=== PATIENT | male | born 1965 | race Caucasian/White ===

== ENCOUNTER 2019-07-16 23:16 | Emergency (ER) | payer MEDICARE, OTHER, SELFPAY ==
[2019-07-16 23:20] VITALS: BP 157/96; PULSE 84; RESP 18; TEMP 36.1; O2SAT 95; BMI 42.7
[2019-07-17 00:27] VITALS: BP 149/86; PULSE 71; RESP 18; O2SAT 92
--- NOTE | 2019-07-17 00:51 | ED_ITS ---
HPI - General Adult General: Chief complaint: General Medical Stated complaint: Passing blood Time Seen by Provider: 07/16/19 23:44 History of Present Illness: HPI narrative: Patient is a 54-year-old male comes in in the ED with constipation and stool. He said he noticed this yesterday and he has to strain a lot to have a bowel movement. He does have a history of hemorrhoids. He describes the blood in stool red colored and on toilet paper when he wipes. Patient states that he eats a lot of cheese. Patient denies any fever, chills, nausea, vomiting, chest pain, shortness of breath, dysuria, hematuria, upper respiratory symptoms, numbness or weakness to extremities. Patient states he has 2 hernias in his abdomen that he has seen a doctor about it and they will not do surgery until he loses some weight. He states those hernias have not caused him any issues or problems. Review of Systems General: Reports: 10 or more systems reviewed and unremarkable except in HPI and below PFSH ED PFSH: Statuses (acute, chronic, etc) shown below reflect problem list status as previously entered and may not be historically accurate Social History Smoking and tobacco status: current every day smoker Physical Exam Const: COMMON NORMALS: oriented x3 HENMT: COMMON NORMALS: normocephalic HEAD & SCALP: normocephalic MOUTH: oral and palatal mucosa normal THROAT: posterior oropharynx normal and uvula midline Neck/C-Spine: COMMON NORMALS: supple GENERAL: Yes normal visual inspection Resp: COMMON NORMALS: normal respiratory effort, no retractions, no use of accessory muscles and clear to auscultation bilaterally AUSCULTATION: clear to auscultation bilaterally Cardio: COMMON NORMALS: regular rate, regular rhythm, S1 normal heart sound, S2 normal heart sound, no gallops, no clicks, no murmurs and peripheral pulses 2+ throughout RATE: regular rate RHYTHM: regular rhythm HEART SOUNDS: S1 normal and S2 normal PERIPHERAL PULSES: pulses 2+ throughout GI: COMMON NORMALS: normal to inspection, nondistended, normoactive bowel sounds, soft to palpation, non-tender and no masses INSPECTION: Yes central obesity PALPATION: Yes soft OTHER: Patient has 2 hernias on his abdomen. One is on the right side the abdomen and the other one right lower abdomen. not painful upon palpation and reducible. : COMMON NORMALS: Yes no CVA tenderness BLADDER/KIDNEY EXAM: Yes no CVA tenderness Back/Pelvis: COMMON NORMALS: no CVA tenderness Extremity: COMMON NORMALS: normal to inspection Neuro: COMMON NORMALS: oriented x3 and moves all extremities Skin: COMMON NORMALS: no rashes or lesions noted GENERAL SKIN EXAM: no rashes or lesions noted Course Vital Signs: Vital signs: Vital Signs Temperature 97.9 F 07/17/19 04:22 Pulse Rate 74 07/17/19 04:22 Respiratory Rate 18 07/17/19 04:22 Blood Pressure 144/99 07/17/19 04:22 Pulse Oximetry 92 07/17/19 04:22 MDM - General Adult Lab Data: Attestation: I reviewed the patient's lab results. Labs: Lab Results 07/17/19 07/17/19 07/17/19 Range/Units 01:01 01:01 01:50 WBC 14.9 H (4.0-10.0) 10^3/ uL RBC 5.36 H (4.1-5.3) 10^6/u L Hgb 14.9 (11.7-16.6) g/dL Hct 45.5 (42.0-52.0) % MCV 84.9 (80-94) fL MCH 27.8 L (28.0-34.0) pg MCHC 32.7 (30.0-36.0) g/dL RDW 11.8 L (12.1-15.1) % Plt Count 204 (130-400) 10^3/c mm MPV 10.8 H (7.4-10.4) fL Neut % (Auto) 73.9 % Lymph % (Auto) 19.0 % [place] % (Auto) 6.2 % Eos % (Auto) 0.2 % Baso % (Auto) 0.3 % Neut # (Auto) 11.1 H (1.8-7.7) 10^3/u L Lymph # (Auto) 2.8 (0.8-4.8) 10^3/u L [place] # (Auto) 0.9 (0.2-0.9) 10^3/u L Eos # (Auto) 0.0 (0.0-0.8) 10^3/u L Baso # (Auto) 0.0 (0.0-0.1) 10^3/u L Nucleated RBC % (a uto) 0 % Nucleated RBCs # 0.0 /100WBC Sodium 135 L (136-145) mmol/L Potassium 4.1 (3.5-5.1) mmol/L Chloride 100 (98-107) mmol/L Carbon Dioxide 22 (22-29) mmol/L Anion Gap 17.1 (5-19) BUN 17 (6-20) mg/dL Creatinine 1.0 (0.7-1.2) mg/dL GFR Calculation 77.3 L (90-130) mL/min Glucose 181 H (74-109) mg/dL Calcium 9.8 (8.6-10.0) mg/Dl Total Bilirubin 0.6 (0.15-1.2) mg/dL AST 12 (0-40) U/L ALT 19 (0-41) U/L Alkaline Phosphata se 85 (40-130) IU/L Total Protein 6.7 (6.6-8.7) g/dL Albumin 4.3 (3.5-5.2) g/dL Globulin 2.4 (1.3-4.6) g/dL Stool Occult Blood Positive H (Negative) Discharge Plan Discharge Patient Disposition: Home, Self-Care Clinical Impression: Constipation in male Condition: Stable Prescriptions: No Action albuterol sulfate 2.5 mg /3 mL (0.083 %) solution for nebulization RF: 0 amlodipine 10 mg tablet RF: 0 atorvastatin 40 mg tablet RF: 0 bupropion HCl 150 mg tablet extended release 24 hr PO RF: 0 gabapentin 600 mg tablet RF: 0 glipizide 10 mg tablet RF: 0 hydrocodone-acetaminophen 10-325 mg tablet RF: 0 hydroxyzine HCl 50 mg tablet RF: 0 irbesartan 150 mg tablet RF: 0 Januvia 100 mg tablet RF: 0 lidocaine 5 % adhesive patch,medicated RF: 0 Lumigan 0.01 % drops RF: 0 metoprolol succinate 25 mg tablet extended release 24 hr PO RF: 0 metoprolol succinate 50 mg tablet extended release 24 hr PO RF: 0 montelukast 10 mg tablet RF: 0 trazodone 50 mg tablet RF: 0 tamsulosin 0.4 mg capsule PO RF: 0 triamterene-hydrochlorothiazid 37.5-25 mg tablet RF: 0 Ventolin HFA 90 mcg/actuation HFA aerosol inhaler INHALATION RF: 0 Discharge Orders: Discharge Order (Routine); Ordered 07/17/19 Ordered By: Ivan Patino Referrals: Jose Montero APN [Primary Care Provider] - Discharge Diet: Regular Discharge Activity: Resume usual activity Activity Restrictions/Additional Instructions: Follow-up with primary care doctor in 5-7 days for reevaluation. Purchase [id number] MiraLAX and take daily to help normalize stools. I'm going to send you home with some magnesium citrate To help with bowel movements. Try to eat a healthy diet of fresh fruits and vegetables along with other high-fiber foods. Cutdown on your cheese intake. Drink plenty of fluids. Discharge Date/Time: 07/17/19 04:24 Coding Level of Care Code ED Air Defense Control Officer for Kalpesh Aldana
[2019-07-17 01:09] LABS: Basophils % 0.3 %; Eosinophils % 0.2 %; Hematocrit 45.5 % (42.0-52.0); Hemoglobin 14.9 g/dL (11.7-16.6); Lymphocytes # 2.8 10^3/uL (0.8-4.8); Mean Corpuscular HGB Conc 32.7 g/dL (30.0-36.0); Mean Corpuscular Hemoglobin 27.8 pg (28.0-34.0); Mean Corpuscular Volume 84.9 fL (80-94); Mean Platelet Volume 10.8 fL (7.4-10.4); Monocytes # 0.9 10^3/uL (0.2-0.9); Monocytes % 6.2 %; Neutrophils # 11.1 10^3/uL (1.8-7.7); Neutrophils % 73.9 %; Nucleated Red Blood Cells % 0 %; Platelet Count 204 10^3/cmm (130-400); Red Blood Count 5.36 10^6/uL (4.1-5.3); Red Cell Distribution Width 11.8 % (12.1-15.1); White Blood Count 14.9 10^3/uL (4.0-10.0)
[2019-07-17 01:35] LABS: Alanine Aminotransferase 19 U/L (0-41); Albumin Level 4.3 g/dL (3.5-5.2); Alkaline Phosphatase 85 IU/L (40-130); Anion Gap 17.1 (5-19); Aspartate Amino Transferase 12 U/L (0-40); Blood Urea Nitrogen 17 mg/dL (6-20); Calcium 9.8 mg/Dl (8.6-10.0); Carbon Dioxide 22 mmol/L (22-29); Chloride 100 mmol/L (98-107); Globulin 2.4 g/dL (1.3-4.6); Glomerular Filtration Rate 77.3 mL/min (90-130); Glucose 181 mg/dL (74-109); Potassium 4.1 mmol/L (3.5-5.1); Sodium 135 mmol/L (136-145); Total Bilirubin 0.6 mg/dL (0.15-1.2); Total Protein 6.7 g/dL (6.6-8.7)
--- NOTE | 2019-07-17 01:57 | PC.NURSE ---
Stool sample collected, julissa red blood. PA shown.
--- NOTE | 2019-07-17 02:44 | XR_ITS ---
WS: [id number] ABDOMEN KUB CLINICAL INFORMATION: Constipation and abdominal pain COMPARISON: None. FINDINGS: Lower thoracic spinal stimulator. Exam limited due to body habitus. Bowel gas pattern appears unremar kable. Pelvic phleboliths. Degenerative arthritis lumbar spine. Moderate degenerative arthritis both hips. XR/XR KUB portable [id number] Impression: Unremarkable bowel gas pattern
[2019-07-17 03:39] LABS: Occult Blood Stool Positive (Negative)
[2019-07-17] MEDS: magnesium citrate Btl 296 mL 150 ML PO (04:21)
[2019-07-17 04:22] VITALS: BP 144/99; PULSE 74; RESP 18; TEMP 36.6; O2SAT 92
== END 2019-07-17 04:24 | disposition home or self-care (01) ==
PROVIDERS: Emergency Provider Physician Assistant; Family Provider Nurse Practitioner Family; PCP Nurse Practitioner Family
DX: K59.00 Constipation, unspecified (principal); Z79.84 Long term (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 of oral hypoglycemic drugs; F17.210 Nicotine dependence, cigarettes, uncomplicated
CPT/HCPCS: 74018; 80053; 82270; 85025; 99281

== ENCOUNTER 2019-07-23 13:36 | Emergency (ER) | payer MEDICARE, OTHER, SELFPAY ==
[2019-07-23 13:39] VITALS: BP 121/84; PULSE 63; RESP 18; TEMP 36.8; O2SAT 94; BMI 42.7
--- NOTE | 2019-07-23 13:52 | PC.NURSE ---
To treatment room 15
--- NOTE | 2019-07-23 13:56 | ED_ITS ---
Entered by Arelis Sweeney, acting as scribe for HPI - Abdominal Pain General: Chief Complaint: Abdominal Pain Stated Complaint: no bowel movement Time Seen by Provider: 07/23/19 13:51 Source: patient and family Mode of arrival: ambulatory Limitations: no limitations History of Present Illness: HPI narrative: 54 yo male presents with constipation. pt states this started about 10 days ago. pt has had abdomen tenderness, cramps. pt states he was seen for the same symptoms and they gave him medications to drink but no relief. pt states he has had a few small hard BM's but it had blood and water with it. pt denies any other symptoms . pt states he takes a large amount of Hydrocodone for his chronic pain and feels that is the cause of constipation. MD elicited complaint: abdominal pain Onset (ago): week(s) (1 week ago) Pain Consistency: constant Severity: moderate Quality: sharp Exacerbating factors: bowel movement Relieving factors: nothing Associated Symptoms: Reports change in bowel habits, constipation, GI cramping and hematochezia; Denies chills and fever(s) Treatments prior to arrival: other (Amitiza prescription laxative) Review of Systems General: Reports: 10 or more systems reviewed and unremarkable except in HPI and below Const: Denies: fever or chills Eyes: Denies: blurry vision or eye discharge ENMT: Denies: throat pain, nasal congestion or facial/sinus pain Card: Denies: chest pain or shortness of breath on exertion Resp: Denies: shortness of breath, productive cough or non-productive cough GI: Reports: abdominal pain, constipation, cramping, change in bowel habits and blood in stool Musc: Reports: back pain (chronic and unchanged); Denies: neck pain, extremity pain or extremity swelling Skin/Breast: Denies: rash, redness or sores Neuro: Denies: headache, numbness in extremities, weakness in extremities or dizziness Psych: Denies: anxiety or depression Endo: Denies: excessive urination or excessive thirst Esteban/Lymph: Denies: easy bruising, petechiae or enlarged lymph nodes All/Imm: Denies: hives or acute wheezing PFSH ED PFSH: Statuses (acute, chronic, etc) shown below reflect problem list status as previously entered and may not be historically accurate Social History Smoking and tobacco status: current every day smoker Physical Exam Const: COMMON NORMALS: no apparent distress, oriented x3, no limitations, healthy appearing, alert and well nourished GENERAL APPEARANCE: cooperative, comfortable, well kempt and well developed ORIENTATION/CONSCIOUSNESS: Yes awake, Yes oriented to person, Yes oriented to place and Yes oriented to time HENMT: COMMON NORMALS: normocephalic, head/scalp atraumatic, hearing grossly normal bilaterally, external ears normal, external nose normal and moist oral mucous membranes HEAD & SCALP: normocephalic and atraumatic FACE & SINUS: normal facial exam and face symmetric NOSE: external nose normal EXTERNAL EAR: Yes external ears normal and Yes external ear abnormal Eye: COMMON NORMALS: EOMs intact bilaterally and conjunctivae normal GENERAL EYE: normal appearance of both eyes ALIGNMENT: Yes alignment normal EYELID: eyelids normal CONJUNCTIVA: Yes conjunctivae normal SCLERA: sclerae normal Neck/C-Spine: COMMON NORMALS: full ROM and no lymphadenopathy GENERAL: Yes normal visual inspection CERVICAL SPINE: Yes cervical ROM normal Lymph: LYMPHATIC: no lymphadenopathy noted Chest: COMMONS NORMALS: inspection of chest normal CHEST: Yes symmetrical chest wall rise Resp: COMMON NORMALS: normal respiratory effort, no use of accessory muscles and clear to auscultation bilaterally EFFORT & INSPECTION: Yes able to speak in complete sentences, Yes symmetric chest movement and No respiratory distress AUSCULTATION: clear to auscultation bilaterally Cardio: COMMON NORMALS: regular rate and regular rhythm RATE: regular rate RHYTHM: regular rhythm PERIPHERAL PULSES: radial pulses present GI: COMMON NORMALS: normal to inspection, nondistended, normoactive bowel sounds, soft to palpation, non-tender and no hepatosplenomegaly AUSCULTATION: Yes normoactive bowel sounds PALPATION: Yes soft and Yes no hepato splenomegaly RECTAL EXAM: Yes normal sphincter tone, Yes heme negative stool, Yes visual inspection abnormal and No fecal impaction : COMMON NORMALS: Yes no CVA tenderness BLADDER/KIDNEY EXAM: Yes no CVA tenderness Back/Pelvis: COMMON NORMALS: no CVA tenderness THORACIC SPINE/UPPER BACK: No pain with ROM LUMBAR SPINE/LOWER BACK: No pain with ROM Extremity: COMMON NORMALS: normal to inspection, full ROM, normal capillary refill and no pedal edema GENERAL: Yes normal exam except as noted Neuro: BARNEY COMA SCALE: GCS not evaluated COMMON NORMALS: oriented x3, moves all extremities, no focal motor deficits and no sensory deficits noted SENSORIUM/ORIENTATION: Yes alert, Yes oriented to person, Yes oriented to place and Yes oriented to time SPEECH: speech normal GAIT: Yes normal gait Psych: COMMON NORMALS: mental status grossly normal, thought process normal, cooperative, affect normal and speech normal APPEARANCE: Yes grossly normal and Yes well kempt ATTITUDE: Yes calm ACTIVITY/MOTOR BEHAVIOR: Yes appropriate eye contact SPEECH: Yes normal speech THOUGHT PROCESS: normal thought process THOUGHT CONTENT: Yes normal thought content ATTENTION/CONCENTRATION: Yes attention grossly intact MEMORY/COGNITION: Yes memory grossly intact and Yes cognition grossly intact INSIGHT: insight good JUDGEMENT: judgment good Skin: COMMON NORMALS: no rashes or lesions noted, skin turgor normal and no petechiae GENERAL SKIN EXAM: no rashes or lesions noted and turgor normal RASHES: no rashes TRAUMA: no lacerations or abrasions HAIR: normal NAILS: normal Course ED course: Patient has chronic pain and takes 6-8 hydrocodone 10/325 tablets a day. For the last 10 days or so he has been constipated with almost no stool output. He is had severe abdominal cramps. When he is able to have a bowel movement he is having very small amounts of loose stool, sometimes bloody. He has seen his primary care provider who placed him on a prescription laxative, lubiprostone. He denies any fever, no vomiting. On exam, he does not appear to have a surgical abdomen. Chaperoned, rectal exam was performed. There is no evidence of a fecal impaction within reach. I do not feel the patient needs to come into the hospital. Based on his current exam I do not feel he needs further labs or imaging. Patient was given 12 mg of Relistor SubQ. He will be discharged home with instructions for fleets enema and MiraLAX use today. The patient was reexamined and I have informed them of all their test results and diagnoses. I have given the patient instructions regarding their diagnosis and expectations. I have recommended they follow-up with their primary care provider or another physician or specialist of their choice and stressed the importance of this follow-up. I have explained to the patient that emergent conditions may arise and to return to the closest Emergency Department for new, worsening, or any persistent problems. The patient has been instructed to take all medications (if any) as prescribed. The patient verbalizes understanding of the above information as well as discharge instructions and is ready for discharge. . Vital Signs: Vital signs: Vital Signs Temperature 98.2 F 07/23/19 13:39 Pulse Rate 70 07/23/19 14:49 Respiratory Rate 15 07/23/19 14:49 Blood Pressure 121/84 07/23/19 13:39 Pulse Oximetry 97 07/23/19 14:49 MDM - Abdominal Pain Differential Diagnosis: Differential diagnosis abdominal pain: Likely abdominal pain, constipation, diverticulitis and small bowel obstruction Medical Records: Attestation: I reviewed the patient's medical records. Lab Data: Attestation: I reviewed the patient's lab results. Discharge Plan Discharge Patient Disposition: Home, Self-Care Clinical Impression: Constipation in male Condition: Stable Prescriptions: No Action albuterol sulfate 2.5 mg /3 mL (0.083 %) solution for nebulization RF: 0 amlodipine 10 mg tablet RF: 0 atorvastatin 40 mg tablet RF: 0 bupropion HCl 150 mg tablet extended release 24 hr PO RF: 0 gabapentin 600 mg tablet RF: 0 glipizide 10 mg tablet RF: 0 hydrocodone-acetaminophen 10-325 mg tablet RF: 0 hydroxyzine HCl 50 mg tablet RF: 0 irbesartan 150 mg tablet RF: 0 Januvia 100 mg tablet RF: 0 lidocaine 5 % adhesive patch,medicated RF: 0 Lumigan 0.01 % drops RF: 0 metoprolol succinate 25 mg tablet extended release 24 hr PO RF: 0 metoprolol succinate 50 mg tablet extended release 24 hr PO RF: 0 montelukast 10 mg tablet RF: 0 trazodone 50 mg tablet RF: 0 tamsulosin 0.4 mg capsule PO RF: 0 triamterene-hydrochlorothiazid 37.5-25 mg tablet RF: 0 Ventolin HFA 90 mcg/actuation HFA aerosol inhaler INHALATION RF: 0 Referrals: Jose Montero APN [Primary Care Provider] - Discharge Diet: Usual diet Discharge Activity: Resume usual activity Patient Instructions: Constipation - Adult Activity Restrictions/Additional Instructions: Resume your home medications (if any). Follow-up with your primary care provider within the next 3-5 days. Follow-up with specialist if it was recommended. Return to the Emergency Department for worsening conditions or other concerning symptoms. You do not have to complete the entire process listed below. If you have good results after 4 hours you may stop. Purchase a large container of MiraLAX. Purchase 2 fleets enemas. These can be found at your local pharmacy, [employer] or [facility]. Use one fleets enema as directed on the package. Mix a dose of MiraLAX as directed on the package and drink it over 15 minutes. Repeat this every hour for a total of 4 doses. If you have good results after this, you may stop. If not, repeat the process starting with the fleets enema. Drink 4 more doses of the MiraLAX over the next 4 hours. If this does not relieve your symptoms by morning, follow-up with your primary care provider or return to the ER for worsening symptoms. Discharge Date/Time: 07/23/19 14:50 Coding Level of Care Code ED Rail Bender for Chg Fwd Exam Problem Focused The documentation recorded by the Patel villaseñor Bridget Annette, accurately reflects the service I personally performed and the decisions made by me, Umberto Sanchez MD Jul 23, 2019 13:36
[2019-07-23] MEDS: methylnaltrexone 12 /0.6 mL INJ 12 MG SUBCUT (14:14)
[2019-07-23 14:49] VITALS: PULSE 70; RESP 15; O2SAT 97
== END 2019-07-23 14:50 | disposition home or self-care (01) ==
PROVIDERS: Emergency Provider Emergency Medicine; Family Provider Nurse Practitioner Family; PCP Nurse Practitioner Family
DX: K59.00 Constipation, unspecified (principal); Z79.84 Long term (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 of oral hypoglycemic drugs; F17.210 Nicotine dependence, cigarettes, uncomplicated
CPT/HCPCS: 96372; 99281; J2212

== ENCOUNTER 2019-11-21 14:00 | Outpatient (CLI) | payer MEDICARE, OTHER, SELFPAY ==
--- NOTE | 2019-11-21 | XRR_ITS ---
PROCEDURE INFORMATION: Exam: XR Abdomen, 2 Views Exam date and time: 11/21/2019 2:28 PM Age: 54 years old Clinical indication: Constipation; Abdominal pain; Prior surgery; Surgery date: 6+ months; Surgery type: Stimulator; Additional info: Constipation, abdomen pain x 2 months TECHNIQUE: Imaging protocol: XR of the abdomen. Views: 2 Views. COMPARISON: CR XR KUB portable [id number] 07/17/2019 3:01 AM FINDINGS: Tubes, catheters and devices: Thoracic spinal stimulator present. Heart/Mediastinum: The cardiac silhouette is not enlarged. The mediastinal contours are normal. Lungs: No pneumonia or pulmonary edema. Pleural space: No pleural effusion or pneumothorax. Gastrointestinal tract: Gas present in the stomach, small bowel, and colon. However, there appears to be a gas-filled distended loop of small bowel on the left. Intraperitoneal space: No pneumoperitoneum. Bones/joints: Right glenohumeral joint degeneration. Old, healed left clavicular fracture. Old anterior left rib fracture. Multilevel disc degeneration in the lumbar spine. XR/XR acute abdomen series [id number] IMPRESSION: Gas-filled distended loop of small bowel in the left abdomen. Given the history, consider CT ABDOMEN/PELVIS.
== END 2019-11-21 14:01 | disposition home or self-care (01) ==
LOC: RAD 14:06
PROVIDERS: PCP Nurse Practitioner Family; Visit Provider Nurse Practitioner Family
DX: K59.00 Constipation, unspecified (principal); R10.9 Unspecified abdominal pain
CPT/HCPCS: 74022

== ENCOUNTER 2019-12-01 13:07 | Outpatient (CLI) | payer MEDICARE, OTHER, SELFPAY ==
--- NOTE | 2019-12-01 13:24 | CT_ITS ---
WS: [id number] CT ABDOMEN PELVIS TECHNIQUE: Contrast-enhanced CT of the abdomen and pelvis with coronal and sagittal reformatted image s. CLINICAL INFORMATION: ABDOMINAL PAIN, CONSTIPATION, ABNORMAL XRAYS COMPARISON: CT September 13, 2018 DLP: 1183.[address] scans at [facility] use at least one of these dose optimization techniques: automat ed exposure control; mA and/or kV adjustment per patient size (includes targeted exams where dose is matched to clinical indication); or iterative reconstruction. FINDINGS: Diffuse fatty infiltration of the liver. Normal gallbladder. Normal portal vein and splenic vein. Nor mal GE junction. Lung bases are well aerated. Adrenal glands are normal. No hydronephrosis. Normal sp abena and pancreas. No periaortic or pelvic lymphadenopathy. No inguinal lymphadenopathy. A few air-fluid levels in small bowel within the right lower quadrant. Mild swirling along the mesen teric root somewhat prominent and can be seen with internal hernias. Recommend interval follow-up to assess for developing small bowel obstruction or entrapped hernia. Colon is normal in appearance and decompressed. No free fluid in the pelvis. No free air or pneumatosis. Partially visualized spinal stimulator extending off the [id number]. Low-lying cecum cecum in the pelvis. A few prominent bart hepatis lymph nodes likely reactive are unchanged. Stable previously described omental fat herniation posterior lateral abdominal wall is unchanged in appearance. No herniated nick l. Notified Jose Montero APN at 12/01/2019 4:[address]/CT abdomen pelvis w con* [id number] IMPRESSION: 1. Diffuse fatty infiltration of the liver. 2. A few dilated loops of small bowel in the right lower quadrant with air-flu id levels. Associated swirling along the mesenteric root can be seen with inter nal hernias. Recommend short interval follow-up to assess for developing small bowel obstruction or entrapped internal hernia. 3. No pneumatosis or free air. 4. Previously described right posterior lateral omental fat herniation is unch anged. No herniated bowel. 5. Prominent lymph nodes bart hepatis nonspecific but likely reactive and unc hanged. 6. Colon is decompressed. Low-lying cecum in the right lower quadrant.
[2019-12-01] MEDS: iohexol 300 mg/mL 50 mL Btl PO (13:48)
[2019-12-01] MEDS: iohexol 300 mg/mL 100 mL Btl IV (14:58)
== END 2019-12-01 13:08 | disposition home or self-care (01) ==
LOC: RADWPI 13:16
PROVIDERS: PCP Nurse Practitioner Family; Visit Provider Nurse Practitioner Family
DX: R10.9 Unspecified abdominal pain (principal); K59.00 Constipation, unspecified; R93.89 Abnormal findings on diagnostic imaging of other specified body structures; K76.0 Fatty (change of) liver, not elsewhere classified
CPT/HCPCS: 74177; Q9967

== ENCOUNTER 2019-12-20 13:53 | Outpatient (CLI) | payer MEDICARE, OTHER, SELFPAY ==
--- NOTE | 2019-12-20 14:15 | USCV_ITS ---
Deejay Gonzalez Age: 54 Gender: M : 1965 Exam Date: 12/20/2019 14:10 Ordering Phys: Technologist: Kaye Cobb [place] [facility] [place]: TRANSIENT BILATERAL BLINDNESS THAT RESOLVED Risk Factors: Previous Vascular Surgery: Right Brachial BP: / Left Brachial BP: / Right Left Velocity (cm/s) Spectral Plaque Velocity (cm/s) Spectral Plaque Syst/Diast Broadening Syst/Diast Broadening 99.20/ 16.50 Prox CCA 65.50 / 18.70 49.10/ 14.40 Mid CCA 54.60 / 16.10 51.80/ 16.00 Distal CCA 57.70 / 21.70 50.00/ 19.70 Prox ICA 36.40 / 12.30 Hetro 58.30/ 28.50 Mid ICA 48.20 / 21.10 58.30/ 26.90 Distal ICA 44.40 / 22.00 39.80 ECA 76.30 Hetro 1.19 ICA/CCA 0.88 Antegrade Vertebral Antegrade 32.20/ 13.10 cm/s 27.10/ 14.40 cm/s Tri Subclavian Tri 105.1 94.40 0 FINDINGS Minimal plaques of the bifurcations bilaterally Intimal thickening in the common carotid arteries bilaterally Some scattered plaques in the left common carotid artery Antegrade flow in the vertebral arteries bilaterally Mild Doppler flow velocities in the subclavian and external carotid arteries arteries bilaterally CONCLUSIONS Minimal plaques at the bifurcations bilaterally Intimal thickening in the common carotid arteries bilaterally. No significant stenosis, based on the above findings. Dr Vicki Villarreal MD [facility] (Electronically Signed) Final Date: 21 December 2019 08:58 S
== END 2019-12-20 13:54 | disposition home or self-care (01) ==
LOC: US 13:54
PROVIDERS: PCP Nurse Practitioner Family; Visit Provider Internal Medicine Cardiovascular Disease
DX: H53.123 Transient visual loss, bilateral (principal)
CPT/HCPCS: 93880

== ENCOUNTER 2019-12-27 09:25 | Day surgery (SDC) | payer MEDICARE, OTHER, SELFPAY ==
[2019-12-25 13:16] VITALS: BMI 41.5
[2019-12-27 09:47] VITALS: BP 138/82; PULSE 63; RESP 18; TEMP 36.2; O2SAT 94
[2019-12-27] MEDS: sodium chloride 0.9% 1,000 ML 30 ML IV (10:04)
[2019-12-27 10:11] LABS: Glucose Point of Care 199 mg/dL (70-110)
--- NOTE | 2019-12-27 10:12 | ANES.PREANE2 ---
Pre-Anesthetic Assessment Pre-Anesthetic Assessment: Height/Weight: Height 1.85 m Weight 142.882 kg Temp Pulse Resp BP Pulse Ox 97.1 F L 63 18 138/82 94 12/27/19 09:47 12/27/19 09:47 12/27/19 09:47 12/27/19 09:47 12/27/19 09:47 Preop Diagnosis: Screenig Colonsocope Proposed Procedure: Operation Date: 12/27/19 10:50 Proposed Procedures p Colonoscopy(Not Applicable) - Harlan Posadas MD Familial anesthetic complications: 1999 - had to defibrillate Was Beta Gabbi taken within 24 hours: Yes Last intake: Intake Last Liquid Date 12/26/19 Last Liquid Time 21:30 Last Solid Date 12/25/19 Last Solid Time 22:30 Social: Social History: Tobacco and No alcohol Exam: Pre-Anes Outpt Exam: alert, oriented x 3, clear to auscultation bilaterally and regular rate & rhythm Airway: Cervical ROM: WNL MP: 4 Dentition: Full Additional comments: larege tongue and neck Pulmonary: Pulmonary: COPD, SINHA and Sleep apnea (CPAP) CV/HEM: CV/HEM: HTN : : None reported Hepatic: Hepatic: None reported Metabolic: Metabolic: DM, Hyperlipidemia and Morbid obesity Neuropsych: Comments: blurry vision for 45 minutes prompting Anesthetic Plan: ASA status: 3 Anesthesia: MAC Other: Patient willing to try just versed and fentanyl with propofol as necessary. he was awake for his previous colonoscpy 10 years ago Risk of > 500 ml blood loss (7ml/kg in children): No Other Pertinent Information: worked up by cardiology, last saw kaila in november. Negative holter monitor, negative carotids Meds/Allergies Current Medications: Current Medications Generic Name Dose Route Start Last Admin Trade Name Freq PRN Reason Stop Dose Admin Sodium Chloride 1,000 mls @ 30 ml s/hr 12/27/19 09:45 12/27/19 10:04 Sodium Chloride 0.9% IV 12/28/19 09:44 30 mls/hr .Q24H KAREL Administration PFSH Anesthesia PFSH: Medical History Change in bowel habits COPD (chronic obstructive pulmonary disease) Diabetes Hyperlipidemia Obesity ANGIE on CPAP Syncope Tobacco abuse Transient blindness of both eyes Family History Grandmother CAD (coronary artery disease) MATERNAL Mother Diabetes Denies family history of Anesthesia complication Bleeding disorder Social History Smoking and tobacco status: current every day smoker cigarettes Packs smoked per day: 1 Marital status: service: No Current occupational status: disabled Data Anesthesia Other Labs: Laboratory Results - last 48 hr 12/27/19 10:07 POC Glucose 199 Cardiac Studies: No Data to Display
--- NOTE | 2019-12-27 11:10 | W.PM.OPSUD ---
Surgery/Procedure H&P Update DATE OF PROCEDURE: December 27, 2019 DATE H&P PERFORMED: 12/11/19 H&P UPDATE INFORMATION: I have reviewed H&P completed within last 30 days, I have examined patient prior to procedure and No changes to prior documentation PREOP DIAGNOSIS: Screenig Colonsocope PRIMARY INDICATION FOR PROCEDURE: The same PLANNED PROCEDURE: Operation Date: 12/27/19 10:50 Proposed Procedures p Colonoscopy(Not Applicable) - Harlan Posadas MD
[2019-12-27 12:09] VITALS: BP 159/69; PULSE 65; RESP 16; TEMP 37.4; O2SAT 94
[2019-12-27 12:25] VITALS: BP 119/58; PULSE 56; RESP 18; O2SAT 95
== END 2019-12-27 12:41 | disposition home or self-care (01) ==
PROVIDERS: PCP Nurse Practitioner Family; Visit Provider Surgery
PROC: 0DJD8ZZ Inspection of Lower Intestinal Tract, Via Natural or Artificial Opening Endoscopic (ICD-10-PCS; CPT 45378; principal; 2019-12-27 10:45)
DX: Z12.11 Encounter for screening for malignant neoplasm of colon (principal); K62.0 Anal polyp; I10 Essential (primary) hypertension; E11.9 Type 2 diabetes mellitus without complications; E78.5 Hyperlipidemia, unspecified; E66.01 Morbid (severe) obesity due to excess calories; Z68.41 Body mass index [BMI] 40.0-44.9, adult; G47.33 Obstructive sleep apnea (adult) (pediatric); Z82.49 Family history of ischemic heart disease and other diseases of the circulatory system; Z83.3 Family history of diabetes mellitus; F17.210 Nicotine dependence, cigarettes, uncomplicated; J44.9 Chronic obstructive pulmonary disease, unspecified
CPT/HCPCS: 12345; 36416; 45385; 82962; 88304; J2001; J2704; J3010; J7030

== ENCOUNTER 2020-03-22 09:12 | Outpatient (CLI) | payer MEDICARE, OTHER, SELFPAY ==
--- NOTE | 2020-03-22 09:20 | ECG_ITS ---
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 Interpretive Statements NAME OF STUDY: LEXISCAN SESTAMIBI STRESS TEST INDICATION: [Dyspnea, ] Procedure: At the baseline, the blood pressure was 151/97 mmHg,with a heart rate of 70 bpm. The electrocardiogram showed normal sinus rhythm with right bundle branch block. Lexiscan was infused over a period of 20 seconds. A total of 0.4 mg of Lexiscan was infused. Stress phase was continued for a total of 5 minutes. Heart rate at the end of stress phase was 81 bpm. Blood pressure was 190/101 mmHg. The EKG at the peak infusion revealed sinus rhythm with no significant changes. Sestamibi was injected 20 seconds after the Lexiscan infusion. Blood pressure at the end of recovery phase was 164/95 mmHg. Heart rate was 77 bpm Conclusion: 1. Normal EKG response to Lexiscan infusion. 2. No Lexiscan induced chest pain or cardiac arrhythmia. 3. Normal heart rate and blood pressure response. 4. Sestamibi/sestamibi perfusion scan pending; see separate report. Electronically Signed On 03-29-2020 17:14:28 CDT by Fausto Leos M.D. [id number]
--- NOTE | 2020-03-22 09:24 | NMCV_ITS ---
NM oskar perf SPECT r/s* [id number] Deejay Gonzalez Age: 55 Gender: M : 1965 Exam Date: 03/22/2020 10:18 Ordering Phys: Kylah Garcia SPEECH THERAPIST EARLY INTERVENTION- SPEECH THERAPIST EARLY INTERVENTION Technologist: LAVINIA Marinelli Exam Location: [facility] Indications: Syncope STRESS TEST Please see separate stress test report in [facility] for full findings IMAGE PROTOCOL Rest/Stress 1 Lexiscan Day Radiopharmaceutical Dose (mCi) Administration Site Administered by Rest: Tc-99m 10.9 IV LAVINIA Marinelli Sestamibi Stress:Tc-99m 32.9 IV LAVINIA Marinelli Sestamibi Rest: 22-Mar-2020 60 Discovery 630 Stress: 22-Mar-2020 45 Discovery 630 0.4mg Lexiscan. Images obtained in supine and prone position. SPECT RESULTS Technical Quality: Good Raw Data Analysis: Soft tissue attenuation Image Corrections: Patient motion artifact -partial motion correction applied to stress supine images Summed Stress Score: 4 Summed Rest Score: 10 Summed Difference Score: 0 PERFUSION FINDINGS There is a large in size, fixed perfusion defect of the inferior wall. This could represent attenuation artifact as there is improvement on prone imaging. Versus prior infarct. Rest of the myocardium has homogenous tracer uptake without any reversible defect. FUNCTIONAL RESULTS (calculated via Gated SPECT) Stress Image LV EF (%): 59 Stress EDV (mL):128 TID: 0.86 Stress ESV (mL):53 FUNCTIONAL FINDINGS: There is normal left ventricular systolic function. IMPRESSIONS 1. Large in size, fixed perfusion defect in the inferior wall. This could represent attenuation artifact(improvement with prone imaging) versus prior infarct. There is no area of ischemia noted. 2. Normal LV systolic function is noted. Fausto Leos MD (Electronically Signed) Final Date: 24 March 2020 16:06 S
[2020-03-22 09:36] VITALS: BMI 42.0
[2020-03-22] MEDS: regadenoson 0.4 Mg/5 ml Syringe IVP (11:31)
[2020-03-22 11:36] VITALS: BP 164/95; PULSE 78
== END 2020-03-22 09:13 | disposition home or self-care (01) ==
LOC: CDL 09:14
PROVIDERS: PCP Nurse Practitioner Family; Visit Provider Nurse Practitioner Family
DX: R55 Syncope and collapse (principal)
CPT/HCPCS: 78452; 93017; A9500; J2785

== ENCOUNTER → 2020-07-03 14:52 | Outpatient (BNVA) | payer MEDICARE, OTHER, SELFPAY | PROVIDERS: PCP Nurse Practitioner Family; Visit Provider Podiatrist Foot & Ankle Surgery | DX: M79.671 Pain in right foot (principal); M79.672 Pain in left foot | CPT/HCPCS: 73630 ==

== ENCOUNTER → 2020-09-05 14:17 | Outpatient (BNVA) | payer MEDICARE, OTHER, SELFPAY | PROVIDERS: PCP Nurse Practitioner Family; Visit Provider Internal Medicine | DX: R53.83 Other fatigue (principal); R55 Syncope and collapse; R07.9 Chest pain, unspecified; I10 Essential (primary) hypertension; E78.5 Hyperlipidemia, unspecified; E11.9 Type 2 diabetes mellitus without complications | CPT/HCPCS: 84443 ==

== ENCOUNTER 2020-10-02 11:03 | Outpatient (CLI) | payer MEDICARE, OTHER, SELFPAY ==
--- NOTE | 2020-10-02 11:10 | CT_ITS ---
WS: [id number] CT NECK TECHNIQUE: Contrast-enhanced CT of the neck with coronal and sagittal reformatted images. CLINICAL INFORMATION: CHRONIC LARYNGITIS, PAIN IN THROAT COMPARISON: 2008 DLP: 1936.[address] scans at [facility] use at least one of these dose optimization techniques: automat ed exposure control; mA and/or kV adjustment per patient size (includes targeted exams where dose is matched to clinical indication); or iterative reconstruction. FINDINGS: Partially visualized intracranial contents are normal. Paranasal sinuses and mastoid air cells are we ll aerated. Parotid glands are normal. Normal submandibular glands. Some images degraded by dental be am hardening artifact. Tongue base appears normal. Normal parapharyngeal fat. Subglottic airway appea rs patent. Normal visualized thyroid gland. Mild emphysematous changes in the lung apices. No cervical lymphadenopathy. Moderate spondylitic walker ges cervical spine. Bilateral carotid bulb calcification. Numerous and a few prominent mediastinal and peribronchial lymph nodes the largest measuring 15 mm on the right. This may be reactive but nonspecific. This can be further evaluated with chest CT. CT/CT neck w con* [id number] IMPRESSION: 1. Normal salivary glands. 2. No evidence of supraglottic or glottic mass. 3. No cervical lymphadenopathy. 4. Paranasal sinuses and mastoid air cells are well aerated. 5. Moderate spondylitic changes cervical spine. 6. Mild bilateral carotid bulb calcification. 7. Several mediastinal and peribronchial lymph nodes the largest measuring 15 mm on the right. This may be reactive but nonspecific. This can be further eval uated with chest CT.
[2020-10-02] MEDS: iohexol 300 mg/mL 100 mL Btl IV (11:34)
== END 2020-10-02 11:04 | disposition home or self-care (01) ==
LOC: RADWPI 11:08
PROVIDERS: PCP Nurse Practitioner Family; Visit Provider Otolaryngology
DX: J37.0 Chronic laryngitis (principal); R07.0 Pain in throat; I65.23 Occlusion and stenosis of bilateral carotid arteries
CPT/HCPCS: 70491; Q9967

== ENCOUNTER 2020-10-18 14:25 | Inpatient (IN) | payer MEDICARE, OTHER, SELFPAY ==
[2020-10-18] VITALS (54 sets, daily range): BP systolic 105–174; BP diastolic 56–148; PULSE 67–90; RESP 13–25; TEMP 36.6–37; O2SAT 87–98; BMI 43.4
--- NOTE | 2020-10-18 14:57 | XR_ITS ---
WS: [id number] Portable AP upright chest, 10/18/2020 Clinical Data: cp Comparison: Portable chest, 01/17/2019. Findings: No nodules, masses or effusions are seen. The heart is enlarged. The pulmonary vascularity is not increased. No pneumonia or pneumothorax is seen. There is minimal atelectasis over the surface of the left diaphragm. The aortic arch and descending aorta are minimally tortuous. There is a monit or device over the central chest. There are monitor leads on the chest wall. XR/XR chest 1V portable [id number] Impression: Cardiomegaly and atherosclerosis.
--- NOTE | 2020-10-18 14:59 | ECG_ITS ---
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 Measurements Intervals [place] Rate: 76 P: FL: QRS: -39 QRSD: 164 T: 19 QT: 432 QTc: 486 Interpretive Statements ATRIAL FIBRILLATION INDETERMINATE AXIS RIGHT BUNDLE BRANCH BLOCK [120+ ms QRS DURATION, UPRIGHT V1, 40+ ms S IN I/aVL/V4/V5/V6] Compared to ECG 01/17/2019 16:31:19 Indeterminate axis now present Right bundle-branch block now present Sinus bradycardia no longer present T-wave abnormality no longer present Electronically Signed On 10-18-2020 21:00:30 CDT by Vicki Villarreal M.D. [id number]
--- NOTE | 2020-10-18 15:12 | PC.NURSE ---
patient denied any dizziness or chest pain at this time. no acute distress noted.
[2020-10-18 15:19] LABS: Basophils # 0.1 10^3/uL (0.0-0.1); Basophils % 0.5 %; Eosinophils # 0.2 10^3/uL (0.0-0.8); Eosinophils % 1.9 %; Hematocrit 45.4 % (42.0-52.0); Lymphocytes # 2.2 10^3/uL (0.8-4.8); Mean Corpuscular Hemoglobin 28.2 pg (28.0-34.0); Mean Corpuscular Volume 85.3 fL (80-94); Mean Platelet Volume 10.7 fL (7.4-10.4); Monocytes # 0.5 10^3/uL (0.2-0.9); Monocytes % 5.6 %; Neutrophils # 6.26 10^3/uL (1.8-7.7); Neutrophils % 67.6 %; Nucleated Red Blood Cells % 0 %; Platelet Count 187 10^3/cmm (130-400); Red Blood Count 5.32 10^6/uL (4.1-5.3); Red Cell Distribution Width 11.9 % (12.1-15.1); White Blood Count 9.3 10^3/uL (4.0-10.0)
[2020-10-18] MEDS: sodium chloride 0.9% 1,000 ML 999 ML IV (15:24)
--- NOTE | 2020-10-18 15:37 | ED_ITS ---
HPI - Syncope General: Chief Complaint: Syncope Stated Complaint: near syncope, dizzy Time Seen by Provider: 10/18/20 14:50 History of Present Illness: HPI narrative: The patient is a 55-year-old male with past medical history obesity, hypertension, diabetes, COPD comes to the ER complaining of near syncopal events in the past couple days. He says he has had them off and on for a number of days but the past 2 days yesterday he nearly passed out and today again he may very passed out at home. He did not lose consciousness either time but sometimes at home he does feel his heart racing and he put a pulse oximeter on which told him his heart rate was in the 130s. He denies irregular heart rhythms in the past. On arrival he is alert and oriented x4 not feeling lightheaded but he is in A. fib. This is a new diagnosis for him. complaint: almost passed out -: second(s) Prodromal symptoms: lightheaded Context: at rest Injuries sustained associated with event: none Associated symptoms: Reports lightheadedness; Deny abdominal pain or headache(s) Treatments prior to arrival: none Review of Systems General: Reports: 10 or more systems reviewed and unremarkable except in HPI and below Const: Denies: fatigue Eyes: Denies: change in vision, blurry vision or eye redness ENMT: Denies: throat pain, swelling of lips/tongue, ear or mastoid pain or nasal congestion Card: Reports: lightheadedness Resp: Denies: dyspnea, productive cough or non-productive cough GI: Denies: abdominal pain, diarrhea or GI cramping : Denies: flank pain, urinary frequency or urinary urgency Musc: Denies: neck pain, back pain, extremity pain, joint pain, joint redness, limited range of motion or muscle weakness Skin/Breast: Denies: rash, pruritus, erythema, skin pain or skin tenderness Neuro: Denies: headache(s), numbness in extremities, weakness in extremities, sensory changes, difficulty walking, dizziness, confusion or Slurred speech present Psych: Denies: anxiety or depression Endo: Denies: polyuria All/Imm: Denies: urticaria, throat swelling or tongue swelling PFS ED PFSH: Medical History BPH (benign prostatic hyperplasia) Change in bowel habits COPD (chronic obstructive pulmonary disease) Diabetes Hernia Hyperlipidemia Obesity ANGIE on CPAP Syncope Tobacco abuse Transient blindness of both eyes Surgical History History of cataract surgery Family History Grandmother CAD (coronary artery disease) MATERNAL Mother Diabetes Denies family history of Anesthesia complication Bleeding disorder Social History (Updated 10/18/20 @ 19:38 by Sanju Phillips MD) Smoking and tobacco status: current every day smoker cigarettes Packs smoked per day: 1 Alcohol intake: current Alcohol intake frequency: holidays/special occasions only Substance/Drug Use: never Household members: other Details: Girlfriend Marital status: service: No Current occupational status: disabled Physical Exam Const: COMMON NORMALS: no acute distress, average body habitus, patient oriented x3, no limitations, healthy appearing, alert and well nourished GENERAL APPEARANCE: cooperative, comfortable, well kempt and well developed NUTRITIONAL APPEARANCE: obese ORIENTATION/CONSCIOUSNESS: Yes awake, Yes oriented to person, Yes oriented to place and Yes oriented to time HENMT: COMMON NORMALS: normocephalic, external ears normal and Normal external nose present HEAD & SCALP: normal to inspection and normocephalic NOSE: Normal external nose present EXTERNAL EAR: Yes external ears normal MOUTH: Normal oral and palatal mucosa present THROAT: posterior oropharynx normal Eye: COMMON NORMALS: Equal, round and reactive pupils present and EOMs intact bilaterally GENERAL EYE: appearance normal, both eyes and all related structures PUPIL: Yes Equal, round and reactive pupils present Neck/C-Spine: COMMON NORMALS: full ROM, no lymphadenopathy, no meningeal signs and no JVD GENERAL: Yes normal visual inspection Lymph: LYMPHATIC: no lymphadenopathy noted Chest: COMMONS NORMALS: normal inspection of the chest and normal palpation of entire chest wall Resp: COMMON NORMALS: normal respiratory effort, No retractions, No use of accessory muscles, clear to auscultation bilaterally and percussion normal EFFORT & INSPECTION: Yes able to speak in complete sentences AUSCULTATION: clear to auscultation bilaterally PERCUSSION: percussion normal Cardio: COMMON NORMALS: no JVD, regular rate, S1 normal heart sound present, S2 normal heart sound present and Peripheral pulses 2+ throughout RATE: regular rate RHYTHM: abnormal rhythm irregularly irregular HEART SOUNDS: S1 normal heart sound present and S2 normal heart sound present PERIPHERAL PULSES: Peripheral pulses 2+ throughout GI: COMMON NORMALS: Normal to inspection, nondistended, normoactive bowel sounds present, Soft to palpation, non-tender and no masses INSPECTION: Yes normal to inspection PALPATION: Yes Soft to palpation : COMMON NORMALS: Yes no CVA tenderness BLADDER/KIDNEY EXAM: Yes no CVA tenderness Back/Pelvis: COMMON NORMALS: no CVA tenderness, thoracic and lumbar spine normal to inspection, no thoracic nor lumbar tenderness and thoraco-lumbar ROM normal Extremity: COMMON NORMALS: normal to inspection, full ROM, capillary refill normal, no joint enlargement and no pedal edema GENERAL: Yes normal exam except as noted Neuro: COMMON NORMALS: patient oriented x3, CN's II-XII intact bilaterally, moves all extremities, no focal motor deficits, no sensory deficits noted and gait normal SENSORIUM/ORIENTATION: Yes alert, Yes oriented to person, Yes oriented to place and Yes oriented to time MENINGEAL SIGNS: Yes no meningeal signs Psych: COMMON NORMALS: mental status grossly normal, Normal thought process present, cooperative, normal affect and speech normal APPEARANCE: Yes well kempt ATTITUDE: Yes calm SPEECH: Yes normal speech THOUGHT PROCESS: Normal thought process present Skin: COMMON NORMALS: no rashes or lesions noted GENERAL SKIN EXAM: no rashes or lesions noted Course Vital Signs: Vital signs: Vital Signs Temperature 98.2 F 10/19/20 08:00 Pulse Rate 77 10/19/20 08:25 Respiratory Rate 16 10/19/20 08:25 Blood Pressure 128/79 10/19/20 08:00 Pulse Oximetry 93 10/19/20 08:25 MDM - Syncope MDM Narrative: Medical decision making narrative: The patient came in complaining of near syncope. On arrival he has A. fib which is a new diagnosis for him. His initial rate was in the 70s however a couple hours after arrival he began to space out and his rate was 40 bpm and then he had a 10-second long episode of asystole. By the time we got to the room his rate returned to the 70s. Discussed with Dr. Huizar who will see him in the room. Discussed with Dr. Phillips who accepts him to ICU. Lab Data: Labs: Lab Results 10/18/20 10/18/20 10/18/20 Range/Units 15:05 15:05 15:05 WBC 9.3 (4.0-10.0) 10^3/ uL RBC 5.32 H (4.1-5.3) 10^6/u L Hgb 15.0 (11.7-16.6) g/dL Hct 45.4 (42.0-52.0) % MCV 85.3 (80-94) fL MCH 28.2 (28.0-34.0) pg MCHC 33.0 (30.0-36.0) g/dL RDW 11.9 L (12.1-15.1) % Plt Count 187 (130-400) 10^3/c mm MPV 10.7 H (7.4-10.4) fL Neut % (Auto) 67.6 % Lymph % (Auto) 24.0 % [place] % (Auto) 5.6 % Eos % (Auto) 1.9 % Baso % (Auto) 0.5 % Neut # (Auto) 6.26 (1.8-7.7) 10^3/u L Lymph # (Auto) 2.2 (0.8-4.8) 10^3/u L [place] # (Auto) 0.5 (0.2-0.9) 10^3/u L Eos # (Auto) 0.2 (0.0-0.8) 10^3/u L Baso # (Auto) 0.1 (0.0-0.1) 10^3/u L Nucleated RBC % (a uto) 0 % Nucleated RBCs # 0.0 /100WBC D-Dimer 0.41 (0-0.59) ug/mIFE U Sodium 135 L (136-145) mmol/L Potassium 4.0 (3.5-5.1) mmol/L Chloride 99 (98-107) mmol/L Carbon Dioxide 22 (22-29) mmol/L Anion Gap 18.0 (5-19) BUN 19 (6-20) mg/dL Creatinine 0.9 (0.7-1.2) mg/dL GFR Calculation 87.0 L (90-130) mL/min Glucose 221 H (65-115) mg/dL Calculated Osmolal ity 289 (285-295) mOsm/k g Lactate (0.5-2.2) mmol/L Calcium 8.6 (8.5-10.5) mg/dL Total Bilirubin 0.4 (0.15-1.2) mg/dL AST 18 (0-40) U/L ALT 26 (0-41) U/L Alkaline Phosphata se 88 (40-130) IU/L Troponin T Baselin e (0-15) ng/L NT-Pro-B Natriuret Pep 89 (0-125) pg/mL Total Protein 6.8 (6.6-8.7) g/dL Albumin 4.2 (3.5-5.2) g/dL Globulin 2.6 (1.3-4.6) g/dL TSH 0.74 (0.27-4.20) uIU/ mL Urine Color (Yellow) Urine Appearance (CLEAR) Urine pH (5-7) Ur Specific Gravit y (1.005-1.030) Urine Protein (Negative) Urine Glucose (UA) (Normal) Urine Ketones (Negative) Urine Blood (Negative) Urine Nitrate (Negative) Urine Bilirubin (Negative) Urine Urobilinogen (Negative) mg/dL Ur Leukocyte Nori ase (Negative) 10/18/20 10/18/20 10/18/20 Range/Units 15:05 15:05 15:51 WBC (4.0-10.0) 10^3/ uL RBC (4.1-5.3) 10^6/u L Hgb (11.7-16.6) g/dL Hct (42.0-52.0) % MCV (80-94) fL MCH (28.0-34.0) pg MCHC (30.0-36.0) g/dL RDW (12.1-15.1) % Plt Count (130-400) 10^3/c mm MPV (7.4-10.4) fL Neut % (Auto) % Lymph % (Auto) % [place] % (Auto) % Eos % (Auto) % Baso % (Auto) % Neut # (Auto) (1.8-7.7) 10^3/u L Lymph # (Auto) (0.8-4.8) 10^3/u L [place] # (Auto) (0.2-0.9) 10^3/u L Eos # (Auto) (0.0-0.8) 10^3/u L Baso # (Auto) (0.0-0.1) 10^3/u L Nucleated RBC % (a uto) % Nucleated RBCs # /100WBC D-Dimer (0-0.59) ug/mIFE U Sodium (136-145) mmol/L Potassium (3.5-5.1) mmol/L Chloride (98-107) mmol/L Carbon Dioxide (22-29) mmol/L Anion Gap (5-19) BUN (6-20) mg/dL Creatinine (0.7-1.2) mg/dL GFR Calculation (90-130) mL/min Glucose (65-115) mg/dL Calculated Osmolal ity (285-295) mOsm/k g Lactate 2.2 (0.5-2.2) mmol/L Calcium (8.5-10.5) mg/dL Total Bilirubin (0.15-1.2) mg/dL AST (0-40) U/L ALT (0-41) U/L Alkaline Phosphata se (40-130) IU/L Troponin T Baselin e 12 (0-15) ng/L NT-Pro-B Natriuret Pep (0-125) pg/mL Total Protein (6.6-8.7) g/dL Albumin (3.5-5.2) g/dL Globulin (1.3-4.6) g/dL TSH (0.27-4.20) uIU/ mL Urine Color Yellow (Yellow) Urine Appearance Clear (CLEAR) Urine pH 5 (5-7) Ur Specific Gravit y 1.015 (1.005-1.030) Urine Protein Neg (Negative) Urine Glucose (UA) Norm (Normal) Urine Ketones Negative (Negative) Urine Blood Neg (Negative) Urine Nitrate Negative (Negative) Urine Bilirubin Neg (Negative) Urine Urobilinogen Norm (Negative) mg/dL Ur Leukocyte Nori ase Negative (Negative) Discharge Plan Discharge Patient Disposition: Admitted As Inpatient Admit Provider: Sanju Phillips Clinical Impression: Near syncope, Sinus pause Atrial fibrillation Qualifiers: Atrial fibrillation type: unspecified Qualified Code(s): I48.91 - Unspecified atrial fibrillation Condition: Stable Coding Level of Care Code 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
[2020-10-18 15:49] LABS: D Dimer 0.41 ug/mIFEU (0-0.59)
[2020-10-18 15:54] LABS: Lactate (Lactic Acid level) 2.2 mmol/L (0.5-2.2)
[2020-10-18 15:56] LABS: Troponin(5th) Baseline 12 ng/L (0-15)
[2020-10-18 16:03] LABS: Add Urine Microscopic? NO; Charge for UA Resulting for Rev
[2020-10-18 16:06] LABS: Alanine Aminotransferase 26 U/L (0-41); Albumin Level 4.2 g/dL (3.5-5.2); Alkaline Phosphatase 88 IU/L (40-130); Aspartate Amino Transferase 18 U/L (0-40); Blood Urea Nitrogen 19 mg/dL (6-20); Calcium 8.6 mg/dL (8.5-10.5); Carbon Dioxide 22 mmol/L (22-29); Chloride 99 mmol/L (98-107); Globulin 2.6 g/dL (1.3-4.6); Glucose 221 mg/dL (65-115); NT Pro B Type Natriuretic Pept 89 pg/mL (0-125); Osmolality Calculated 289 mOsm/kg (285-295); Sodium 135 mmol/L (136-145); Thyroid Stimulating Hormone 0.74 uIU/mL (0.27-4.20); Total Bilirubin 0.4 mg/dL (0.15-1.2); Total Protein 6.8 g/dL (6.6-8.7)
[2020-10-18 16:06] LABS: Bilirubin Urine Neg (Negative); Blood Urine Neg (Negative); Glucose Urine UA Norm (Normal); Ketones Urine Negative (Negative); Leukocyte Esterase Urine Negative (Negative); Nitrate Urine Negative (Negative); Protein Urine Neg (Negative); Specific Gravity, Urine 1.015 (1.005-1.030); Urine Appearance Clear (CLEAR); Urine Color Yellow (Yellow); Urobilinogen Urine Norm (Negative); pH Urine 5 (5-7)
--- NOTE | 2020-10-18 16:57 | P.CONIM_ITS ---
Providers/Reason For Consult Consulting Physican/Specialty*: Dr Huizar, Cardiology Reason for Consult*: Bradycardia, Pause Attending Physician: Sanju Phillips Primary Care Provider: Kylah Garcia APN History of Present Illness History of Present Illness Deejay Gonzalez is a 55 year old male with PMH of HTN, h/o TIA, HLD,DM, ANGIE on CPAP. He has h/o recurrent presyncopal episodes last year. Recently for elevated blood pressure, metoprolol was increased to 100 mg BID and HCTZ was added to his regimen. Yesterday, he had 2 presyncopal episodes and this morning 2 other episodes. No falls and mild chest with episode. No fever, chills, edema, orthopnea or PND. No recent URI/UTI like symptoms. Pauses as long as 4 sec were noted with junctional escape in 30's that lasts for few seconds and then goes back to atrial fibrillation with controlled ventricular response. Review of Systems General: Reports: 10 or more systems reviewed and unremarkable except in HPI and below Const: Denies: fatigue Eyes: Denies: change in vision, blurry vision or eye redness ENMT: Denies: throat pain or swelling of lips/tongue Card: Reports: lightheadedness Resp: Denies: dyspnea, productive cough or non-productive cough GI: Reports: constipation; Denies: abdominal pain, diarrhea or GI cramping : Denies: flank pain, urinary frequency or urinary urgency Musc: Denies: neck pain, back pain, extremity pain, joint pain, joint redness or muscle weakness Skin/Breast: Denies: rash, pruritus, erythema, skin pain or skin tenderness Neuro: Denies: headache(s), numbness in extremities, weakness in extremities, difficulty walking, dizziness, confusion or Slurred speech present Psych: Denies: anxiety or depression Endo: Denies: polyuria All/Imm: Denies: urticaria, throat swelling or tongue swelling Meds/Allergies Home Medications and Allergies Home Medications Medication Instructions Recorded Confirmed Last Taken Type albuterol sulfate 90 mcg/actuation 2 inh INHALATION Q4H PRN gm 11/20/19 10/18/20 12/27/19 08:00 History aerosol inhaler amlodipine 10 mg tablet 10 mg PO DAILY@1000 tab 11/20/19 10/18/20 10/18/20 History atorvastatin 40 mg tablet 40 mg PO DAILY@1000 tab 11/20/19 10/18/20 10/18/20 History hydrocodone 10 mg-acetaminophen 1 tab PO Q6H PRN tab 11/20/19 10/18/20 10/18/20 History 325 mg tablet montelukast 10 mg tablet 10 mg PO DAILY@1000 tab 11/20/19 10/18/20 10/18/20 History sitagliptin 100 mg tablet 100 mg PO DAILY@1000 tab 11/20/19 10/18/20 10/18/20 History tamsulosin 0.4 mg capsule 0.4 mg PO BID@1000,2200 cap 11/20/19 10/18/20 10/18/20 History trazodone 50 mg tablet 50 - 100 mg PO BEDTIME@2200 tab 11/20/19 10/18/20 10/17/20 History bupropion HCl 150 mg 24 hr tablet, 150 mg PO DAILY@1000 tab 11/21/19 10/18/20 10/18/20 History extended release 150 MG diclofenac sodium 75 mg 75 mg PO BID@1000,2200 PRN 11/21/19 10/18/20 10/18/20 History tablet,delayed release gabapentin 600 mg tablet 900 mg PO BID@1000,2200 tab 11/21/19 10/18/20 10/18/20 History glipizide 10 mg tablet 10 mg PO BID@1000,2200 tab 11/21/19 10/18/20 10/18/20 History hydroxyzine HCl 50 mg tablet 100 mg PO BEDTIME@2200 tab 11/21/19 10/18/20 10/17/20 History Diabetic Boots with Molded Inserts #1 ea 07/03/20 10/18/20 Unknown Rx with Articulating AFO metoprolol succinate 50 mg 100 mg PO BID@1000,2200 tab 10/10/20 10/18/20 10/18/20 History tablet,extended release 24 hr bupropion HCl 300 mg PO DAILY@1000 10/18/20 10/18/20 Unknown History fluticasone propionate 2 spray INTRANASAL DAILY@1000 10/18/20 10/18/20 10/18/20 History hydrochlorothiazide 25 mg PO DAILY@1000 10/18/20 10/18/20 10/18/20 History irbesartan 300 mg PO DAILY@1000 10/18/20 10/18/20 10/18/20 History linaclotide [Linzess] 72 mcg PO DAILY@1000 10/18/20 10/18/20 Unknown History liraglutide [Victoza 2-Andrew] See Rx Instructions .ROUTE .COMPLEX 10/18/20 10/18/20 10/18/20 History 0.6 MG omeprazole 20 mg PO BID@1000,2200 10/18/20 10/18/20 10/18/20 History Allergies Allergy/AdvReac Type Severity Reaction Status Date / Time Penicillins Allergy Mild ALGY-Rash Verified 10/02/20 14:11 Sulfa (Sulfonamide Allergy ALGY-Rash Verified 10/02/20 14:11 Antibiotics) PFSH Acute PFSH: Medical History BPH (benign prostatic hyperplasia) Change in bowel habits COPD (chronic obstructive pulmonary disease) Diabetes Hernia Hyperlipidemia Obesity ANGIE on CPAP Syncope Tobacco abuse Transient blindness of both eyes Surgical History History of cataract surgery Family History Grandmother CAD (coronary artery disease) MATERNAL Mother Diabetes Denies family history of Anesthesia complication Bleeding disorder Social History Smoking and tobacco status: current every day smoker cigarettes Packs smoked per day: 1 Marital status: service: No Current occupational status: disabled Vitals/I&O/Wt Last Vital Signs Temp 98.2 F 10/18/20 14:49 Pulse 78 10/18/20 15:14 Resp 18 10/18/20 15:14 BP 105/75 10/18/20 15:14 Pulse Ox 96 10/18/20 15:14 Weight last 48 hrs Weight 320 lb Physical Exam Narrative: EXAM NARRATIVE: GENERAL: obese man in no acute distress HEENT: Pupils equal round reactive to light. No pallor or icterus. NECK: Short neck, No JVD. No carotid bruit. CARDIOVASCULAR SYSTEM: S1-S2 irregular. No S3 or S4 present. No murmur rubs or gallops. RESPIRATORY SYSTEM: Chest clear to auscultation. No wheezes rhonchi or rubs heard. ABDOMEN: Soft, nontender and nondistended. Normal bowel sounds present. EXTREMITIES: No cyanosis or clubbing. No edema. No signs of chronic venous insufficiency. CLOTH HANDLER: Patient is alert oriented ?3. No focal neurological deficits. SKIN: Normal turgor and temperature. No breakdown, rash or nail changes noted. PSYCH: Normal insight and judgment. Data Imaging^: Other Imaging: I personally reviewed and interpreted this imaging study as follows: My impression: Lexiscan MPI (03/2020) PERFUSION FINDINGS There is a large in size, fixed perfusion defect of the inferior wall. This could represent attenuation artifact as there is improvement on prone imaging. Versus prior infarct. Rest of the myocardium has homogenous tracer uptake without any reversible defect. FUNCTIONAL RESULTS (calculated via Gated SPECT) Stress Image LV EF (%): 59 Stress EDV (mL):128 TID: 0.86 Stress ESV (mL):53 FUNCTIONAL FINDINGS: There is normal left ventricular systolic function. IMPRESSIONS 1. Large in size, fixed perfusion defect in the inferior wall. This could represent attenuation artifact(improvement with prone imaging) versus prior infarct. There is no area of ischemia noted. 2. Normal LV systolic function is noted. A&P Assessment and plan (1) Near syncope: Dose on metoprolol was recently increased to 100 mg BID. -In setting of recurrent pauses, recommend admit to ICU. -Pacer PADs and atropine on standby. As the pauses have been transient and he goes back to A. fib with HR in 60-70's -He has junctional escape in mid 30's. May start dopamine gtt if he has persistent pauses. -No AV yolande blockers -Continue to closely monitor on telemetry. -f/u on troponin. No ischemia on stress test in 03/2020. Status: Acute (2) Atrial fibrillation: [id number]/9 , 1 for HTN, 1 for DM -rate controlled. -Plan for echo. -start on lovenox. Status: Acute Qualifiers: Atrial fibrillation type: unspecified Qualified Code(s): I48.91 - Unspecified atrial fibrillation (3) Hyperlipidemia: Status: Acute Qualifiers: Hyperlipidemia type: unspecified Qualified Code(s): E78.5 - Hyperlipidemia, unspecified (4) ANGIE on CPAP: Status: Acute Additional A&P Information COPD Morbid obesity GERD DM-2 Thank you for allowing me to participate in patient's care. Please feel free to call with questions or concerns. Consult Attestations Time Spent in Patient Care: Greater than 35 minutes (>than 50% of time spent in counselling and/or direct pt care on unit) . Coding Level of Care Code Acute Air Export Coordinator for [facility] Diagnoses Near syncope R55 Atrial fibrillation I48.91 Atrial fibrillation type: unspecified Hyperlipidemia E78.5 Hyperlipidemia type: unspecified ANGIE on CPAP G47.33; Z99.89
--- NOTE | 2020-10-18 16:59 | ECG_ITS ---
[facility] Test Date: 2020-10-18 Pat Name: Deejay Gonzalez Department: Room: ICU03 Gender: Male Pediatric Physician: : [id number] Requested By: Mekhi Figueroa Order Number: [id number] Jordon MD: Vicki Villarreal M.D. Measurements Intervals [place] Rate: 84 P: 42 SC: 192 QRS: -18 QRSD: 161 T: 17 QT: 431 QTc: 512 Interpretive Statements SINUS RHYTHM INDETERMINATE AXIS RIGHT BUNDLE BRANCH BLOCK [120+ ms QRS DURATION, UPRIGHT V1, 40+ ms S IN I/aVL/V4/V5/V6] Compared to ECG 10/18/2020 15:28:12 Atrial fibrillation no longer present Electronically Signed On 10-18-2020 21:10:17 CDT by Vicki Villarreal M.D. [id number]
--- NOTE | 2020-10-18 17:09 | PC.NURSE ---
Dr. Huizar here to see patient
[2020-10-18] MEDS: enoxaparin 100 mg/mL Syringe SUBCUT (17:14)
[2020-10-18] MEDS: enoxaparin 40 mg/0.4 mL Syringe SUBCUT (17:14)
[2020-10-18 17:45] LABS: Glucose Point of Care 212 mg/dL (70-110)
[2020-10-18] MEDS: DOPamine drip 400 MG/250 ML PREMIX 27.2 MG IV (17:50)
[2020-10-18] MEDS: atropine 0.1 mg/mL Syr 10 mL 1 MG IVP (18:02)
--- NOTE | 2020-10-18 18:30 | PC.NURSE ---
from er with dr bear here orders on er monitor heart rate 36 c/o of dizzy atropine given at this time and repeated after approx 5 min with return of heart rate up to 80
[2020-10-18 19:34] LABS: Troponin 5 2HR 10.95 ng/L (0-15); Troponin 5 2HR Delta -1.05 ABS# (0-10)
--- NOTE | 2020-10-18 19:34 | PM.HP ---
Providers/Chief Complaint Admitting Physician: Sanju Phillips Primary Care Provider: Kylah Garcia APN Chief Complaint: passed out 10/17. dizziness, high heart rate & bp History of Present Illness Pleasant 55-year-old gentleman came in due to presyncopal episodes at home. In ER noted to be in A. fib with slow ventricular response initially, with monitoring noted to have several episodes of bradycardia into the 30s. Also noted multi second symptomatic asystole. He has been taking his medications which include metoprolol succinate 100 mg twice daily. He is also on amlodipine. Bupropion. He denies any chest pain. He does say he had had some rare episodes of lightheadedness over several years in the past. He denies any other new recent events. No signs or symptoms of recent infection. Right as he was being transported to ICU, again noted with pause on the monitor, and subsequently heart rates in the 30s. Feeling lightheaded at the time. Given a dose of 1 mg atropine, with improvement into the 40s, but staying there, still with some lightheadedness, dose of atropine 1 mg repeated, subsequently heart rates rising into 80s-90s, still with rare intermittent pauses due to which in discussion with cardiology is initiated on dopamine drip. In case he is unable to guide his own care, states his daughters would be surrogate decision makers, his oldest daughter being Divya Reese. Review of Systems Const: Denies: fever(s), chills, body aches or malaise Eyes: Denies: change in vision or eye redness ENMT: Denies: throat pain, oral sores or ear or mastoid pain Card: Reports: pre-syncope; Denies: chest pain, edema or dyspnea on exertion Resp: Denies: dyspnea, productive cough, change in phlegm color or hemoptysis GI: Denies: abdominal pain, nausea, vomiting, diarrhea, constipation, hematochezia or melena : Denies: flank pain, difficulty urinating, urinary frequency or hematuria Musc: Denies: back pain, joint swelling or joint redness Skin/Breast: Denies: rash, sores or new lesions Neuro: Denies: headache(s), numbness in extremities, weakness in extremities, dizziness, confusion or seizure-like activity Endo: Denies: polyuria or polydipsia Esteban/Lymph: Denies: easy bleeding or purpura All/Imm: Denies: urticaria, throat swelling or tongue swelling Medications/Allergies Home Medications Medication Instructions Recorded Confirmed Last Taken Type albuterol sulfate 90 mcg/actuation 2 inh INHALATION Q4H PRN gm 11/20/19 10/18/20 12/27/19 08:00 History aerosol inhaler amlodipine 10 mg tablet 10 mg PO DAILY@1000 tab 11/20/19 10/18/20 10/18/20 History atorvastatin 40 mg tablet 40 mg PO DAILY@1000 tab 11/20/19 10/18/20 10/18/20 History hydrocodone 10 mg-acetaminophen 1 tab PO Q6H PRN tab 11/20/19 10/18/20 10/18/20 History 325 mg tablet montelukast 10 mg tablet 10 mg PO DAILY@1000 tab 11/20/19 10/18/20 10/18/20 History sitagliptin 100 mg tablet 100 mg PO DAILY@1000 tab 11/20/19 10/18/20 10/18/20 History tamsulosin 0.4 mg capsule 0.4 mg PO BID@1000,2200 cap 11/20/19 10/18/20 10/18/20 History trazodone 50 mg tablet 50 - 100 mg PO BEDTIME@2200 tab 11/20/19 10/18/20 10/17/20 History bupropion HCl 150 mg 24 hr tablet, 150 mg PO DAILY@1000 tab 11/21/19 10/18/20 10/18/20 History extended release 150 MG diclofenac sodium 75 mg 75 mg PO BID@1000,2200 PRN 11/21/19 10/18/20 10/18/20 History tablet,delayed release gabapentin 600 mg tablet 900 mg PO BID@1000,2200 tab 11/21/19 10/18/20 10/18/20 History glipizide 10 mg tablet 10 mg PO BID@1000,2200 tab 11/21/19 10/18/20 10/18/20 History hydroxyzine HCl 50 mg tablet 100 mg PO BEDTIME@2200 tab 11/21/19 10/18/20 10/17/20 History Diabetic Boots with Molded Inserts #1 ea 07/03/20 10/18/20 Unknown Rx with Articulating AFO metoprolol succinate 50 mg 100 mg PO BID@1000,2200 tab 10/10/20 10/18/20 10/18/20 History tablet,extended release 24 hr bupropion HCl 300 mg PO DAILY@1000 10/18/20 10/18/20 Unknown History fluticasone propionate 2 spray INTRANASAL DAILY@1000 10/18/20 10/18/20 10/18/20 History hydrochlorothiazide 25 mg PO DAILY@1000 10/18/20 10/18/20 10/18/20 History irbesartan 300 mg PO DAILY@1000 10/18/20 10/18/20 10/18/20 History linaclotide [Linzess] 72 mcg PO DAILY@1000 10/18/20 10/18/20 Unknown History liraglutide [Victoza 2-Andrew] See Rx Instructions .ROUTE .COMPLEX 10/18/20 10/18/20 10/18/20 History 0.6 MG omeprazole 20 mg PO BID@1000,2200 10/18/20 10/18/20 10/18/20 History Allergies Allergy/AdvReac Type Severity Reaction Status Date / Time Penicillins Allergy Mild ALGY-Rash Verified 10/02/20 14:11 Sulfa (Sulfonamide Allergy ALGY-Rash Verified 10/02/20 14:11 Antibiotics) PFSH Acute PFSH: Medical History BPH (benign prostatic hyperplasia) Change in bowel habits COPD (chronic obstructive pulmonary disease) Diabetes Hernia Hyperlipidemia Obesity ANGIE on CPAP Syncope Tobacco abuse Transient blindness of both eyes Surgical History History of cataract surgery Family History Grandmother CAD (coronary artery disease) MATERNAL Mother Diabetes Denies family history of Anesthesia complication Bleeding disorder Social History (Updated 10/18/20 @ 19:38 by Sanju Phillips MD) Smoking and tobacco status: current every day smoker cigarettes Packs smoked per day: 1 Alcohol intake: current Alcohol intake frequency: holidays/special occasions only Substance/Drug Use: never Household members: other Details: Girlfriend Marital status: service: No Current occupational status: disabled Vitals/I&O/Wt Last Vital Signs Temp 98.2 F 10/18/20 14:49 Pulse 77 10/18/20 18:45 Resp 18 10/18/20 18:45 BP 165/92 10/18/20 18:45 Pulse Ox 89 L 10/18/20 18:45 10/18/20 10/18/20 10/18/20 06:59 14:59 22:59 Intake Total 1000 / 1000 Balance 1000 / 1000 Weight last 48 hrs Weight 145.15 kg Physical Exam Const: COMMON NORMALS: no acute distress, patient oriented x3 and alert GENERAL APPEARANCE: cooperative NUTRITIONAL APPEARANCE: obese ORIENTATION/CONSCIOUSNESS: Yes awake OTHER: Episodes of lightheadedness with pauses and bradycardia as described above. HENMT: COMMON NORMALS: oropharynx normal Neck/C-Spine: COMMON NORMALS: no JVD Resp: COMMON NORMALS: normal respiratory effort and clear to auscultation bilaterally AUSCULTATION: clear to auscultation bilaterally Cardio: COMMON NORMALS: no JVD, regular rhythm, S1 normal heart sound present, S2 normal heart sound present and No murmurs present (Cardio) RHYTHM: regular rhythm HEART SOUNDS: S1 normal heart sound present and S2 normal heart sound present GI: COMMON NORMALS: Normal to inspection, nondistended, normoactive bowel sounds present, Soft to palpation and non-tender PALPATION: Yes Soft to palpation Extremity: COMMON NORMALS: no joint enlargement and no pedal edema OTHER: Old fracture of right ankle with chronic deformity Neuro: COMMON NORMALS: patient oriented x3 and moves all extremities Skin: COMMON NORMALS: no rashes or lesions noted GENERAL SKIN EXAM: no rashes or lesions noted Data : 10/18/20 15:05 10/18/20 15:05 A&P Assessment and plan (1) Near syncope: Multiple episodes of near syncope, associated with pauses, bradycardia junctional escape rhythm in the 30s. Received 2 mg of atropine. Heart rate improved to 80s-90s, however, with still intermittent pauses due to which she is started on dobutamine drip. Bedrest. Monitor on telemetry. Pacer pads in place. Discontinue metoprolol, amlodipine, hold bupropion. Complete troponin EKG series. TTE TSH is normal. Check mag. For now n.p.o. Status: Acute (2) Atrial fibrillation: A. fib with slow ventricular response. Pauses and bradycardia suspected secondary to AV yolande blockers. Continue to monitor for possible sick sinus syndrome. Started on anticoagulation. Monitor blood counts. Status: Acute Qualifiers: Atrial fibrillation type: unspecified Qualified Code(s): I48.91 - Unspecified atrial fibrillation Additional A&P Information Smoking addiction: Encourage cessation HTN HLD DM2 BPH GERD ANGIE: On CPAP COPD Attestations Medical Necessity Statement*: Admission of over two midnights is Needed for assessment management of recurrent presyncopal episodes, pauses, symptomatic bradycardia. Coding Level of Care Code Acute Equine Manager for [facility] Fwd Diagnoses Near syncope R55 Atrial fibrillation I48.91 Atrial fibrillation type: unspecified
[2020-10-18 20:40] LABS: Glucose Point of Care 167 mg/dL (70-110)
[2020-10-18] MEDS: HYDROcodone-acetaminophen 10-325 mg Tablet 1 TAB PO (20:59)
--- NOTE | 2020-10-18 20:59 | ECG_ITS ---
[facility] Test Date: 2020-10-19 Pat Name: Deejay Gonzalez Department: Room: ICU03 Gender: Male Bread Room Hand: : 1965 Requested By: Mekhi Figueroa Order Number: [id number] Jordon MD: Laura Huizar M.D. Measurements Intervals [place] Rate: 76 P: 45 MD: 192 QRS: -52 QRSD: 175 T: 36 QT: 450 QTc: 509 Interpretive Statements SINUS RHYTHM WITH MARKED SINUS ARRHYTHMIA INDETERMINATE AXIS RIGHT BUNDLE BRANCH BLOCK [120+ ms QRS DURATION, UPRIGHT V1, 40+ ms S IN I/aVL/V4/V5/V6] LEFT ANTERIOR FASCICULAR BLOCK [QRS AXIS <= -45, QR IN I, RS IN II] POSSIBLE SEPTAL MYOCARDIAL INFARCTION [30 ms Q WAVE IN V1/V2], PROBABLY OLD Compared to ECG 10/18/2020 17:57:26 Left anterior fascicular block now present Myocardial infarct finding now present Electronically Signed On 10-20-2020 10:53:54 CDT by Laura Huizar M.D. [id number]
[2020-10-18] MEDS: gabapentin 300 mg Capsule 900 MG PO (21:00)
[2020-10-18 22:50] LABS: Magnesium 1.8 mg/dL (1.7-2.3)
[2020-10-18 23:05] LABS: Troponin 5 6HR 10.57 ng/L (0-15)
[2020-10-18 23:09] LABS: Troponin 5 6HR Delta -1.43 ng/L (0-12)
[2020-10-19] VITALS (101 sets, daily range): BP systolic 100–163; BP diastolic 69–122; PULSE 61–89; RESP 6–23; TEMP 36.6–36.8; O2SAT 86–100
[2020-10-19] MEDS: HYDROcodone-acetaminophen 10-325 mg Tablet 1 TAB PO ×4 (03:55→21:51)
[2020-10-19] MEDS: enoxaparin 100 mg/mL Syringe SUBCUT ×2 (04:21→16:46)
[2020-10-19] MEDS: enoxaparin 40 mg/0.4 mL Syringe SUBCUT ×2 (04:21→16:46)
[2020-10-19 06:04] LABS: Basophils # 0.1 10^3/uL (0.0-0.1); Basophils % 0.6 %; Eosinophils # 0.2 10^3/uL (0.0-0.8); Eosinophils % 2.4 %; Hematocrit 42.9 % (42.0-52.0); Hemoglobin 13.9 g/dL (11.7-16.6); Lymphocytes # 2.7 10^3/uL (0.8-4.8); Lymphocytes % 31.4 %; Mean Corpuscular HGB Conc 32.4 g/dL (30.0-36.0); Mean Corpuscular Volume 86.3 fL (80-94); Mean Platelet Volume 10.8 fL (7.4-10.4); Monocytes # 0.6 10^3/uL (0.2-0.9); Monocytes % 6.8 %; Neutrophils # 4.96 10^3/uL (1.8-7.7); Neutrophils % 58.2 %; Nucleated Red Blood Cells % 0 %; Platelet Count 165 10^3/cmm (130-400); Red Blood Count 4.97 10^6/uL (4.1-5.3); Red Cell Distribution Width 12.1 % (12.1-15.1); White Blood Count 8.5 10^3/uL (4.0-10.0)
[2020-10-19 06:31] LABS: Anion Gap 13.4 (5-19); Blood Urea Nitrogen 16 mg/dL (6-20); Calcium 8.5 mg/dL (8.5-10.5); Carbon Dioxide 25 mmol/L (22-29); Chloride 103 mmol/L (98-107); Glomerular Filtration Rate 116.2 mL/min (90-130); Glucose 198 mg/dL (65-115); Osmolality Calculated 293 mOsm/kg (285-295); Potassium 3.4 mmol/L (3.5-5.1); Sodium 138 mmol/L (136-145)
[2020-10-19 07:50] LABS: Glucose Point of Care 204 mg/dL (70-110)
[2020-10-19] MEDS: pantoprazole DR 40 mg Tablet PO (09:56)
[2020-10-19] MEDS: fluticasone nasal spray 16gm Btl 2 SPRAY INTRANASAL (09:56)
[2020-10-19] MEDS: montelukast sodium 10 mg Tablet PO (09:56)
[2020-10-19] MEDS: atorvastatin 40 mg Tablet PO (09:56)
[2020-10-19] MEDS: gabapentin 300 mg Capsule 900 MG PO ×2 (09:59→21:51)
--- NOTE | 2020-10-19 10:32 | P.PN_ITS ---
Subjective Subjective: Interval history: Overall he is feeling better. Still having some minimal episodes of brief occasional lightheadedness, but definitely not anything as bad as yesterday. Denies chest pain or pressure. No trouble breathing. Hips are getting sore from staying in bed. Vitals/I&O/Wt Last Vital Signs Temp 98.2 F 10/19/20 08:00 Pulse 77 10/19/20 08:25 Resp 16 10/19/20 08:25 BP 128/79 10/19/20 08:00 Pulse Ox 93 10/19/20 08:25 10/18/20 10/19/20 10/19/20 22:59 06:59 14:59 Intake Total 1060 / 1060 100 / 1160 Output Total 200 / 200 175 / 375 Balance 860 / 860 -75 / 785 Weight last 48 hrs Weight 146.964 kg Weight 145.15 kg Physical Exam Const: COMMON NORMALS: no acute distress, patient oriented x3 and alert GENERAL APPEARANCE: cooperative NUTRITIONAL APPEARANCE: obese ORIENTATION/CONSCIOUSNESS: Yes awake HENMT: COMMON NORMALS: oropharynx normal Neck/C-Spine: COMMON NORMALS: no JVD Resp: COMMON NORMALS: normal respiratory effort and clear to auscultation bilaterally AUSCULTATION: clear to auscultation bilaterally Cardio: COMMON NORMALS: no JVD, regular rhythm, S1 normal heart sound present, S2 normal heart sound present and No murmurs present (Cardio) RHYTHM: regular rhythm HEART SOUNDS: S1 normal heart sound present and S2 normal heart sound present GI: COMMON NORMALS: Normal to inspection, nondistended, normoactive bowel sounds present, Soft to palpation and non-tender PALPATION: Yes Soft to palpation Extremity: COMMON NORMALS: no joint enlargement and no pedal edema OTHER: Old fracture of right ankle with chronic deformity Neuro: COMMON NORMALS: patient oriented x3 and moves all extremities SENSORIUM/ORIENTATION: Yes alert Skin: COMMON NORMALS: no rashes or lesions noted GENERAL SKIN EXAM: no rashes or lesions noted Data : 10/19/20 05:13 10/19/20 05:13 A&P Assessment and plan (1) Near syncope: Near syncope episodes resolved, still intermittent brief episodes of lightheadedness. He cannot really identify a trigger. These do not any longer appear to be corresponding to pauses/bradycardia episodes. For now difficult to explain. Blood pressure appears stable. He is not hypoglycemic. For now alexis tor, possibly related to some of the worst episodes that he was having yesterday, taking some time to recover. Overnight early this morning at bradycardia down to 45, but otherwise no significant pauses or bradycardia. Heart rates in the 60s-70s. We are turning off dopamine for now. Monitor. Replace potassium for hypokalemia. Magnesium 1.8. Will give 1 g. Appreciate additional recommendations from cardiology. Bedrest for now with weaning dopamine. Monitor on telemetry. Pacer pads in darshan ce. Discontinue metoprolol, amlodipine, hold bupropion. Complete troponin EKG series. TTE ordered TSH is normal. Status: Acute (2) Atrial fibrillation: A. fib with slow ventricular response. Pauses and bradycardia suspected secondary to AV yolande blockers. Continue to monitor for possible sick sinus syndrome. Discussed with him reduction of risk of CVA with anticoagulation. Risks of bleeding. He is agreeable to continue. Status: Acute Qualifiers: Atrial fibrillation type: unspecified Qualified Code(s): I48.91 - Unspecified atrial fibrillation Additional A&P Information Smoking addiction: Encourage cessation HTN HLD DM2 BPH GERD ANGIE: On CPAP COPD Attestations Medical Necessity Statement*: Continue admission for assessment management of near syncope episodes, pauses and bradycardia, weaning off dopamine, additional cardiac assessment including of new atrial fibrillation. Coding Level of Care Code Acute Volunteer Patient Representative for [facility] Diagnoses Near syncope R55 Atrial fibrillation I48.91 Atrial fibrillation type: unspecified
[2020-10-19] MEDS: potassium chloride ER 20 mEq Tablet PO (11:35)
[2020-10-19] MEDS: nicotine 14 mg Patch 1 PATCH TRANSDERMA (11:35)
--- NOTE | 2020-10-19 11:42 | PC.CHAP ---
Pastoral Care Encounter/Spiritual Assessment Type of Contact [] Declined corn husker machine operator visit [] Patient/Family/Request visit [] Outpatient visit [] Follow-up visit [] Physician referral [] Code/Alert [] Routine visit [] Staff referral [] Actively dying [] Patient sleeping [] Family support [] [] Out of room [] Palliative care [] [] Receiving care in room [] Pre-surgical visit [] Trauma [] Long length of stay [x] ICU visit [] Other: Relational/Emotional Strength [x] Patient feels connected with others/family/visitors/staff [] Distress [] Loneliness/isolation [] Abandonment Spirituality of Patient [x] Person of Jillian [x] Attends Hinduism of their Jillian [x] Believes in Prayer [] Reads Bible or Congregational materials [] There are Spiritual issues to be addressed [facility] Representative Interventions [x] Prayer [x] Active listening [x] Non-anxious presence [x] Spiritual/emotional support [] Crisis/trauma care [] Spiritual counseling [] Bereavement support [] Provided bereavement packet [] Provided Bible/devotional materials [] Provided toy/stuffed animal, coloring book to patient or family member [] Provided Communion [] Anointing/[place] [] Salvation [x] Completed spiritual assessment [] Other: Impact on Illness or Injury [] Angry [] Fearful [] Anxious [] Often cries [] Exhaustion [] Unable to work [] Unable to attend anglican [] Unable to walk/stand [] Unable to read [] Unable to drive [] Unable to eat/drink [] Unable to sleep [] Unable to be with family [] Patient intubated [] Other: Summary Pt has good support. Some family members work as staff. Daughter is currently a pt. in Women's unit since he had a granddaughter born yesterday. Pt is a person of jillian and attends a local anglican center. Requested prayer. Time spent with patient 10m
[2020-10-19 11:51] LABS: Glucose Point of Care 228 mg/dL (70-110)
--- NOTE | 2020-10-19 11:56 | PC.NURSE ---
had episode of c/o near syncopy heart rate was rate of 74 , bp was 128/89 and stated short of breath o2 sat was 92 % .was diaphoretic at the time Dr ashby here aware
--- NOTE | 2020-10-19 14:04 | P.PN_ITS ---
Subjective Subjective: Interval history: He feels better. Had one episode of dizziness without any events on telemetry earlier today. -He was on dopamine drip overnight did not have any pauses overnight. -Since stopping dopamine drip this morning patient has had no pauses and HR remained 70s to 80s -Patient converted back to sinus rhythm. Medications: Reviewed: Yes Medication Review Details: Current Medications Acetaminophen (Acetaminophen 325 Mg Tablet) 650 mg PO Q6H PRN PRN Reason: Mild/Mod Pain Or Temp >/= 101 Hydrocodone Bitart/Acetaminophen (Hydrocodone-Acetaminophen 10-325 Mg Tablet) 1 tab PO Q6H PRN PRN Reason: pain Last Admin: 10/19/20 09:59 Dose: 1 tab Documented by: Albuterol Sulfate (Albuterol 8 Gm Mdi) 2 puff INHALATION Q4H PRN PRN Reason: shortness of breath or wheezing Atorvastatin Calcium (Atorvastatin 40 Mg Tablet) 40 mg PO DAILY@1000 [facility] Last Admin: 10/19/20 09:56 Dose: 40 mg Documented by: Dextrose (Dextrose 50% Syringe 50 Ml) 25 ml IVP ONCE PRN; Protocol PRN Reason: hypoglycemia protocol Dextrose (Dextrose 50% Syringe 50 Ml) 50 ml IVP PRN PRN; Protocol PRN Reason: hypoglycemia protocol Enoxaparin Sodium (Enoxaparin 40 Mg/0.4 Ml Syringe) 40 mg SUBCUT Q12H [facility] Last Admin: 10/19/20 04:21 Dose: 40 mg Documented by: Enoxaparin Sodium (Enoxaparin 100 Mg/Ml Syringe) 100 mg SUBCUT Q12H [facility] Last Admin: 10/19/20 04:21 Dose: 100 mg Documented by: Fluticasone Propionate (Fluticasone Nasal [place] 16gm Btl) 2 spray INTRANASAL DAILY@1000 [facility] Last Admin: 10/19/20 09:56 Dose: 2 spray Documented by: Gabapentin (Gabapentin 300 Mg Capsule) 900 mg PO BID@1000,2200 [facility] Last Admin: 10/19/20 09:59 Dose: 900 mg Documented by: Glucagon (Glucagon 1 Mg/Ml Inj 1 Ml) 1 mg IM ONCE PRN; Protocol PRN Reason: Adult Acute Hypoglycemia Prot. Dopamine HCl/Dextrose (Intropin Drip) 400 mg in 250 mls @ 27.216 mls/hr IV CONT KAREL; Protocol Last Infusion: 10/19/20 12:32 Dose: Infused Documented by: Dextrose (D5w) 500 mls @ 100 mls/hr IV ONCE PRN; Protocol PRN Reason: Adult Acute Hypoglycemia Prot Insulin Aspart (Insulin Aspart 100 Unit/1 Ml) 0 unit SUBCUT TIDWM [facility]; Protocol Last Admin: 10/19/20 11:37 Dose: 8 unit Documented by: Montelukast Sodium (Montelukast Sodium 10 Mg Tablet) 10 mg PO DAILY@1000 [facility] Last Admin: 10/19/20 09:56 Dose: 10 mg Documented by: Nicotine (Nicotine 14 Mg Patch) 1 patch TRANSDERMA DAILY [facility] Last Admin: 10/19/20 11:35 Dose: 1 patch Documented by: Pantoprazole Sodium (Pantoprazole Dr 40 Mg Tablet) 40 mg PO DAILY [facility] Last Admin: 10/19/20 09:56 Dose: 40 mg Documented by: Vitals/I&O/Wt Last Vital Signs Temp 98.2 F 10/19/20 08:00 Pulse 71 10/19/20 13:15 Resp 15 10/19/20 13:15 BP 146/86 10/19/20 13:15 Pulse Ox 96 10/19/20 13:00 10/18/20 10/19/20 10/19/20 22:59 06:59 14:59 Intake Total 1060 / 1060 100 / 1160 652 / 652 Output Total 200 / 200 175 / 375 200 / 200 Balance 860 / 860 -75 / 785 452 / 452 Weight last 48 hrs Weight 324 lb Weight 320 lb Physical Exam Narrative: EXAM NARRATIVE: GENERAL: obese man in no acute distress HEENT: Pupils equal round reactive to light. No pallor or icterus. NECK: Short neck, No JVD. No carotid bruit. CARDIOVASCULAR SYSTEM: S1-S2 regular. No S3 or S4 present. No murmur rubs or gallops. RESPIRATORY SYSTEM: Chest clear to auscultation. No wheezes rhonchi or rubs heard. ABDOMEN: Soft, nontender and nondistended. Normal bowel sounds present. EXTREMITIES: No cyanosis or clubbing. No edema. No signs of chronic venous insufficiency. TERADATA ARCHITECT: Patient is alert oriented ?3. No focal neurological deficits. SKIN: Normal turgor and temperature. No breakdown, rash or nail changes noted. PSYCH: Normal insight and judgment. Data : 10/19/20 05:13 04/17/21 05:13 A&P Assessment and plan (1) Near syncope: Dose on metoprolol was recently increased to 100 mg BID. -In setting of recurrent pauses, recommend admit to ICU. -Pacer PADs and atropine on standby. As the pauses have been transient and he goes back to A. fib with HR in 60-70's -He has junctional escape in mid 30's. May start dopamine gtt if he has persistent pauses. -No AV yolande blockers -Continue to closely monitor on telemetry. -f/u on troponin. No ischemia on stress test in 03/2020. Status: Acute (2) Atrial fibrillation: [id number]=8/9 , 1 for HTN, 1 for DM -rate controlled. -Plan for echo. -start on lovenox. Status: Acute Qualifiers: Atrial fibrillation type: unspecified Qualified Code(s): I48.91 - Unspecified atrial fibrillation (3) Hyperlipidemia: Status: Acute Qualifiers: Hyperlipidemia type: unspecified Qualified Code(s): E78.5 - Hyperlipidemia, unspecified (4) ANGIE on CPAP: Status: Acute Additional A&P Information Hypertension Bifascicular block COPD Morbid obesity GERD DM-2 Hypokalemia: replaced Thank you for allowing me to participate in patient's care. Please feel free to call with questions or concerns. Attestations 2 Medical Necessity Statement*: Continue admission for assessment management of near syncope episodes, pauses and bradycardia. Time Spent in Patient Care: 16 - 35 minutes (>than 50% of time spent in counselling and/or direct pt care on unit) . Coding Level of Care Code Acute Home Specialist for [facility] Katya Diagnoses Near syncope R55 Atrial fibrillation I48.91 Atrial fibrillation type: unspecified Hyperlipidemia E78.5 Hyperlipidemia type: unspecified ANGIE on CPAP G47.33; Z99.89
[2020-10-19] MEDS: perflutren protein-a microsphr 0.22 mg/mL SDV 3 mL IV (16:28)
[2020-10-19 16:41] LABS: Glucose Point of Care 259 mg/dL (70-110)
--- NOTE | 2020-10-19 19:50 | USCV_ITS ---
Carlos Deejay Age: 55 Gender: M : 1965 Exam Date: 10/19/2020 10:23 Ordering Phys: Sanju Phillips MD Technologist: Luisa Aguiar Exam Location: [facility] – [place] Indication: Pauses, bradycardia, new afib BP: 128 / 79 HR: 62 Rhythm: Sinus Technical Quality: Very technically difficult study MEASUREMENTS (Male / Female) Normal Values 2D ECHO LV Diastolic Diameter PLAX 4.8 cm 4.2 - 5.9 / 3.9 - 5.3 cm LV Systolic Diameter PLAX 3.1 cm LV Chamber Size 5.0 cm IVS Diastolic Thickness 1.3 cm 0.6 - 1.0 / 0.6 - 0.9 cm IVS Systolic Thickness 1.4 cm LVPW Diastolic Thickness 1.3 cm 0.6 - 1.0 / 0.6 - 0.9 cm LVPW Systolic Thickness 1.8 cm RV Chamber Size 3.4 cm LVOT Diameter 2.3 cm LV Ejection Fraction 2D Teich 63.3 % LA Diameter 3.6 cm LA Width 4.0 cm LA Height 5.3 cm RA Width 3.5 cm RA Height 5.5 cm Aorta at Sinotubular Diameter 3.3 cm M-MODE LV Diastolic Diameter MM 5.0 cm 4.2 - 5.9 / 3.9 - 5.3 cm LV Systolic Diameter MM 3.1 cm LV Ejection Fraction MM Teich 67.7 % IVS Diastolic Thickness MM 1.6 cm 0.6 - 1.0 / 0.6 - 0.9 cm IVS Systolic Thickness MM 2.0 cm LVPW Diastolic Thickness MM 1.5 cm 0.6 - 1.0 / 0.6 - 0.9 cm LVPW Systolic Thickness MM 1.8 cm RV Diastolic Diameter MM 2.2 cm Aortic Annulus Diameter 3.5 cm LA Ao Ratio MM 1.1 MV E Point Septal Separation 0.8 cm DOPPLER AV Peak Velocity 112.0 cm/s LVOT Peak Velocity 84.0 cm/s AV Area Cont Eq vti 3.4 cm squared AV Area Cont Eq pk 3.2 cm squared MV Area PHT 3.1 cm squared Mitral E to A Ratio 0.9 MV E' Velocity 30.5 cm/s Mitral E to MV E' Ratio 11.5 Mitral E to LV E' Lateral Ratio 11.1 Mitral E to LV E' Septal Ratio 12.0 TV Peak E Velocity 56.0 cm/s FINDINGS Left Ventricle Normal left ventricular cavity size. Increased left ventricular wall thickness. Normal left ventricular systolic function. Left ventricular ejection fraction is estimated at 65 %. No diagnostic regional wall motion abnormality. Abnormal septal motion consistent with conduction abnormality. Grade II diastolic dysfunction, moderately elevated filling pressures. Right Ventricle Normal right ventricular size and systolic function. Right Atrium Right atrium not well visualized. Left Atrium Left atrium not well visualized. Mitral Valve Structurally normal mitral valve. Aortic Valve Aortic valve not well visualized. No aortic valve stenosis. Tricuspid Valve Tricuspid valve not well visualized. Trace tricuspid valve regurgitation. Pulmonic Valve Pulmonic valve not well visualized. Pericardium No pericardial effusion. Aorta Aorta not well visualized. CONCLUSIONS 1. This is a technically very difficult study. Ultrasound enhancing agent Optison was used. 2. Normal left ventricular cavity size and systolic function. Left ventricular ejection fraction is estimated at 65 %. No diagnostic regional wall motion abnormality. Abnormal septal motion consistent with conduction abnormality. Grade II diastolic dysfunction, moderately elevated filling pressures. 3. When compared to previous echocardiogram dated 04/07/2018, there may not have been any significant change. Laura Huizar MD (Electronically Signed) Final Date: 19 October 2020 18:23 S
[2020-10-19 22:08] LABS: Glucose Point of Care 208 mg/dL (70-110)
[2020-10-19] MEDS: zolpidem 5 mg Tablet PO (22:29)
[2020-10-20] VITALS (40 sets, daily range): BP systolic 127–182; BP diastolic 77–120; PULSE 59–78; RESP 10–19; TEMP 36.4–37.2; O2SAT 90–98
[2020-10-20 04:12] LABS: Basophils % 0.5 %; Eosinophils # 0.2 10^3/uL (0.0-0.8); Eosinophils % 2.6 %; Hematocrit 41.3 % (42.0-52.0); Hemoglobin 13.2 g/dL (11.7-16.6); Lymphocytes # 3.1 10^3/uL (0.8-4.8); Lymphocytes % 40.3 %; Mean Corpuscular Hemoglobin 27.9 pg (28.0-34.0); Mean Corpuscular Volume 87.3 fL (80-94); Monocytes # 0.5 10^3/uL (0.2-0.9); Monocytes % 6.5 %; Neutrophils # 3.85 10^3/uL (1.8-7.7); Neutrophils % 49.7 %; Nucleated Red Blood Cells % 0 %; Platelet Count 119 10^3/cmm (130-400); Red Blood Count 4.73 10^6/uL (4.1-5.3); White Blood Count 7.7 10^3/uL (4.0-10.0)
[2020-10-20 04:40] LABS: Blood Urea Nitrogen 18 mg/dL (6-20); Calcium 8.4 mg/dL (8.5-10.5); Carbon Dioxide 24 mmol/L (22-29); Chloride 105 mmol/L (98-107); Glomerular Filtration Rate 116.2 mL/min (90-130); Glucose 136 mg/dL (65-115); Magnesium 1.9 mg/dL (1.7-2.3); Osmolality Calculated 292 mOsm/kg (285-295); Sodium 139 mmol/L (136-145)
[2020-10-20 04:50] LABS: Anion Gap 13.4 (5-19); Potassium 3.4 mmol/L (3.5-5.1)
[2020-10-20 04:57] LABS: Slide Review Slide Review Perform
[2020-10-20] MEDS: enoxaparin 100 mg/mL Syringe SUBCUT (05:30)
[2020-10-20] MEDS: enoxaparin 40 mg/0.4 mL Syringe SUBCUT (05:31)
[2020-10-20 07:59] LABS: Glucose Point of Care 151 mg/dL (70-110)
[2020-10-20] MEDS: potassium chloride ER 20 mEq Tablet 40 MEQ PO (08:00)
[2020-10-20] MEDS: nicotine 14 mg Patch 1 PATCH TRANSDERMA (08:57)
[2020-10-20] MEDS: magnesium oxide 400 mg tablet PO (08:57)
[2020-10-20] MEDS: hydroCHLOROthiazide 25 mg Tablet PO (08:57)
[2020-10-20] MEDS: pantoprazole DR 40 mg Tablet PO (08:57)
[2020-10-20] MEDS: montelukast sodium 10 mg Tablet PO (08:59)
[2020-10-20] MEDS: atorvastatin 40 mg Tablet PO (08:59)
[2020-10-20] MEDS: gabapentin 300 mg Capsule 900 MG PO (08:59)
[2020-10-20] MEDS: fluticasone nasal spray 16gm Btl 2 SPRAY INTRANASAL (08:59)
[2020-10-20] MEDS: HYDROcodone-acetaminophen 10-325 mg Tablet 1 TAB PO (09:08)
[2020-10-20 11:08] LABS: Glucose Point of Care 260 mg/dL (70-110)
--- NOTE | 2020-10-20 13:37 | PC.NUTR ---
NUTRITION WEIGHT ASSESSMENT: Ht. 72 inches. Wt. 314 pounds. BMI of 42.6 kg/m2 indicates Morbid Obesity.
--- NOTE | 2020-10-20 15:08 | PM.PN ---
Subjective Subjective: Interval history: NO pauses noted on telem,etry Medications: Reviewed: Yes Vitals/I&O/Wt Last Vital Signs Temp 97.6 F 10/20/20 12:00 Pulse 64 10/20/20 14:00 Resp 15 10/20/20 12:00 BP 143/97 10/20/20 12:00 Pulse Ox 93 10/20/20 12:00 10/20/20 10/20/20 10/20/20 06:59 14:59 22:59 Intake Total 300 / 1302 600 / 600 Output Total 150 / 850 250 / 250 Balance 150 / 452 350 / 350 Weight last 48 hrs Weight 314 lb Weight 324 lb Physical Exam Narrative: EXAM NARRATIVE: GENERAL: obese man in no acute distress HEENT: Pupils equal round reactive to light. No pallor or icterus. NECK: Short neck, No JVD. No carotid bruit. CARDIOVASCULAR SYSTEM: S1-S2 regular. No S3 or S4 present. No murmur rubs or gallops. RESPIRATORY SYSTEM: Chest clear to auscultation. No wheezes rhonchi or rubs heard. ABDOMEN: Soft, nontender and nondistended. Normal bowel sounds present. EXTREMITIES: No cyanosis or clubbing. No edema. No signs of chronic venous insufficiency. PROFESSIONAL SERVICES MANAGER: Patient is alert oriented ?3. No focal neurological deficits. SKIN: Normal turgor and temperature. No breakdown, rash or nail changes noted. PSYCH: Normal insight and judgment. Data : 10/20/20 03:52 10/20/20 03:52 A&P Assessment and plan (1) Near syncope: Dose on metoprolol was recently increased to 100 mg BID. -In setting of recurrent pauses, recommend admit to ICU. -Pacer PADs and atropine on standby. As the pauses have been transient and he goes back to A. fib with HR in 60-70's -He has junctional escape in mid 30's. May start dopamine gtt if he has persistent pauses. -No AV yolande blockers -Continue to closely monitor on telemetry. -f/u on troponin. No ischemia on stress test in 03/2020. 10/20/20 No pauses since yesterday morning and has been off dopamine gtt. May be discharged home from cardiac standpoint. -Plan for event monitor for 2 weeks early next week -f/u with me in 3 weeks in office (per patient request). Status: Acute (2) Atrial fibrillation: [id number]=5/9 , 1 for HTN, 1 for DM -rate controlled. -No LV function on echo. -continue ac on discharge. Status: Acute Qualifiers: Atrial fibrillation type: unspecified Qualified Code(s): I48.91 - Unspecified atrial fibrillation (3) Hyperlipidemia: Status: Acute Qualifiers: Hyperlipidemia type: unspecified Qualified Code(s): E78.5 - Hyperlipidemia, unspecified (4) ANGIE on CPAP: May need sleep titration study. Status: Acute Additional A&P Information Hypertension: stop metoprolol, resume irbesartan, amlodipine and HCTZ on discharge Bifascicular block COPD Morbid obesity GERD DM-2 Hypokalemia: replaced Thank you for allowing me to participate in patient's care. Please feel free to call with questions or concerns. Attestations Medical Necessity Statement*: stable to be discharge. Time Spent in Patient Care: 16 - 35 minutes (>than 50% of time spent in counselling and/or direct pt care on unit). Coding Level of Care Code Acute Egg Separator for [facility]wd Diagnoses Near syncope R55 Atrial fibrillation I48.91 Atrial fibrillation type: unspecified Hyperlipidemia E78.5 Hyperlipidemia type: unspecified ANGIE on CPAP G47.33; Z99.89
[2020-10-20 16:50] LABS: Glucose Point of Care 224 mg/dL (70-110)
--- NOTE | 2020-10-20 17:20 | PM.DCS ---
Discharge Providers Date of Admission: 10/18/20 16:26 Date of Discharge: October 20, 2020 Attending Provider at Admission: Sanju Phillips Attending Provider at Discharge: Sanju Phillips Primary Care Provider: Kylah Garcia APN Diagnoses at Discharge Discharge Diagnosis (1) Near syncope: Status: Acute Permanent problem details: AV block, 2nd degree, 2:1 conduction, resolved w discontinuation of metoprolol underlying bifascicular block (2) Atrial fibrillation: Status: Acute Qualifiers: Atrial fibrillation type: unspecified Qualified Code(s): I48.91 - Unspecified atrial fibrillation (3) Hyperlipidemia: Status: Acute Qualifiers: Hyperlipidemia type: unspecified Qualified Code(s): E78.5 - Hyperlipidemia, unspecified (4) ANGIE on CPAP: Status: Acute Reason for Visit Reason for Visit: passed out 10/17. dizziness, high heart rate & bp Hospital Course Hospital Course Pleasant 55-year-old gentleman with hypertension, diabetes, HLD, obesity, ANGIE on CPAP, current smoker, other chronic medical conditions, was admitted for assessment management after sustaining multiple presyncopal episodes at home, on presentation in ER found to have episodes of bradycardia, up to 4-second pause, subsequently again with recurrence, requiring adenosine and initiation of dopamine drip. At home he takes metoprolol, and his dose had been recently increased to help manage hypertension. He is also noted to have bifascicular block. This medication is discontinued. And with withholding, he weaned off successfully with from dopamine drip. No further pauses noted. Heart rates remaining in the 70s. It appears a few additional lightheadedness episodes were observed without any pauses or bradycardia noted on telemetry. These did not appear to be related to orthostasis or exertion. He was not hypoglycemic, however, it does appear that glucose has been closer to normal values than it is at home, making him feel as if he was hypoglycemic with glucose running 130s-200s, at home usually running 300s-400s (at times possibly higher). He is encouraged to continue trying to tighten glucose control closer to goal, although slowly. He does state that he does not maintain diabetic diet very well at home. Encouraged him to adhere. He is feeling well today. He ambulated. He is reassessed by cardiology and okay to discharge with follow-up in office. We are resuming his antihypertensives apart from metoprolol. Due to noted atrial fibrillation he is started on anticoagulation for stroke risk reduction. Physical Exam Const: COMMON NORMALS: no acute distress, patient oriented x3 and alert GENERAL APPEARANCE: cooperative NUTRITIONAL APPEARANCE: obese ORIENTATION/CONSCIOUSNESS: Yes awake OTHER: Today he is feeling well. Denies any complaints. No pain or discomfort. Happy to return home. HENMT: COMMON NORMALS: oropharynx normal Neck/C-Spine: COMMON NORMALS: no JVD Resp: COMMON NORMALS: normal respiratory effort and clear to auscultation bilaterally AUSCULTATION: clear to auscultation bilaterally Cardio: COMMON NORMALS: no JVD, regular rhythm, S1 normal heart sound present, S2 normal heart sound present and No murmurs present (Cardio) RHYTHM: regular rhythm HEART SOUNDS: S1 normal heart sound present and S2 normal heart sound present GI: COMMON NORMALS: Normal to inspection, nondistended, normoactive bowel sounds present, Soft to palpation and non-tender PALPATION: Yes Soft to palpation Extremity: COMMON NORMALS: no joint enlargement and no pedal edema OTHER: Old fracture of right ankle with chronic deformity Neuro: COMMON NORMALS: patient oriented x3 and moves all extremities SENSORIUM/ORIENTATION: Yes alert Skin: COMMON NORMALS: no rashes or lesions noted GENERAL SKIN EXAM: no rashes or lesions noted Discharge Data Data Completed and Pending: Completed Studies During Hospitalization Category Date Time Status XR chest 1V bart ble [id number] Urgent Exams 10/18/20 14:57 Completed CV echo wo/w cont rast [id number] Routine Ultrasound 10/19/20 19:50 Completed Pending at discharge Category Date Time Status Basic Metabolic P jareth AM LABS Lab 10/21/20 04:00 Ordered Complete Blood Co unt w/Auto AM LABS Lab 10/21/20 04:00 Ordered US/CV paperwork R outine Ultrasound 10/19/20 Taken Labs from last 24 hours 10/20/20 10/20/20 10/20/20 16:46 11:05 07:06 WBC RBC Hgb Hct MCV MCH MCHC RDW Plt Count MPV Neut % (Auto) Lymph % (Auto) [place] % (Auto) Eos % (Auto) Baso % (Auto) Neut # (Auto) Lymph # (Auto) [place] # (Auto) Eos # (Auto) Baso # (Auto) Nucleated RBC % (a uto) Nucleated RBCs # Sodium Potassium Chloride Carbon Dioxide Anion Gap BUN Creatinine GFR Calculation Glucose POC Glucose 224 H 260 H 151 H Calculated Osmolal ity Calcium Magnesium 10/20/20 10/20/20 10/19/20 03:52 03:52 21:40 WBC 7.7 RBC 4.73 Hgb 13.2 Hct 41.3 L MCV 87.3 MCH 27.9 L MCHC 32.0 RDW 12.0 L Plt Count 119 L MPV 11.0 H Neut % (Auto) 49.7 Lymph % (Auto) 40.3 [place] % (Auto) 6.5 Eos % (Auto) 2.6 Baso % (Auto) 0.5 Neut # (Auto) 3.85 Lymph # (Auto) 3.1 [place] # (Auto) 0.5 Eos # (Auto) 0.2 Baso # (Auto) 0.0 Nucleated RBC % (a uto) 0 Nucleated RBCs # 0.0 Sodium 139 Potassium 3.4 L Chloride 105 Carbon Dioxide 24 Anion Gap 13.4 BUN 18 Creatinine 0.7 GFR Calculation 116.2 Glucose 136 H POC Glucose 208 H Calculated Osmolal ity 292 Calcium 8.4 L Magnesium 1.9 Vitals: Last Vital Signs Temp 98.2 F 10/20/20 15:30 Pulse 65 10/20/20 16:00 Resp 14 10/20/20 16:00 BP 152/104 10/20/20 16:00 Pulse Ox 93 10/20/20 16:00 Discharge Plan Discharge Patient Disposition: Home Condition: Stable Prescriptions: New nicotine 21 mg/24 hr patch 24 hour 1 patch transdermal DAILY Qty: 28 RF: 0 nicotine (polacrilex) 2 mg lozenge 4 mg buccal Q1H PRN (Reason: nicotine cravings) Qty: 81 RF: 0 Eliquis 5 mg tablet 5 mg PO BID Qty: 60 RF: 0 Continued (DME) Diabetic Boots with Molded Inserts with Articulating AFO See Rx Instructions .Route .MEDSUPPLY Qty: 1 RF: 0 amlodipine 10 mg tablet 10 mg PO DAILY@1000 RF: 0 tamsulosin 0.4 mg capsule 0.4 mg PO BID@1000,2200 RF: 0 trazodone 50 mg tablet 50 - 100 mg PO BEDTIME@2200 RF: 0 atorvastatin 40 mg tablet 40 mg PO DAILY@1000 RF: 0 Ventolin HFA 90 mcg/actuation HFA aerosol inhaler 2 inh INHALATION Q4H PRN (Reason: shortness of breath or wheezing) RF: 0 hydrocodone-acetaminophen 10-325 mg tablet 1 tab PO Q6H PRN (Reason: pain) RF: 0 montelukast 10 mg tablet 10 mg PO DAILY@1000 RF: 0 Januvia 100 mg tablet 100 mg PO DAILY@1000 RF: 0 bupropion HCl 150 mg tablet extended release 24 hr 150 mg PO DAILY@1000 RF: 0 gabapentin 600 mg tablet 900 mg PO BID@1000,2200 RF: 0 glipizide 10 mg tablet 10 mg PO BID@1000,2200 RF: 0 hydroxyzine HCl 50 mg tablet 100 mg PO BEDTIME@2200 RF: 0 fluticasone propionate 50 mcg/actuation spray,suspension 2 spray INTRANASAL DAILY@1000 RF: 0 irbesartan 300 mg tablet 300 mg PO DAILY@1000 RF: 0 bupropion HCl 300 mg tablet extended release 24 hr 300 mg PO DAILY@1000 RF: 0 hydrochlorothiazide 25 mg tablet 25 mg PO DAILY@1000 RF: 0 omeprazole 20 mg capsule,delayed release(DR/EC) 20 mg PO BID@1000,2200 RF: 0 Victoza 2-Andrew 0.6 mg/0.1 mL (18 mg/3 mL) pen injector See Rx Instructions .ROUTE .COMPLEX RF: 0 Linzess 72 mcg capsule 72 mcg PO DAILY@1000 RF: 0 Discontinued diclofenac sodium 75 mg tablet,delayed release (DR/EC) 75 mg PO BID@1000,2200 PRN (Reason: pain) RF: 0 Hold Instructions: Resume on 12/30/19. metoprolol succinate 50 mg tablet extended release 24 hr 100 mg PO BID@1000,2200 RF: 0 Discharge Orders: Discharge Order (Routine); Ordered 10/20/20 Ordered By: Sanju Phillips Other Ambulatory Orders: [place] cardiac event monitor (Routine) Timeframe: 1 Day Facility: [facility] - Location: Cardiac Diagnostic Laboratory Ordered By: Sanju Phillips Referrals: Aaliyah Noel FNP [Nurse Practitioner] - 1 week Laura Huizar MD [Physician] - (3 weeks) Kylah Garcia APN [Primary Care Provider] - 4-7 days Discharge Diet: Cardiac and Diabetic Discharge Activity: Increase activity as tolerated Patient Instructions: Anticoagulation Therapy, Diabetes and Diet, Apixaban (By mouth), How to Stop Smoking (GEN), Diabetic Hypoglycemia (GEN), Bradycardia (GEN), Opioid Safety Activity Restrictions/Additional Instructions: Please discontinue metoprolol as it is causing your heart rate to go to slow with pauses. You are also noted to have bifascicular block (heart conduction abnormality). Please follow-up on this with your primary doctor and with cardiology office. Please follow-up on being set up with a heart monitor tomorrow. Please monitor your heart rates, blood pressures and blood glucose 3 times a day, write down values to bring to your appointment. If you experience very slow heart rates, 30s-40s per minute, please call 911. Continue to work with your primary care doctor to optimize hypertension and diabetes control. Slowly bring down glucose closer to the target value of 150, this may prevent feeling of low blood glucose. Avoid staying in the high blood glucose ranges. Please be diligent about maintaining diabetic diet. Discharge Attestations Time Spent in Discharge Care*: greater than 30 min Quality Metrics Clinical Quality Measures During this hospital stay, did patient experience: None Coding Level of Care Code Acute g FW DC note Diagnoses Near syncope R55 Atrial fibrillation I48.91 Atrial fibrillation type: unspecified Hyperlipidemia E78.5 Hyperlipidemia type: unspecified ANGIE on CPAP G47.33; Z99.89
--- NOTE | 2020-10-23 17:13 | PC.RESP ---
Smoking Cessation and Pulmonary Rehab information sent to patient.
== END 2020-10-20 17:39 | disposition home or self-care (01) | DRG 309 ==
LOC: ER 16:33 → ICU 16:47
PROVIDERS: Admitting Provider Internal Medicine; Emergency Provider Family Medicine; PCP Nurse Practitioner Family; Visit Provider Internal Medicine
DX: I44.1 Atrioventricular block, second degree (principal); Z68.41 Body mass index [BMI] 40.0-44.9, adult; I45.2 Bifascicular block; I10 Essential (primary) hypertension; Z86.73 Personal history of transient ischemic attack (TIA), and cerebral infarction without residual deficits; E78.5 Hyperlipidemia, unspecified; E11.9 Type 2 diabetes mellitus without complications; G47.33 Obstructive sleep apnea (adult) (pediatric); N40.0 Benign prostatic hyperplasia without lower urinary tract symptoms; J44.9 Chronic obstructive pulmonary disease, unspecified; E66.01 Morbid (severe) obesity due to excess calories; F17.210 Nicotine dependence, cigarettes, uncomplicated; I48.91 Unspecified atrial fibrillation; K21.9 Gastro-esophageal reflux disease without esophagitis; Z79.891 Long term (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 of opiate analgesic; Z79.4 Long term (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 of insulin
CPT/HCPCS: 36415; 36416; 71045; 80048; 80053; 81003; 82962; 83605; 83735; 83880; 84443; 84484; 85025; 85378; 93005; 93306; 94660; 96360; 96372; 99285; C8929; J0461; J1265; J1650; J1815; J3475; J7030; Q9956

== ENCOUNTER 2020-11-24 20:50 | Emergency (ER) | payer MEDICARE, OTHER, SELFPAY ==
[2020-11-24 20:55] VITALS: BP 149/87; PULSE 95; RESP 17; TEMP 36.4; O2SAT 97; BMI 40.4
--- NOTE | 2020-11-24 21:18 | ED_ITS ---
HPI - Neck Pain/Injury General: Chief Complaint: Neck Pain/Injury Stated Complaint: NECK PAIN Time Seen by Provider: 11/24/20 21:05 History of Present Illness: HPI Narrative: Patient is a 55-year-old male who comes to the ED with neck pain. Patient denies any acute injury or trauma to cause pain. He says he woke up yesterday morning at 9:00 am with neck pain. He has a prescription of hydrocodone that he took today and it helped with some of his pain but it is coming back. He rates his pain currently a 6 out of 10. He says it hurts his neck whenever he turns his head. Denies any other symptoms. Associated symptoms: Denies headache(s) or nausea Review of Systems Const: Denies: fever(s), chills or fatigue Eyes: Denies: change in vision or eye discomfort ENMT: Denies: throat pain, odynophagia, nasal discharge or nasal congestion Card: Denies: chest pain, palpitations, edema, swelling of feet/ankles, dyspnea on exertion or orthopnea Resp: Denies: dyspnea, productive cough or non-productive cough GI: Denies: abdominal pain, nausea, vomiting, diarrhea, constipation or hematochezia : Denies: flank pain, difficulty urinating, dysuria or hematuria Musc: Reports: neck pain; Denies: back pain or extremity swelling Skin/Breast: Denies: rash or new lesions Neuro: Denies: headache(s), numbness in extremities or weakness in extremities PFSH ED PFSH: Medical History BPH (benign prostatic hyperplasia) Change in bowel habits COPD (chronic obstructive pulmonary disease) Diabetes Hernia Hyperlipidemia Near syncope AV block, 2nd degree, 2:1 conduction, resolved w discontinuation of metoprolol underlying bifascicular block Obesity ANGIE on CPAP Sinus pause Syncope Tobacco abuse Transient blindness of both eyes Surgical History History of cataract surgery Family History Grandmother CAD (coronary artery disease) MATERNAL Mother Diabetes Denies family history of Anesthesia complication Bleeding disorder Social History Smoking and tobacco status: current every day smoker cigarettes Packs smoked per day: 1 Alcohol intake: current Alcohol intake frequency: holidays/special occasions only Household members: other Details: Girlfriend Marital status: service: No Current occupational status: disabled Physical Exam Const: COMMON NORMALS: no acute distress, patient oriented x3 and alert GENERAL APPEARANCE: cooperative and comfortable HENMT: COMMON NORMALS: normocephalic HEAD & SCALP: normocephalic MOUTH: Normal oral and palatal mucosa present THROAT: posterior oropharynx normal and uvula midline Neck/C-Spine: COMMON NORMALS: supple GENERAL: Yes normal visual inspection CERVICAL SPINE: Yes pain with cervical ROM with rotation to the right, No Cervical spine tenderness, Yes Paracervical muscle tenderness right and Yes Trapezius muscle tenderness right Resp: COMMON NORMALS: normal respiratory effort, No retractions, No use of accessory muscles and clear to auscultation bilaterally AUSCULTATION: clear to auscultation bilaterally Cardio: COMMON NORMALS: regular rate, regular rhythm, S1 normal heart sound present, S2 normal heart sound present, No gallops present (Cardio), No clicks present (Cardio), No murmurs present (Cardio) and Peripheral pulses 2+ throughout RATE: regular rate RHYTHM: regular rhythm HEART SOUNDS: S1 normal heart sound present and S2 normal heart sound present PERIPHERAL PULSES: Peripheral pulses 2+ throughout GI: COMMON NORMALS: Normal to inspection, nondistended, normoactive bowel sounds present, Soft to palpation, non-tender and no masses PALPATION: Yes Soft to palpation : COMMON NORMALS: Yes no CVA tenderness BLADDER/KIDNEY EXAM: Yes no CVA tenderness Back/Pelvis: COMMON NORMALS: no CVA tenderness Extremity: COMMON NORMALS: normal to inspection Neuro: COMMON NORMALS: patient oriented x3 and moves all extremities SENSORIUM/ORIENTATION: Yes alert Skin: GENERAL SKIN EXAM: dry skin Course Vital Signs: Vital signs: Vital Signs Temperature 97.6 F 11/24/20 20:55 Pulse Rate 95 11/24/20 20:55 Respiratory Rate 18 11/24/20 21:59 Blood Pressure 149/87 11/24/20 20:55 Pulse Oximetry 98 11/24/20 21:59 MDM - Neck Pain/Injury MDM Narrative: Medical decision making narrative: Patient is a 55-year-old comes to the ED with neck pain. Patient woke up with neck pain yesterday and denies any trauma or injury to cause pain. He has some right paracervical spinal muscle tenderness and right trapezius tenderness. No cervical spine tenderness. Due to patient's history and clinical exam no imaging was necessary. Patient was given a dose of morphine, Zofran and Norflex while here in the ED. He was discharged home with a prescription for Flexeril. Patient currently has hydrocodone pain prescription and I told to continue taking that as needed for pain. Follow-up with PCP in 7 to 10 days reevaluation. Return to ED precautions given. Patient understood agree with plan. Discharge Plan Discharge Patient Disposition: Home Clinical Impression: Cervical muscle pain Condition: Stable Prescriptions: New cyclobenzaprine 10 mg tablet 10 mg PO BID PRN (Reason: muscle spasm) Qty: 12 RF: 0 No Action (DME) Diabetic Boots with Molded Inserts with Articulating AFO See Rx Instructions .Route .MEDSUPPLY Qty: 1 RF: 0 amlodipine 10 mg tablet 10 mg PO DAILY@1000 RF: 0 tamsulosin 0.4 mg capsule 0.4 mg PO BID@999,2199 RF: 0 trazodone 50 mg tablet 50 - 100 mg PO BEDTIME@2199 RF: 0 atorvastatin 40 mg tablet 40 mg PO DAILY@999 RF: 0 Ventolin HFA 90 mcg/actuation HFA aerosol inhaler 2 inh INHALATION Q4H PRN (Reason: shortness of breath or wheezing) RF: 0 hydrocodone-acetaminophen 10-325 mg tablet 1 tab PO Q6H PRN (Reason: pain) RF: 0 montelukast 10 mg tablet 10 mg PO DAILY@1000 RF: 0 Januvia 100 mg tablet 100 mg PO DAILY@999 RF: 0 bupropion HCl 150 mg tablet extended release 24 hr 150 mg PO DAILY@1000 RF: 0 gabapentin 600 mg tablet 900 mg PO BID@999,2199 RF: 0 glipizide 10 mg tablet 10 mg PO BID@999,2199 RF: 0 hydroxyzine HCl 50 mg tablet 100 mg PO BEDTIME@2199 RF: 0 fluticasone propionate 50 mcg/actuation spray,suspension 2 spray INTRANASAL DAILY@999 RF: 0 irbesartan 300 mg tablet 300 mg PO DAILY@1000 RF: 0 bupropion HCl 300 mg tablet extended release 24 hr 300 mg PO DAILY@999 RF: 0 omeprazole 20 mg capsule,delayed release(DR/EC) 20 mg PO BID@1000,2200 RF: 0 Victoza 2-Andrew 0.6 mg/0.1 mL (18 mg/3 mL) pen injector See Rx Instructions .ROUTE .COMPLEX RF: 0 Linzess 72 mcg capsule 72 mcg PO DAILY@1000 RF: 0 nicotine 21 mg/24 hr patch 24 hour 1 patch transdermal DAILY Qty: 28 RF: 0 nicotine (polacrilex) 2 mg lozenge 4 mg buccal Q1H PRN (Reason: nicotine cravings) Qty: 81 RF: 0 Eliquis 5 mg tablet 5 mg PO BID Qty: 60 RF: 0 Discharge Orders: Discharge ED (Routine); Ordered 11/24/20 Ordered By: Ivan Patino Referrals: Kylah Garcia APN [Primary Care Provider] - Discharge Diet: Regular Discharge Activity: Increase activity as tolerated Patient Instructions: Cervical Strain Activity Restrictions/Additional Instructions: Follow-up with medical provider as directed in 7 days for reevaluation. Rest and apply cold pack on neck to help with symptoms. Stretch neck muscles daily. Take medications as prescribed. Cyclobenzaprine is a muscle relaxer and can cause some drowsiness so take at night before bed. Return to the ER or your medical provider if condition worsens. Please read and understand discharge instructions. Thank you for choosing [facility] for your healthcare needs today. Please realize this is an emergency room and that we are providing you with a medical screening exam and this may not be complete and all inclusive of all the testing and or work up that you may need to determine your ailment or severity of your illness. It is very important that you follow up as instructed or that you return to the Emergency Department should you have concerns or if your condition changes or worsens in any way. Coding Level of Care Code ED Transcribing Operators Supervisor for Kalpesh Fwike 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
[2020-11-24] MEDS: ondansetron 4 MG Tablet PO (21:58)
[2020-11-24 21:59] VITALS: RESP 18; O2SAT 98
[2020-11-24] MEDS: morphine 4 mg/mL SDV 1 mL IM (21:59)
[2020-11-24] MEDS: orphenadrine 30 mg/mL Inj 2 mL 60 MG IM (21:59)
== END 2020-11-24 22:28 | disposition home or self-care (01) ==
PROVIDERS: Emergency Provider Physician Assistant; PCP Nurse Practitioner Family
DX: M79.18 Myalgia, other site (principal); Z79.01 Long term (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 of anticoagulants; Z79.84 Long term (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 of oral hypoglycemic drugs; J44.9 Chronic obstructive pulmonary disease, unspecified; E11.9 Type 2 diabetes mellitus without complications; E78.5 Hyperlipidemia, unspecified; F17.210 Nicotine dependence, cigarettes, uncomplicated
CPT/HCPCS: 96372; 99283; J2270; J2360; Q0162

== ENCOUNTER 2021-01-24 13:03 | Outpatient (CLI) | payer MEDICARE, OTHER, SELFPAY ==
--- NOTE | 2021-01-24 13:43 | CT_ITS ---
WS: [id number] CT scan of the chest with IV contrast, additional two-dimensional coronal and sagittal reconstruction was performed. 01/24/2021 Clinical Data: MEDIASTINAL LYMPH NODES, COUGH Comparison: CT neck, 10/02/2020. DLP: 1132.[address] scans at [facility] use at least one of these dose optimization techniques: automat ed exposure control; mA and/or kV adjustment per patient size (includes targeted exams where dose is matched to clinical indication); or iterative reconstruction. Findings: No nodules, masses or effusions are seen. No pneumonia or pneumothorax is seen. The heart size is nor mal with no pericardial effusion. The pulmonary arterial system and thoracic aorta demonstrate no abn ormalities or dilatations. There is no axillary or significant mediastinal adenopathy. The upper abdomen demonstrates no intra-abdominal abnormalities. There is a 5 cm lipoma in the yarn texture machine operator ior lateral back at the level of the midportion of the right lobe of the liver. There is moderate ost eoarthritis of the thoracic vertebral bodies. CT/CT chest w con* [id number] Impression: Negative CT scan of the chest with IV contrast.
[2021-01-24] MEDS: iohexol 300 mg/mL 100 mL Btl IV (14:09)
== END 2021-01-24 13:04 | disposition home or self-care (01) ==
LOC: RADWPI 13:25
PROVIDERS: PCP Nurse Practitioner Family; Visit Provider Nurse Practitioner Family
DX: R05 Cough (principal); R59.1 Generalized enlarged lymph nodes
CPT/HCPCS: 71260; Q9967

== ENCOUNTER 2021-02-26 13:57 | Outpatient (CLI) | payer MEDICARE, OTHER, SELFPAY ==
--- NOTE | 2021-02-26 14:09 | MM_ITS ---
WS: [id number] DIAGNOSTIC BILATERAL DIGITAL MAMMOGRAM WITH CAD LEFT breast ultrasound, limited HISTORY: LT AXILLARY MASS, male. COMPARISON: None available. TECHNIQUE: Bilateral craniocaudad, mediolateral oblique, and mediolateral views are submitted. Spot c ompression LEFT MLO at the axilla. Computer aided detection utilized. Breast composition: The breasts are almost entirely fatty. No suspicious findings within the breast p arenchyma. The palpable abnormality is towards the LEFT axilla. This is a difficult area to obtain co mpression views. No definite abnormality is identified on the compression view. Ultrasound to follow. LEFT breast ultrasound, limited. Ultrasound is directed to the palpable areas within the LEFT axilla. There are no suspicious lymph no rahul identified. There are a few lymph nodes within the axilla with the largest measuring 3.6 cm in le ngth. Very dense fatty claudia are present. The cortex is very thin and smooth. There are no enlarged ly mph nodes or abnormal lymph node. Similar lymph nodes are noted within the RIGHT axilla. MM/[place] [id number] IMPRESSION: BI-RADS: 2-Benign FOLLOW UP: See Report Palpable area in the LEFT axilla corresponds with normal-appearing fatty lymph nodes. There are no abnormal lymph nodes identified. LACK OF RADIOGRAPHIC EVIDENCE OF MALIGNANCY SHOULD NOT DELAY BIOPSY IF A CLINIC ALLY SUSPICIOUS MASS IS PRESENT.
== END 2021-02-26 13:58 | disposition home or self-care (01) ==
LOC: RADSHAW 14:06
PROVIDERS: PCP Nurse Practitioner Family; Visit Provider Nurse Practitioner Family
DX: N63.32 Unspecified lump in axillary tail of the left breast (principal)
CPT/HCPCS: 76642; 77065

== ENCOUNTER 2021-05-06 13:06 | Outpatient (CLI) | payer MEDICARE, OTHER, SELFPAY ==
--- NOTE | 2021-05-06 13:30 | CT_ITS ---
WS: [id number] CT ABDOMEN AND PELVIS WITH CONTRAST HISTORY: Midabdominal back pain for 2 years. TECHNIQUE: Imaging performed of the abdomen and pelvis with IV contrast. Single phase imaging of the abdomen. Coronal and sagittal reformats are submitted. All CT scans at [facility] use at [address] one of these dose optimization techniques: automated exposure control; mA and/or kV adjustment per patient size (includes targeted exams where dose is matched to clinical indication); or iterative re construction. IV CONTRAST: Omnipaque 350; 95 mL IV. Oral contrast: Yes. DLP: 1413.81 mGycm COMPARISON: 12/01/2019 Lower thorax: Lung bases are clear. Heart is normal size. Small hiatal hernia. Liver/biliary system: Mild hepatomegaly and diffuse hepatic steatosis. No bile duct dilatation or mas s identified. Gallbladder: Normal. No gallstones or wall thickening. No pericholecystic fluid. Pancreas: Normal size pancreas and pancreatic duct. No adjacent inflammation. Spleen: Normal size spleen. No mass or infarct. Adrenal glands: Normal. Right kidney: Normal. Left kidney: Normal. Aorta: Mild atherosclerosis with no aneurysm. Lymphadenopathy: None. Mesenteric lymph nodes around the celiac axis are stable. No enlargement. Free fluid: None. GI tract: Normal appendix. No GI tract obstruction. No significant diverticular disease. Abdominal wall: Unremarkable abdominal wall. Defect in the RIGHT lateral and posterior abdominal wall contains herniated omental fat and stable. Pelvis: No free fluid or adenopathy within the pelvis. Bones: Advanced degenerative changes of the lumbar spine. Vacuum disc phenomenon with osteophytes and disc space narrowing. CT/CT abdomen pelvis w con* [id number] IMPRESSION: 1. No acute abdominal or pelvic abnormalities are identified. 2. Defect in the RIGHT posterior lateral abdominal wall contains omentum and s table. 3. Hepatic steatosis and mild hepatomegaly.
[2021-05-06] MEDS: iohexol 350 mg/mL 100 mL Btl IV (13:45)
[2021-05-06] MEDS: iohexol 300 mg/mL 50 mL Btl PO (13:45)
== END 2021-05-06 13:07 | disposition home or self-care (01) ==
PROVIDERS: PCP Nurse Practitioner Family; Visit Provider Surgery
DX: K45.8 Other specified abdominal hernia without obstruction or gangrene (principal); K43.9 Ventral hernia without obstruction or gangrene; K76.0 Fatty (change of) liver, not elsewhere classified; R16.0 Hepatomegaly, not elsewhere classified
CPT/HCPCS: 74177; Q9967

== ENCOUNTER → 2021-05-23 11:12 | Outpatient (BNVA) | payer MEDICARE, OTHER, SELFPAY | PROVIDERS: PCP Nurse Practitioner Family; Visit Provider Surgery | DX: Z20.822 Contact with and (suspected) exposure to COVID-19 (principal); R19.4 Change in bowel habit | CPT/HCPCS: 87635 ==

== ENCOUNTER 2021-05-28 07:11 | Day surgery (SDC) | payer MEDICARE, OTHER, SELFPAY ==
[2021-05-26 12:00] VITALS: BMI 38.5
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
--- NOTE | 2021-05-28 07:45 | W.PM.OPSUD ---
Surgery/Procedure H&P Update DATE OF PROCEDURE: May 28, 2021 DATE H&P PERFORMED: 05/12/21 H&P UPDATE INFORMATION: I have reviewed H&P completed within last 30 days, I have examined patient prior to procedure and No changes to prior documentation PREOP DIAGNOSIS: Bloating and diarrhea PRIMARY INDICATION FOR PROCEDURE: Bloating and diarrhea PLANNED PROCEDURE: Operation Date: 05/28/21 08:00 Proposed Procedures p EGD 77790 R19.4(Not Applicable) - Harlan Posadas MD
[2021-05-28] MEDS: sodium chloride 0.9% 1,000 ML 30 ML IV (07:55)
[2021-05-28 07:56] VITALS: BP 152/81; PULSE 72; RESP 18; TEMP 36.3; O2SAT 95
[2021-05-28 09:10] VITALS: BP 129/105; PULSE 74; RESP 16; TEMP 36.6; O2SAT 97
--- NOTE | 2021-05-28 09:16 | ANE.PACU2 ---
Inpatient post-anesthesia follow up: Airway intact: Yes Vital signs: Temperature 97.4 F Pulse Rate 72 Respiratory Rate 18 Blood Pressure 152/81 Pulse Oximetry 95 Oxygen Delivery Me thod Room Air Oxygen Flow Rate Fraction of Inspir ed Oxygen Hydration adequate: Yes Mental status: Baseline
[2021-05-28 09:32] VITALS: BP 118/61; PULSE 67; RESP 18; O2SAT 98
[2021-05-30 10:45] LABS: H. Pylori / CLO Test Negative
[2021-06-03 09:42] LABS: Glucose Point of Care 223 mg/dL (70-110)
== END 2021-05-28 09:56 | disposition home or self-care (01) ==
PROVIDERS: PCP Nurse Practitioner Family; Visit Provider Surgery
PROC: 0DJ08ZZ Inspection of Upper Intestinal Tract, Via Natural or Artificial Opening Endoscopic (ICD-10-PCS; CPT 43235; principal; 2021-05-28 08:00)
DX: R14.0 Abdominal distension (gaseous) (principal); R19.7 Diarrhea, unspecified; K29.70 Gastritis, unspecified, without bleeding; J44.9 Chronic obstructive pulmonary disease, unspecified; I10 Essential (primary) hypertension; N40.0 Benign prostatic hyperplasia without lower urinary tract symptoms; E78.5 Hyperlipidemia, unspecified; E66.9 Obesity, unspecified; Z68.38 Body mass index [BMI] 38.0-38.9, adult; G47.33 Obstructive sleep apnea (adult) (pediatric); Z82.49 Family history of ischemic heart disease and other diseases of the circulatory system; Z83.3 Family history of diabetes mellitus
CPT/HCPCS: 36416; 43239; 82962; 87077; 88305; 96360; 96361; J2704; J7030

== ENCOUNTER 2021-06-17 09:39 | Outpatient (CLI) | payer MEDICARE, OTHER, SELFPAY ==
--- NOTE | 2021-06-17 10:00 | FL_ITS ---
WS: [id number] SMALL BOWEL EXAMINATION CLINICAL INFORMATION: R19.4 - Change in bowel habit COMPARISON: CT May 06, 2021 FINDINGS: Initial abdomen radiograph: Normal bowel gas pattern. No abnormal calcification. Moderate to advanced spondylitic changes lumbar spine. Dorsal spinal stimulator projected over the mid to lower thoracic spine. Contrast material: Gastrografin with additional barium for improved assessment Transit time: 40 Minutes (normal = 30 - 240 minutes) Rapid small bowel transit time. Normal double contrast stomach and proximal duodenum. Normal duodenal C-loop. Normal mucosal pattern in the jejunum. No evidence of high-grade stricture or obstructing ma ss. No small bowel tethering. Normal terminal ileum and ileocecal valve. Contrast extends into the co vanda. FLUOROSCOPY TIME: 0.9 minutes FL/[place] gastro [id number] IMPRESSION: 1. Rapid small bowel transit time at 40 minutes. 2. Otherwise unremarkable small bowel study without evidence of obstruction o r adhesion. 3. Normal visualized mucosal pattern in the jejunum and ileum
[2021-06-17] MEDS: diatrizoate meglumine 120 mL Sol PO ×2 (10:47→10:49)
== END 2021-06-17 09:40 | disposition home or self-care (01) ==
LOC: RAD 09:45
PROVIDERS: PCP Nurse Practitioner Family; Visit Provider Surgery
DX: R19.4 Change in bowel habit (principal)
CPT/HCPCS: 74250

== ENCOUNTER → 2021-10-14 13:55 | Outpatient (BNVA) | payer MEDICARE, OTHER, SELFPAY | PROVIDERS: PCP Nurse Practitioner Family; Visit Provider Internal Medicine Cardiovascular Disease | DX: I48.91 Unspecified atrial fibrillation (principal); E78.5 Hyperlipidemia, unspecified; E11.9 Type 2 diabetes mellitus without complications; Z79.4 Long term (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 of insulin; J44.9 Chronic obstructive pulmonary disease, unspecified; Z72.0 Tobacco use; E66.9 Obesity, unspecified; Z68.38 Body mass index [BMI] 38.0-38.9, adult; I10 Essential (primary) hypertension; Z79.01 Long term (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 of anticoagulants | CPT/HCPCS: 99214 ==

== ENCOUNTER → 2021-12-31 11:42 | Outpatient (BNVA) | payer MEDICARE, OTHER, SELFPAY | PROVIDERS: PCP Nurse Practitioner Family; Visit Provider Podiatrist Foot & Ankle Surgery | DX: M79.672 Pain in left foot (principal); M79.671 Pain in right foot; M92.511 Juvenile osteochondrosis of proximal tibia, right leg; E11.42 Type 2 diabetes mellitus with diabetic polyneuropathy; M19.179 Post-traumatic osteoarthritis, unspecified ankle and foot; M72.2 Plantar fascial fibromatosis | CPT/HCPCS: 99213 ==

== ENCOUNTER 2021-12-31 15:16 | Outpatient (CLI) | payer MEDICARE, OTHER, SELFPAY | END 2021-12-31 15:17 | disposition home or self-care (01) | LOC: SPT 15:28 | PROVIDERS: PCP Nurse Practitioner Family; Visit Provider Podiatrist Foot & Ankle Surgery | DX: Z46.89 Encounter for fitting and adjustment of other specified devices (principal); M72.2 Plantar fascial fibromatosis | CPT/HCPCS: L4397 ==

== ENCOUNTER → 2022-03-03 13:02 | Outpatient (BNVA) | payer MEDICARE, OTHER, SELFPAY | PROVIDERS: PCP Nurse Practitioner Family; Visit Provider Podiatrist Foot & Ankle Surgery | DX: M92.511 Juvenile osteochondrosis of proximal tibia, right leg (principal); M19.171 Post-traumatic osteoarthritis, right ankle and foot; E11.42 Type 2 diabetes mellitus with diabetic polyneuropathy; M72.2 Plantar fascial fibromatosis | CPT/HCPCS: 99213; 99214 ==

== ENCOUNTER 2022-07-03 13:25 | Emergency (ER) | payer MEDICARE, OTHER, SELFPAY ==
--- NOTE | 2022-07-03 14:11 | XR_ITS ---
WS: [id number] Chest 2 views, 07/03/2022 Clinical Data: Lightheadedness Comparison: Portable chest, 10/18/2020 Findings: No nodules, masses or effusions are seen. The heart is normal. The pulmonary vascularity is not increased. No pneumonia or pneumothorax is seen. There is minimal atelectasis over the lateral s urface of the left diaphragm unchanged. The aortic arch and descending thoracic aorta show mild tortu osity. There are epidural stimulator leads over the midthoracic spine. XR/XR chest 2V* [id number] Impression: Atherosclerosis.
--- NOTE | 2022-07-03 14:11 | CT_ITS ---
WS: [id number] CT HEAD TECHNIQUE: Noncontrast CT of the head obtained from the skullbase to the vertex. CLINICAL INFORMATION: Lightheadedness COMPARISON: None. DLP: 1116.[address] scans at [facility] use at least one of these dose optimization techniques: automated e xposure control; mA and/or kV adjustment per patient size (includes targeted exams where dose is matc hed to clinical indication); or iterative reconstruction. FINDINGS: No evidence of intracranial hemorrhage or mass effect. Ventricular system and basal cisterns are abreu nt. Mild small vessel changes with moderate parenchymal volume loss. No extra-axial fluid collections . No evidence of mass or mass effect. Minimal incidental low-lying cerebellar tonsils. Paranasal sinuses and mastoid air cells are well aerated. .Normal visualized soft tissues. CT/CT head wo con* [id number] IMPRESSION: 1. No evidence of intracranial hemorrhage or mass effect. 2. Mild small vessel changes. Moderate parenchymal volume loss. Volume loss wo rse in the frontal lobes. 3. No acute intracranial findings.
[2022-07-03 14:45] VITALS: BP 145/84; PULSE 79; RESP 18; TEMP 36.8; O2SAT 96; BMI 38.5
--- NOTE | 2022-07-03 14:50 | ECG_ITS ---
[facility] Test Date: 2022-07-03 Pat Name: Deejay Gonzalez Department: Room: Gender: Male Sheet Catcher: : [id number] Requested By: Jin Padgett Order Number: [id number] Jordon MD: Laura Huizar M.D. Measurements Intervals [place] Rate: 81 P: 40 MO: 179 QRS: -26 QRSD: 170 T: 39 QT: 430 QTc: 499 Interpretive Statements SINUS RHYTHM INDETERMINATE AXIS RIGHT BUNDLE BRANCH BLOCK [120+ ms QRS DURATION, UPRIGHT V1, 40+ ms S IN I/aVL/V4/V5/V6] Compared to ECG 10/19/2020 00:11:44 Sinus arrhythmia no longer present Left anterior fascicular block no longer present Myocardial infarct finding no longer present Electronically Signed On 07-03-2022 19:03:09 SOLUTIONS ANALYST by Laura Huizar M.D. [email or web address]
[2022-07-03 15:37] LABS: Basophils % 0.4 %; Eosinophils # 0.1 10^3/uL (0.0-0.8); Eosinophils % 0.9 %; Hematocrit 41.4 % (42.0-52.0); Hemoglobin 13.6 g/dL (11.7-16.6); Lymphocytes # 1.9 10^3/uL (0.8-4.8); Lymphocytes % 19.5 %; Mean Corpuscular HGB Conc 32.9 g/dL (30.0-36.0); Mean Corpuscular Hemoglobin 27.6 pg (28.0-34.0); Mean Corpuscular Volume 84.1 fl (80-94); Mean Platelet Volume 10.9 fL (7.4-10.4); Monocytes # 0.5 10^3/uL (0.2-0.9); Monocytes % 5.1 %; Neutrophils # 7.24 10^3/uL (1.8-7.7); Neutrophils % 73.7 %; Nucleated Red Blood Cells % 0 %; Platelet Count 178 10^3/cmm (130-400); Red Blood Count 4.92 10^6/uL (4.1-5.3); White Blood Count 9.8 10^3/uL (4.0-10.0)
[2022-07-03 15:57] LABS: Troponin T (5th) Once 10 ng/L (0-15)
[2022-07-03 16:05] LABS: Alanine Aminotransferase 15 U/L (0-41); Albumin Level 4.1 g/dL (3.5-5.2); Alkaline Phosphatase 90 U/L (40-130); Anion Gap 11.9 (5-19); Aspartate Amino Transferase 13 U/L (0-40); Blood Urea Nitrogen 18 mg/dL (6-20); Calcium 9.6 mg/dL (8.5-10.5); Carbon Dioxide 26 mmol/L (22-29); Chloride 101 mmol/L (98-107); Globulin 2.8 g/dL (1.3-4.6); Glomerular Filtration Rate 86.4 mL/min (90-130); Glucose 160 mg/dL (65-115); NT Pro B Type Natriuretic Pept 269 pg/mL (0-125); Osmolality Calculated 285 mOsm/kg (285-295); Potassium 3.9 mmol/L (3.5-5.1); Sodium 135 mmol/L (136-145); Total Bilirubin 0.4 mg/dL (0.15-1.2); Total Protein 6.9 g/dL (6.6-8.7)
[2022-07-03 17:59] VITALS: BP 150/94; PULSE 70; RESP 18; TEMP 36.6; O2SAT 94
[2022-07-03 19:51] VITALS: BP 150/92; PULSE 76; RESP 19; O2SAT 95
--- NOTE | 2022-07-03 20:16 | W.ED.SYNCOPE ---
HPI - Syncope General: Chief Complaint: Syncope Stated Complaint: Light Headed Time Seen by Provider: 07/03/22 19:49 Source: patient Mode of arrival: ambulatory Limitations: no limitations History of Present Illness: 57-year-old male states he had gotten up this morning at 3 AM he states it felt very lightheaded states he fell like he had to go to the bathroom he states that he became diaphoretic and states he almost passed out he states he had 2 episodes like that states he fell today he is felt improved he states that some generalized weakness he denies any chest pain denies any shortness of breath denies any vomiting or diarrhea. Associated symptoms: Deny abdominal pain, fever(s), headache(s) or nausea Review of Systems Const: Denies: fever(s), chills, body aches or change in appetite Eyes: Denies: blurry vision or eye discomfort ENMT: Denies: throat pain or dental pain Card: Reports: pre-syncope Resp: Denies: dyspnea GI: Denies: abdominal pain, nausea, vomiting or diarrhea : Denies: dysuria Musc: Denies: neck pain or back pain Skin/Breast: Denies: rash Neuro: Denies: headache(s) Psych: Denies: depression Esteban/Lymph: Denies: easy bruising All/Imm: Denies: urticaria PFSH ED PFSH: Medical History BPH (benign prostatic hyperplasia) Change in bowel habits COPD (chronic obstructive pulmonary disease) Diabetes Hernia HTN (hypertension) Hyperlipidemia Near syncope AV block, 2nd degree, 2:1 conduction, resolved w discontinuation of metoprolol underlying bifascicular block Obesity ANGIE on CPAP Sinus pause Syncope Tobacco abuse Transient blindness of both eyes Surgical History History of cataract surgery Family History Grandmother CAD (coronary artery disease) MATERNAL Mother Diabetes Denies family history of Anesthesia complication Bleeding disorder Social History Smoking and tobacco status: current every day smoker cigarettes Packs smoked per day: 1 Alcohol intake: current Alcohol intake frequency: holidays/special occasions only Household members: other Details: Girlfriend Marital status: service: No Current occupational status: disabled Physical Exam Const: COMMON NORMALS: no acute distress, patient oriented x3 and healthy appearing HENMT: COMMON NORMALS: normocephalic and atraumatic HEAD & SCALP: normocephalic and atraumatic Eye: COMMON NORMALS: Equal, round and reactive pupils present and EOMs intact bilaterally PUPIL: Yes Equal, round and reactive pupils present Neck/C-Spine: COMMON NORMALS: full ROM and supple Chest: COMMONS NORMALS: normal inspection of the chest and normal palpation of entire chest wall Resp: COMMON NORMALS: normal respiratory effort, No retractions, No use of accessory muscles and clear to auscultation bilaterally AUSCULTATION: clear to auscultation bilaterally Cardio: COMMON NORMALS: regular rate, regular rhythm and No murmurs present (Cardio) RATE: regular rate RHYTHM: regular rhythm GI: COMMON NORMALS: Normal to inspection, nondistended, normoactive bowel sounds present, Soft to palpation, non-tender and no masses PALPATION: Yes Soft to palpation Extremity: COMMON NORMALS: normal to inspection and full ROM Neuro: COMMON NORMALS: patient oriented x3, moves all extremities and no focal motor deficits Psych: COMMON NORMALS: mental status grossly normal, Normal thought process present and cooperative THOUGHT PROCESS: Normal thought process present Skin: COMMON NORMALS: no rashes or lesions noted and no wounds GENERAL SKIN EXAM: no rashes or lesions noted Course Vital Signs: Vital signs: Vital Signs Temperature 97.9 F 07/03/22 17:59 Pulse Rate 78 07/03/22 20:24 Respiratory Rate 21 H 07/03/22 20:24 Blood Pressure 150/92 07/03/22 20:24 Pulse Oximetry 93 07/03/22 20:24 Oxygen Delivery Me thod 07/03/22 19:51 MDM - Syncope Medical Decision Making Patient presents here with a near syncopal event sounds like a vagal episode this morning. He has been well-appearing here lab works normal heart enzymes are normal he stable for discharge she is to follow-up with PCP and return if worsening he has a cardiac appointment next week he states he is to follow-up within Lab Data 07/03/22 15:21 07/03/22 15:21 Radiology Impressions Chest X-Ray 07/03/22 14:11 Impression: Atherosclerosis. Head CT 07/03/22 14:11 IMPRESSION: 1. No evidence of intracranial hemorrhage or mass effect. 2. Mild small vessel changes. Moderate parenchymal volume loss. Volume loss worse in the frontal lobes. 3. No acute intracranial findings. Laboratory Results WBC 9.8 10^3/uL (4.0-10.0) 07/03/22 15:21 RBC 4.92 10^6/uL (4.1-5.3) 07/03/22 15:21 Hgb 13.6 g/dL (11.7-16.6) 07/03/22 15:21 Hct 41.4 % (42.0-52.0) L 07/03/22 15:21 MCV 84.1 fl (80-94) 07/03/22 15:21 MCH 27.6 pg (28.0-34.0) L 07/03/22 15:21 MCHC 32.9 g/dL (30.0-36.0) 07/03/22 15:21 RDW 13.0 % (12.1-15.1) 07/03/22 15:21 Plt Count 178 10^3/cmm (130-400) 07/03/22 15:21 MPV 10.9 fL (7.4-10.4) H 07/03/22 15:21 Neut % (Auto) 73.7 % 07/03/22 15:21 Lymph % (Auto) 19.5 % 07/03/22 15:21 [facility] % (Auto) 5.1 % 07/03/22 15:21 Eos % (Auto) 0.9 % 07/03/22 15: Baso % (Auto) 0.4 % 07/03/22 15:21 Neut # (Auto) 7.24 10^3/uL (1.8-7.7) 07/03/22 15:21 Lymph # (Auto) 1.9 10^3/uL (0.8-4.8) 07/03/22 15:21 [facility] # (Auto) 0.5 10^3/uL (0.2-0.9) 07/03/22 15:21 Eos # (Auto) 0.1 10^3/uL (0.0-0.8) 07/03/22 15:21 Baso # (Auto) 0.0 10^3/uL (0.0-0.1) 07/03/22 15:21 Nucleated RBC % (auto) 0 % 07/03/22 15:21 Nucleated RBCs # 0.0 /100WBC 07/03/22 15:21 Sodium 135 mmol/L (136-145) L 07/03/22 15:21 Potassium 3.9 mmol/L (3.5-5.1) 07/03/22 15:21 Chloride 101 mmol/L (98-107) 07/03/22 15:21 Carbon Dioxide 26 mmol/L (22-29) 07/03/22 15:21 Anion Gap 11.9 (5-19) 07/03/22 15:21 BUN 18 mg/dL (6-20) 07/03/22 15:21 Creatinine 0.9 mg/dL (0.7-1.2) 07/03/22 15:21 GFR Calculation 86.4 mL/min (90-130) L 07/03/22 15:21 Glucose 160 mg/dL (65-115) H 07/03/22 15:21 Calculated Osmolality 285 mOsm/kg (285-295) 07/03/22 15:21 Calcium 9.6 mg/dL (8.5-10.5) 07/03/22 15:21 Total Bilirubin 0.4 mg/dL (0.15-1.2) 07/03/22 15:21 AST 13 U/L (0-40) 07/03/22 15:21 ALT 15 U/L (0-41) 07/03/22 15:21 Alkaline Phosphatase 90 U/L (40-130) 07/03/22 15:21 Troponin T Gen 5 ng/L 10 ng/L (0-15) 07/03/22 15:21 NT-Pro-B Natriuret Pep 269 pg/mL (0-125) H 07/03/22 15:21 Total Protein 6.9 g/dL (6.6-8.7) 07/03/22 15:21 Albumin 4.1 g/dL (3.5-5.2) 07/03/22 15:21 Globulin 2.8 g/dL (1.3-4.6) 07/03/22 15:21 EKG Data EKG 1: I personally reviewed and interpreted this EKG as follows: EKG interpretation date: 07/03/22 EKG interpretation time: 14:57 Interpretation: nsr hr [address] or t wave abnormalities qrs 170 qtc 467 Discharge Plan Discharge Patient Disposition: Home Clinical Impression: Near syncope Condition: Stable Prescriptions: No Action (DME) Bilateral Mamie Articulating AFO's See Rx Instructions .Route .MEDSUPPLY Qty: 1 0RF Rx Instructions: As directed lubiprostone [Amitiza] 8 mcg capsule 24 mcg PO BID docusate sodium [Dulcolax Stool Softener (dss)] 100 mg capsule 100 mg PO BID PRN polyethylene glycol 3350 [Miralax] 17 gram/dose powder 17 g PO DAILY PRN (DME) Night Splint to the Left Foot See Rx Instructions .Route .MEDSUPPLY Qty: 1 0RF Rx Instructions: As directed atorvastatin 40 mg tablet 40 mg PO DAILY@1000 Qty: 90 3RF irbesartan 300 mg tablet 300 mg PO DAILY Qty: 90 3RF triamterene-hydrochlorothiazid 37.5-25 mg tablet 2 tab PO DAILY Qty: 180 2RF amlodipine 10 mg tablet 10 mg PO DAILY@1000 tamsulosin 0.4 mg capsule 0.4 mg PO BID@1000,2200 trazodone 50 mg tablet 50 - 100 mg PO BEDTIME@2200 Ventolin HFA 90 mcg/actuation HFA aerosol inhaler 2 inh INHALATION Q4H PRN (Reason: shortness of breath or wheezing) hydrocodone-acetaminophen 10-325 mg tablet 1 tab PO Q6H PRN (Reason: pain) montelukast 10 mg tablet 10 mg PO DAILY@1000 Januvia 100 mg tablet 100 mg PO DAILY@1000 glipizide 10 mg tablet 10 mg PO BID@1000,2200 gabapentin 600 mg tablet 900 mg PO BID hydroxyzine HCl 50 mg tablet 100 mg PO BEDTIME@2200 PRN fluticasone propionate 50 mcg/actuation spray,suspension 2 spray INTRANASAL DAILY@1000 omeprazole 20 mg capsule,delayed release(DR/EC) 20 mg PO BID@1000,2200 Victoza 2-Andrew 0.6 mg/0.1 mL (18 mg/3 mL) pen injector See Rx Instructions .ROUTE .COMPLEX Rx Instructions: 0.6 mg subcutaneously DAILY FOR 7 DAYS. THEN TAKE 1.2 MG DAILY. Eliquis 5 mg tablet 5 mg PO BID Qty: 60 0RF Hold Instructions: Resume on 05/31/21. Discharge Orders: Discharge ED (Routine); Ordered 07/03/22 Ordered By: Laina Hernandez Referrals: Kylah Garcia APN [Primary Care Provider] - 1-3 days Discharge Diet: Advance as tolerated Discharge Activity: Resume usual activity Coding Level of Care Code ED Supervisor Sample for Chg Fwd 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
[2022-07-03] MEDS: sodium chloride 0.9% 1,000 ML 999 ML IV (20:21)
[2022-07-03 20:24] VITALS: BP 150/92; PULSE 78; RESP 21; O2SAT 93
[2022-07-03 20:53] LABS: Add Urine Microscopic? NO; Charge for UA Resulting for Rev
[2022-07-03 20:55] LABS: Bilirubin Urine Neg (Negative); Blood Urine Neg (Negative); Glucose Urine UA Norm (Normal); Ketones Urine Negative (Negative); Leukocyte Esterase Urine Negative (Negative); Nitrate Urine Negative (Negative); Protein Urine Neg (Negative); Urine Appearance Clear (CLEAR); Urine Color Yellow (Yellow); Urobilinogen Urine Norm (Negative); pH Urine 6.5 (5-7)
[2022-07-03 21:54] VITALS: BP 157/87; PULSE 78; RESP 21; O2SAT 95
== END 2022-07-03 21:56 | disposition home or self-care (01) ==
PROVIDERS: Nurse Practitioner; Emergency Provider Emergency Medicine; PCP Nurse Practitioner Family
DX: R55 Syncope and collapse (principal); Z79.01 Long term (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 of anticoagulants; Z79.84 Long term (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 of oral hypoglycemic drugs; J44.9 Chronic obstructive pulmonary disease, unspecified; E11.9 Type 2 diabetes mellitus without complications; I10 Essential (primary) hypertension; E78.5 Hyperlipidemia, unspecified; F17.210 Nicotine dependence, cigarettes, uncomplicated
CPT/HCPCS: 36415; 70450; 71046; 80053; 81003; 83880; 84484; 85025; 93005; 96360; 96361; 99285; J7030

== ENCOUNTER → 2022-07-21 13:44 | Outpatient (BNVA) | payer MEDICARE, OTHER, SELFPAY | PROVIDERS: PCP Nurse Practitioner Family; Visit Provider Internal Medicine Cardiovascular Disease | DX: R42 Dizziness and giddiness (principal); I48.91 Unspecified atrial fibrillation; Z79.01 Long term (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 of anticoagulants; I10 Essential (primary) hypertension; F17.210 Nicotine dependence, cigarettes, uncomplicated; E11.42 Type 2 diabetes mellitus with diabetic polyneuropathy; E11.8 Type 2 diabetes mellitus with unspecified complications; L60.3 Nail dystrophy; M92.511 Juvenile osteochondrosis of proximal tibia, right leg | CPT/HCPCS: 11721; 99214; Q3014 ==

== ENCOUNTER → 2022-10-01 13:51 | Outpatient (BNVA) | payer MEDICARE, OTHER, SELFPAY | PROVIDERS: PCP Nurse Practitioner Family; Visit Provider Podiatrist Foot & Ankle Surgery | DX: E11.42 Type 2 diabetes mellitus with diabetic polyneuropathy (principal); E11.8 Type 2 diabetes mellitus with unspecified complications; M92.511 Juvenile osteochondrosis of proximal tibia, right leg; L60.3 Nail dystrophy; M19.171 Post-traumatic osteoarthritis, right ankle and foot; M89.8X1 Other specified disorders of bone, shoulder | CPT/HCPCS: 11721 ==

== ENCOUNTER 2022-11-21 13:17 | Emergency (ER) | payer MEDICARE, OTHER, SELFPAY ==
[2022-11-21 13:24] VITALS: BP 132/83; PULSE 75; RESP 17; TEMP 36.6; O2SAT 96; BMI 40.6
--- NOTE | 2022-11-21 13:27 | W.ED.GENADLT ---
HPI - General Adult General: Stated complaint: needs rabies vaccine Time Seen by Provider: 11/21/22 13:22 Source: patient Mode of arrival: ambulatory Limitations: no limitations History of Present Illness: 57-year-old male states he was exposed to a skunk last Wednesday states he had killed the skunk took it to the vet this coming did test positive for rabies health apartment sent him here for rabies vaccine. He denies being scratched or bit. He did have a close exposure. He has no other complaints at this time Associated symptoms: Deny chest pain, headache(s) or rash Review of Systems ENMT: Denies: throat pain Card: Denies: chest pain GI: Denies: abdominal pain Musc: Denies: neck pain or back pain Skin/Breast: Denies: rash Neuro: Denies: headache(s) PFSH ED PFSH: Medical History BPH (benign prostatic hyperplasia) Change in bowel habits COPD (chronic obstructive pulmonary disease) Diabetes Hernia HTN (hypertension) Hyperlipidemia Near syncope AV block, 2nd degree, 2:1 conduction, resolved w discontinuation of metoprolol underlying bifascicular block Obesity ANGIE on CPAP Sinus pause Syncope Tobacco abuse Transient blindness of both eyes Surgical History History of cataract surgery Family History Grandmother CAD (coronary artery disease) MATERNAL Mother Diabetes Denies family history of Anesthesia complication Bleeding disorder Social History Smoking and tobacco status: current every day smoker cigarettes Packs smoked per day: 1 Alcohol intake: current Alcohol intake frequency: holidays/special occasions only Substance/Drug Use: never Household members: other Details: Girlfriend Marital status: service: No Current occupational status: disabled Physical Exam Const: COMMON NORMALS: patient oriented x3 HENMT: COMMON NORMALS: atraumatic HEAD & SCALP: atraumatic Chest: COMMONS NORMALS: normal inspection of the chest Resp: COMMON NORMALS: normal respiratory effort Extremity: COMMON NORMALS: normal to inspection Neuro: COMMON NORMALS: patient oriented x3 Psych: COMMON NORMALS: mental status grossly normal Skin: COMMON NORMALS: no rashes or lesions noted GENERAL SKIN EXAM: no rashes or lesions noted MDM - General Adult Medical Decision Making Patient presents here after rabies exposure we will give him immunoglobulin along with vaccine given the vaccine protocol he is return in 3 days for repeat vaccine. Discharge Plan Discharge Patient Disposition: Home Clinical Impression: Contact with or exposure to rabies Condition: Stable Prescriptions: No Action (DME) Bilateral Mamie Articulating AFO's See Rx Instructions .Route .MEDSUPPLY Qty: 1 0RF Rx Instructions: As directed lubiprostone [Amitiza] 8 mcg capsule 24 mcg PO BID docusate sodium [Dulcolax Stool Softener (dss)] 100 mg capsule 100 mg PO BID PRN polyethylene glycol 3350 [Miralax] 17 gram/dose powder 17 g PO DAILY PRN (DME) Night Splint to the Left Foot See Rx Instructions .Route .MEDSUPPLY Qty: 1 0RF Rx Instructions: As directed magnesium oxide 500 mg capsule 500 mg PO BID Acidophilus Capsule 20,000 mmu cells PO DAILY ICaps AREDS [id number],[id number] [id number] capsule 1 cap PO BID atorvastatin 40 mg tablet 40 mg PO DAILY@1000 Qty: 90 3RF irbesartan 300 mg tablet 300 mg PO DAILY Qty: 90 3RF triamterene-hydrochlorothiazid 37.5-25 mg tablet 2 tab PO DAILY Qty: 180 2RF (DME) Above Ankle Diabetic Boots with 3 inserts See Rx Instructions .Route .MEDSUPPLY Qty: 1 0RF Rx Instructions: As directed HOME enoxaparin 150 mg/mL syringe 150 mg SUBCUT DAILY Qty: 8 0RF Rx Instructions: 1mL injection twice daily x2 days prior to each surgery amlodipine 10 mg tablet 10 mg PO DAILY@1000 tamsulosin 0.4 mg capsule 0.4 mg PO BID@1000,2200 trazodone 50 mg tablet 50 - 100 mg PO BEDTIME@2200 Ventolin HFA 90 mcg/actuation HFA aerosol inhaler 2 inh INHALATION Q4H PRN (Reason: shortness of breath or wheezing) hydrocodone-acetaminophen 10-325 mg tablet 1 tab PO Q6H PRN (Reason: pain) montelukast 10 mg tablet 10 mg PO DAILY@1000 Januvia 100 mg tablet 100 mg PO DAILY@1000 glipizide 10 mg tablet 10 mg PO BID@1000,2200 hydroxyzine HCl 50 mg tablet 100 mg PO BEDTIME@2200 PRN gabapentin 600 mg tablet 600 mg PO BID omeprazole 20 mg capsule,delayed release(DR/EC) 20 mg PO BID@1000,2200 Victoza 2-Andrew 0.6 mg/0.1 mL (18 mg/3 mL) pen injector See Rx Instructions .ROUTE .COMPLEX Rx Instructions: 0.6 mg subcutaneously DAILY FOR 7 DAYS. THEN TAKE 1.2 MG DAILY. Eliquis 5 mg tablet 5 mg PO BID Qty: 60 0RF Hold Instructions: Resume on 05/31/21. fluticasone propionate 50 mcg/actuation spray,suspension 2 spray INTRANASAL DAILY@1000 PRN Discharge Orders: Discharge ED (Routine); Ordered 11/21/22 Ordered By: Laina Hernandez Referrals: Kylah Garcia APN [Primary Care Provider] - Discharge Diet: Advance as tolerated Discharge Activity: Resume usual activity Patient Instructions: Rabies Vaccine (By injection), Rabies (ED) Activity Restrictions/Additional Instructions: return in 3 days for rabies vaccine Coding Level of Care Code ED Automotive Service Advisor for Kalpesh Aldana
[2022-11-21] MEDS: rabies vaccine 2.5 unit SDV IM (13:35)
[2022-11-21 15:17] VITALS: RESP 17; O2SAT 95
== END 2022-11-21 13:55 | disposition home or self-care (01) ==
PROVIDERS: Emergency Provider Emergency Medicine; PCP Nurse Practitioner Family
DX: Z20.3 Contact with and (suspected) exposure to rabies (principal); Z29.14 Encounter for prophylactic rabies immune globulin; Z23 Encounter for immunization
CPT/HCPCS: 90375; 90471; 90675; 99284

== ENCOUNTER → 2022-12-21 12:00 | Outpatient (BNVA) | payer MEDICARE, OTHER, SELFPAY | PROVIDERS: PCP Nurse Practitioner Family; Visit Provider Internal Medicine Cardiovascular Disease | DX: I10 Essential (primary) hypertension (principal); E78.5 Hyperlipidemia, unspecified; J44.9 Chronic obstructive pulmonary disease, unspecified; E11.69 Type 2 diabetes mellitus with other specified complication; Z79.4 Long term (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 of insulin; H53.123 Transient visual loss, bilateral; E66.9 Obesity, unspecified; Z79.01 Long term (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 of anticoagulants; F17.210 Nicotine dependence, cigarettes, uncomplicated; Z68.41 Body mass index [BMI] 40.0-44.9, adult | CPT/HCPCS: 99214 ==

== ENCOUNTER 2022-12-30 15:28 | Emergency (ER) | payer MEDICARE, OTHER, SELFPAY ==
[2022-12-30 15:37] VITALS: BP 154/95; PULSE 83; RESP 16; TEMP 36.7; O2SAT 97
--- NOTE | 2022-12-30 15:54 | ECG_ITS ---
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 Measurements Intervals [place] Rate: 71 P: 29 VA: 194 QRS: -20 QRSD: 109 T: 62 QT: 390 QTc: 426 Interpretive Statements SINUS RHYTHM Compared to ECG 07/03/2022 14:57:44 Indeterminate axis no longer present Right bundle-branch block no longer present Electronically Signed On 12-31-2022 10:09:48 CDT by Vicki Villarreal M.D. [id number]
--- NOTE | 2022-12-30 16:34 | W.ED.GENADLT ---
HPI - General Adult General: Chief complaint: General Medical Stated complaint: States AFIB Time Seen by Provider: 12/30/22 15:40 History of Present Illness: Patient presents to the ER with complaints that his pulse rate was always up to 130. But now his heart rate is fine at 87. Patient denies chest pain shortness of breath. Patient does have A-fib and is wearing a heart monitor currently. Nothing was noted to bring us on or stop this. That has happened before. Patient is on Eliquis for his A-fib and/or possibly Lovenox. Review of Systems General: Reports: 10 or more systems reviewed and unremarkable except in HPI and below PFSH ED PFSH: Medical History BPH (benign prostatic hyperplasia) Change in bowel habits COPD (chronic obstructive pulmonary disease) Diabetes Hernia HTN (hypertension) Hyperlipidemia Near syncope AV block, 2nd degree, 2:1 conduction, resolved w discontinuation of metoprolol underlying bifascicular block Obesity ANGIE on CPAP Sinus pause Syncope Tobacco abuse Transient blindness of both eyes Warfarin anticoagulation Surgical History History of cataract surgery Family History Grandmother CAD (coronary artery disease) MATERNAL Mother Diabetes Denies family history of Anesthesia complication Bleeding disorder Social History Smoking and tobacco status: current every day smoker cigarettes Packs smoked per day: 1 Alcohol intake: current Alcohol intake frequency: holidays/special occasions only Substance/Drug Use: never Household members: other Details: Girlfriend Marital status: service: No Current occupational status: disabled Physical Exam Const: COMMON NORMALS: no acute distress, average body habitus, patient oriented x3, no limitations, healthy appearing, alert and well nourished HENMT: COMMON NORMALS: normocephalic, atraumatic, hearing grossly normal bilaterally, Normal external nose present and moist oral mucous membranes HEAD & SCALP: normocephalic and atraumatic NOSE: Normal external nose present Eye: COMMON NORMALS: Equal, round and reactive pupils present, EOMs intact bilaterally, conjunctivae normal and no scleral icterus CONJUNCTIVA: Yes conjunctivae normal PUPIL: Yes Equal, round and reactive pupils present Neck/C-Spine: COMMON NORMALS: no JVD Lymph: LYMPHATIC: no lymphadenopathy noted Chest: COMMONS NORMALS: normal inspection of the chest and normal palpation of entire chest wall Resp: COMMON NORMALS: normal respiratory effort, No retractions, No use of accessory muscles and clear to auscultation bilaterally AUSCULTATION: clear to auscultation bilaterally Cardio: COMMON NORMALS: no JVD, regular rate, regular rhythm, S1 normal heart sound present, S2 normal heart sound present, No gallops present (Cardio), No clicks present (Cardio), No murmurs present (Cardio) and No rub (Cardio) RATE: regular rate RHYTHM: regular rhythm HEART SOUNDS: S1 normal heart sound present and S2 normal heart sound present GI: COMMON NORMALS: Normal to inspection, nondistended, normoactive bowel sounds present, Soft to palpation, non-tender, No hepatosplenomegaly present and no masses PALPATION: Yes Soft to palpation and Yes No hepatosplenomegaly present : COMMON NORMALS: Yes no CVA tenderness BLADDER/KIDNEY EXAM: Yes no CVA tenderness Back/Pelvis: COMMON NORMALS: no CVA tenderness Neuro: COMMON NORMALS: patient oriented x3 SENSORIUM/ORIENTATION: Yes alert Course Vital Signs: Vital signs: Vital Signs Temperature 98.0 F 12/30/22 15:37 Pulse Rate 83 12/30/22 15:37 Respiratory Rate 16 12/30/22 15:37 Blood Pressure 154/95 12/30/22 15:37 Pulse Oximetry 97 12/30/22 15:37 Oxygen Delivery Me thod Room Air 12/30/22 15:37 [facility] - General Adult Medical Decision Making Patient presents to the ER with a complaint of his heart rate up to 130 beats a minute. However patient felt fine with no complaints since then his weight back down to 87 and a sinus rhythm at this time. Patient is wearing a heart rate monitor for his A-fib. Patient had an EKG which showed sinus rhythm at 71 bpm, patient be discharged home to follow-up with his PCP and/or his clinical nurse occupational medicine as needed. Differential Diagnosis A-fib, A-fib with RVR, sinus tachycardia Medical Records I reviewed the patient's medical records. Lab Data I reviewed the patient's lab results. EKG Data EKG 1: I personally reviewed and interpreted this EKG as follows: EKG interpretation date: 12/30/22 EKG interpretation time: 15:54 Prior EKG tracings: not available for review Interpretation: EKG shows ventricular rate 71 bpm, HI interval 194, QRS duration 109, QTc of 413, normal sinus rhythm, no ST-T wave changes. Discharge Plan Discharge Patient Disposition: Home Clinical Impression: Atrial fibrillation Qualifiers: Atrial fibrillation type: paroxysmal Qualified Code(s): I48.0 - Paroxysmal atrial fibrillation Condition: Stable Prescriptions: No Action (DME) [facility] Articulating AFO's See Rx Instructions .Route .MEDSUPPLY Qty: 1 0RF Rx Instructions: As directed lubiprostone [Amitiza] 8 mcg capsule 24 mcg PO BID docusate sodium [Dulcolax Stool Softener (dss)] 100 mg capsule 100 mg PO BID PRN polyethylene glycol 3350 [Miralax] 17 gram/dose powder 17 g PO DAILY PRN (DME) Night Splint to the Left Foot See Rx Instructions .Route .MEDSUPPLY Qty: 1 0RF Rx Instructions: As directed magnesium oxide 500 mg capsule 500 mg PO BID Acidophilus Capsule 20,000 mmu cells PO DAILY ICaps AREDS [id number] capsule 1 cap PO BID Mounjaro 7.5 mg/0.5 mL pen injector 7.5 mg SUBCUT .Weekly atorvastatin 40 mg tablet 40 mg PO DAILY@1000 Qty: 90 3RF irbesartan 300 mg tablet 300 mg PO DAILY Qty: 90 3RF triamterene-hydrochlorothiazid 37.5-25 mg tablet 2 tab PO DAILY Qty: 180 2RF (DME) Above Ankle Diabetic Boots with 3 inserts See Rx Instructions .Route .MEDSUPPLY Qty: 1 0RF Rx Instructions: As directed HOME enoxaparin 150 mg/mL syringe 150 mg SUBCUT DAILY Qty: 8 0RF Rx Instructions: 1mL injection twice daily x2 days prior to each surgery amlodipine 10 mg tablet 10 mg PO DAILY@1000 tamsulosin 0.4 mg capsule 0.4 mg PO BID@1000,2200 trazodone 50 mg tablet 50 - 100 mg PO BEDTIME@2200 Ventolin HFA 90 mcg/actuation HFA aerosol inhaler 2 inh INHALATION Q4H PRN (Reason: shortness of breath or wheezing) hydrocodone-acetaminophen 10-325 mg tablet 1 tab PO Q6H PRN (Reason: pain) montelukast 10 mg tablet 10 mg PO DAILY@1000 Januvia 100 mg tablet 100 mg PO DAILY@1000 glipizide 10 mg tablet 10 mg PO BID@1000,2200 hydroxyzine HCl 50 mg tablet 100 mg PO BEDTIME@2200 PRN gabapentin 600 mg tablet 600 mg PO BID omeprazole 20 mg capsule,delayed release(DR/EC) 20 mg PO BID@1000,2200 Eliquis 5 mg tablet 5 mg PO BID Qty: 60 0RF Hold Instructions: Resume on 05/31/21. fluticasone propionate 50 mcg/actuation spray,suspension 2 spray INTRANASAL DAILY@1000 PRN Discharge Orders: Discharge ED (Routine); Ordered 12/30/22 Ordered By: Wilmer Wellington Referrals: Kylah Garcia APN [Primary Care Provider] - Patient Instructions: Atrial Fibrillation Activity Restrictions/Additional Instructions: Please continue to wear your Holter monitor as directed. Please follow-up with your family practice doctor within the next 1 week or sooner as needed. If your heart rate races and you cannot keep get it down please feel free to come back to the ER for further evaluation and treatment. 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
[2022-12-30 17:15] VITALS: BP 142/93; PULSE 73
== END 2022-12-30 17:22 | disposition home or self-care (01) ==
PROVIDERS: Emergency Provider Emergency Medicine; PCP Nurse Practitioner Family
DX: I48.0 Paroxysmal atrial fibrillation (principal); Z79.84 Long term (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 of oral hypoglycemic drugs; Z79.01 Long term (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 of anticoagulants; F17.210 Nicotine dependence, cigarettes, uncomplicated; J44.9 Chronic obstructive pulmonary disease, unspecified; E11.9 Type 2 diabetes mellitus without complications; I10 Essential (primary) hypertension; E78.5 Hyperlipidemia, unspecified
CPT/HCPCS: 93005; 99283

== ENCOUNTER 2023-01-04 22:48 | Emergency (ER) | payer MEDICARE, OTHER, SELFPAY ==
[2023-01-04 22:54] VITALS: BP 145/94; PULSE 77; TEMP 36.3; O2SAT 94
[2023-01-04 23:02] VITALS: BP 128/73; PULSE 68; RESP 11; O2SAT 94
--- NOTE | 2023-01-04 23:02 | ECG_ITS ---
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 Measurements Intervals [place] Rate: 77 P: 34 VT: 144 QRS: -8 QRSD: 112 T: 12 QT: 391 QTc: 444 Interpretive Statements SINUS RHYTHM INDETERMINATE AXIS LOW QRS VOLTAGE IN PRECORDIAL LEADS [QRS DEFLECTION < 1.0 mV IN CHEST LEADS] MODERATE INTRAVENTRICULAR CONDUCTION DELAY [110+ ms QRS DURATION] Compared to ECG 12/30/2022 15:54:06 Indeterminate axis now present Low QRS voltage now present Intraventricular conduction delay now present Electronically Signed On 01-05-2023 8:29:50 CDT by Fausto Leos M.D. [id number]
--- NOTE | 2023-01-04 23:30 | W.ED.DIZZY ---
HPI - Dizziness General: Chief Complaint: Dizziness Stated Complaint: dizzy Time Seen by Provider: 01/04/23 23:30 History of Present Illness: HPI Narrative: 57-year-old gentleman with complex recent history including AR and atrial fibrillation presenting with intermittent dizziness and lightheadedness. He feels generally unwell. Onset 3 to 4 days ago initially intermittent but now constant. Notes shortness of breath. Generalized malaise. No other specific changes in health, exacerbating, or alleviating factors identified. Onset (ago): day(s) Severity: moderate Exacerbating factors: exertion Associated symptoms: Reports malaise and other Review of Systems General: Reports: 10 or more systems reviewed and unremarkable except in HPI and below Const: Reports: malaise PFSH ED PFSH: Medical History BPH (benign prostatic hyperplasia) Change in bowel habits COPD (chronic obstructive pulmonary disease) Diabetes Hernia HTN (hypertension) Hyperlipidemia Near syncope AV block, 2nd degree, 2:1 conduction, resolved w discontinuation of metoprolol underlying bifascicular block Obesity ANGIE on CPAP Sinus pause Syncope Tobacco abuse Transient blindness of both eyes Warfarin anticoagulation Surgical History History of cataract surgery Family History Grandmother CAD (coronary artery disease) MATERNAL Mother Diabetes Denies family history of Anesthesia complication Bleeding disorder Social History Smoking and tobacco status: current every day smoker cigarettes Packs smoked per day: 1 Alcohol intake: current Alcohol intake frequency: holidays/special occasions only Substance/Drug Use: never Household members: other Details: Girlfriend Marital status: service: No Current occupational status: disabled Physical Exam Const: COMMON NORMALS: patient oriented x3 and alert GENERAL APPEARANCE: cooperative and well developed HENMT: COMMON NORMALS: normocephalic and atraumatic HEAD & SCALP: normocephalic and atraumatic Eye: COMMON NORMALS: conjunctivae normal CONJUNCTIVA: Yes conjunctivae normal SCLERA: sclerae normal Neck/C-Spine: COMMON NORMALS: supple GENERAL: Yes trachea midline Resp: COMMON NORMALS: normal respiratory effort EFFORT & INSPECTION: Yes able to speak in complete sentences Cardio: COMMON NORMALS: regular rate and regular rhythm RATE: regular rate RHYTHM: regular rhythm GI: COMMON NORMALS: Soft to palpation PALPATION: Yes Soft to palpation and No Tenderness to palpation present (GI) Extremity: GENERAL: Yes normal exam except as noted and Yes edema Neuro: COMMON NORMALS: patient oriented x3, CN's II-XII intact bilaterally, moves all extremities, no focal motor deficits and no sensory deficits noted SENSORIUM/ORIENTATION: Yes alert and No Orientation impaired Psych: COMMON NORMALS: mental status grossly normal and Normal thought process present THOUGHT PROCESS: Normal thought process present Course Vital Signs: Vital signs: Vital Signs Temperature 97.4 F L 01/04/23 22:54 Pulse Rate 76 01/05/23 02:16 Respiratory Rate 18 01/05/23 02:16 Blood Pressure 126/64 01/05/23 02:16 Pulse Oximetry 95 01/05/23 02:16 Oxygen Delivery Me thod Room Air 01/05/23 02:16 MDM - Dizziness Medical Decision Making 57-year-old gentleman presenting with generalized illness with recent complex history. Exam as above. Nontoxic. Nonfocal neuro exam. EKG demonstrates sinus rhythm with borderline axis, nonspecific ST segment abnormalities, no STEMI. Labs with mild leukocytosis and hemoconcentration compared to prior. Metabolic panel with minimal hyponatremia. Negative range 2-hour delta troponin. Pro-Clemente negative. Tick panel sent. Chest x-ray with no lobar consolidation or pneumothorax. CT head negative for acute pathology. Patient treated with fluids and meclizine and somewhat improved. He does report numerous recent tick bites. May be related to tick borne illness and will be treated. The results of ED evaluation were discussed with the patient including prescriptions and/or symptomatic cares (if applicable) including appropriate and responsible use, followup plan, and return precautions. The patient verbalized understanding and felt safe for discharge. Medical Records I reviewed the patient's medical records. Lab Data I reviewed the patient's lab results. 01/04/23 23:25 01/04/23 23:25 Radiology Impressions Chest X-Ray 01/04/23 23:42 IMPRESSION: No acute findings. Head CT 01/04/23 23:42 IMPRESSION: 1. No acute intracranial abnormality. 2. Mild age-related changes. Laboratory Results WBC 12.0 10^3/uL (4.0-10.0) H 01/04/23 23:25 RBC 5.72 10^6/uL (4.1-5.3) H 01/04/23 23: Hgb 15.2 g/dL (11.7-16.6) 01/04/23 23: Hct 47.0 % (42.0-52.0) 01/04/23 23: MCV 82.2 fl (80-94) 01/04/23 23: MCH 26.6 pg (28.0-34.0) L 01/04/23 23: MCHC 32.3 g/dL (30.0-36.0) 01/04/23: RDW 13.4 % (12.1-15.1) 01/04/23: Plt Count 219 10^3/cmm (130-400) 01/04/23 23: MPV 10.4 fL (7.4-10.4) 01/04/23 23: Neut % (Auto) 71.2 % 01/04/23 23: Lymph % (Auto) 21.1 % 01/04/23 23:25 Mcminn % (Auto) 6.2 % 01/04/23 23: Eos % (Auto) 0.6 % 01/04/23 23: Baso % (Auto) 0.5 % 01/04/23 23: Neut # (Auto) 8.57 10^3/uL (1.8-7.7) H 01/04/23 23: Lymph # (Auto) 2.5 10^3/uL (0.8-4.8) 01/04/23 23: Mcminn # (Auto) 0.8 10^3/uL (0.2-0.9) 01/04/23 23: Eos # (Auto) 0.1 10^3/uL (0.0-0.8) 01/04/23 23: Baso # (Auto) 0.1 10^3/uL (0.0-0.1) 01/04/23 23:25 Nucleated RBC % (auto) 0 % 01/04/23 23: Nucleated RBCs # 0.0 /100WBC 01/04/23 23: Sodium 133 mmol/L (136-145) L 01/04/23 23:25 Potassium 3.6 mmol/L (3.5-5.1) 01/04/23 23:25 Chloride 98 mmol/L (98-107) 01/04/23 23:25 Carbon Dioxide 25 mmol/L (22-29) 01/04/23 23:25 Anion Gap 13.6 (5-19) 01/04/23 23:25 BUN 10 mg/dL (6-20) 01/04/23 23:25 Creatinine 0.8 mg/dL (0.7-1.2) 01/04/23 23:25 GFR Calculation 98.9 mL/min (90-130) 01/04/23 23:25 Glucose 93 mg/dL (65-115) 01/04/23 23:25 Calculated Osmolality 275 mOsm/kg (285-295) L 01/04/23 23:25 Calcium 9.2 mg/dL (8.5-10.5) 01/04/23 23:25 Magnesium 2.2 mg/dL (1.7-2.3) 01/04/23 23:25 Total Bilirubin 0.5 mg/dL (0.15-1.2) 01/04/23 23:25 AST 16 U/L (0-40) 01/04/23 23:25 ALT 20 U/L (0-41) 01/04/23 23:25 Alkaline Phosphatase 87 U/L (40-130) 01/04/23 23:25 Troponin T Baseline 8 ng/L (0-15) 01/04/23 23:25 Troponin T 120 Minute 8.45 ng/L (0-15) 01/05/23 01:26 Delta Troponin T 0.45 ABS# (0-10) 01/05/23 01:26 C-Reactive Protein 3.0 mg/L (0.0-4.9) 01/04/23 23:25 NT-Pro-B Natriuret Pep 36 pg/mL (0-125) 01/04/23 23:25 Total Protein 7.2 g/dL (6.6-8.7) 01/04/23 23:25 Albumin 4.6 g/dL (3.5-5.2) 01/04/23 23:25 Globulin 2.6 g/dL (1.3-4.6) 01/04/23 23:25 Procalcitonin 0.03 ng/mL (0-0.5) 01/04/23 23:25 TSH 1.57 uIU/mL (0.27-4.20) 01/04/23 23:25 Urine Color Yellow (Yellow) 01/04/23 23:46 Urine Appearance Clear (CLEAR) 01/04/23 23:46 Urine pH 7 (5-7) 01/04/23 23:[address] 1.015 (1.005-1.030) 01/04/23 23:46 Urine Protein Neg (Negative) 01/04/23 23:46 Urine Glucose (UA) Norm (Normal) 01/04/23 23:46 Urine Ketones Negative (Negative) 01/04/23 23:46 Urine Blood Neg (Negative) 01/04/23 23:46 Urine Nitrate Negative (Negative) 01/04/23 23:46 Urine Bilirubin Neg (Negative) 01/04/23 23:46 Urine Urobilinogen Norm mg/dL (Negative) 01/04/23 23:46 Ur Leukocyte Esterase Negative (Negative) 01/04/23 23:46 Lyme Ab (Western Blot) <0.90 index 01/04/23 23:25 E. chaffeensis IgG Ab <1:64 01/04/23 23:25 E. chaffeensis IgM Ab <1:20 01/04/23 23:25 E. chaffeensis Interp See note 01/04/23 23:25 E. chaffeensis Comment Not Reportable 01/04/23 23:25 Rickettsia IgG Titer 1:64 titer H 01/04/23 23:25 Rickettsia IgG Ab Detected A 01/04/23 23:25 Rickettsia IgM Ab Not detected 01/04/23 23:25 Discharge Plan Discharge Patient Disposition: Home Clinical Impression: Dizziness, Malaise and fatigue, Tick bite Condition: Stable Prescriptions: New doxycycline hyclate 100 mg capsule 100 mg PO BID 10 Days Qty: 20 0RF meclizine 25 mg tablet 25 mg PO TID PRN (Reason: dizziness) Qty: 20 0RF No Action (DME) Bilateral Mamie Articulating AFO's See Rx Instructions .Route .MEDSUPPLY Qty: 1 0RF Rx Instructions: As directed lubiprostone [Amitiza] 8 mcg capsule 24 mcg PO BID docusate sodium [Dulcolax Stool Softener (dss)] 100 mg capsule 100 mg PO BID PRN polyethylene glycol 3350 [Miralax] 17 gram/dose powder 17 g PO DAILY PRN (DME) Night Splint to the Left Foot See Rx Instructions .Route .MEDSUPPLY Qty: 1 0RF Rx Instructions: As directed magnesium oxide 500 mg capsule 500 mg PO BID Acidophilus Capsule 20,000 mmu cells PO DAILY ICaps AREDS 14,320-226-200 lafa-mt-hnwy capsule 1 cap PO BID Mounjaro 7.5 mg/0.5 mL pen injector 7.5 mg SUBCUT .Weekly atorvastatin 40 mg tablet 40 mg PO DAILY@1000 Qty: 90 3RF irbesartan 300 mg tablet 300 mg PO DAILY Qty: 90 3RF triamterene-hydrochlorothiazid 37.5-25 mg tablet 2 tab PO DAILY Qty: 180 2RF (DME) Above Ankle Diabetic Boots with 3 inserts See Rx Instructions .Route .MEDSUPPLY Qty: 1 0RF Rx Instructions: As directed HOME enoxaparin 150 mg/mL syringe 150 mg SUBCUT DAILY Qty: 8 0RF Rx Instructions: 1mL injection twice daily x2 days prior to each surgery amlodipine 10 mg tablet 10 mg PO DAILY@1000 tamsulosin 0.4 mg capsule 0.4 mg PO BID@1000,2200 trazodone 50 mg tablet 50 - 100 mg PO BEDTIME@2200 Ventolin HFA 90 mcg/actuation HFA aerosol inhaler 2 inh INHALATION Q4H PRN (Reason: shortness of breath or wheezing) hydrocodone-acetaminophen 10-325 mg tablet 1 tab PO Q6H PRN (Reason: pain) montelukast 10 mg tablet 10 mg PO DAILY@1000 Januvia 100 mg tablet 100 mg PO DAILY@1000 glipizide 10 mg tablet 10 mg PO BID@1000,2200 hydroxyzine HCl 50 mg tablet 100 mg PO BEDTIME@2200 PRN gabapentin 600 mg tablet 600 mg PO BID omeprazole 20 mg capsule,delayed release(DR/EC) 20 mg PO BID@1000,2200 Eliquis 5 mg tablet 5 mg PO BID Qty: 60 0RF Hold Instructions: Resume on 05/31/21. fluticasone propionate 50 mcg/actuation spray,suspension 2 spray INTRANASAL DAILY@1000 PRN Discharge Orders: Discharge ED (Routine); Ordered 01/05/23 Ordered By: Stanislaw Loving Referrals: Kylah Garcia APN [Primary Care Provider] - Discharge Diet: Usual diet Discharge Activity: Resume usual activity Patient Instructions: Tick Bite (ED), Dizziness (ED), Fatigue (ED) Activity Restrictions/Additional Instructions: Thank you for visiting the emergency department. You were seen evaluate for generalized illness. The exact cause of symptoms is unclear. Given history of tick bites I will treat with antibiotics. Please continue your previously prescribed medications and follow-up with your primary care provider. Return for uncontrolled symptoms, any new neurologic symptoms, inability to tolerate medications, or anything else that you are concerned about and feel needs emergency department evaluation. 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
--- NOTE | 2023-01-04 23:42 | XRR_ITS ---
PROCEDURE INFORMATION: Exam: XR Chest Exam date and time: 01/05/2023 12:15 AM Age: 57 years old Clinical indication: Shortness of breath; Additional info: SOB TECHNIQUE: Imaging protocol: Radiologic exam of the chest. Views: 1 view. COMPARISON: CR XR chest 2V* [id number] 07/03/2022 2:19 PM FINDINGS: Tubes, catheters and devices: Left upper lateral chest pacing device, advise correlation. Lungs: Mild COPD. Lung base atelectasis or scarring. No consolidation. Pleural spaces: Unremarkable. No pleural effusion. No pneumothorax. Heart/Mediastinum: Unremarkable. No cardiomegaly. Bones/joints: Old left clavicle deformity. Midthoracic leads. XR/XR chest 1V portable [id number] IMPRESSION: No acute findings.
--- NOTE | 2023-01-04 23:42 | CTR_ITS ---
PROCEDURE INFORMATION: Exam: CT Head Without Contrast Exam date and time: 01/05/2023 12:08 AM Age: 57 years old Clinical indication: Dizziness; Additional info: Dizzy TECHNIQUE: Imaging protocol: Computed tomography of the head without contrast. Radiation optimization: All CT scans at this facility use at least one of these dose optimization techniques: automated exposure control; mA and/or kV adjustment per patient size (includes targeted exams where dose is matched to clinical indication); or iterative reconstruction. REPORTING DATA: Count of CT and Cardiac NM exams in prior 12 months: This patient has received [address] and 0 known cardiac nuclear medicine studies in the 12 months prior to the current study. COMPARISON: CT head wo con* [id number] 07/03/2022 2:36 PM RADIATION DOSE METRICS: Total DLP (mGy-cm): 1210.09 FINDINGS: Brain: No focal hemorrhage or midline shift is identified. The ventricles and parenchyma show mild atrophy and chronic bicerebral white matter ischemic change. Cerebral ventricles: No ventriculomegaly or evidence of hydrocephalus. Paranasal sinuses: No evidence of acute sinusitis. Mastoid air cells: Visualized mastoid air cells are well aerated. Bones/joints: No displaced skull fracture is noted. Soft tissues: Unremarkable. Vasculature: Diffuse vascular calcifications are present. CT/CT head wo con* [id number] IMPRESSION: 1. No acute intracranial abnormality. 2. Mild age-related changes.
[2023-01-04 23:52] VITALS: BP 128/73; PULSE 67; O2SAT 96
[2023-01-04 23:52] LABS: Basophils # 0.1 10^3/uL (0.0-0.1); Basophils % 0.5 %; Eosinophils # 0.1 10^3/uL (0.0-0.8); Eosinophils % 0.6 %; Hemoglobin 15.2 g/dL (11.7-16.6); Lymphocytes # 2.5 10^3/uL (0.8-4.8); Lymphocytes % 21.1 %; Mean Corpuscular HGB Conc 32.3 g/dL (30.0-36.0); Mean Corpuscular Hemoglobin 26.6 pg (28.0-34.0); Mean Corpuscular Volume 82.2 fl (80-94); Mean Platelet Volume 10.4 fL (7.4-10.4); Monocytes # 0.8 10^3/uL (0.2-0.9); Monocytes % 6.2 %; Neutrophils # 8.57 10^3/uL (1.8-7.7); Neutrophils % 71.2 %; Nucleated Red Blood Cells % 0 %; Platelet Count 219 10^3/cmm (130-400); Red Blood Count 5.72 10^6/uL (4.1-5.3); Red Cell Distribution Width 13.4 % (12.1-15.1)
--- NOTE | 2023-01-04 23:54 | ECG_ITS ---
[facility] Test Date: 2023-01-04 Pat Name: Deejay Gonzalez Department: Room: Gender: Male Slp: : 1965 Requested By: Stanislaw Loving Order Number: [id number] Jordon MD: Fausto Leos M.D. Measurements Intervals [place] Rate: 65 P: 30 KS: 176 QRS: -42 QRSD: 122 T: 13 QT: 413 QTc: 432 Interpretive Statements SINUS RHYTHM INDETERMINATE AXIS MODERATE INTRAVENTRICULAR CONDUCTION DELAY [110+ ms QRS DURATION] Compared to ECG 01/04/2023 23:04:55 No significant changes Electronically Signed On 01-05-2023 8:29:14 CDT by Fausto Leos M.D. [id number]
[2023-01-04 23:55] LABS: Add Urine Microscopic? NO
[2023-01-04 23:59] LABS: Bilirubin Urine Neg (Negative); Blood Urine Neg (Negative); Glucose Urine UA Norm (Normal); Ketones Urine Negative (Negative); Leukocyte Esterase Urine Negative (Negative); Nitrate Urine Negative (Negative); Protein Urine Neg (Negative); Specific Gravity, Urine 1.015 (1.005-1.030); Urine Appearance Clear (CLEAR); Urine Color Yellow (Yellow); Urobilinogen Urine Norm (Negative); pH Urine 7 (5-7)
[2023-01-05] LABS: Charge for UA Resulting for Rev
[2023-01-05 00:06] LABS: Troponin(5th) Baseline 8 ng/L (0-15)
[2023-01-05 00:14] LABS: NT Pro B Type Natriuretic Pept 36 pg/mL (0-125); Procalcitonin 0.03 ng/mL (0-0.5); Thyroid Stimulating Hormone 1.57 uIU/mL (0.27-4.20)
[2023-01-05 00:25] LABS: Alanine Aminotransferase 20 U/L (0-41); Albumin Level 4.6 g/dL (3.5-5.2); Alkaline Phosphatase 87 U/L (40-130); Anion Gap 13.6 (5-19); Aspartate Amino Transferase 16 U/L (0-40); Blood Urea Nitrogen 10 mg/dL (6-20); Calcium 9.2 mg/dL (8.5-10.5); Carbon Dioxide 25 mmol/L (22-29); Chloride 98 mmol/L (98-107); Globulin 2.6 g/dL (1.3-4.6); Glomerular Filtration Rate 98.9 mL/min (90-130); Glucose 93 mg/dL (65-115); Magnesium 2.2 mg/dL (1.7-2.3); Osmolality Calculated 275 mOsm/kg (285-295); Potassium 3.6 mmol/L (3.5-5.1); Sodium 133 mmol/L (136-145); Total Bilirubin 0.5 mg/dL (0.15-1.2); Total Protein 7.2 g/dL (6.6-8.7)
[2023-01-05 00:38] VITALS: BP 103/74; BP 118/76; BP 128/77; PULSE 59; PULSE 71; PULSE 73
[2023-01-05] MEDS: sodium chloride 0.9% 1,000 ML 999 ML IV (00:52)
[2023-01-05 01:26] VITALS: BP 118/76; PULSE 63; RESP 16; O2SAT 94
--- NOTE | 2023-01-05 01:39 | ECG_ITS ---
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 Measurements Intervals [place] Rate: 58 P: 17 [place]: 184 QRS: 66 QRSD: 125 T: 48 QT: 438 QTc: 433 Interpretive Statements SINUS BRADYCARDIA INDETERMINATE AXIS MODERATE INTRAVENTRICULAR CONDUCTION DELAY [110+ ms QRS DURATION] Compared to ECG 01/04/2023 23:54:36 Sinus rhythm no longer present Electronically Signed On 01-05-2023 8:30:43 CDT by Fausto Leos M.D. [id number]
[2023-01-05 02:03] LABS: Troponin 5 2HR 8.45 ng/L (0-15)
[2023-01-05] MEDS: meclizine 25 mg tablet PO (02:13)
[2023-01-05] MEDS: doxycycline 100 mg Tablet PO (02:13)
[2023-01-05 02:16] VITALS: BP 126/64; PULSE 76; RESP 18; O2SAT 95
[2023-01-05 02:17] LABS: Troponin 5 2HR Delta 0.45 ABS# (0-10)
[2023-01-07 15:09] LABS: Lyme AB Screen <0.90 index
[2023-01-10 16:14] LABS: E. Chaffeensis AB IGG <1:64; E. Chaffeensis AB IGM <1:20
[2023-01-13 16:18] LABS: RMSF IGG DETECTED; RMSF IGM NOT DETECTED
== END 2023-01-05 02:21 | disposition home or self-care (01) ==
PROVIDERS: Emergency Provider Emergency Medicine; PCP Nurse Practitioner Family
DX: R42 Dizziness and giddiness (principal); R53.81 Other malaise; R53.83 Other fatigue; R00.1 Bradycardia, unspecified; D72.829 Elevated white blood cell count, unspecified; E87.1 Hypo-osmolality and hyponatremia; Z20.89 Contact with and (suspected) exposure to other communicable diseases
CPT/HCPCS: 36415; 70450; 71045; 80053; 81003; 83735; 83880; 84145; 84443; 84484; 85025; 86140; 86618; 86666; 86757; 93005; 96360; 96361; 99285; J7030; J8597

== ENCOUNTER → 2023-01-11 15:01 | Outpatient (BNVA) | payer MEDICARE, OTHER, SELFPAY | PROVIDERS: PCP Nurse Practitioner Family; Visit Provider Podiatrist Foot & Ankle Surgery | DX: E11.42 Type 2 diabetes mellitus with diabetic polyneuropathy (principal); L60.3 Nail dystrophy; M92.511 Juvenile osteochondrosis of proximal tibia, right leg; M19.171 Post-traumatic osteoarthritis, right ankle and foot; M89.8X1 Other specified disorders of bone, shoulder | CPT/HCPCS: 11721 ==

== ENCOUNTER → 2023-02-03 14:20 | Outpatient (BNVA) | payer MEDICARE, OTHER, SELFPAY | PROVIDERS: PCP Nurse Practitioner Family; Visit Provider Nurse Practitioner Family | DX: R42 Dizziness and giddiness (principal); I10 Essential (primary) hypertension; I48.91 Unspecified atrial fibrillation; R55 Syncope and collapse; F17.210 Nicotine dependence, cigarettes, uncomplicated; Z79.01 Long term (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 of anticoagulants; E11.9 Type 2 diabetes mellitus without complications; Z79.84 Long term (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 of oral hypoglycemic drugs | CPT/HCPCS: 36415; 80048; 83036; 83880; 84443; 85025; 99214 ==

== ENCOUNTER 2023-03-18 16:50 | Inpatient (IN) | payer MEDICARE, OTHER, SELFPAY ==
[2023-03-18] VITALS (18 sets, daily range): BP systolic 113–149; BP diastolic 62–99; PULSE 38–63; RESP 9–19; TEMP 36.3–36.4; O2SAT 88–98; BMI 39.3
--- NOTE | 2023-03-18 16:51 | XRR_ITS ---
PROCEDURE INFORMATION: Exam: XR Chest Exam date and time: 03/18/2023 5:14 PM Age: 58 years old Clinical indication: Pain; Chest pressure; Patient HX: Prev stimulator; Additional info: Cp TECHNIQUE: Imaging protocol: Radiologic exam of the chest. Views: 1 view. COMPARISON: CR (CHEST, ) 01/05/2023 12:15 AM FINDINGS: Lungs: Unremarkable. No consolidation. Pleural spaces: Unremarkable. No pleural effusion. No pneumothorax. Heart/Mediastinum: Unremarkable. No cardiomegaly. Bones/joints: Unremarkable. XR/XR chest 1V portable [id number] IMPRESSION: No acute findings.
--- NOTE | 2023-03-18 17:00 | ECG_ITS ---
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 Measurements Intervals [place] Rate: 60 P: 0 [place]: 0 QRS: 4 QRSD: 102 T: 86 QT: 418 QTc: 420 Interpretive Statements SUPRAVENTRICULAR RHYTHM ABNORMAL RHYTHM ECG Compared to ECG 01/05/2023 01:39:00 Supraventricular rhythm now present Sinus bradycardia no longer present Indeterminate axis no longer present Intraventricular conduction delay no longer present Electronically Signed On 03-18-2023 19:27:57 CDT by Daniel Rodriguez M.D. [id number]
[2023-03-18 17:35] LABS: Basophils % 0.3 %; Eosinophils # 0.1 10^3/uL (0.0-0.8); Eosinophils % 0.5 %; Hematocrit 42.9 % (37-53); Lymphocytes # 1.9 10^3/uL (0.8-4.8); Lymphocytes % 16.5 %; Mean Corpuscular HGB Conc 32.4 g/dL (30-55); Mean Corpuscular Hemoglobin 27.1 pg (27-33); Mean Corpuscular Volume 83.8 fl (82-101); Mean Platelet Volume 10.8 fL (7.4-10.4); Monocytes # 0.6 10^3/uL (0.2-0.9); Monocytes % 5.2 %; Neutrophils # 8.97 10^3/uL (1.8-7.7); Nucleated Red Blood Cells % 0 %; Platelet Count 212 10^3/cmm (157-399); Red Blood Count 5.12 10^6/uL (3.85-5.65); Red Cell Distribution Width 12.8 % (12.1-15.1); White Blood Count 11.67 10^3/uL (3.29-11.43)
[2023-03-18 17:57] LABS: Troponin(5th) Baseline 10 ng/L (0-15)
[2023-03-18 17:59] LABS: Alanine Aminotransferase 11 U/L (0-41); Alkaline Phosphatase 99 U/L (40-130); Anion Gap 15.1 (5-19); Aspartate Amino Transferase 11 U/L (0-40); Blood Urea Nitrogen 14 mg/dL (8-23); Calcium 8.8 mg/dL (8.5-10.5); Carbon Dioxide 24 mmol/L (22-29); Chloride 100 mmol/L (98-107); Globulin 2.7 g/dL (1.3-4.6); Glomerular Filtration Rate 76.2 mL/min (90-130); Glucose 296 mg/dL (65-115); Osmolality Calculated 291 mOsm/kg (285-295); Potassium 4.1 mmol/L (3.5-5.1); Sodium 135 mmol/L (136-145); Total Bilirubin 0.4 mg/dL (0.15-1.2); Total Protein 6.7 g/dL (6.6-8.7)
--- NOTE | 2023-03-18 18:41 | ECG_ITS ---
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 Measurements Intervals [place] Rate: 41 P: 23 [place]: 143 QRS: -9 QRSD: 104 T: 65 QT: 353 QTc: 295 Interpretive Statements SINUS BRADYCARDIA NONSPECIFIC T-WAVE ABNORMALITY Compared to ECG 03/18/2023 17:00:41 T-wave abnormality now present Supraventricular rhythm no longer present Electronically Signed On 03-18-2023 19:31:23 CDT by Daniel Rodriguez M.D. [id number]
[2023-03-18] MEDS: sodium chloride 0.9% 1,000 ML 999 ML IV (18:45)
--- NOTE | 2023-03-18 19:38 | W.ED.ARRPALP ---
HPI - Arrhythmia/Palpitations General: Chief Complaint: Arrhythmia/Palpitations Stated Complaint: possible afib Time Seen by Provider: 03/18/23 17:08 History of Present Illness: 58-year-old male with extensive medical history including atrial fibrillation, atrial fibrillation COPD, diabetes, GERD, hypertension, obesity and sleep apnea presented emergency room today with vague complaint of dizziness and palpitation within the past 24 to 48 hours. Patient further reveals that he notices his heart rate is between low 40s and high 120s. Patient reveals feeling dizzy and presyncope episode prior to come to the emergency room. Upon present emergency room patient is awake alert x4 denies any chest pain, headache, blurry vision, numbness or tingling at this time. No abdominal pain no nausea no vomiting. Patient was found to be bradycardic denies any chest pain or shortness of breath at this time. Leg swelling or calf tenderness. Associated symptoms: Deny pre-syncope or syncope Review of Systems General: Reports: 10 or more systems reviewed and unremarkable except in HPI and below Const: Denies: fever(s), chills or body aches Card: Reports: palpitations; Denies: edema, swelling of feet/ankles, lightheadedness, syncope, pre-syncope, dyspnea on exertion or orthopnea : Denies: flank pain, difficulty urinating or dysuria Neuro: Denies: headache(s), numbness in extremities, weakness in extremities, sensory changes, lack of coordination or difficulty walking [facility] ED PFSH: Medical History BPH (benign prostatic hyperplasia) Change in bowel habits COPD (chronic obstructive pulmonary disease) Diabetes Hernia HTN (hypertension) Hyperlipidemia Near syncope AV block, 2nd degree, 2:1 conduction, resolved w discontinuation of metoprolol underlying bifascicular block Obesity ANGIE on CPAP Sinus pause Syncope Tobacco abuse Transient blindness of both eyes Warfarin anticoagulation Surgical History History of cataract surgery Family History Grandmother CAD (coronary artery disease) MATERNAL Mother Diabetes Denies family history of Anesthesia complication Bleeding disorder Social History Smoking and tobacco status: current every day smoker cigarettes Packs smoked per day: 1 Alcohol intake: current Alcohol intake frequency: holidays/special occasions only Substance/Drug Use: never Household members: other Details: Girlfriend Marital status: service: No Current occupational status: disabled Physical Exam Const: COMMON NORMALS: no acute distress, average body habitus, patient oriented x3, no limitations, healthy appearing, alert and well nourished Cardio: JUGULAR VENOUS DISTENTION: no JVD PALPATION: normal PMI RATE: bradycardic BRUITS: no abdominal aortic bruits, no carotid bruits, no femoral bruits and no renal bruits GI: COMMON NORMALS: Normal to inspection, nondistended, normoactive bowel sounds present, Soft to palpation, non-tender, No hepatosplenomegaly present, no masses and no bruits PALPATION: Yes Soft to palpation and Yes No hepatosplenomegaly present : COMMON NORMALS: Yes no CVA tenderness BLADDER/KIDNEY EXAM: Yes no CVA tenderness Back/Pelvis: COMMON NORMALS: no CVA tenderness, thoracic and lumbar spine normal to inspection, no thoracic nor lumbar tenderness, thoraco-lumbar ROM normal and straight leg raise negative bilaterally Extremity: NARRATIVE EXTREMITY EXAM: Patient with braces to both legs due to history of multiple neck surgery after fracturing. Neuro: COMMON NORMALS: patient oriented x3 SENSORIUM/ORIENTATION: Yes alert Psych: COMMON NORMALS: mental status grossly normal, Normal thought process present, cooperative, normal affect, speech normal, activity/motor behavior normal, denies hallucinations, denies homicidal ideation and denies suicidal ideation SPEECH: Yes normal speech THOUGHT PROCESS: Normal thought process present Course Reevaluation(s): Reevaluation #1: Patient was given atropine and heart rate improved slightly. Discussed patient with the hospitalist Consultations: Consultation #1: Discussed patient with the hospitalist. Will admit for further evaluation and treatment. Unable to discuss patient with edi programmer due the fact that he is currently in [employer]. Vital Signs: Vital signs: Vital Signs Temperature 97.4 F L 03/18/23 16:59 Pulse Rate 38 L 03/18/23 18:15 Blood Pressure 136/78 03/18/23 18:15 Pulse Oximetry 93 03/18/23 18:00 Oxygen Delivery Me thod Room Air 03/18/23 18:00 MDM - Arrhythmia/Palpitations Medical Decision Making Patient made comfortable emergency room. Patient extensive work-up including CBC, CMP, troponin, EKG. I was able to reviewed past medical history. This patient with the hospitalist. I discussed the lab findings and the need for admission with the patient. Differential Diagnosis Likely palpitations, anxiety, sinus tachycardia, artial fibrillation, artial flutter, ventricular premature beats, supraventricular tachycardia, ventricular tachycardia and WPW Lab Data 03/18/23 17:17 03/18/23 17:17 Radiology Impressions Chest X-Ray 03/18/23 16:51 IMPRESSION: No acute findings. Laboratory Results WBC 11.67 10^3/uL (3.29-11.43) H 03/18/23 17:17 RBC 5.12 10^6/uL (3.85-5.65) 03/18/23 17:17 Hgb 13.90 g/dL (11.27-16.99) 03/18/23 17:17 Hct 42.9 % (37-53) 03/18/23 17:17 MCV 83.8 fl (82-101) 03/18/23 17:17 MCH 27.1 pg (27-33) 03/18/23 17:17 MCHC 32.4 g/dL (30-55) 03/18/23 17:17 RDW 12.8 % (12.1-15.1) 03/18/23 17:17 Plt Count 212 10^3/cmm (157-399) 03/18/23 17:17 MPV 10.8 fL (7.4-10.4) H 03/18/23 17:17 Neut % (Auto) 77.0 % 03/18/23 17:17 Lymph % (Auto) 16.5 % 03/18/23 17:17 Tillman % (Auto) 5.2 % 03/18/23 17:17 Eos % (Auto) 0.5 % 03/18/23 17:17 Baso % (Auto) 0.3 % 03/18/23 17:17 Neut # (Auto) 8.97 10^3/uL (1.8-7.7) H 03/18/23 17:17 Lymph # (Auto) 1.9 10^3/uL (0.8-4.8) 03/18/23 17:17 Tillman # (Auto) 0.6 10^3/uL (0.2-0.9) 03/18/23 17:17 Eos # (Auto) 0.1 10^3/uL (0.0-0.8) 03/18/23 17:17 Baso # (Auto) 0.0 10^3/uL (0.0-0.1) 03/18/23 17:17 Nucleated RBC % (auto) 0 % 03/18/23 17:17 Nucleated RBCs # 0.0 /100WBC 03/18/23 17:17 Sodium 135 mmol/L (136-145) L 03/18/23 17:17 Potassium 4.1 mmol/L (3.5-5.1) 03/18/23 17:17 Chloride 100 mmol/L (98-107) 03/18/23 17:17 Carbon Dioxide 24 mmol/L (22-29) 03/18/23 17:17 Anion Gap 15.1 (5-19) 03/18/23 17:17 BUN 14 mg/dL (8-23) 03/18/23 17:17 Creatinine 1.0 mg/dL (0.7-1.2) 03/18/23 17:17 GFR Calculation 76.2 mL/min (90-130) L 03/18/23 17:17 Glucose 296 mg/dL (65-115) H 03/18/23 17:17 Calculated Osmolality 291 mOsm/kg (285-295) 03/18/23 17:17 Calcium 8.8 mg/dL (8.5-10.5) 03/18/23 17:17 Magnesium 2.0 mg/dL (1.7-2.3) 03/18/23 17:17 Total Bilirubin 0.4 mg/dL (0.15-1.2) 03/18/23 17:17 AST 11 U/L (0-40) 03/18/23 17:17 ALT 11 U/L (0-41) 03/18/23 17:17 Alkaline Phosphatase 99 U/L (40-130) 03/18/23 17:17 Troponin T Baseline 10 ng/L (0-15) 03/18/23 17:17 Total Protein 6.7 g/dL (6.6-8.7) 03/18/23 17:17 Albumin 4.0 g/dL (3.5-5.2) 03/18/23 17:17 Globulin 2.7 g/dL (1.3-4.6) 03/18/23 17:17 XR interpretation done by ED provider, pending radiology final review EKG Data EKG 1: Interpretation: Sinus bradycardia rate of 41. No ST elevation ST changes. MA interval 143 QRS duration 104 QTc interval 353 Other EKG comments: Chest X-Ray 03/18/23 16:51 IMPRESSION: No acute findings. Critical Care Time Critical Care Time: Critical Care Time: Yes Total Critical Care Time: 40 Attestation: Patient made comfortable emergency room. Patient extensive work-up done including labs Labs reviewed. I discussed patient with the hospitalist. I reviewed past medical history including EKGs. I reviewed patient' medicine list. Discharge Plan Discharge Patient Disposition: Admitted As Inpatient Admit Provider: Mary Moreno Clinical Impression: Bradycardia, Dizziness Condition: Stable Coding Level of Care Code ED Pump Installation And Servicer for Loreg Katya
[2023-03-18] MEDS: atropine 0.1 mg/mL Syr 10 mL 0.5 MG IVP (20:08)
[2023-03-18 20:47] LABS: Troponin 5 2HR 10.45 ng/L (0-15); Troponin 5 2HR Delta 0.45 ABS# (0-10)
--- NOTE | 2023-03-18 21:12 | P.HP_ITS ---
Providers/Chief Complaint Admitting Physician: Mary Moreno MD Primary Care Provider: Kylah Garcia APN Chief Complaint: possible afib History of Present Illness Deejay Gonzalez is a 58 year old male morbidly obese, COPD, obstructive sleep apnea on CPAP at night active smoker 5 to 6 cigarettes/day for 30 years, hypertension chronic low back pain GERD diabetes BPH presented with complaint of chest pain and dizziness since 2 days. He reports checking heart rate at home which was variable from 40-1 40. He has history of similar complaints 3 months ago but no intervention. Chest pain is midsternal 5-6/10, sudden aggravated by movement and resolved spontaneously. Chest pain is associated with dizziness and nausea. He reports chest pain got better when he came to ER and received IV morphine for pain. Last sestamibi examination was in 2019 which showed a fixed defect in the inferior wall with no ischemia. Also he had a 14-day ZIO monitor showing occasional SVT with ventricular trigeminy in February 2023. He has been having similar complaints of dizziness and presyncope since July 2022, had multiple visits to tourist information officer in ER for similar reasons. He also has history of atrial fibrillation which resolved. Review of Systems Narrative: As per HPI Medications/Allergies Home Medications Medication Instructions Recorded Confirmed Last Taken Type albuterol sulfate 90 mcg/actuation 2 inh inhalation Q4H PRN shortness 11/20/19 02/03/23 05/27/21 History aerosol inhaler (Ventolin HFA) of breath or wheezing amlodipine 10 mg tablet 10 mg PO BEDTIME 11/20/19 03/18/23 05/28/21 07:00 Histo ry hydrocodone 10 mg-acetaminophen 1 tab PO Q6H PRN pain 11/20/19 03/18/23 05/28/21 07:00 History 325 mg tablet montelukast 10 mg tablet 10 mg PO DAILY@1000 11/20/19 03/18/23 05/27/21 History sitagliptin phosphate 100 mg 100 mg PO DAILY@1000 11/20/19 02/03/23 05/27/21 History tablet (Januvia) tamsulosin 0.4 mg capsule 0.4 mg PO BID@1000,0 11/20/19 03/18/23 05/27/21 History trazodone 50 mg tablet 50 - 100 mg PO BEDTIME@2200 11/20/19 03/18/23 05/27/21 History omeprazole 20 mg capsule,delayed 20 mg PO DAILY 10/18/20 03/18/23 05/27/21 History release apixaban 5 mg tablet (Eliquis) 5 mg PO BID #60 tabs 10/20/20 03/18/23 05/24/21 Rx atorvastatin 40 mg tablet 40 mg PO DAILY@1000 #90 tabs 01/31/21 03/18/23 05/27/21 Rx irbesartan 300 mg tablet 300 mg PO DAILY #90 tabs 01/31/21 03/18/23 05/27/21 Rx lubiprostone 8 mcg capsule 24 mcg PO BID 04/17/21 03/18/23 05/27/21 History (Amitiza) Bilateral Mamie Articulating #1 ea 09/11/21 01/11/23 Unknown Rx AFO's docusate sodium 100 mg capsule 200 mg PO BID PRN Constipation 10/14/21 03/18/23 Unknown History (Dulcolax Stool Softener (docusate)) hydroxyzine HCl 50 mg tablet 50 mg PO BID PRN Anxiety 10/14/21 03/18/23 Unknown History polyethylene glycol 3350 17 17 g PO DAILY PRN Constipation 10/14/21 03/18/23 Unknown History gram/dose oral powder (Miralax) Night Splint to the Left Foot #1 ea 12/31/21 01/11/23 Unknown Rx Lactobacillus acidophilus 20,000 mmu cells PO DAILY 07/21/22 02/03/23 Unknown History (Acidophilus capsule) fluticasone propionate 50 2 spray intranasal DAILY@1000 PRN 07/21/22 03/18/23 Unknown History mcg/actuation nasal Congestion spray,suspension gabapentin 600 mg tablet 600 mg PO TID 07/21/22 03/18/23 Unknown History magnesium oxide 500 mg capsule 500 mg PO BID 07/21/22 02/03/23 Unknown History vitamins A,C,R-ckjc-fuurft 4,296 1 cap PO BID 07/21/22 02/03/23 Unknown History mcg-226 mg-90 mg capsule (ICaps AREDS) Above Ankle Diabetic Boots with 3 #1 ea 08/20/22 01/11/23 Unknown Rx inserts meclizine 25 mg tablet 25 mg PO TID PRN dizziness #20 tabs 01/05/23 02/03/23 Unknown Rx escitalopram oxalate 20 mg tablet 20 mg PO DAILY 02/03/23 03/18/23 Unknown History tizanidine 4 mg tablet 4 mg PO TID PRN Muscle Spasm 02/03/23 03/18/23 Unknown History cetirizine 10 mg tablet 10 mg PO BEDTIME 03/18/23 03/18/23 Unknown History glipizide 10 mg tablet 10 mg PO BID 03/18/23 03/18/23 Unknown History sitagliptin phosphate 100 mg 100 mg PO DAILY 03/18/23 03/18/23 Unknown History tablet (Januvia) tirzepatide 5 mg/0.5 mL 5 mg SUBCUT DIRECTED 03/18/23 03/18/23 Unknown History subcutaneous pen injector (Mounjaro) tirzepatide 7.5 mg/0.5 mL 7.5 mg SUBCUT 03/18/23 Unknown History subcutaneous pen injector (Mounjaro) triamterene 37.5 2 tab PO DAILY 03/18/23 03/18/23 Unknown History mg-hydrochlorothiazide 25 mg tablet Allergies Allergy/AdvReac Type Severity Reaction Status Date / Time Penicillins Allergy Mild ALGY-Rash Verified 03/18/23 17:04 Sulfa (Sulfonamide Allergy ALGY-Rash Verified 03/18/23 17:04 Antibiotics) PFSH Acute PFSH: Medical History (Updated 03/18/23 @ 21:23 by Mary Moreno MD) BPH (benign prostatic hyperplasia) Change in bowel habits COPD (chronic obstructive pulmonary disease) Diabetes Dizziness Hernia HTN (hypertension) Hyperlipidemia Near syncope AV block, 2nd degree, 2:1 conduction, resolved w discontinuation of metoprolol underlying bifascicular block Obesity ANGIE on CPAP Sinus pause Syncope Tobacco abuse Transient blindness of both eyes Warfarin anticoagulation Surgical History History of cataract surgery Family History Grandmother CAD (coronary artery disease) MATERNAL Mother Diabetes Denies family history of Anesthesia complication Bleeding disorder Social History Smoking and tobacco status: current every day smoker cigarettes Packs smoked per day: 1 Alcohol intake: current Alcohol intake frequency: holidays/special occasions only Substance/Drug Use: never Household members: other Details: Girlfriend Marital status: service: No Current occupational status: disabled Vitals/I&O/Wt Last Vital Signs Temp 97.4 F L 03/18/23 16:59 Pulse 44 L 03/18/23 20:39 Resp 15 03/18/23 20:39 BP 116/67 03/18/23 20:39 Pulse Ox 93 03/18/23 20:39 O2 Del Method Room Air 03/18/23 20:39 Weight last 48 hrs Weight 131.542 kg Physical Exam Narrative: He is alert awake oriented x3, in moderate distress due to dizziness, morbidly obese Chest decreased bilateral air entry diffusely Cardiovascular normal heart sounds irregular rhythm Abdomen soft nontender nondistended normal bowel sounds Extremities bilateral 1+ pitting lower extremity edema, bilateral lower leg braces present. Data 03/18/23 17:17 03/18/23 17:17 CXR: Radiologist's impression: No acute findings EKG 1: My Interpretation: Sinus bradycardia at 41 bpm A&P Assessment and plan (1) Bradycardia: (2) Chest pain: (3) Dizziness: Plan 58-year-old male with multiple medical problems presented with dizziness chest pain and found to have a heart rate of 42 to 140 bpm at home secondary to likely sick sinus syndrome and symptomatic bradycardia. but given history of atrial fibrillation bradycardia supraventricular tachycardia prior with ventricular trigeminy, needs to have further work-up and intervention by cardiology. Dr. Rodriguez cardiology aware of the patient Will monitor for now, first set of troponins negative and EKG has no acute ST-T changes , received IV atropine 0.5 mg x 1 in the ER. Resume atorvastatin 40 mg daily, amlodipine 10 mg daily irbesartan 300 milligrams daily triamterene/ hydrochlorothiazide 37.5/25 mg daily IV Pepcid 20 mg every 12 hours for stress ulcer prophylaxis He is already on Eliquis for atrial fibrillation no further need for DVT prophylaxis. He is full code for now Uncontrolled diabetes will resume Januvia 100 mg daily High-dose correction scale insulin AC meals and bedtime. Resume home medications. Attestations Medical Necessity Statement*: He needs continued hospitalization for more than 2 midnights for symptomatic bradycardia and questionable sick sinus syndrome with further work-up and intervention Time Spent in Patient Care: 40 minutes Coding Level of Care Code Critical Care >/= 30 minutes Diagnoses Bradycardia R00.1 Chest pain R07.9 Dizziness R42 Time Spent (min) 40
[2023-03-18] MEDS: acetaminophen 325 mg Tablet 650 MG PO (22:13)
[2023-03-18] MEDS: tizanidine 4 mg Tablet PO (22:13)
[2023-03-18] MEDS: famotidine 20 mg/2 mL INJ IVP (22:39)
[2023-03-18] MEDS: ketorolac 30 mg/mL INJ IVP (22:39)
--- NOTE | 2023-03-18 23:07 | ECG_ITS ---
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 Measurements Intervals Coleman Rate: 59 P: 52 NJ: 194 QRS: -69 QRSD: 162 T: 35 QT: 477 QTc: 473 Interpretive Statements SINUS BRADYCARDIA RIGHT BUNDLE BRANCH BLOCK [120+ ms QRS DURATION, UPRIGHT V1, 40+ ms S IN I/aVL/V4/V5/V6] LEFT ANTERIOR FASCICULAR BLOCK [QRS AXIS <= -45, QR IN I, RS IN II] Compared to ECG 03/18/2023 18:41:53 Right bundle-branch block now present Left anterior fascicular block now present T-wave abnormality no longer present Electronically Signed On 03-19-2023 13:54:38 CDT by Laura Huizar M.D. [id number]
[2023-03-19] VITALS (65 sets, daily range): BP systolic 102–180; BP diastolic 54–112; PULSE 46–74; RESP 10–25; TEMP 36.6–36.7; O2SAT 90–99
[2023-03-19 00:02] LABS: Troponin 5 6HR 11.13 ng/L (0-15); Troponin 5 6HR Delta 1.13 ng/L (0-12)
[2023-03-19 04:22] LABS: Basophils % 0.5 %; Eosinophils # 0.1 10^3/uL (0.0-0.8); Eosinophils % 1.4 %; Hematocrit 38.4 % (37-53); Lymphocytes # 2.7 10^3/uL (0.8-4.8); Lymphocytes % 32.3 %; Mean Corpuscular Hemoglobin 26.7 pg (27-33); Mean Corpuscular Volume 86.3 fl (82-101); Mean Platelet Volume 10.6 fL (7.4-10.4); Monocytes # 0.6 10^3/uL (0.2-0.9); Monocytes % 7.1 %; Neutrophils # 4.87 10^3/uL (1.8-7.7); Neutrophils % 58.3 %; Nucleated Red Blood Cells % 0 %; Platelet Count 172 10^3/cmm (157-399); Red Blood Count 4.45 10^6/uL (3.85-5.65); Red Cell Distribution Width 12.9 % (12.1-15.1); White Blood Count 8.34 10^3/uL (3.29-11.43)
[2023-03-19 04:38] LABS: Alanine Aminotransferase 10 U/L (0-41); Albumin Level 3.9 g/dL (3.5-5.2); Alkaline Phosphatase 92 U/L (40-130); Anion Gap 11.9 (5-19); Aspartate Amino Transferase 8 U/L (0-40); Blood Urea Nitrogen 20 mg/dL (8-23); Calcium 8.9 mg/dL (8.5-10.5); Carbon Dioxide 28 mmol/L (22-29); Chloride 101 mmol/L (98-107); Globulin 1.7 g/dL (1.3-4.6); Glomerular Filtration Rate 86.1 mL/min (90-130); Glucose 207 mg/dL (65-115); Magnesium 2.1 mg/dL (1.7-2.3); Osmolality Calculated 293 mOsm/kg (285-295); Potassium 3.9 mmol/L (3.5-5.1); Sodium 137 mmol/L (136-145); Total Bilirubin 0.3 mg/dL (0.15-1.2); Total Protein 5.6 g/dL (6.6-8.7)
[2023-03-19 04:48] LABS: NT Pro B Type Natriuretic Pept 318 pg/mL (0-125)
[2023-03-19] MEDS: escitalopram 10 mg Tablet 20 MG PO (08:22)
[2023-03-19] MEDS: montelukast sodium 10 mg Tablet PO (08:22)
[2023-03-19] MEDS: gabapentin 300 mg Capsule 600 MG PO ×3 (08:23→20:52)
[2023-03-19] MEDS: apixaban 5 mg Tablet PO (08:23)
[2023-03-19] MEDS: tamsulosin 0.4 mg Capsule PO ×2 (08:23→21:24)
[2023-03-19] MEDS: losartan 50 mg Tablet PO (08:24)
[2023-03-19] MEDS: famotidine 20 mg/2 mL INJ IVP (08:30)
[2023-03-19] MEDS: atorvastatin 40 mg Tablet PO (08:30)
--- NOTE | 2023-03-19 11:12 | PM.PN ---
Subjective Subjective: Patient's heart rate this morning is 55 hemodynamically stable Sinus rhythm Patient is still complaining of mild dizziness GCS 15 We will status post with Dr. Bhupendra Rodriguez is not on-call for general cardiology today, I did call Michael, he was not aware of the consult Vitals/I&O/Wt Last Vital Signs Temp 98.1 F 03/19/23 04:00 Pulse 61 03/19/23 08:30 Resp 14 03/19/23 08:30 BP 146/89 03/19/23 08:30 Pulse Ox 94 03/19/23 08:30 O2 Del Method Room Air 03/19/23 05:21 FiO2 21 03/19/23 05:21 03/18/23 03/19/23 03/19/23 22:59 06:59 14:59 Intake Total 250 / 250 100 / 350 360 / 360 Output Total 150 / 150 200 / 350 Balance 100 / 100 -100 / 0 360 / 360 Weight last 48 hrs Weight 131.542 kg Physical Exam Narrative: Patient is awake and alert No lower extremity edema Currently on room air Hemodynamically stable Blood pressure is stable as well Pleasant and cooperative Complaining of dizziness Nonfocal neuro exam S1, S2 sinus rhythm Data 03/19/23 03:50 03/19/23 03:50 A&P Assessment and plan (1) Dizziness: (2) Bradycardia: (3) Gastritis: (4) Atrial fibrillation: Qualifiers: Atrial fibrillation type: unspecified Qualified Code(s): I48.91 - Unspecified atrial fibrillation (5) Syncope: (6) Diabetes: Qualifiers: Diabetes mellitus type: type 2 Diabetes mellitus coppersmith helper insulin use: with coppersmith helper use Diabetes mellitus complication status: with other specified complication Qualified Code(s): E11.69 - Type 2 diabetes mellitus with other specified complication; 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 (7) Symptomatic bradycardia: Plan Symptomatic bradycardia Patient is stating that he was at [place] for further work-up he was put on a Holter monitor, there was no plan for pacemaker evaluation He is not on any AV yolande blocking agent Still complaining of dizziness Heart rate fluctuating between 55-60 Blood pressure stable He is type II diabetic I will start him on consistent carb diet with insulin, discontinue oral antihyperglycemic agents In case he will require a pacemaker I would hold off on Eliquis for now and start Lovenox Patient is stating that he was in A-fib for short period of time in the past as well We will switch Eliquis to therapeutic Lovenox Consistent carb diet We will touch base with cardiology Attestations Medical Necessity Statement*: Continue ICU management Diagnoses Dizziness R42 Bradycardia R00.1 Gastritis K29.70 Atrial fibrillation I48.91 Atrial fibrillation type: unspecified Syncope R55 Diabetes E11.69; Z79.4 Diabetes mellitus type: type 2 Diabetes mellitus coppersmith helper insulin use: with coppersmith helper use Diabetes mellitus complication status: with other specified complication Symptomatic bradycardia R00.1
--- NOTE | 2023-03-19 14:19 | P.CONIM_ITS ---
Providers/Reason For Consult Consulting Physician/Specialty*: Dr. Huizar, cardiology Reason for Consult*: Dizziness, concern for symptomatic bradycardia Attending Physician: Les Landis MD Primary Care Provider: Kylah Garcia APN History of Present Illness History of Present Illness Deejay Gonzalez is a 58 year old male with PMHx of hypertension, dyslipidemia, paroxysmal atrial fibrillation on anticoagulation, COPD, diabetes, obesity, sleep apnea and tobacco abuse. He has h/o recurrent presyncopal episodes few years back. Pauses as long as 4 sec were noted with junctional escape in 30's that lasts for few seconds and then goes back to atrial fibrillation with controlled ventricular response while on high dose metoprolol.? Heart rates re maining in the 70s after metoprolol stopped.? A few additional lightheadedness episodes were observed while in hospital without any pauses or bradycardia noted on telemetry.? Event monitor post discharge did not show any pauses. ?He was at [facility] 12/26/22 for concern of CA. Records from [facility] showed a stress test which was negative for ischemia, with fixed inferior non transmural defect. Echocardiogram showed normal LVEF, no significant valvular abnormalities.? 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 He wore 14 day Zio monitor ordered by Dr Jesús Laura that showed SR with first degree AV block. IVCD/ BBB+. HR 42-113, avg 70 bpm. 3 runs of PAT longest 17 beats. 7 diary events one with PVC and another with PAC. He was outside yesterday when he developed dizziness and checked his HR and noticed it was high in 120's and then it kept fluctuating. He tells me when he has such spells blowing cold air in his face. He decided to drive to [place] and had to stop intermittently. When he parked, he felt dizzy and had to hold on to truck to prevent falling. EKG on arrival shows possibly junctional rhythm at 60 with PAC's and PVC's. Subsequent EKG's shows low atrial rhythm with HR in 40's. He also has RBBB and LAFB. Review of Systems Const: Denies: fever(s) or chills Eyes: Denies: change in vision ENMT: Denies: bleeding gums Card: Reports: chest pain, palpitations, irregular heart rhythm, edema, swelling of feet/ankles, lightheadedness, pre-syncope and dyspnea on exertion; Denies: syncope or orthopnea Resp: Reports: productive cough; Denies: non-productive cough or hemoptysis GI: Denies: hematochezia : Denies: hematuria Musc: Reports: back pain; Denies: neck pain Skin/Breast: Reports: dry skin Neuro: Reports: headache(s) and dizziness Psych: Reports: anxiety and depression Endo: Reports: tired all the time Esteban/Lymph: Reports: easy bruising and easy bleeding All/Imm: Reports: seasonal rhinorrhea Medications/Allergies Home Medications Medication Instructions Recorded Confirmed Last Taken Type albuterol sulfate 90 mcg/actuation 2 inh inhalation Q4H PRN shortness 11/20/19 03/19/23 05/27/21 History aerosol inhaler (Ventolin HFA) of breath or wheezing amlodipine 10 mg tablet 10 mg PO BEDTIME 11/20/19 03/18/23 05/28/21 07:00 History hydrocodone 10 mg-acetaminophen 1 tab PO Q6H PRN pain 11/20/19 03/18/23 05/28/21 07:00 History 325 mg tablet montelukast 10 mg tablet 10 mg PO DAILY@1000 11/20/19 03/18/23 05/27/21 History sitagliptin phosphate 100 mg 100 mg PO DAILY@1000 11/20/19 03/19/23 05/27/21 History tablet (Januvia) tamsulosin 0.4 mg capsule 0.4 mg PO BID@1000,2200 11/20/19 03/18/23 05/27/21 History trazodone 50 mg tablet 50 - 100 mg PO BEDTIME@2200 11/20/19 03/18/23 05/27/21 History omeprazole 20 mg capsule,delayed 20 mg PO DAILY 10/18/20 03/18/23 05/27/21 History release apixaban 5 mg tablet (Eliquis) 5 mg PO BID #60 tabs 10/20/20 03/18/23 05/24/21 Rx atorvastatin 40 mg tablet 40 mg PO DAILY@1000 #90 tabs 01/31/21 03/18/23 05/27/21 Rx irbesartan 300 mg tablet 300 mg PO DAILY #90 tabs 01/31/21 03/18/23 05/27/21 Rx lubiprostone 8 mcg capsule 24 mcg PO BID 04/17/21 03/18/23 05/27/21 History (Amitiza) Bilateral Mamie Articulating #1 ea 09/11/21 03/19/23 Unknown Rx AFO's docusate sodium 100 mg capsule 200 mg PO BID PRN Constipation 10/14/21 03/18/23 Unknown History (Dulcolax Stool Softener (docusate)) hydroxyzine HCl 50 mg tablet 50 mg PO BID PRN Anxiety 10/14/21 03/18/23 Unknown History polyethylene glycol 3350 17 17 g PO DAILY PRN Constipation 10/14/21 03/18/23 Unknown History gram/dose oral powder (Miralax) Night Splint to the Left Foot #1 ea 12/31/21 03/19/23 Unknown Rx Lactobacillus acidophilus 20,000 mmu cells PO DAILY 07/21/22 03/19/23 Unknown History (Acidophilus capsule) fluticasone propionate 50 2 spray intranasal DAILY@1000 PRN 07/21/22 03/18/23 Unknown History mcg/actuation nasal Congestion spray,suspension gabapentin 600 mg tablet 600 mg PO TID 07/21/22 03/18/23 Unknown History magnesium oxide 500 mg capsule 500 mg PO BID 07/21/22 03/19/23 Unknown History vitamins A,C,W-nohw-capltj 4,296 1 cap PO BID 07/21/22 03/19/23 Unknown History mcg-226 mg-90 mg capsule (ICaps AREDS) Above Ankle Diabetic Boots with 3 #1 ea 08/20/22 03/19/23 Unknown Rx inserts meclizine 25 mg tablet 25 mg PO TID PRN dizziness #20 tabs 01/05/23 03/19/23 Unknown Rx escitalopram oxalate 20 mg tablet 20 mg PO DAILY 02/03/23 03/18/23 Unknown History tizanidine 4 mg tablet 4 mg PO TID PRN Muscle Spasm 02/03/23 03/18/23 Unknown History cetirizine 10 mg tablet 10 mg PO BEDTIME 03/18/23 03/18/23 Unknown History glipizide 10 mg tablet 10 mg PO BID 03/18/23 03/18/23 Unknown History triamterene 37.5 2 tab PO DAILY 03/18/23 03/18/23 Unknown History mg-hydrochlorothiazide 25 mg tablet alprazolam 0.25 mg tablet 0.25 mg PO BID PRN Anxiety 03/19/23 03/19/23 Unknown History furosemide 20 mg tablet 20 mg PO DAILY 03/19/23 03/19/23 Unknown History Allergies Allergy/AdvReac Type Severity Reaction Status Date / Time Penicillins Allergy Mild ALGY-Rash Verified 03/18/23 17:04 Sulfa (Sulfonamide Allergy ALGY-Rash Verified 03/18/23 17:04 Antibiotics) Current Medications Generic Name Dose Route Start Last Admin Trade Name Sunita PRN Reason Stop Dose Admin Apixaban 5 mg 03/19/23 09:00 03/19/23 08:23 Apixaban 5 Mg Tablet PO 5 mg BID KAREL Administration Atorvastatin Calcium 40 mg 03/19/23 10:00 03/19/23 08:30 Atorvastatin 40 Mg Tablet PO 40 mg DAILY@1000 KAREL Administration Escitalopram Oxalate 20 mg 03/19/23 09:00 03/19/23 08:22 Escitalopram 10 Mg Tablet PO 20 mg DAILY KAREL Administration Gabapentin 600 mg 03/19/23 09:00 03/19/23 08:23 Gabapentin 300 Mg Capsule PO 600 mg TID KAREL Administration Losartan Potassium 50 mg 03/19/23 09:00 03/19/23 08:24 Losartan 50 Mg Tablet PO 50 mg DAILY KAREL Administration Montelukast Sodium 10 mg 03/19/23 10:00 03/19/23 08:22 Montelukast Sodium 10 Mg Tablet PO 10 mg DAILY@1000 KAREL Administration Non-Formulary Medication 24 mcg 03/19/23 09:00 03/19/23 08:48 Lubiprostone [Amitiza] PO Not Given BID KAREL Tamsulosin HCl 0.4 mg 03/19/23 10:00 03/19/23 08:23 Tamsulosin 0.4 Mg Capsule PO 0.4 mg BID@1000,2200 KAREL Administration Tizanidine HCl 4 mg 03/18/23 21:18 03/18/23 22:13 Tizanidine 4 Mg Tablet PO 4 mg TID PRN Administration SPASMS PFSH Acute PFSH: Medical History (Updated 03/19/23 @ 21:32 by Laura Huizar MD) BPH (benign prostatic hyperplasia) Change in bowel habits COPD (chronic obstructive pulmonary disease) Diabetes Dizziness Hernia HTN (hypertension) Hyperlipidemia Near syncope AV block, 2nd degree, 2:1 conduction, resolved w discontinuation of metoprolol underlying bifascicular block Obesity ANGIE on CPAP Sinus pause Syncope Tobacco abuse Transient blindness of both eyes Warfarin anticoagulation Surgical History History of cataract surgery Family History Grandmother CAD (coronary artery disease) MATERNAL Mother Diabetes Denies family history of Anesthesia complication Bleeding disorder Social History Smoking and tobacco status: current every day smoker cigarettes Packs smoked per day: 1 Alcohol intake: current Alcohol intake frequency: holidays/special occasions only Substance/Drug Use: never Household members: other Details: Girlfriend Marital status: service: No Current occupational status: disabled Vitals/I&O/Wt Last Vital Signs Temp 98.1 F 03/19/23 04:00 Pulse 56 L 03/19/23 12:30 Resp 20 H 03/19/23 12:30 BP 146/86 03/19/23 12:00 Pulse Ox 95 03/19/23 11:42 O2 Del Method CPAP 03/19/23 11:42 FiO2 21 03/19/23 05:21 03/18/23 03/19/23 03/19/23 22:59 06:59 14:59 Intake Total 250 / 250 100 / 350 720 / 720 Output Total 150 / 150 200 / 350 Balance 100 / 100 -100 / 0 720 / 720 Weight last 48 hrs Weight 290 lb Physical Exam Narrative: GENERAL:obese man sitting in bed, in no acute distress HEENT: Extraocular movement intact. No pallor or icterus. NECK: central trachea, No JVD, No carotid bruit. CARDIOVASCULAR SYSTEM: S1-S2 regular. Bradycardia+ No murmur rubs or gallops. RESPIRATORY SYSTEM: Chest clear to auscultation. No wheezes rhonchi or rubs heard. No use of accessory muscles. ABDOMEN: Soft, nontender and nondistended. Normal bowel sounds present. EXTREMITIES: No cyanosis or edema. No signs of chronic venous insufficiency. ACUTE SPECIALIST: Patient is alert oriented ?3. No focal neurological deficits. SKIN: Normal turgor and temperature. Data 03/20/23 02:54 03/20/23 02:54 Other data: 11/01/20 EVENT MONITOR Conclusion: 1. Baseline rhythm is sinus rhythm with first-degree AV block with interventricular conduction delay. No episodes of atrial fibrillation. 2. Heart rate ranged from 52 to 128 bpm. Average heart rate of 78 bpm. 3. Unspecified patient symptoms and patient symptoms of tiredness did not correlate with any arrhythmias. 10/19/20 ECHO CONCLUSIONS ?1.? This is a technically very difficult study.? Ultrasound enhancing agent Optison was used. ?2.? Normal left ventricular cavity size and systolic function. ?Left ventricular ejection fraction is estimated at 65 %.? No diagnostic re gional wall motion abnormality.? Abnormal septal ?motion consistent with conduction abnormality. Grade II diastolic dysfunction, moderately elevated filling pressures. ?3. When compared to previous echocardiogram dated 04/07/2018, there may not have been any significant change. 03/22/20 STRESS TEST LEXISCAN Conclusion: 1.? Normal EKG response to Lexiscan infusion. 2.? No Lexiscan induced chest pain or cardiac arrhythmia. 3.? Normal heart rate and blood pressure response. 4.? Sestamibi/sestamibi perfusion scan pending; see separate report. MPRESSIONS ?1.? Large in size, fixed perfusion defect in the inferior wall.? This could ?represent attenuation artifact(improvement with prone imaging) versus prior infarct.? There is no area of ischemia noted. ?2.? Normal LV systolic function is noted. 12/20/19 CAROTID US CONCLUSIONS ?Minimal plaques at the bifurcations bilaterally ?Intimal thickening in the common carotid arteries bilaterally. ?No significant stenosis, based on the above findings. A&P Assessment and plan (1) Dizziness: He does not have any pauses at this time. However, use of metoprolol in past has led him to have pauses causing recurrent syncope. -He has paroxysmal symptomatic atrial fibrillation, PAT and symptomatic PAC's and PVC's. This has gone untreated given inability to use AV yolande blockers. -Given underlying bifascicular block and intermittent junctional rhythm, I think PPM placement will benefit him. -He has some ongoing ear infection but his dizziness has been going on for several months with recent worsening -I will monitor him in ICU and see how he does. -Veronica has been held for tentative PPM placement. -This was discussed with the patient and his daughter Familia and they are agreeable with the plan. (2) Atrial fibrillation: Paroxysmal Qualifiers: Atrial fibrillation type: unspecified Qualified Code(s): I48.91 - Unspecified atrial fibrillation (3) HTN (hypertension): Qualifiers: Hypertension type: essential hypertension Qualified Code(s): I10 - Essential (primary) hypertension (4) Hyperlipidemia: Qualifiers: Hyperlipidemia type: unspecified Qualified Code(s): E78.5 - Hyperlipidemia, unspecified (5) ANGIE on CPAP: (6) Diabetes: Qualifiers: Diabetes mellitus complication status: with other specified complication Diabetes mellitus event promotions coordinator insulin use: with event promotions coordinator use Diabetes mellitus type: type 2 Qualified Code(s): E11.69 - Type 2 diabetes mellitus with other specified complication; Z79.4 - technical illustrations map inker (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 of insulin (7) COPD (chronic obstructive pulmonary disease): (8) Tobacco abuse: has cut back cigs to few/day Plan PAT PAC's/PVC's Bradycardia Bifascicular block HFpEF Obesity Obesity Coding Level of Care Code 46565 Diagnoses Dizziness R42 Atrial fibrillation I48.91 Atrial fibrillation type: unspecified HTN (hypertension) I10 Hypertension type: essential hypertension Hyperlipidemia E78.5 Hyperlipidemia type: unspecified ANGIE on CPAP G47.33; Z99.89 Diabetes E11.69; Z79.4 Diabetes mellitus complication status: with other specified complication Diabetes mellitus event promotions coordinator insulin use: with [facility] use Diabetes mellitus type: type 2 COPD (chronic obstructive pulmonary disease) J44.9 Tobacco abuse Z72.0
[2023-03-19] MEDS: insulin lispro 100 unit/1 mL SUBCUT ×2 (17:31→20:53)
[2023-03-19] MEDS: HYDROcodone-acetaminophen 10-325 mg Tablet 1 TAB PO (17:31)
[2023-03-19 20:25] LABS: Glucose Point of Care 301 mg/dL (70-110)
[2023-03-19] MEDS: ALPRAZolam 0.5 mg Tablet 0.25 MG PO (20:53)
[2023-03-19] MEDS: amlodipine 10 mg Tablet PO (20:53)
[2023-03-19] MEDS: enoxaparin 150 mg/mL Syringe 130 MG SUBCUT (20:53)
[2023-03-19] MEDS: trazodone 50 mg Tablet PO (21:24)
[2023-03-20] VITALS (37 sets, daily range): BP systolic 112–191; BP diastolic 58–102; PULSE 50–71; RESP 14–29; TEMP 36.5–37.2; O2SAT 95–98
[2023-03-20 03:26] LABS: Basophils % 0.5 %; Eosinophils # 0.1 10^3/uL (0.0-0.8); Eosinophils % 1.4 %; Hematocrit 38.2 % (37-53); Lymphocytes % 36.2 %; Mean Corpuscular HGB Conc 31.2 g/dL (30-55); Mean Corpuscular Hemoglobin 26.9 pg (27-33); Mean Corpuscular Volume 86.4 fl (82-101); Mean Platelet Volume 10.7 fL (7.4-10.4); Monocytes # 0.5 10^3/uL (0.2-0.9); Monocytes % 6.2 %; Neutrophils # 4.66 10^3/uL (1.8-7.7); Neutrophils % 55.5 %; Nucleated Red Blood Cells % 0 %; Platelet Count 157 10^3/cmm (157-399); Red Blood Count 4.42 10^6/uL (3.85-5.65); Red Cell Distribution Width 12.7 % (12.1-15.1)
[2023-03-20 03:45] LABS: Anion Gap 9.7 (5-19); Blood Urea Nitrogen 16 mg/dL (8-23); Calcium 8.5 mg/dL (8.5-10.5); Carbon Dioxide 28 mmol/L (22-29); Chloride 107 mmol/L (98-107); Glomerular Filtration Rate 86.1 mL/min (90-130); Glucose 163 mg/dL (65-115); Osmolality Calculated 297 mOsm/kg (285-295); Potassium 3.7 mmol/L (3.5-5.1); Sodium 141 mmol/L (136-145)
[2023-03-20 07:59] LABS: Glucose Point of Care 187 mg/dL (70-110)
[2023-03-20] MEDS: tamsulosin 0.4 mg Capsule PO ×2 (08:07→21:17)
[2023-03-20] MEDS: gabapentin 300 mg Capsule 600 MG PO ×3 (08:08→20:44)
[2023-03-20] MEDS: losartan 50 mg Tablet PO ×2 (08:08→22:10)
[2023-03-20] MEDS: montelukast sodium 10 mg Tablet PO (08:08)
[2023-03-20] MEDS: escitalopram 10 mg Tablet 20 MG PO (08:08)
[2023-03-20] MEDS: insulin lispro 100 unit/1 mL SUBCUT ×4 (08:09→21:10)
[2023-03-20] MEDS: enoxaparin 150 mg/mL Syringe 130 MG SUBCUT (08:09)
[2023-03-20] MEDS: nicotine 14 mg Patch 1 PATCH TRANSDERMA (08:09)
[2023-03-20] MEDS: HYDROcodone-acetaminophen 10-325 mg Tablet 1 TAB PO ×2 (08:09→22:09)
[2023-03-20] MEDS: atorvastatin 40 mg Tablet PO (08:09)
--- NOTE | 2023-03-20 10:37 | PC.SOCIAL ---
Pg 2 IMM Explained to pt Pg 2 IMM. No questions voiced. Provided pt a copy. Initialed, dated, & timed a copy & placed in chart.
[2023-03-20 12:12] LABS: Glucose Point of Care 240 mg/dL (70-110)
--- NOTE | 2023-03-20 12:40 | PM.PN ---
Subjective Subjective: Patient was bradycardic overnight, this morning he is stating that he woke up with a right ear pain however bothering him at this point, no fever or meningitis signs We will touch this with cardiology regarding further plans Patient is hemodynamically stable Vitals/I&O/Wt Last Vital Signs Temp 98.1 F 03/20/23 03:32 Pulse 58 L 03/20/23 10:18 Resp 18 03/20/23 10:18 BP 161/89 03/20/23 09:30 Pulse Ox 97 03/20/23 10:18 O2 Del Method Room Air 03/20/23 10:18 FiO2 21 03/19/23 05:21 03/19/23 03/20/23 03/20/23 22:59 06:59 14:59 Intake Total 440 / 1160 200 / 1360 360 / 360 Balance 440 / 1160 200 / 1360 360 / 360 Weight last 48 hrs Weight 131.542 kg Physical Exam Narrative: Patient was eating breakfast Hemodynamic stable, hypertensive Bradycardia, currently on room air Nonfocal neuro exam GCS 15 Abdomen distended Lower extremity no edema S1, S2 sinus rhythm Data 03/20/23 02:54 03/20/23 02:54 A&P Assessment and plan (1) ANGIE on CPAP: (2) Symptomatic bradycardia: (3) Dizziness: (4) Bradycardia: (5) Atrial fibrillation: Qualifiers: Atrial fibrillation type: unspecified Qualified Code(s): I48.91 - Unspecified atrial fibrillation (6) Diabetes: Qualifiers: Diabetes mellitus type: type 2 Diabetes mellitus ad terminal makeup operator insulin use: with ad terminal makeup operator use Diabetes mellitus complication status: with other specified complication Qualified Code(s): E11.69 - Type 2 diabetes mellitus with other specified complication; Z79.4 - termite technician (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 of insulin Plan Symptomatic bradycardia As per the patient he was also in A-fib at some point Currently in sinus bradycardic range Symptomatic We will touch this with cardiology for further plans I have switched his Eliquis to therapeutic Lovenox No active signs of fever meningitis patient is complaining of right ear pain no active discharge, For type 2 diabetes patient will be on consistent carb diet insulin sliding scale Full code CPAP for sleep apnea Attestations Medical Necessity Statement*: Continue medical management Diagnoses ANGIE on CPAP G47.33; Z99.89 Symptomatic bradycardia R00.1 Dizziness R42 Bradycardia R00.1 Atrial fibrillation I48.91 Atrial fibrillation type: unspecified Diabetes E11.69; Z79.4 Diabetes mellitus type: type 2 Diabetes mellitus group home insulin use: with group home use Diabetes mellitus complication status: with other specified complication
[2023-03-20 16:51] LABS: Glucose Point of Care 188 mg/dL (70-110)
[2023-03-20] MEDS: magnesium oxide 400 mg tablet PO (18:52)
[2023-03-20] MEDS: amlodipine 10 mg Tablet PO (20:45)
[2023-03-20 21:00] LABS: Glucose Point of Care 214 mg/dL (70-110)
[2023-03-20] MEDS: insulin glargine 100 units/1 mL 5 UNIT SUBCUT (21:11)
[2023-03-20] MEDS: trazodone 50 mg Tablet PO (21:15)
--- NOTE | 2023-03-20 21:37 | P.PN_ITS ---
Subjective Medications: Reviewed: Yes Vitals/I&O/Wt Last Vital Signs Temp 99 F 03/20/23 20:00 Pulse 60 03/20/23 20:00 Resp 20 H 03/20/23 20:00 BP 191/102 03/20/23 20:00 Pulse Ox 95 03/20/23 20:00 O2 Del Method Room Air 03/20/23 20:00 FiO2 21 03/20/23 20:00 03/20/23 03/20/23 03/20/23 06:59 14:59 22:59 Intake Total 200 / 1360 720 / 720 Balance 200 / 1360 720 / 720 Physical Exam Narrative: GENERAL:obese man sitting in bed, in no acute distress HEENT: Extraocular movement intact. No pallor or icterus. NECK: central trachea, No JVD, No carotid bruit. CARDIOVASCULAR SYSTEM: S1-S2 regular. Bradycardia+ No murmur rubs or gallops. RESPIRATORY SYSTEM: Chest clear to auscultation. No wheezes rhonchi or rubs heard. No use of accessory muscles. ABDOMEN: Soft, nontender and nondistended. Normal bowel sounds present. EXTREMITIES: No cyanosis or edema. No signs of chronic venous insufficiency. AIR MARSHAL: Patient is alert oriented ?3. No focal neurological deficits. SKIN: Normal turgor and temperature. Data 03/20/23 02:54 03/20/23 02:54 Other data: 11/01/20 EVENT MONITOR Conclusion: 1. Baseline rhythm is sinus rhythm with first-degree AV block with interventricular conduction delay. No episodes of atrial fibrillation. 2. Heart rate ranged from 52 to 128 bpm. Average heart rate of 78 bpm. 3. Unspecified patient symptoms and patient symptoms of tiredness did not correlate with any arrhythmias. 10/19/20 ECHO CONCLUSIONS ?1.? This is a technically very difficult study.? Ultrasound enhancing agent O ptison was used. ?2.? Normal left ventricular cavity size and systolic function. ?Left ventricular ejection fraction is estimated at 65 %.? No diagnostic regional wall motion abnormality.? Abnormal septal ?motion consistent with conduction abnormality. Grade II diastolic dysfunction, moderately elevated filling pressures. ?3. When compared to previous echocardiogram dated 04/07/2018, there may not have been any significant change. 03/22/20 STRESS TEST LEXISCAN Conclusion: 1.? Normal EKG response to Lexiscan infusion. 2.? No Lexiscan induced chest pain or cardiac arrhythmia. 3.? Normal heart rate and blood pressure response. 4.? Sestamibi/sestamibi perfusion scan pending; see separate report. MPRESSIONS ?1.? Large in size, fixed perfusion defect in the inferior wall.? This could ?represent attenuation artifact(improvement with prone imaging) versus prior infarct.? There is no area of ischemia noted. ?2.? Normal LV systolic function is noted. 12/20/19 CAROTID US CONCLUSIONS ?Minimal plaques at the bifurcations bilaterally ?Intimal thickening in the common carotid arteries bilaterally. ?No significant stenosis, based on the above findings. A&P Assessment and plan (1) Dizziness: He does not have any pauses at this time. However, use of metoprolol in past has led him to have pauses causing recurrent syncope. -He has paroxysmal symptomatic atrial fibrillation, PAT and symptomatic PAC's and PVC's. This has gone untreated given inability to use AV yolande blockers. -Given underlying bifascicular block and intermittent junctional rhythm, I think PPM placement will benefit him. -He has some ongoing ear infection but his dizziness has been going on for several months with recent worsening -I will monitor him in ICU and see how he does. -Rosalinda has been held for tentative PPM placement. -This was discussed with the patient and his daughter Familia and they are agreeable with the plan. (2) Atrial fibrillation: Paroxysmal Qualifiers: Atrial fibrillation type: unspecified Qualified Code(s): I48.91 - Unspecified atrial fibrillation (3) HTN (hypertension): BP running high -will monitor and titrate meds as needed Qualifiers: Hypertension type: essential hypertension Qualified Code(s): I10 - Essential (primary) hypertension (4) Hyperlipidemia: Qualifiers: Hyperlipidemia type: unspecified Qualified Code(s): E78.5 - Hyperlipidemia, unspecified (5) ANGIE on CPAP: (6) Diabetes: Qualifiers: Diabetes mellitus type: type 2 Diabetes mellitus [facility] insulin use: with terminal carman use Diabetes mellitus complication status: with other specified complication Qualified Code(s): E11.69 - Type 2 diabetes mellitus with other specified complication; Z79.4 - ocean transportation intermediary (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 of insulin (7) COPD (chronic obstructive pulmonary disease): (8) Tobacco abuse: has cut back cigs to few/day Plan PAT PAC's/PVC's Bradycardia Bifascicular block HFpEF Obesity Attestations Medical Necessity Statement*: needs hospital stay for management of dizziness and symptomatic bradycardia Coding Level of Care Code 41569 Diagnoses Dizziness R42 Atrial fibrillation I48.91 Atrial fibrillation type: unspecified HTN (hypertension) I10 Hypertension type: essential hypertension Hyperlipidemia E78.5 Hyperlipidemia type: unspecified ANGIE on CPAP G47.33; Z99.89 Diabetes E11.69; Z79.4 Diabetes mellitus type: type 2 Diabetes mellitus [facility] insulin use: with [facility] use Diabetes mellitus complication status: with other specified complication COPD (chronic obstructive pulmonary disease) J44.9 Tobacco abuse Z72.0
[2023-03-20] MEDS: ALPRAZolam 0.5 mg Tablet 0.25 MG PO (23:26)
[2023-03-21] VITALS (15 sets, daily range): BP systolic 132–185; BP diastolic 75–113; PULSE 56–76; RESP 14–21; TEMP 36.7–37.2; O2SAT 93–98
[2023-03-21] MEDS: hyDRALAzine 20 mg/mL INJ 1 mL 10 MG IVP ×2 (00:50→06:35)
[2023-03-21] MEDS: HYDROcodone-acetaminophen 10-325 mg Tablet 1 TAB PO ×3 (04:25→17:35)
[2023-03-21 06:35] LABS: Glucose Point of Care 156 mg/dL (70-110)
[2023-03-21] MEDS: insulin lispro 100 unit/1 mL SUBCUT ×4 (08:40→21:25)
[2023-03-21] MEDS: magnesium oxide 400 mg tablet PO ×2 (08:41→17:32)
[2023-03-21] MEDS: escitalopram 10 mg Tablet 20 MG PO (08:41)
[2023-03-21] MEDS: gabapentin 300 mg Capsule 600 MG PO ×3 (08:41→21:22)
[2023-03-21] MEDS: FUROsemide 20 mg Tablet PO (08:41)
[2023-03-21] MEDS: losartan 50 mg Tablet PO ×2 (08:48→21:24)
[2023-03-21] MEDS: tamsulosin 0.4 mg Capsule PO ×2 (10:33→21:23)
[2023-03-21] MEDS: atorvastatin 40 mg Tablet PO (10:34)
[2023-03-21] MEDS: montelukast sodium 10 mg Tablet PO (10:34)
[2023-03-21 11:50] LABS: Glucose Point of Care 165 mg/dL (70-110)
--- NOTE | 2023-03-21 13:48 | P.PN_ITS ---
Subjective Subjective: Feeling well today. Denies any chest pain or shortness of breath at this time. States his heart rate remains slow. Vitals/I&O/Wt Last Vital Signs Temp 98.9 F 03/21/23 04:00 Pulse 76 03/21/23 08:50 Resp 16 03/21/23 08:50 BP 133/76 03/21/23 08:48 Pulse Ox 96 03/21/23 08:50 O2 Del Method Room Air 03/21/23 08:50 FiO2 21 03/20/23 20:00 03/20/23 03/21/23 03/21/23 22:59 06:59 14:59 Intake Total 200 / 920 240 / 1160 120 / 120 Output Total 800 / 800 Balance 200 / 920 240 / 1160 -680 / -680 Physical Exam Narrative: General: Cooperative patient in no apparent distress. Well developed. HEENT: Normocephalic, Atraumatic. External ears normal. Nasal passages patent without drainage. MMM. Heart: Bradycardia, regular rhythym. Resp: LCTA. No respiratory distress, no use of accessory muscles. Abd: Soft, non-tender. Non-distended. Extremities: No edema. Skin: No rash or lesions on exposed areas. Data 03/20/23 02:54 03/20/23 02:54 A&P Assessment and plan (1) ANGIE on CPAP: (2) Symptomatic bradycardia: (3) Dizziness: (4) Bradycardia: (5) Atrial fibrillation: Qualifiers: Atrial fibrillation type: unspecified Qualified Code(s): I48.91 - Unspecified atrial fibrillation (6) Diabetes: Qualifiers: Diabetes mellitus type: type 2 Diabetes mellitus snf insulin use: with laborer chicken farm use Diabetes mellitus complication status: with other specified complication Qualified Code(s): E11.69 - Type 2 diabetes mellitus with other specified complication; Z79.4 - district resource officer (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 of insulin Plan 58-year-old male admitted for intermittent atrial fibrillation and symptomatic bradycardia. Continue close inpatient monitoring. Cardiology is consulted. They are planning for possible pacemaker placement this week. Patient is currently not experiencing chest pain or shortness of breath. He does continue to have intermittent symptoms. Continue with Lovenox for VTE PPx. Continue sliding scale insulin for type 2 diabetes. CPAP for ANGIE. Reports that his ear pain has improved some. He is using Debrox drops to help with cerumen impaction. If decision is made for pacemaker placement, he will need to be n.p.o. after midnight and his Lovenox held. We will wait for cardiology to confirm procedure. Code Status: Full IVF: None DVT PPx: Lovenox GI PPx: None ABx: None Diet: Cardiac, carb consistent Discharge plan: Home when appropriate. Attestations Medical Necessity Statement*: Continue inpatient care for symptomatic bradycardia with possible pacemaker placement later this week. Coding Level of Care Code Acute Code for Chg Fwd Straight Forward/Low MDM includes number and complexity of problems actively addressed during encounter, amount and/or complexity of data reviewed/ordered and described risk of complication, morbidity or mortality of management as documented Diagnoses ANGIE on CPAP G47.33; Z99.89 Symptomatic bradycardia R00.1 Dizziness R42 Bradycardia R00.1 Atrial fibrillation I48.91 Atrial fibrillation type: unspecified Diabetes E11.69; Z79.4 Diabetes mellitus type: type 2 Diabetes mellitus laborer chicken farm insulin use: with snf use Diabetes mellitus complication status: with other specified complication
[2023-03-21 17:00] LABS: Glucose Point of Care 175 mg/dL (70-110)
--- NOTE | 2023-03-21 19:27 | P.PN_ITS ---
Subjective Subjective: Feels better today Medications: Reviewed: Yes Vitals/I&O/Wt Last Vital Signs Temp 98.0 F 03/21/23 16:00 Pulse 58 L 03/21/23 16:00 Resp 15 03/21/23 16:00 BP 132/75 03/21/23 16:00 Pulse Ox 95 03/21/23 16:00 O2 Del Method Room Air 03/21/23 16:00 FiO2 21 03/20/23 20:00 03/21/23 03/21/23 03/21/23 06:59 14:59 22:59 Intake Total 240 / 1160 340 / 340 Output Total 800 / 800 300 / 1100 Balance 240 / 1160 -460 / -460 -300 / -760 Physical Exam Narrative: GENERAL:obese man sitting in bed, in no acute distress HEENT: Extraocular movement intact. No pallor or icterus. NECK: central trachea, No JVD, No carotid bruit. CARDIOVASCULAR SYSTEM: S1-S2 regular. No murmur rubs or gallops. RESPIRATORY SYSTEM: Chest clear to auscultation. No wheezes rhonchi or rubs heard. No use of accessory muscles. ABDOMEN: Soft, nontender and nondistended. Normal bowel sounds present. EXTREMITIES: No cyanosis or edema. No signs of chronic venous insufficiency. FORGER HELPER: Patient is alert oriented ?3. No focal neurological deficits. SKIN: Normal turgor and temperature. Data 03/20/23 02:54 03/20/23 02:54 A&P Assessment and plan (1) Dizziness: He does not have any pauses at this time. However, use of metoprolol in past has led him to have pauses causing recurrent syncope. -He has paroxysmal symptomatic atrial fibrillation, PAT and symptomatic PAC's and PVC's. This has gone untreated given inability to use AV yolande blockers. -Given underlying bifascicular block and intermittent junctional rhythm, I think PPM placement will benefit him. -He has some ongoing ear infection but his dizziness has been going on for several months with recent worsening -Eliquis has been held for tentative PPM placement. -This was discussed with the patient and his daughter Familia and they are agreeable with the plan. They have requested for Dr. Wilkinson for PPM placement. 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 Diabetes mellitus complication status: with other specified complication Qualified Code(s): E11.69 - Type 2 diabetes mellitus with other specified complication; Z79.4 - 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 (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 of insulin (7) COPD (chronic obstructive pulmonary disease): (8) Tobacco abuse: has cut back cigs to few/day Plan PAT PAC's/PVC's Bradycardia Bifascicular block HFpEF Obesity Attestations Medical Necessity Statement*: needs hospital stay for dizziness and symptomatic bradycardia Coding Level of Care Code 64514 Diagnoses Dizziness R42 Atrial fibrillation I48.91 Atrial fibrillation type: unspecified HTN (hypertension) I10 Hypertension type: essential hypertension Hyperlipidemia E78.5 Hyperlipidemia type: unspecified ANGIE on CPAP G47.33; Z99.89 Diabetes E11.69; Z79.4 Diabetes mellitus type: type 2 Diabetes mellitus chcf insulin use: with chcf use Diabetes mellitus complication status: with other specified complication COPD (chronic obstructive pulmonary disease) J44.9 Tobacco abuse Z72.0
[2023-03-21 20:26] LABS: Glucose Point of Care 210 mg/dL (70-110)
[2023-03-21] MEDS: amlodipine 10 mg Tablet PO (21:23)
[2023-03-21] MEDS: trazodone 50 mg Tablet PO (21:23)
[2023-03-21] MEDS: insulin glargine 100 units/1 mL 5 UNIT SUBCUT (21:25)
[2023-03-21] MEDS: ALPRAZolam 0.5 mg Tablet 0.25 MG PO (21:28)
[2023-03-22] VITALS (13 sets, daily range): BP systolic 115–140; BP diastolic 60–88; PULSE 56–77; RESP 12–23; TEMP 36.6–37.1; O2SAT 93–96
[2023-03-22 04:26] LABS: Basophils % 0.4 %; Eosinophils # 0.1 10^3/uL (0.0-0.8); Eosinophils % 1.6 %; Hematocrit 37.1 % (37-53); Lymphocytes # 2.6 10^3/uL (0.8-4.8); Lymphocytes % 31.9 %; Mean Corpuscular Hemoglobin 26.7 pg (27-33); Mean Corpuscular Volume 86.1 fl (82-101); Mean Platelet Volume 10.5 fL (7.4-10.4); Monocytes # 0.6 10^3/uL (0.2-0.9); Monocytes % 7.4 %; Neutrophils # 4.76 10^3/uL (1.8-7.7); Neutrophils % 58.1 %; Nucleated Red Blood Cells % 0 %; Platelet Count 174 10^3/cmm (157-399); Red Blood Count 4.31 10^6/uL (3.85-5.65); Red Cell Distribution Width 12.7 % (12.1-15.1); White Blood Count 8.19 10^3/uL (3.29-11.43)
[2023-03-22 04:42] LABS: Anion Gap 11.7 (5-19); Blood Urea Nitrogen 16 mg/dL (8-23); Calcium 8.5 mg/dL (8.5-10.5); Carbon Dioxide 25 mmol/L (22-29); Chloride 107 mmol/L (98-107); Glomerular Filtration Rate 98.6 mL/min (90-130); Glucose 160 mg/dL (65-115); Osmolality Calculated 295 mOsm/kg (285-295); Potassium 3.7 mmol/L (3.5-5.1); Sodium 140 mmol/L (136-145)
[2023-03-22 06:39] LABS: Glucose Point of Care 160 mg/dL (70-110)
[2023-03-22] MEDS: HYDROcodone-acetaminophen 10-325 mg Tablet 1 TAB PO ×3 (07:47→20:41)
--- NOTE | 2023-03-22 09:01 | P.CONIM_ITS ---
Providers/Reason For Consult Consulting Physician/Specialty*: DEAN Villarreal MD/cardiology Reason for Consult*: Patient is a symptomatic bradycardia, evaluate for permanent pacemaker implantation Requesting Physician: Dr. Huizar Attending Physician: Les Landis MD Primary Care Provider: Kylah Garcia APN History of Present Illness History of Present Illness Deejay Gonzalez is a 58 year old male with a history of paroxysmal atrial fibrillation, intermittent second-degree heart block and symptomatic bradycardia presents with complaints of recurrent episodes of near syncope. This patient has a history of hypertension, type 2 diabetes, obesity, obstructive sleep apnea and ongoing smoking abuse. He had episodes of pauses of up to 4 seconds with a junctional escape rhythm rate of 30s, few years ago while being on beta-blockers. Since he was taken off the beta-blockers, his heart rate improved. He had a recent 2 weeks of heart monitoring which revealed sinus rhythm with a first-degree AV block heart rate ranging anywhere from 40-1 20. This time he was having episodes of fast heartbeat with a heart rate in the 120s making him dizzy and lightheaded. In the emergency room, he was found to have bradycardia with a heart rate in the 40s possibly junctional and episodes of sinus bradycardia. He has an underlying right bundle branch block and left anterior fascicular block. In view of his symptomatic claudia/ tachy arrhythmias, for further management of his condition a permanent pacer implantation was requested. Patient denies any fever or chills. No severe cough. He continues to smoke. He had a recent hospital admission [facility] for chest pain. Myocardial infarction was ruled out. He had a subsequent Myocardial perfusion imaging which was reportedly unremarkable. His echocardiogram revealed normal left ventricular ejection fraction History of venous thrombosis in the left hand from a PICC line? Review of Systems Narrative: CONSTITUTIONAL: No fever or chills. EYES: No blurring of vision or other visual disturbances lately. ENT: No hoarseness of voice, auditory disturbances or sore throat. CARDIOVASCULAR: As mentioned above. RESPIRATORY: History of obstructive sleep apnea, obesity/COPD GASTROINTESTINAL: No hematemesis or melena. GENITOURINARY: No dysuria or hematuria. INTEGUMENTARY: No skin rashes or history of skin cancer. NEURO: No transient ischemic attacks or amaurosis. PSYCHIATRIC: No history of psychosis or major depression. HEMATOLOGIC: No bleeding disorders or significant anemia. ENDOCRINE: No history of polyuria or polydipsia. MUSCULOSKELETAL: No recent joint pain or swelling. ALLERGY/IMMUNOLOGY: As mentioned above. Medications/Allergies Home Medications Medication Instructions Recorded Confirmed Last Taken Type albuterol sulfate 90 mcg/actuation 2 inh inhalation Q4H PRN shortness 11/20/19 03/19/23 05/27/21 History aerosol inhaler (Ventolin HFA) of breath or wheezing amlodipine 10 mg tablet 10 mg PO BEDTIME 11/20/19 03/18/23 05/28/21 07:00 History hydrocodone 10 mg-acetaminophen 1 tab PO Q6H PRN pain 11/20/19 03/18/23 05/28/21 07:00 History 325 mg tablet montelukast 10 mg tablet 10 mg PO DAILY@1000 11/20/19 03/18/23 05/27/21 History sitagliptin phosphate 100 mg 100 mg PO DAILY@1000 11/20/19 03/19/23 05/27/21 History tablet (Januvia) tamsulosin 0.4 mg capsule 0.4 mg PO BID@1000,2200 11/20/19 03/18/23 05/27/21 History trazodone 50 mg tablet 50 - 100 mg PO BEDTIME@2200 11/20/19 03/18/23 05/27/21 History omeprazole 20 mg capsule,delayed 20 mg PO DAILY 10/18/20 03/18/23 05/27/21 History release apixaban 5 mg tablet (Eliquis) 5 mg PO BID #60 tabs 10/20/20 03/18/23 05/24/21 Rx atorvastatin 40 mg tablet 40 mg PO DAILY@1000 #90 tabs 01/31/21 03/18/23 05/27/21 Rx irbesartan 300 mg tablet 300 mg PO DAILY #90 tabs 01/31/21 03/18/23 05/27/21 Rx lubiprostone 8 mcg capsule 24 mcg PO BID 04/17/21 03/18/23 05/27/21 History (Amitiza) Bilateral Mamie Articulating #1 ea 09/11/21 03/19/23 Unknown Rx AFO's docusate sodium 100 mg capsule 200 mg PO BID PRN Constipation 10/14/21 03/18/23 Unknown History (Dulcolax Stool Softener (docusate)) hydroxyzine HCl 50 mg tablet 50 mg PO BID PRN Anxiety 10/14/21 03/18/23 Unknown History polyethylene glycol 3350 17 17 g PO DAILY PRN Constipation 10/14/21 03/18/23 Unknown History gram/dose oral powder (Miralax) Night Splint to the Left Foot #1 ea 12/31/21 03/19/23 Unknown Rx Lactobacillus acidophilus 20,000 mmu cells PO DAILY 07/21/22 03/19/23 Unknown History (Acidophilus capsule) fluticasone propionate 50 2 spray intranasal DAILY@1000 PRN 07/21/22 03/18/23 Unknown History mcg/actuation nasal Congestion spray,suspension gabapentin 600 mg tablet 600 mg PO TID 07/21/22 03/18/23 Unknown History magnesium oxide 500 mg capsule 500 mg PO BID 07/21/22 03/19/23 Unknown History vitamins A,C,F-ezsi-nbquci 4,296 1 cap PO BID 07/21/22 03/19/23 Unknown History mcg-226 mg-90 mg capsule (ICaps AREDS) Above Ankle Diabetic Boots with 3 #1 ea 08/20/22 03/19/23 Unknown Rx inserts meclizine 25 mg tablet 25 mg PO TID PRN dizziness #20 tabs 01/05/23 03/19/23 Unknown Rx escitalopram oxalate 20 mg tablet 20 mg PO DAILY 02/03/23 03/18/23 Unknown History tizanidine 4 mg tablet 4 mg PO TID PRN Muscle Spasm 02/03/23 03/18/23 Unknown History cetirizine 10 mg tablet 10 mg PO BEDTIME 03/18/23 03/18/23 Unknown History glipizide 10 mg tablet 10 mg PO BID 03/18/23 03/18/23 Unknown History triamterene 37.5 2 tab PO DAILY 03/18/23 03/18/23 Unknown History mg-hydrochlorothiazide 25 mg tablet alprazolam 0.25 mg tablet 0.25 mg PO BID PRN Anxiety 03/19/23 03/19/23 Unknown History furosemide 20 mg tablet 20 mg PO DAILY 03/19/23 03/19/23 Unknown History Allergies Allergy/AdvReac Type Severity Reaction Status Date / Time Penicillins Allergy Mild ALGY-Rash Verified 03/18/23 17:04 Sulfa (Sulfonamide Allergy ALGY-Rash Verified 03/18/23 17:04 Antibiotics) Current Medications Generic Name Dose Route Start Last Admin Trade Name Sunita PRN Reason Stop Dose Admin Hydrocodone Bitart/Acetaminophen 1 tab 03/19/23 17:26 03/22/23 07:47 Hydrocodone-Acetaminophen 10-325 Mg Tablet PO 1 tab Q6H PRN Administration MODERATE PAIN Alprazolam 0.25 mg 03/19/23 20:30 03/21/23 21:28 Alprazolam 0.5 Mg Tablet PO 0.25 mg BID PRN Administration ANXIETY Amlodipine Besylate 10 mg 03/19/23 21:00 03/21/23 21:23 Amlodipine 10 Mg Tablet PO 10 mg BEDTIME KAREL Administration Apixaban 5 mg 03/19/23 09:00 03/19/23 08:23 Apixaban 5 Mg Tablet PO 5 mg BID KAREL Administration Atorvastatin Calcium 40 mg 03/19/23 10:00 03/21/23 10:34 Atorvastatin 40 Mg Tablet PO 40 mg DAILY@1000 KAREL Administration Enoxaparin Sodium 130 mg 03/19/23 21:00 03/20/23 08:09 Enoxaparin 150 Mg/Ml Syringe SUBCUT 130 mg Q12H KAREL Administration Escitalopram Oxalate 20 mg 03/19/23 09:00 03/21/23 08:41 Escitalopram 10 Mg Tablet PO 20 mg DAILY KAREL Administration Furosemide 20 mg 03/21/23 09:00 03/21/23 08:41 Furosemide 20 Mg Tablet PO 20 mg DAILY KAREL Administration Gabapentin 600 mg 03/19/23 09:00 03/21/23 21:22 Gabapentin 300 Mg Capsule PO 600 mg TID KAREL Administration Hydralazine HCl 10 mg 03/21/23 00:44 03/21/23 06:35 Hydralazine 20 Mg/Ml Inj 1 Ml IVP 10 mg Q4H PRN Administration HYPERTENSION Insulin Glargine 5 unit 03/20/23 21:00 03/21/23 21:25 Insulin Glargine 100 Units/1 Ml SUBCUT 5 unit BEDTIME KAREL Administration Insulin Human Lispro 0 unit 03/19/23 21:00 03/22/23 07:32 Insulin Lispro 100 Unit/1 Ml SUBCUT Not Given WM&BEDTIME KAREL Protocol Losartan Potassium 50 mg 03/20/23 22:00 03/21/23 21:24 Losartan 50 Mg Tablet PO 50 mg 0900,2100 KAREL Administration Magnesium Oxide 400 mg 03/20/23 19:00 03/21/23 17:32 Magnesium Oxide 400 Mg Tablet PO 400 mg BID KAREL Administration Montelukast Sodium 10 mg 03/19/23 10:00 03/21/23 10:34 Montelukast Sodium 10 Mg Tablet PO 10 mg DAILY@1000 KAREL Administration Nicotine 1 patch 03/20/23 09:00 03/21/23 14:33 Nicotine 14 Mg Patch TRANSDERMA Not Given DAILY [facility] Non-Formulary Medication 24 mcg 03/19/23 09:00 03/19/23 08:48 Lubiprostone [Amitiza] PO Not Given BID KAREL Tamsulosin HCl 0.4 mg 03/19/23 10:00 03/21/23 21:23 Tamsulosin 0.4 Mg Capsule PO 0.4 mg BID@1000,2200 KAREL Administration Tizanidine HCl 4 mg 03/18/23 21:18 03/18/23 22:13 Tizanidine 4 Mg Tablet PO 4 mg TID PRN Administration SPASMS Trazodone HCl 50 - 100 mg 03/19/23 22:00 03/21/23 21:23 Trazodone 50 Mg Tablet PO 50 mg BEDTIME@2200 KAREL Administration PFSH Acute PFSH: Medical History BPH (benign prostatic hyperplasia) Change in bowel habits COPD (chronic obstructive pulmonary disease) Diabetes Dizziness Hernia HTN (hypertension) Hyperlipidemia Near syncope AV block, 2nd degree, 2:1 conduction, resolved w discontinuation of metoprolol underlying bifascicular block Obesity ANGIE on CPAP Sinus pause Syncope Tobacco abuse Transient blindness of both eyes Warfarin anticoagulation Surgical History History of cataract surgery Family History Grandmother CAD (coronary artery disease) MATERNAL Mother Diabetes Denies family history of Anesthesia complication Bleeding disorder Social History Smoking and tobacco status: current every day smoker cigarettes Packs smoked per day: 1 Alcohol intake: current Alcohol intake frequency: holidays/special occasions only Substance/Drug Use: never Household members: other Details: Girlfriend Marital status: service: No Current occupational status: disabled Vitals/I&O/Wt Last Vital Signs Temp 97.9 F 03/22/23 07:30 Pulse 60 03/22/23 08:44 Resp 16 03/22/23 08:43 BP 131/73 03/22/23 07:30 Pulse Ox 95 03/22/23 08:44 O2 Del Method CPAP 03/22/23 08:43 FiO2 21 03/22/23 08:44 03/21/23 03/22/23 03/22/23 22:59 06:59 14:59 Intake Total 1000 / 1340 Output Total 600 / 1400 Balance 400 / -60 Physical Exam Narrative: GENERAL: The patient is alert and oriented times three. Not in any acute distress. Obese HEENT: No significant pallor, icterus or lymphadenopathy.Oral cavity: There are no mucous membrane lesions. NECK: Trachea appears to be central. No masses noted. No JVD or thyromegaly appreciated. RESPIRATORY: Chest is symmetrical. No intercostals muscle retraction or any accessory muscle activation. There is no chest wall tenderness. Breath sounds are heard bilaterally. No rales or rhonchi heard. No evidence of any consolidation. BREASTS: Deferred. HEART: The heart sounds are normal. No S3 or S4. No significant murmurs. No pericardial rub ABDOMEN: No vessel pulsations or distention. No tenderness. No organomegaly appreciated. Bowel sounds are normally heard. : Deferred. RECTAL: Deferred. LYMPHATIC: No lymphadenopathy noted in the neck. EXTREMITIES: History of fracture of the right fibula/tibia causing malunion and some deformity MUSCULOSKELETAL: No acute joint deformities or swelling SKIN: There are no significant rashes or ecchymosis NEUROPSYCHIATRIC: The patient is alert and oriented x3. Appears to be in a good mood. No tremors or rigidity noted. Data 03/22/23 03:49 03/22/23 03:49 Other Labs: Laboratory Last Values WBC 8.19 10^3/uL (3.29-11.43) 03/22/23 03:49 RBC 4.31 10^6/uL (3.85-5.65) 03/22/23 03:49 Hgb 11.50 g/dL (11.27-16.99) 03/22/23 03:49 Hct 37.1 % (37-53) 03/22/23 03:49 MCV 86.1 fl (82-101) 03/22/23 03:49 MCH 26.7 pg (27-33) L 03/22/23 03:49 MCHC 31.0 g/dL (30-55) 03/22/23 03:49 RDW 12.7 % (12.1-15.1) 03/22/23 03:49 Plt Count 174 10^3/cmm (157-399) 03/22/23 03:49 MPV 10.5 fL (7.4-10.4) H 03/22/23 03:49 Neut % (Auto) 58.1 % 03/22/23 03:49 Lymph % (Auto) 31.9 % 03/22/23 03:49 [place] % (Auto) 7.4 % 03/22/23 03:49 Eos % (Auto) 1.6 % 03/22/23 03:49 Baso % (Auto) 0.4 % 03/22/23 03:49 Neut # (Auto) 4.76 10^3/uL (1.8-7.7) 03/22/23 03:49 Lymph # (Auto) 2.6 10^3/uL (0.8-4.8) 03/22/23 03:49 [place] # (Auto) 0.6 10^3/uL (0.2-0.9) 03/22/23 03:49 Eos # (Auto) 0.1 10^3/uL (0.0-0.8) 03/22/23 03:49 Baso # (Auto) 0.0 10^3/uL (0.0-0.1) 03/22/23 03:49 Nucleated RBC % (auto) 0 % 03/22/23 03:49 Nucleated RBCs # 0.0 /100WBC 03/22/23 03:49 D-Dimer 0.40 ug/mLFEU (0-0.59) 03/19/23 11:30 Sodium 140 mmol/L (136-145) 03/22/23 03:49 Potassium 3.7 mmol/L (3.5-5.1) 03/22/23 03:49 Chloride 107 mmol/L (98-107) 03/22/23 03:49 Carbon Dioxide 25 mmol/L (22-29) 03/22/23 03:49 Anion Gap 11.7 (5-19) 03/22/23 03:49 BUN 16 mg/dL (8-23) 03/22/23 03:49 Creatinine 0.8 mg/dL (0.7-1.2) 03/22/23 03:49 GFR Calculation 98.6 mL/min (90-130) 03/22/23 03:49 Glucose 160 mg/dL (65-115) H 03/22/23 03:49 POC Glucose 170 mg/dL (70-110) H 03/22/23 11:24 Calculated Osmolality 295 mOsm/kg (285-295) 03/22/23 03:49 Calcium 8.5 mg/dL (8.5-10.5) 03/22/23 03:49 Magnesium 2.1 mg/dL (1.7-2.3) 03/19/23 03:50 Total Bilirubin 0.3 mg/dL (0.15-1.2) 03/19/23 03:50 AST 8 U/L (0-40) 03/19/23 03:50 ALT 10 U/L (0-41) 03/19/23 03:50 Alkaline Phosphatase 92 U/L (40-130) 03/19/23 03:50 Troponin T Baseline 10 ng/L (0-15) 03/18/23 17:17 Troponin T 120 Minute 10.45 ng/L (0-15) 03/18/23 20:11 Delta Troponin T 0.45 ABS# (0-10) 03/18/23 20:11 Troponin T Hi Sens 6Hr 11.13 ng/L (0-15) 03/18/23 23:23 Troponin T Hi Sens 6Hr Delta 1.13 ng/L (0-12) 03/18/23 23:23 NT-Pro-B Natriuret Pep 318 pg/mL (0-125) H 03/19/23 03:50 Total Protein 5.6 g/dL (6.6-8.7) L 03/19/23 03:50 Albumin 3.9 g/dL (3.5-5.2) 03/19/23 03:50 Globulin 1.7 g/dL (1.3-4.6) 03/19/23 03:50 A&P Assessment and plan (1) Symptomatic bradycardia: For further management of his condition, I agree with the permanent pacemaker plantation. The risk of bleeding, hematoma, vascular injury, myocardial perforation, pericardial tamponade pneumothorax, infection, renal failure and other concomitant complications were explained in detail. The patient understood this well and consented to proceed. We may go ahead and do made arrangements to have it done as early as possible. (2) HTN (hypertension): Fairly under control. May continue on the current medications. Qualifiers: Hypertension type: essential hypertension Qualified Code(s): I10 - Essential (primary) hypertension (3) Hyperlipidemia: May continue on the current medications. Qualifiers: Hyperlipidemia type: unspecified Qualified Code(s): E78.5 - Hyperlipidemia, unspecified (4) Atrial fibrillation: Patient has paroxysmal atrial fibrillation. The Eliquis is on hold at this point. Qualifiers: Atrial fibrillation type: unspecified Qualified Code(s): I48.91 - Unspecified atrial fibrillation (5) COPD (chronic obstructive pulmonary disease): May continue on the current management. (6) Diabetes: The blood sugar seems to be under control. This may be closely monitored. 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 manager (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 of insulin Plan Thank you for the opportunity to participate in the care of this patient Consult Attestations Medical Necessity Statement: Patient requires continued hospital stay for close monitoring and further management Coding Level of Care Code Acute Code for [facility] Fwd Diagnoses Symptomatic bradycardia R00.1 HTN (hypertension) I10 Hypertension type: essential hypertension Hyperlipidemia E78.5 Hyperlipidemia type: unspecified Atrial fibrillation I48.91 Atrial fibrillation type: unspecified COPD (chronic obstructive pulmonary disease) J44.9 Diabetes E11.69; Z79.4 Diabetes mellitus type: type 2 Diabetes mellitus halfway insulin use: with joint terminal attack controller use Diabetes mellitus complication status: with other specified complication
[2023-03-22] MEDS: nicotine 14 mg Patch 1 PATCH TRANSDERMA (09:37)
[2023-03-22] MEDS: escitalopram 10 mg Tablet 20 MG PO (09:38)
[2023-03-22] MEDS: gabapentin 300 mg Capsule 600 MG PO ×3 (09:38→20:42)
[2023-03-22] MEDS: magnesium oxide 400 mg tablet PO ×2 (09:38→17:57)
[2023-03-22] MEDS: montelukast sodium 10 mg Tablet PO (09:38)
[2023-03-22] MEDS: losartan 50 mg Tablet PO ×2 (09:39→20:42)
[2023-03-22] MEDS: FUROsemide 20 mg Tablet PO (09:39)
[2023-03-22] MEDS: atorvastatin 40 mg Tablet PO (09:39)
[2023-03-22] MEDS: tamsulosin 0.4 mg Capsule PO ×2 (09:42→20:41)
--- NOTE | 2023-03-22 11:00 | P.PN_ITS ---
Subjective Subjective: Dr. Villarreal to see Mr. Gonzalez today Dr. Huizar recommended pacemaker We will follow-up with Dr. Villarreal Patient is n.p.o. Patient was bradycardic overnight, no significant confusion or blood pressure c hanges Vitals/I&O/Wt Last Vital Signs Temp 97.9 F 03/22/23 07:30 Pulse 60 03/22/23 08:44 Resp 16 03/22/23 08:43 BP 131/73 03/22/23 07:30 Pulse Ox 95 03/22/23 08:44 O2 Del Method CPAP 03/22/23 08:43 FiO2 21 03/22/23 08:44 03/21/23 03/22/23 03/22/23 22:59 06:59 14:59 Intake Total 1000 / 1340 Output Total 600 / 1400 Balance 400 / -60 Physical Exam Narrative: Patient is awake and alert Currently on CPAP Hemodynamic stable Heart rate in 60s Afebrile Nonfocal neuro exam Pleasant and cooperative GCS 15 S1, S2 sinus rhythm Data 03/22/23 03:49 03/22/23 03:49 A&P Assessment and plan (1) Symptomatic bradycardia: (2) ANGIE on CPAP: (3) Dizziness: (4) Obesity: (5) Atrial fibrillation: Qualifiers: Atrial fibrillation type: unspecified Qualified Code(s): I48.91 - Unspecified atrial fibrillation Plan Anticoagulation was put on hold in anticipation of pacemaker Patient was receiving Eliquis which was transitioned to Lovenox N.p.o. for pacemaker evaluation today by Dr. Villarreal Appreciate cardiology recommendations Patient is hemodynamically stable Was complaining of ear pain however afebrile, no active discharge, will give him ENT referral outpatient Patient is diabetic we will resume consistent carb diet once he is evaluated by Dr. Villarreal today We may resume his Lasix along amlodipine and losartan For essential hypertension Attestations Medical Necessity Statement*: Continue medical management Diagnoses Symptomatic bradycardia R00.1 ANGIE on CPAP G47.33; Z99.89 Dizziness R42 Obesity E66.9 Atrial fibrillation I48.91 Atrial fibrillation type: unspecified
[2023-03-22] MEDS: enoxaparin 40 mg/0.4 mL Syringe SUBCUT (11:16)
[2023-03-22 11:29] LABS: Glucose Point of Care 170 mg/dL (70-110)
[2023-03-22] MEDS: insulin lispro 100 unit/1 mL SUBCUT ×3 (13:34→22:26)
[2023-03-22 16:10] LABS: Glucose Point of Care 183 mg/dL (70-110)
[2023-03-22] MEDS: amlodipine 10 mg Tablet PO (20:41)
[2023-03-22] MEDS: trazodone 50 mg Tablet PO (20:41)
[2023-03-22 21:04] LABS: Glucose Point of Care 179 mg/dL (70-110)
[2023-03-22] MEDS: ALPRAZolam 0.5 mg Tablet 0.25 MG PO (22:25)
[2023-03-22] MEDS: insulin glargine 100 units/1 mL 5 UNIT SUBCUT (22:26)
[2023-03-23] VITALS (13 sets, daily range): BP systolic 135–152; BP diastolic 80–94; PULSE 56–92; RESP 14–20; TEMP 36.6–37.5; O2SAT 89–96
[2023-03-23 04:38] LABS: Basophils % 0.4 %; Eosinophils # 0.1 10^3/uL (0.0-0.8); Eosinophils % 1.6 %; Hematocrit 37.4 % (37-53); Lymphocytes # 2.5 10^3/uL (0.8-4.8); Lymphocytes % 34.8 %; Mean Corpuscular Hemoglobin 26.8 pg (27-33); Mean Corpuscular Volume 86.4 fl (82-101); Mean Platelet Volume 10.6 fL (7.4-10.4); Monocytes # 0.5 10^3/uL (0.2-0.9); Monocytes % 7.7 %; Neutrophils % 55.2 %; Nucleated Red Blood Cells % 0 %; Platelet Count 157 10^3/cmm (157-399); Red Blood Count 4.33 10^6/uL (3.85-5.65); Red Cell Distribution Width 12.6 % (12.1-15.1); White Blood Count 7.05 10^3/uL (3.29-11.43)
[2023-03-23] MEDS: HYDROcodone-acetaminophen 10-325 mg Tablet 1 TAB PO ×3 (05:00→17:58)
[2023-03-23] MEDS: sodium chloride 0.9% 1,000 ML 75 ML IV (05:02)
[2023-03-23 05:07] LABS: Anion Gap 10.6 (5-19); Blood Urea Nitrogen 16 mg/dL (8-23); Calcium 8.5 mg/dL (8.5-10.5); Carbon Dioxide 26 mmol/L (22-29); Chloride 107 mmol/L (98-107); Glucose 170 mg/dL (65-115); Osmolality Calculated 295 mOsm/kg (285-295); Potassium 3.6 mmol/L (3.5-5.1); Sodium 140 mmol/L (136-145)
[2023-03-23 05:12] LABS: INR 1.09 (0.8-1.2)
[2023-03-23 05:13] LABS: Partial Thromboplastin Time 30.2 SECONDS (23.9-36.7)
--- NOTE | 2023-03-23 06:59 | W.PM.OPSUD ---
Surgery/Procedure H&P Update DATE OF PROCEDURE: March 23, 2023 DATE H&P PERFORMED: 03/22/23 H&P UPDATE INFORMATION: I have reviewed H&P completed within last 30 days, I have examined patient prior to procedure and No changes to prior documentation PREOP DIAGNOSIS: symptomatic bradycardia PRIMARY INDICATION FOR PROCEDURE: Afib with RVR/ Bradycardia/ heart blocks/ Recurrent near syncope PLANNED PROCEDURE: Trans venous permanent pacemaker implantation, dual chamber PATIENT REASSESSED PRIOR TO SEDATION, WITH NO CHANGE NOTED: Yes PHYSICAL EXAM: alert, oriented x 3, clear to auscultation bilaterally and regular rate & rhythm AIRWAY EVAL/ANESTHESIA PLAN: normal airway, see other exam findings, ASA III, Monitored Anesthesia, Local Anesthesia, Risks, benefits & alternatives of sedation and/or procedure discussed and Patient agrees to continue as planned
[2023-03-23 07:21] LABS: Glucose Point of Care 152 mg/dL (70-110)
--- NOTE | 2023-03-23 08:25 | ANES.PREANE2 ---
Pre-Anesthetic Assessment Height/Weight: Height 1.83 m Weight 131.542 kg Temp Pulse Resp BP Pulse Ox O2 Del Method FiO2 97.9 F 60 14 135/84 94 Room Air 21 03/23/23 04:00 03/23/23 05:19 03/23/23 04:00 03/23/23 04:00 03/23/23 04:00 03/23/23 00:00 03/23/23 00:09 Preop Diagnosis: symptomatic bradycardia Last intake: Intake Last Liquid Date 03/22/23 Last Solid Date 03/22/23 Social Tobacco Exam Sedated in liaison inspection laboratory assistant prior to anesthesia arrival Airway Mallampati: Class III Pulmonary Chronic Obstructive Pulmonary Disease CV/HEM Atrial Fibrillation, Arrythmia and Hypertension Afib, on anticoagulation. Symptomatic bradycardia. Recent heart studies at other facilities showed normal EF Metabolic Diabetes Mellitus, Hyperlipidemia and Morbid Obesity Anesthetic Plan ASA status: 3 Anesthesia: General Other Pertinent Information Called to laborer cook house for urgent assistance with sedation/anesthesia Medications/Allergies Home Medications Medication Instructions Recorded Confirmed Last Taken Type albuterol sulfate 90 mcg/actuation 2 inh inhalation Q4H PRN shortness 11/20/19 03/19/23 05/27/21 History aerosol inhaler (Ventolin HFA) of breath or wheezing amlodipine 10 mg tablet 10 mg PO BEDTIME 11/20/19 03/18/23 05/28/21 07:00 History hydrocodone 10 mg-acetaminophen 1 tab PO Q6H PRN pain 11/20/19 03/18/23 05/28/21 07:00 History 325 mg tablet montelukast 10 mg tablet 10 mg PO DAILY@1000 11/20/19 03/18/23 05/27/21 History sitagliptin phosphate 100 mg 100 mg PO DAILY@1000 11/20/19 03/19/23 05/27/21 History tablet (Januvia) tamsulosin 0.4 mg capsule 0.4 mg PO BID@1000,0 11/20/19 03/18/23 05/27/21 History trazodone 50 mg tablet 50 - 100 mg PO BEDTIME@0 11/20/19 03/18/23 05/27/21 History omeprazole 20 mg capsule,delayed 20 mg PO DAILY 10/18/20 03/18/23 05/27/21 History release apixaban 5 mg tablet (Eliquis) 5 mg PO BID #60 tabs 10/20/20 03/18/23 05/24/21 Rx atorvastatin 40 mg tablet 40 mg PO DAILY@1000 #90 tabs 01/31/21 03/18/23 05/27/21 Rx irbesartan 300 mg tablet 300 mg PO DAILY #90 tabs 01/31/21 03/18/23 05/27/21 Rx lubiprostone 8 mcg capsule 24 mcg PO BID 04/17/21 03/18/23 05/27/21 History (Amitiza) Bilateral Mamie Articulating #1 ea 09/11/21 03/19/23 Unknown Rx AFO's docusate sodium 100 mg capsule 200 mg PO BID PRN Constipation 10/14/21 03/18/23 Unknown History (Dulcolax Stool Softener (docusate)) hydroxyzine HCl 50 mg tablet 50 mg PO BID PRN Anxiety 10/14/21 03/18/23 Unknown History polyethylene glycol 3350 17 17 g PO DAILY PRN Constipation 10/14/21 03/18/23 Unknown History gram/dose oral powder (Miralax) Night Splint to the Left Foot #1 ea 12/31/21 03/19/23 Unknown Rx Lactobacillus acidophilus 20,000 mmu cells PO DAILY 07/21/22 03/19/23 Unknown History (Acidophilus capsule) fluticasone propionate 50 2 spray intranasal DAILY@1000 PRN 07/21/22 03/18/23 Unknown History mcg/actuation nasal Congestion spray,suspension gabapentin 600 mg tablet 600 mg PO TID 07/21/22 03/18/23 Unknown History magnesium oxide 500 mg capsule 500 mg PO BID 07/21/22 03/19/23 Unknown History vitamins A,C,Z-muvw-mczdei 4,296 1 cap PO BID 07/21/22 03/19/23 Unknown History mcg-226 mg-90 mg capsule (ICaps AREDS) Above Ankle Diabetic Boots with 3 #1 ea 08/20/22 03/19/23 Unknown Rx inserts meclizine 25 mg tablet 25 mg PO TID PRN dizziness #20 tabs 01/05/23 03/19/23 Unknown Rx escitalopram oxalate 20 mg tablet 20 mg PO DAILY 02/03/23 03/18/23 Unknown History tizanidine 4 mg tablet 4 mg PO TID PRN Muscle Spasm 02/03/23 03/18/23 Unknown History cetirizine 10 mg tablet 10 mg PO BEDTIME 03/18/23 03/18/23 Unknown History glipizide 10 mg tablet 10 mg PO BID 03/18/23 03/18/23 Unknown History triamterene 37.5 2 tab PO DAILY 03/18/23 03/18/23 Unknown History mg-hydrochlorothiazide 25 mg tablet alprazolam 0.25 mg tablet 0.25 mg PO BID PRN Anxiety 03/19/23 03/19/23 Unknown History furosemide 20 mg tablet 20 mg PO DAILY 03/19/23 03/19/23 Unknown History Allergies Allergy/AdvReac Type Severity Reaction Status Date / Time Penicillins Allergy Mild ALGY-Rash Verified 03/18/23 17:04 Sulfa (Sulfonamide Allergy ALGY-Rash Verified 03/18/23 17:04 Antibiotics) Current Medications Generic Name Dose Route Start Last Admin Trade Name Freq PRN Reason Stop Dose Admin Hydrocodone Bitart/Acetaminophen 1 tab 03/19/23 17:26 03/23/23 05:00 Hydrocodone-Acetaminophen 10-325 Mg Tablet PO 1 tab Q6H PRN Administration MODERATE PAIN Alprazolam 0.25 mg 03/19/23 20:30 03/22/23 22:25 Alprazolam 0.5 Mg Tablet PO 0.25 mg BID PRN Administration ANXIETY Amlodipine Besylate 10 mg 03/19/23 21:00 03/22/23 20:41 Amlodipine 10 Mg Tablet PO 10 mg BEDTIME KAREL Administration Apixaban 5 mg 03/19/23 09:00 03/19/23 08:23 Apixaban 5 Mg Tablet PO 5 mg BID KAREL Administration Atorvastatin Calcium 40 mg 03/19/23 10:00 03/22/23 09:39 Atorvastatin 40 Mg Tablet PO 40 mg DAILY@1000 KAREL Administration Enoxaparin Sodium 130 mg 03/19/23 21:00 03/20/23 08:09 Enoxaparin 150 Mg/Ml Syringe SUBCUT 130 mg Q12H KAREL Administration Escitalopram Oxalate 20 mg 03/19/23 09:00 03/22/23 09:38 Escitalopram 10 Mg Tablet PO 20 mg DAILY KAREL Administration Furosemide 20 mg 03/21/23 09:00 03/22/23 09:39 Furosemide 20 Mg Tablet PO 20 mg DAILY KAREL Administration Gabapentin 600 mg 03/19/23 09:00 03/22/23 20:42 Gabapentin 300 Mg Capsule PO 600 mg TID KAREL Administration Hydralazine HCl 10 mg 03/21/23 00:44 03/21/23 06:35 Hydralazine 20 Mg/Ml Inj 1 Ml IVP 10 mg Q4H PRN Administration HYPERTENSION Sodium Chloride 1,000 mls @ 75 mls/hr 03/22/23 16:30 03/23/23 05:02 Sodium Chloride 0.9% IV 75 mls/hr .[id number] KAREL Administration Insulin Glargine 5 unit 03/20/23 21:00 03/22/23 22:26 Insulin Glargine 100 Units/1 Ml SUBCUT 5 unit BEDTIME KAREL Administration Insulin Human Lispro 0 unit 03/19/23 21:00 03/23/23 07:49 Insulin Lispro 100 Unit/1 Ml SUBCUT Not Given WM&BEDTIME KAREL Protocol Losartan Potassium 50 mg 03/20/23 22:00 03/22/23 20:42 Losartan 50 Mg Tablet PO 50 mg 09,2100 KAREL Administration Magnesium Oxide 400 mg 03/20/23 19:00 03/22/23 17:57 Magnesium Oxide 400 Mg Tablet PO 400 mg BID KAREL Administration Montelukast Sodium 10 mg 03/19/23 10:00 03/22/23 09:38 Montelukast Sodium 10 Mg Tablet PO 10 mg DAILY@1000 KAREL Administration Nicotine 1 patch 03/20/23 09:00 03/22/23 09:37 Nicotine 14 Mg Patch TRANSDERMA 1 patch DAILY KAREL Administration Non-Formulary Medication 24 mcg 03/19/23 09:00 03/19/23 08:48 Lubiprostone [Amitiza] PO Not Given BID [facility] Tamsulosin HCl 0.4 mg 03/19/23 10:00 03/22/23 20:41 Tamsulosin 0.4 Mg Capsule PO 0.4 mg BID@1000,2200 KAREL Administration Tizanidine HCl 4 mg 03/18/23 21:18 03/18/23 22:13 Tizanidine 4 Mg Tablet PO 4 mg TID PRN Administration SPASMS Trazodone HCl 50 - 100 mg 03/19/23 22:00 03/22/23 20:41 Trazodone 50 Mg Tablet PO 50 mg BEDTIME@2200 KAREL Administration PFSH Anesthesia Medical History BPH (benign prostatic hyperplasia) Change in bowel habits COPD (chronic obstructive pulmonary disease) Diabetes Dizziness Hernia HTN (hypertension) Hyperlipidemia Near syncope AV block, 2nd degree, 2:1 conduction, resolved w discontinuation of metoprolol underlying bifascicular block Obesity ANGIE on CPAP Sinus pause Syncope Tobacco abuse Transient blindness of both eyes Warfarin anticoagulation Surgical History History of cataract surgery Family History Grandmother CAD (coronary artery disease) MATERNAL Mother Diabetes Denies family history of Anesthesia complication Bleeding disorder Social History Smoking and tobacco status: current every day smoker cigarettes Packs smoked per day: 1 Alcohol intake: current Alcohol intake frequency: holidays/special occasions only Substance/Drug Use: never Household members: other Details: Girlfriend Marital status: service: No Current occupational status: disabled Data Anesthesia 03/23/23 04:10 03/23/23 04:10 Short CBC 03/22/23 03/23/23 Range/Units 03:49 04:10 WBC 8.19 7.05 (3.29-11.43) 10^3/uL Hgb 11.50 11.60 (11.27-16.99) g/dL Hct 37.1 37.4 (37-53) % MCV 86.1 86.4 (82-101) fl Plt Count 174 157 (157-399) 10^3/cmm Neut % (Auto) 58.1 55.2 % Neut # (Auto) 4.76 3.90 (1.8-7.7) 10^3/uL BMP 03/22/23 03/23/23 03:49 04:10 Sodium 140 140 Potassium 3.7 3.6 Chloride 107 107 Carbon Dioxide 25 26 BUN 16 16 Creatinine 0.8 0.7 Glucose 160 H 170 H Calcium 8.5 8.5 Coags 03/23/23 04:50 PT 14.50 INR 1.09 APTT 30.2 Cardiac Studies: Echocardiogram 10/19/20 Sestamibi Stress Test (Cardiology) 03/22/20 Cardiac Event Monitor 11/01/20
--- NOTE | 2023-03-23 10:15 | PC.NURSE ---
Patient arrived from vp lab with pressure dressing intact. No drainage noted. Patient is alert and gag reflex is intact. Patient has been educated on activity restriction. Nurse will continue to monitor.
--- NOTE | 2023-03-23 10:38 | PM.PN ---
Subjective Subjective: Status post pacemaker placement Vitals/I&O/Wt Last Vital Signs Temp 97.9 F 03/23/23 04:00 Pulse 60 03/23/23 05:19 Resp 14 03/23/23 04:00 BP 135/84 03/23/23 04:00 Pulse Ox 94 03/23/23 04:00 O2 Del Method Room Air 03/23/23 00:00 FiO2 21 03/23/23 00:09 03/22/23 03/23/23 03/23/23 22:59 06:59 14:59 Intake Total 240 / 460 Balance 240 / 460 Physical Exam Narrative: Awake and alert Euvolemic GCS 15 Hemodynamic stable Nonfocal neuro exam Data 03/23/23 04:10 03/23/23 04:10 A&P Assessment and plan (1) ANGIE on CPAP: (2) Symptomatic bradycardia: (3) S/P placement of cardiac pacemaker: Plan Status post pacemaker Monitor until tomorrow Patient is afebrile, normal CBC, hemodynamically stable Falls likely will be able to go home by tomorrow Outpatient follow-up with cardiology Normotensive on current antihypertensive regimen Attestations Medical Necessity Statement*: Continue medical management Diagnoses ANGIE on CPAP G47.33; Z99.89 Symptomatic bradycardia R00.1 S/P placement of cardiac pacemaker Z95.0
[2023-03-23] MEDS: nicotine 14 mg Patch 1 PATCH TRANSDERMA (10:55)
[2023-03-23] MEDS: gabapentin 300 mg Capsule 600 MG PO ×3 (10:55→21:56)
[2023-03-23] MEDS: atorvastatin 40 mg Tablet PO (10:55)
[2023-03-23] MEDS: FUROsemide 20 mg Tablet PO (10:55)
[2023-03-23] MEDS: magnesium oxide 400 mg tablet PO ×2 (10:55→17:58)
[2023-03-23] MEDS: montelukast sodium 10 mg Tablet PO (10:55)
[2023-03-23] MEDS: tamsulosin 0.4 mg Capsule PO ×2 (10:56→21:56)
[2023-03-23] MEDS: escitalopram 10 mg Tablet 20 MG PO (10:56)
[2023-03-23] MEDS: losartan 50 mg Tablet PO ×2 (10:56→21:56)
--- NOTE | 2023-03-23 11:50 | XR_ITS ---
WS: [id number] XR chest 1V portable [id number] REASON FOR EXAM: Post PPM FINDINGS: Cardiac device over the left chest with trans left subclavian vein leads to the right atrium and righ t ventricular apex. Mild cardiomegaly. Calcified granulomatous disease in both hemithoraces. No acute pulmonary parenchymal or pleural abnormality. No pneumothorax. IMPRESSION: No acute chest abnormality. Placement of cardiac device and intracardiac leads as above.
[2023-03-23] MEDS: insulin lispro 100 unit/1 mL SUBCUT ×3 (12:09→21:58)
[2023-03-23 12:18] LABS: Glucose Point of Care 180 mg/dL (70-110)
--- NOTE | 2023-03-23 15:22 | PM.OP ---
Operative Report Date of procedure: March 23, 2023 Surgeon: Vicki Villarreal MD Procedure: LOCATION: Cardiac catheterization lab PREOPERATIVE DIAGNOSES: Symptomatic bradycardia. POSTOPERATIVE DIAGNOSES: Same. COMPLICATIONS: None. ESTIMATED BLOOD LOSS: Around 5 milliliters. BRIEF HISTORY: 58-year-old white male with a history of hypertension, diabetes, dyslipidemia, morbid obesity, sleep apnea, paroxysmal atrial fibrillation, presents with episodes of near syncope. He was found to have episodes of bradycardia with a heart rate in the 40s and tachycardia with a heart rate in the 120s. He had underlying first-degree AV block, right bundle branch block and left anterior fascicular block. With near syncopal episodes, his heart rates go down to the 30s. In view of his symptomatic tachy or lcaudia arrhythmias, for for other management of his condition, a permanent pacer implantation was requested. A dual chamber permanent pacemaker implantation was recommended for AV synchrony and symptom relief The procedure was explained to the patient in detail with the risks and benefits. The risks of bleeding, hematoma, vascular injury, infection, pneumothorax, myocardial perforation and other concomitant complications were explained in detail, which the patient understood well and consented to proceed. PROCEDURE DESCRIPTION: The patient was brought to the Cardiac Catheterization Lab. The left and the right side of the neck and the subclavian area were cleaned and draped in a sterile fashion. 1% Xylocaine was used as the local anesthetic agent. Left subclavian venogram was performed by injecting 20 milliliters of Omnipaque through the left antecubital vein. A left subclavian venous access was obtained using a micropuncture needle system, under venographic guidance. . A two-inch long incision was made 2.0 centimeters below the midclavicular region. By sharp and blunt dissection, a pacemaker pocket was made. A second venous access was obtained using another micropuncture needle system. Over the first guidewire, a 7-Namibian venous sheath with dilator was advanced. The venous dilator and the guidewire were taken out. A screw-in ventricular lead was advanced through the venous sheath and was positioned towards the right ventricle. Under fluoroscopic guidance, the ventricular lead was positioned toward the right ventricular apex. Good pacing and sensing thresholds were obtained. The lead was secured to the endocardium by advancing the helix. The stability of the lead was tested by gentle twisting movements and also by asking the patient to take some deep breaths and cough. The venous sheath was peeled off, at this time. The lead was secured to the pectoralis fascia, by suturing with 1-0 Surgilon. Over the second guidewire, another 7-Namibian venous sheath with dilator was advanced. The dilator and the guidewire were taken out. Under fluoroscopic guidance, an atrial lead (Medtronic), was advanced and positioned toward the right atrium. The lead was positioned in the right atrial appendage. We spent quite a bit of time to locate a place with a good pacing function. Finally we found a place with the pacing threshold around 3. Had a good sensing and injury current. It was decided to keep this position. The lead was secured to the endocardium by advancing the helix. Stability of the lead was tested by gentle twisting movements and also by asking the patient to take some deep breaths and cough. The venous sheath was peeled off, at this time. The lead was secured to the pectoralis fascia by suturing with 0-Surgilon. The pacemaker pocket was copiously irrigated with vancomycin solution. Complete hemostasis was achieved. Sponge counts were confirmed. The leads were attached to a Medtronic generator. The leads were positioned behind the generator and the generator was attached to the pectoralis fascia by suturing with 0-Surgilon. The pocket was closed in layers. Skin was approximated using 4-0 Vicryl. IMPLANTED DEVICES: ATRIAL LEAD: Model number: 5076/52 Serial number: [id number] Make: Medtronic VENTRICULAR LEAD: Model number: 5076/58 Serial number: [id number] Make: Medtronic GENERATOR Brand: Arianna XT DR [facility] Model number: W1 DR 01 Serial number: [id number] Make: Medtronic IMPLANTATION DATA: With the pacing system analyzer, the R wave sensing was 7.3 millivolts with a lead impedance of 513 and a pacing threshold was 0.5 volts at 0.4 milliseconds. In the atrium, the sensing was 1.8 millivolts with a lead impedance of 494 ohms and a pacing threshold was 3.5 volts at 1.0 milliseconds. Through the device, the R-wave sensing was 9.3 millivolts with a lead impedance of 513 and a pacing threshold was 0.5 volts at 0.4 milliseconds. The atrial sensing was 1.9 millivolts with a lead impedance of 513 ohms and a pacing threshold of 3.5 volts at 1.0 milliseconds. The pacemaker was set for AAIR/DDDR mode with upper rate of 130 and a lower rate of 50 A pressure dressing was applied over the pacemaker site. The patient was transferred to the Medical Floor in stable condition. A chest x-ray was ordered to confirm the lead position and also to rule out any pneumothorax.
[2023-03-23 16:59] LABS: Glucose Point of Care 166 mg/dL (70-110)
[2023-03-23] MEDS: vancomycin 2,000 MG/400 ML PIGGYBACK 200 MG IV (20:07)
[2023-03-23 20:48] LABS: Glucose Point of Care 248 mg/dL (70-110)
[2023-03-23] MEDS: trazodone 50 mg Tablet PO (21:56)
[2023-03-23] MEDS: amlodipine 10 mg Tablet PO (21:56)
[2023-03-23] MEDS: insulin glargine 100 units/1 mL 5 UNIT SUBCUT (21:57)
[2023-03-24] VITALS (9 sets, daily range): BP systolic 148–164; BP diastolic 79–99; PULSE 59–84; RESP 16–23; TEMP 37–37.2; O2SAT 91–94
[2023-03-24 05:18] LABS: Basophils % 0.5 %; Eosinophils # 0.1 10^3/uL (0.0-0.8); Eosinophils % 1.3 %; Hematocrit 36.9 % (37-53); Lymphocytes # 1.6 10^3/uL (0.8-4.8); Lymphocytes % 21.1 %; Mean Corpuscular HGB Conc 30.6 g/dL (30-55); Mean Corpuscular Hemoglobin 26.8 pg (27-33); Mean Corpuscular Volume 87.6 fl (82-101); Mean Platelet Volume 10.2 fL (7.4-10.4); Monocytes # 0.6 10^3/uL (0.2-0.9); Monocytes % 8.3 %; Neutrophils # 5.13 10^3/uL (1.8-7.7); Neutrophils % 68.5 %; Nucleated Red Blood Cells % 0 %; Platelet Count 149 10^3/cmm (157-399); Red Blood Count 4.21 10^6/uL (3.85-5.65); Red Cell Distribution Width 12.7 % (12.1-15.1); White Blood Count 7.49 10^3/uL (3.29-11.43)
[2023-03-24 05:40] LABS: Anion Gap 12.7 (5-19); Blood Urea Nitrogen 15 mg/dL (8-23); Calcium 8.1 mg/dL (8.5-10.5); Carbon Dioxide 20 mmol/L (22-29); Chloride 107 mmol/L (98-107); Glomerular Filtration Rate 137.4 mL/min (90-130); Glucose 155 mg/dL (65-115); Osmolality Calculated 286 mOsm/kg (285-295); Potassium 3.7 mmol/L (3.5-5.1); Sodium 136 mmol/L (136-145)
--- NOTE | 2023-03-24 06:00 | ECG_ITS ---
[facility] Test Date: 2023-03-24 Pat Name: Deejay Gonzalez Department: Room: 111 Gender: Male Trouble Shooter: : 1965 Requested By: Vicki Villarreal Order Number: [id number] Jordon MD: Vicki Villarreal M.D. Measurements Intervals [place] Rate: 59 P: 43 [place]: 224 QRS: -11 QRSD: 118 T: 3 QT: 447 QTc: 445 Interpretive Statements SINUS BRADYCARDIA WITH FIRST DEGREE AV BLOCK INFERIOR MYOCARDIAL INFARCTION , PROBABLY OLD [40+ ms Q WAVE AND/OR ST/T ABNORMALITY IN II/aVF] Compared to ECG 03/18/2023 23:07:10 First degree AV block now present Myocardial infarct finding now present Right bundle-branch block no longer present Left anterior fascicular block no longer present Electronically Signed On 03-25-2023 8:04:15 CDT by Vicki Villarreal M.D. [id number]
[2023-03-24 06:14] LABS: Glucose Point of Care 150 mg/dL (70-110)
--- NOTE | 2023-03-24 07:52 | P.PN_ITS ---
Subjective Subjective: The patient is feeling okay. No hematoma bleeding from the pacemaker insertion site. The pacemaker was interrogated this morning. He is lead functions are found to be appropriate. Good atrial sensing and pacing. Chest x-ray revealed no pneumothorax. Appropriate positioning of the leads. Medications: Medication Review Details: Current Medications Hydrocodone Bitart/Acetaminophen (Hydrocodone-Acetaminophen 10-325 Mg Tablet) 1 tab PO Q6H PRN PRN Reason: MODERATE PAIN Last Admin: 03/23/23 17:58 Dose: 1 tab Albuterol Sulfate (Albuterol 2.5 Mg/3 Ml Neb) 2.5 mg INHALATION Q4H.RESPIRATORY PRN PRN Reason: SHORTNESS OF BREATH Amlodipine Besylate (Amlodipine 10 Mg Tablet) 10 mg PO BEDTIME [facility] Last Admin: 03/23/23 21:56 Dose: 10 mg Apixaban (Apixaban 5 Mg Tablet) 5 mg PO BID [facility] Last Admin: 03/19/23 08:23 Dose: 5 mg Atorvastatin Calcium (Atorvastatin 40 Mg Tablet) 40 mg PO DAILY@1000 [facility] Last Admin: 03/23/23 10:55 Dose: 40 mg Dextrose (Dextrose 50% Syringe 50 Ml) 50 ml IVP PRN PRN; Protocol PRN Reason: hypoglycemia protocol Dextrose (Dextrose 50% Syringe 50 Ml) 25 ml IVP ONCE PRN; Protocol PRN Reason: hypoglycemia protocol Docusate Sodium (Docusate Sodium 100 Mg Capsule) 200 mg PO BID PRN PRN Reason: Constipation Escitalopram Oxalate (Escitalopram 10 Mg Tablet) 20 mg PO DAILY [facility] Last Admin: 03/23/23 10:56 Dose: 20 mg Fluticasone Propionate (Fluticasone Nasal [place] 16gm Btl) 2 spray INTRANASAL DAILY@1000 PRN PRN Reason: Congestion Furosemide (Furosemide 20 Mg Tablet) 20 mg PO DAILY [facility] Last Admin: 03/23/23 10:55 Dose: 20 mg Gabapentin (Gabapentin 300 Mg Capsule) 600 mg PO TID [facility] Last Admin: 03/23/23 21:56 Dose: 600 mg Glucagon (Glucagon 1 Mg/Ml Inj 1 Ml) 1 mg IM ONCE PRN; Protocol PRN Reason: Adult Acute Hypoglycemia Prot. Hydralazine HCl (Hydralazine 20 Mg/Ml Inj 1 Ml) 10 mg IVP Q4H PRN PRN Reason: HYPERTENSION Last Admin: 03/21/23 06:35 Dose: 10 mg Dextrose (D5w) 500 mls @ 100 mls/hr IV ONCE PRN; Protocol PRN Reason: Adult Acute Hypoglycemia Prot Sodium Chloride (Sodium Chloride 0.9%) 1,000 mls @ 75 mls/hr IV .[id number] [facility] Last Admin: 03/23/23 20:16 Dose: Not Given Insulin Glargine (Insulin Glargine 100 Units/1 Ml) 5 unit SUBCUT BEDTIME [facility] Last Admin: 03/23/23 21:57 Dose: 5 unit Insulin Human Lispro (Insulin Lispro 100 Unit/1 Ml) 0 unit SUBCUT WM&BEDTIME [facility]; Protocol Last Admin: 03/23/23 21:58 Dose: 8 unit Losartan Potassium (Losartan 50 Mg Tablet) 50 mg PO 0900,2100 [facility] Last Admin: 03/23/23 21:56 Dose: 50 mg Magnesium Oxide (Magnesium Oxide 400 Mg Tablet) 400 mg PO BID [facility] Last Admin: 03/23/23 17:58 Dose: 400 mg Montelukast Sodium (Montelukast Sodium 10 Mg Tablet) 10 mg PO DAILY@1000 [facility] Last Admin: 03/23/23 10:55 Dose: 10 mg Nicotine (Nicotine 14 Mg Patch) 1 patch TRANSDERMA DAILY [facility] Last Admin: 03/23/23 10:55 Dose: 1 patch Non-Formulary Medication (Lubiprostone [Amitiza]) 24 mcg PO BID [facility] Last Admin: 03/19/23 08:48 Dose: Not Given Ondansetron HCl (Ondansetron 2 Mg/Ml Sdv 2 Ml) 4 mg IVP Q8H PRN PRN Reason: vomiting, or N/V if npo Tamsulosin HCl (Tamsulosin 0.4 Mg Capsule) 0.4 mg PO BID@1000,2200 [facility] Last Admin: 03/23/23 21:56 Dose: 0.4 mg Tizanidine HCl (Tizanidine 4 Mg Tablet) 4 mg PO TID PRN PRN Reason: SPASMS Last Admin: 03/18/23 22:13 Dose: 4 mg Trazodone HCl (Trazodone 50 Mg Tablet) 50 - 100 mg PO BEDTIME@2200 [facility] Last Admin: 03/23/23 21:56 Dose: 50 mg Vitals/I&O/Wt Last Vital Signs Temp 98.6 F 03/24/23 04:00 Pulse 60 03/24/23 06:00 Resp 21 H 03/24/23 04:00 BP 157/90 03/24/23 06:16 Pulse Ox 91 03/24/23 04:00 O2 Del Method Room Air 03/23/23 19:50 FiO2 21 03/23/23 00:09 03/23/23 03/24/23 03/24/23 22:59 06:59 14:59 Intake Total 1400 / 1640 Balance 1400 / 1640 Physical Exam Narrative: GENERAL: The patient is alert and oriented times three. Not in any acute distress. Obese HEENT: No significant pallor, icterus or lymphadenopathy.Oral cavity: There are no mucous membrane lesions. NECK: Trachea appears to be central. No masses noted. No JVD or thyromegaly appreciated. RESPIRATORY: The pacemaker site has no hematoma or bleeding. Chest is symmetrical. No intercostals muscle retraction or any accessory muscle activation. There is no chest wall tenderness. Breath sounds are heard bilaterally. No rales or rhonchi heard. No evidence of any consolidation. BREASTS: Deferred. HEART: The heart sounds are normal. No S3 or S4. No significant murmurs. No pericardial rub ABDOMEN: No vessel pulsations or distention. No tenderness. No organomegaly appreciated. Bowel sounds are normally heard. : Deferred. RECTAL: Deferred. LYMPHATIC: No lymphadenopathy noted in the neck. EXTREMITIES: History of fracture of the right fibula/tibia causing malunion and some deformity MUSCULOSKELETAL: No acute joint deformities or swelling SKIN: There are no significant rashes or ecchymosis NEUROPSYCHIATRIC: The patient is alert and oriented x3. Appears to be in a good mood. No tremors or rigidity noted. Data 03/24/23 05:12 03/24/23 05:12 Other Labs: Laboratory Last Values WBC 7.49 10^3/uL (3.29-11.43) 03/24/23 05:12 Corrected WBC Cancelled 03/24/23 04:23 RBC 4.21 10^6/uL (3.85-5.65) 03/24/23 05:12 Hgb 11.30 g/dL (11.27-16.99) 03/24/23 05:12 Hct 36.9 % (37-53) L 03/24/23 05:12 MCV 87.6 fl (82-101) 03/24/23 05:12 MCH 26.8 pg (27-33) L 03/24/23 05:12 MCHC 30.6 g/dL (30-55) 03/24/23 05:12 RDW 12.7 % (12.1-15.1) 03/24/23 05:12 Plt Count 149 10^3/cmm (157-399) L 03/24/23 05:12 MPV 10.2 fL (7.4-10.4) 03/24/23 05:12 Gran % Cancelled 03/24/23 04:23 Neut % (Auto) 68.5 % 03/24/23 05:12 Lymph % (Auto) 21.1 % 03/24/23 05:12 [place] % (Auto) 8.3 % 03/24/23 05:12 Eos % (Auto) 1.3 % 03/24/23 05:12 Baso % (Auto) 0.5 % 03/24/23 05:12 Neut # (Auto) 5.13 10^3/uL (1.8-7.7) 03/24/23 05:12 Lymph # (Auto) 1.6 10^3/uL (0.8-4.8) 03/24/23 05:12 [place] # (Auto) 0.6 10^3/uL (0.2-0.9) 03/24/23 05:12 Eos # (Auto) 0.1 10^3/uL (0.0-0.8) 03/24/23 05:12 Baso # (Auto) 0.0 10^3/uL (0.0-0.1) 03/24/23 05:12 Absolute Gran (auto) Cancelled 03/24/23 04:23 Nucleated RBC % (auto) 0 % 03/24/23 05:12 Nucleated RBCs # 0.0 /100WBC 03/24/23 05:12 PT 14.50 SECONDS (12.1-14.9) 03/23/23 04:50 INR 1.09 (0.8-1.2) 03/23/23 04:50 APTT 30.2 SECONDS (23.9-36.7) 03/23/23 04:50 D-Dimer 0.40 ug/mLFEU (0-0.59) 03/19/23 11:30 Sodium 136 mmol/L (136-145) 03/24/23 05:12 Potassium 3.7 mmol/L (3.5-5.1) 03/24/23 05:12 Chloride 107 mmol/L (98-107) 03/24/23 05:12 Carbon Dioxide 20 mmol/L (22-29) L 03/24/23 05:12 Anion Gap 12.7 (5-19) 03/24/23 05:12 BUN 15 mg/dL (8-23) 03/24/23 05:12 Creatinine 0.6 mg/dL (0.7-1.2) L 03/24/23 05:12 GFR Calculation 137.4 mL/min (90-130) H 03/24/23 05:12 Glucose 155 mg/dL (65-115) H 03/24/23 05:12 POC Glucose 150 mg/dL (70-110) H 03/24/23 06:04 Calculated Osmolality 286 mOsm/kg (285-295) 03/24/23 05:12 Calcium 8.1 mg/dL (8.5-10.5) L 03/24/23 05:12 Magnesium 2.1 mg/dL (1.7-2.3) 03/19/23 03:50 Total Bilirubin 0.3 mg/dL (0.15-1.2) 03/19/23 03:50 AST 8 U/L (0-40) 03/19/23 03:50 ALT 10 U/L (0-41) 03/19/23 03:50 Alkaline Phosphatase 92 U/L (40-130) 03/19/23 03:50 Troponin T Baseline 10 ng/L (0-15) 03/18/23 17:17 Troponin T 120 Minute 10.45 ng/L (0-15) 03/18/23 20:11 Delta Troponin T 0.45 ABS# (0-10) 03/18/23 20:11 Troponin T Hi Sens 6Hr 11.13 ng/L (0-15) 03/18/23 23:23 Troponin T Hi Sens 6Hr Delta 1.13 ng/L (0-12) 03/18/23 23:23 NT-Pro-B Natriuret Pep 318 pg/mL (0-125) H 03/19/23 03:50 Total Protein 5.6 g/dL (6.6-8.7) L 03/19/23 03:50 Albumin 3.9 g/dL (3.5-5.2) 03/19/23 03:50 Globulin 1.7 g/dL (1.3-4.6) 03/19/23 03:50 A&P Assessment and plan (1) S/P placement of cardiac pacemaker: Status post transvenous dual-chamber permanent pacer implantation. The pacemaker was interrogated this morning. The function was found to be appropriate. Discussed with the patient about further management. Post pa obed instructions were given. (2) HTN (hypertension): Fairly under control. May continue on the current medications. Qualifiers: Hypertension type: essential hypertension Qualified Code(s): I10 - Essential (primary) hypertension (3) Hyperlipidemia: May continue on the current medications. Qualifiers: Hyperlipidemia type: unspecified Qualified Code(s): E78.5 - Hyperlipidemia, unspecified (4) Atrial fibrillation: Patient has paroxysmal atrial fibrillation. The patient may be put back on the Eliquis tomorrow. Qualifiers: Atrial fibrillation type: unspecified Qualified Code(s): I48.91 - Unspecified atrial fibrillation (5) COPD (chronic obstructive pulmonary disease): May continue on the current management. (6) Diabetes: The blood sugar seems to be under control. This may be closely monitored. 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 He may go home with the p.o. antibiotic for 5 days. Please see the discharge orders. Attestations Medical Necessity Statement*: Possible discharge home today Coding Level of Care Code 44414 Diagnoses S/P placement of cardiac pacemaker Z95.0 HTN (hypertension) I10 Hypertension type: essential hypertension Hyperlipidemia E78.5 Hyperlipidemia type: unspecified Atrial fibrillation I48.91 Atrial fibrillation type: unspecified COPD (chronic obstructive pulmonary disease) J44.9 Diabetes E11.69; Z79.4 Diabetes mellitus complication status: with other specified complication Diabetes mellitus terminal manager insulin use: with [facility] use Diabetes mellitus type: type 2
[2023-03-24] MEDS: FUROsemide 20 mg Tablet PO (08:26)
[2023-03-24] MEDS: losartan 50 mg Tablet PO (08:26)
[2023-03-24] MEDS: apixaban 5 mg Tablet PO (08:26)
[2023-03-24] MEDS: gabapentin 300 mg Capsule 600 MG PO (08:26)
[2023-03-24] MEDS: escitalopram 10 mg Tablet 20 MG PO (08:26)
[2023-03-24] MEDS: magnesium oxide 400 mg tablet PO (08:27)
[2023-03-24] MEDS: HYDROcodone-acetaminophen 10-325 mg Tablet 1 TAB PO (08:27)
[2023-03-24] MEDS: montelukast sodium 10 mg Tablet PO (08:27)
[2023-03-24] MEDS: tamsulosin 0.4 mg Capsule PO (08:27)
[2023-03-24] MEDS: atorvastatin 40 mg Tablet PO (08:27)
[2023-03-24] MEDS: nicotine 14 mg Patch 1 PATCH TRANSDERMA (08:30)
[2023-03-24] MEDS: insulin lispro 100 unit/1 mL SUBCUT ×2 (08:30→12:10)
--- NOTE | 2023-03-24 09:32 | PM.DCS ---
Discharge Providers Date of Admission: 03/18/23 19:44 Date of Discharge: March 24, 2023 Attending Provider at Admission: Mary Moreno MD Attending Provider at Discharge: Les Landis MD Primary Care Provider: Kylah Garcia APN Diagnoses at Discharge Discharge Diagnosis (1) S/P placement of cardiac pacemaker: Status: Acute (2) HTN (hypertension): Status: Acute Qualifiers: Hypertension type: essential hypertension Qualified Code(s): I10 - Essential (primary) hypertension (3) Hyperlipidemia: Status: Acute Qualifiers: Hyperlipidemia type: unspecified Qualified Code(s): E78.5 - Hyperlipidemia, unspecified (4) Atrial fibrillation: Status: Acute Qualifiers: Atrial fibrillation type: unspecified Qualified Code(s): I48.91 - Unspecified atrial fibrillation (5) COPD (chronic obstructive pulmonary disease): Status: Acute (6) Diabetes: Status: Acute Qualifiers: Diabetes mellitus type: type 2 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 Villarreal was consulted who agreed with pacemaker placement, patient went for pacemaker 03/23 transvenous dual-chamber, no postoperative complications, he will get antibiotic as prophylactic measures for wound care, patient was complaining of right ear pain on day 1 which has improved, no signs of meningitis fever or headache. Patient may resume his Eliquis which he started taking for paroxysmal A-fib. Please review cardiology consultation notes for further details. 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 Routine Exams 03/23/23 06:00 Completed CXRP [XR chest 1V portable [id number]] Routine Exams 03/23/23 11:50 Completed XR chest 1V portable [id number] Stat Exams 03/18/23 16:51 Completed Laboratory Results WBC 7.49 10^3/uL (3.29-11.43) 03/24/23 05:12 Corrected WBC Cancelled 03/24/23 04:23 RBC 4.21 10^6/uL (3.85-5.65) 03/24/23 05:12 Hgb 11.30 g/dL (11.27-16.99) 03/24/23 05:12 Hct 36.9 % (37-53) L 03/24/23 05:12 MCV 87.6 fl (82-101) 03/24/23 05:12 MCH 26.8 pg (27-33) L 03/24/23 05:12 MCHC 30.6 g/dL (30-55) 03/24/23 05:12 RDW 12.7 % (12.1-15.1) 03/24/23 05:12 Plt Count 149 10^3/cmm (157-399) L 03/24/23 05:12 MPV 10.2 fL (7.4-10.4) 03/24/23 05:12 Gran % Cancelled 03/24/23 04:23 Neut % (Auto) 68.5 % 03/24/23 05:12 Lymph % (Auto) 21.1 % 03/24/23 05:12 [place] % (Auto) 8.3 % 03/24/23 05:12 Eos % (Auto) 1.3 % 03/24/23 05:12 Baso % (Auto) 0.5 % 03/24/23 05:12 Neut # (Auto) 5.13 10^3/uL (1.8-7.7) 03/24/23 05:12 Lymph # (Auto) 1.6 10^3/uL (0.8-4.8) 03/24/23 05:12 [place] # (Auto) 0.6 10^3/uL (0.2-0.9) 03/24/23 05:12 Eos # (Auto) 0.1 10^3/uL (0.0-0.8) 03/24/23 05:12 Baso # (Auto) 0.0 10^3/uL (0.0-0.1) 03/24/23 05:12 Absolute Gran (auto) Cancelled 03/24/23 04:23 Nucleated RBC % (auto) 0 % 03/24/23 05:12 Nucleated RBCs # 0.0 /100WBC 03/24/23 05:12 PT 14.50 SECONDS (12.1-14.9) 03/23/23 04:50 INR 1.09 (0.8-1.2) 03/23/23 04:50 APTT 30.2 SECONDS (23.9-36.7) 03/23/23 04:50 D-Dimer 0.40 ug/mLFEU (0-0.59) 03/19/23 11:30 Sodium 136 mmol/L (136-145) 03/24/23 05:12 Potassium 3.7 mmol/L (3.5-5.1) 03/24/23 05:12 Chloride 107 mmol/L (98-107) 03/24/23 05:12 Carbon Dioxide 20 mmol/L (22-29) L 03/24/23 05:12 Anion Gap 12.7 (5-19) 03/24/23 05:12 BUN 15 mg/dL (8-23) 03/24/23 05:12 Creatinine 0.6 mg/dL (0.7-1.2) L 03/24/23 05:12 GFR Calculation 137.4 mL/min (90-130) H 03/24/23 05:12 Glucose 155 mg/dL (65-115) H 03/24/23 05:12 POC Glucose 150 mg/dL (70-110) H 03/24/23 06:04 Calculated Osmolality 286 mOsm/kg (285-295) 03/24/23 05:12 Calcium 8.1 mg/dL (8.5-10.5) L 03/24/23 05:12 Magnesium 2.1 mg/dL (1.7-2.3) 03/19/23 03:50 Total Bilirubin 0.3 mg/dL (0.15-1.2) 03/19/23 03:50 AST 8 U/L (0-40) 03/19/23 03:50 ALT 10 U/L (0-41) 03/19/23 03:50 Alkaline Phosphatase 92 U/L (40-130) 03/19/23 03:50 Troponin T Baseline 10 ng/L (0-15) 03/18/23 17:17 Troponin T 120 Minute 10.45 ng/L (0-15) 03/18/23 20:11 Delta Troponin T 0.45 ABS# (0-10) 03/18/23 20:11 Troponin T Hi Sens 6Hr 11.13 ng/L (0-15) 03/18/23 23:23 Troponin T Hi Sens 6Hr Delta 1.13 ng/L (0-12) 03/18/23 23:23 NT-Pro-B Natriuret Pep 318 pg/mL (0-125) H 03/19/23 03:50 Total Protein 5.6 g/dL (6.6-8.7) L 03/19/23 03:50 Albumin 3.9 g/dL (3.5-5.2) 03/19/23 03:50 Globulin 1.7 g/dL (1.3-4.6) 03/19/23 03:50 Vitals Last Vital Signs Temp 98.6 F 03/24/23 04:00 Pulse 81 03/24/23 07:53 Resp 16 03/24/23 07:53 BP 164/99 03/24/23 08:26 Pulse Ox 94 03/24/23 07:53 O2 Del Method Room Air 03/24/23 07:53 FiO2 21 03/24/23 07:52 Discharge Plan Discharge Patient Disposition: Home Condition: Stable Prescriptions: New metoprolol tartrate 25 mg tablet 12.5 mg PO BID 30 Days Qty: 30 5RF Rx Instructions: Hold if heart rate is below 60 multivitamin Tablet 1 tab PO DAILY 14 Days Qty: 14 0RF levofloxacin 750 mg tablet 750 mg PO DAILY 5 Days Qty: 5 0RF Continued (DME) Bilateral Mamie Articulating AFO's See Rx Instructions .Route .MEDSUPPLY Qty: 1 0RF Rx Instructions: As directed lubiprostone [Amitiza] 8 mcg capsule 24 mcg PO BID docusate sodium [Dulcolax Stool Softener (dss)] 100 mg capsule 200 mg PO BID PRN (Reason: Constipation) polyethylene glycol 3350 [Miralax] 17 gram/dose powder 17 g PO DAILY PRN (Reason: Constipation) (DME) Night Splint to the Left Foot See Rx Instructions .Route .MEDSUPPLY Qty: 1 0RF Rx Instructions: As directed escitalopram oxalate 20 mg tablet 20 mg PO DAILY tizanidine 4 mg tablet 4 mg PO TID PRN (Reason: Muscle Spasm) magnesium oxide 500 mg capsule 500 mg PO BID Acidophilus Capsule 20,000 mmu cells PO DAILY ICaps AREDS [id number] capsule 1 cap PO BID atorvastatin 40 mg tablet 40 mg PO DAILY@1000 Qty: 90 3RF irbesartan 300 mg tablet 300 mg PO DAILY Qty: 90 3RF (DME) Above Ankle Diabetic Boots with 3 inserts See Rx Instructions .Route .MEDSUPPLY Qty: 1 0RF Rx Instructions: As directed HOME amlodipine 10 mg tablet 10 mg PO BEDTIME tamsulosin 0.4 mg capsule 0.4 mg PO BID@1000,2200 trazodone 50 mg tablet 50 - 100 mg PO BEDTIME@2200 Ventolin HFA 90 mcg/actuation HFA aerosol inhaler 2 inh INHALATION Q4H PRN (Reason: shortness of breath or wheezing) hydrocodone-acetaminophen 10-325 mg tablet 1 tab PO Q6H PRN (Reason: pain) Rx Instructions: 1-2 tabs every 4-6 hours as needed for pain montelukast 10 mg tablet 10 mg PO DAILY@1000 Januvia 100 mg tablet 100 mg PO DAILY@1000 hydroxyzine HCl 50 mg tablet 50 mg PO BID PRN (Reason: Anxiety) gabapentin 600 mg tablet 600 mg PO TID omeprazole 20 mg capsule,delayed release(DR/EC) 20 mg PO DAILY Rx Instructions: before morning meal Eliquis 5 mg tablet 5 mg PO BID Qty: 60 0RF Hold Instructions: Resume on 05/31/21. fluticasone propionate 50 mcg/actuation spray,suspension 2 spray INTRANASAL DAILY@1000 PRN (Reason: Congestion) triamterene-hydrochlorothiazid 37.5-25 mg tablet 2 tab PO DAILY cetirizine 10 mg Tablet 10 mg PO BEDTIME alprazolam 0.25 mg tablet 0.25 mg PO BID PRN (Reason: Anxiety) furosemide 20 mg tablet 20 mg PO DAILY Discontinued glipizide 10 mg Tablet 10 mg PO BID Rx Instructions: after meals meclizine 25 mg tablet 25 mg PO TID PRN (Reason: dizziness) Qty: 20 0RF Discharge Orders: Discharge Order (Routine); Ordered 03/24/23 Ordered By: Les Landis Referrals: Aaliyah Noel FNP [Nurse Practitioner] - 04/06/23 9:00 am Jose,JASMYN Montero [Primary Care Provider] - 03/29/23 1:30 pm Discharge Diet: As Directed Discharge Activity: Limit activity as instructed Patient Instructions: Opioid Safety, Post Pacemaker - Phil Activity Restrictions/Additional Instructions: Limit the movements of the left shoulder to 45 degrees. Avoid any weight lifting with the left hand of more than 5 pounds. For the next 6 weeks. No weightbearing of the left elbow. [facility]ointment the [facility] to be seen by the nurse practitioner next Wednesday. May restart Eliquis tomorrow morning Take the antibiotics as prescribed along with multivitamins. Keep the dressing on till he comes to the office next week. Appointment with me in the office in 3 weeks Discharge Attestations Time Spent in Discharge Care*: greater than 30 min Quality Metrics Clinical Quality Measures [ No reported AMI, CVA or VTE this stay] Coding Level of Care Code Acute Code for Chg Fwd Diagnoses S/P placement of cardiac pacemaker Z95.0 HTN (hypertension) I10 Hypertension type: essential hypertension Hyperlipidemia E78.5 Hyperlipidemia type: unspecified Atrial fibrillation I48.91 Atrial fibrillation type: unspecified COPD (chronic obstructive pulmonary disease) J44.9 Diabetes E11.69; Z79.4 Diabetes mellitus type: type 2 Diabetes mellitus [facility] insulin use: with termite treater use Diabetes mellitus complication status: with other specified complication
[2023-03-24 11:16] LABS: Glucose Point of Care 314 mg/dL (70-110)
--- NOTE | 2023-03-24 13:15 | PC.NURSE ---
Discharge Note Patient discharged to [home] via [w/c to POV] accompanied by [family]. Discharge instructions reviewed with patient and/or in home sales representative. Mobile pharmacy medications and/or prescriptions provided. Belongings/home medications returned.
== END 2023-03-24 13:05 | disposition home or self-care (01) | DRG 244 ==
LOC: ER 19:40 → CSU 19:56 → ICU 20:43 → CSU 03-20 14:32
PROVIDERS: Emergency Medicine; Internal Medicine Cardiovascular Disease; Admitting Provider Internal Medicine; Emergency Provider Family Medicine; PCP Nurse Practitioner Family; Visit Provider Internal Medicine
PROC: 0JH606Z Insertion of Pacemaker, Dual Chamber into Chest Subcutaneous Tissue and Fascia, Open Approach (ICD-10-PCS; principal; 2023-03-23 07:00)
DX: R00.1 Bradycardia, unspecified (principal); I44.0 Atrioventricular block, first degree; I10 Essential (primary) hypertension; E78.5 Hyperlipidemia, unspecified; I48.0 Paroxysmal atrial fibrillation; J44.9 Chronic obstructive pulmonary disease, unspecified; E11.9 Type 2 diabetes mellitus without complications; Z79.891 Long term (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 of opiate analgesic; Z79.01 Long term (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 of anticoagulants; E66.01 Morbid (severe) obesity due to excess calories; Z68.39 Body mass index [BMI] 39.0-39.9, adult; G47.33 Obstructive sleep apnea (adult) (pediatric); Z99.89 Dependence on other enabling machines and devices; F17.210 Nicotine dependence, cigarettes, uncomplicated; G89.29 Other chronic pain; M54.50 Low back pain, unspecified; N40.0 Benign prostatic hyperplasia without lower urinary tract symptoms
CPT/HCPCS: 33208; 36415; 36416; 71045; 80048; 80053; 82962; 83735; 83880; 84484; 85025; 85378; 85610; 85730; 93005; 94660; 94664; 96360; 96361; 96365; 96367; 96372; 96376; 97165; 99152; 99153; 99285; A4216; C1769; C1779; C1786; C1894; C1898; J0360; J0461; J1650; J1815; J1885; J2250; J2704; J3010; J3370; J3372; J3490; J7030; J7050; Q9967

== ENCOUNTER → 2023-04-14 09:29 | Outpatient (BNVA) | payer MEDICARE, OTHER, SELFPAY | PROVIDERS: PCP Nurse Practitioner Family; Visit Provider Nurse Practitioner Family | DX: Z95.0 Presence of cardiac pacemaker (principal) | CPT/HCPCS: 93288; 99213 ==

== ENCOUNTER 2023-04-27 06:00 | Outpatient (CLI) | payer MEDICARE, OTHER, SELFPAY | END 2023-04-27 23:59 | disposition home or self-care (01) | LOC: SPT 06-23 15:51 | PROVIDERS: PCP Nurse Practitioner Family; Visit Provider Nurse Practitioner Family | DX: Z46.89 Encounter for fitting and adjustment of other specified devices (principal); Z95.0 Presence of cardiac pacemaker | CPT/HCPCS: L3670 ==

== ENCOUNTER 2023-04-30 00:21 | Emergency (ER) | payer MEDICARE, OTHER, MEDICAID, SELFPAY ==
--- NOTE | 2023-04-30 00:23 | XRR_ITS ---
PROCEDURE INFORMATION: Exam: XR Chest Exam date and time: 04/30/2023 12:44 AM Age: 58 years old Clinical indication: Chest pressure; Prior surgery; Surgery date: 6+ months; Surgery type: Pacer; Patient HX: C/O chest pain; Additional info: Cp, dyspnea TECHNIQUE: Imaging protocol: Radiologic exam of the chest. Views: 1 view. COMPARISON: CR XR chest 1V portable [id number] 03/23/2023 12:00 PM FINDINGS: Tubes, catheters and devices: Left-sided AICD is unchanged. Lungs: Minimal left basilar scarring or subsegmental atelectasis. No consolidation, mass, or pulmonary edema. Pleural spaces: Unremarkable. No pleural effusion. No pneumothorax. Heart/Mediastinum: Cardiomediastinal silhouette is stable. Bones/joints: No acute fracture. Old healed left clavicular fracture. XR/XR chest 1V portable [id number] IMPRESSION: No acute findings.
[2023-04-30 00:38] VITALS: BP 138/86; PULSE 81; RESP 16; O2SAT 96; BMI 37.2
--- NOTE | 2023-04-30 00:49 | ECG_ITS ---
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 Measurements Intervals [place] Rate: 88 P: 0 ND: 0 QRS: -64 QRSD: 161 T: 9 QT: 415 QTc: 505 Interpretive Statements ATRIAL FIBRILLATION WITH ABERRANT CONDUCTION OR VENTRICULAR PREMATURE COMPLEXES INDETERMINATE AXIS RIGHT BUNDLE BRANCH BLOCK LEFT ANTERIOR FASCICULAR BLOCK POSSIBLE SEPTAL MYOCARDIAL INFARCTION , PROBABLY OLD [30 ms Q WAVE IN V1/V2] Compared to ECG 03/24/2023 04:45:27 Ventricular premature complex(es) now present Aberrant conduction of supraventricular beat(s) now present Indeterminate axis now present Right bundle-branch block now present Left anterior fascicular block now present Sinus bradycardia no longer present Electronically Signed On 04-30-2023 7:08:09 CDT by Laura Huizar M.D. [email or web address]
[2023-04-30 01:03] LABS: Basophils # 0.1 10^3/uL (0.0-0.1); Basophils % 0.5 %; Eosinophils # 0.2 10^3/uL (0.0-0.8); Eosinophils % 1.1 %; Hematocrit 43.7 % (37-53); Lymphocytes # 3.9 10^3/uL (0.8-4.8); Lymphocytes % 28.1 %; Mean Corpuscular HGB Conc 30.9 g/dL (30-55); Mean Corpuscular Hemoglobin 25.9 pg (27-33); Mean Corpuscular Volume 83.7 fl (82-101); Mean Platelet Volume 10.4 fL (7.4-10.4); Monocytes # 0.9 10^3/uL (0.2-0.9); Monocytes % 6.1 %; Neutrophils # 8.91 10^3/uL (1.8-7.7); Neutrophils % 63.6 %; Nucleated Red Blood Cells % 0 %; Platelet Count 191 10^3/cmm (157-399); Red Blood Count 5.22 10^6/uL (3.85-5.65); Red Cell Distribution Width 12.6 % (12.1-15.1); White Blood Count 14.01 10^3/uL (3.29-11.43)
--- NOTE | 2023-04-30 01:26 | ED_ITS ---
HPI - Chest Pain General: Chief Complaint: Chest Pain Stated Complaint: Chest Pains Earlier\SOB Time Seen by Provider: 04/30/23 00:24 History of Present Illness: Patient presents to the ER with complaints of my heart was running away for me. And at this time he was having chest pain. Patient states this was earlier today but now is all back to normal. Patient also states he had night sweats for the last 3 nights. Today patient took an extra 12.5 mg of metoprolol and Biaxin took an extra 20 mg of escitalopram. Patient had a pacemaker placed 5 weeks ago and has a history of A-fib and is on anticoagulation of Eliquis. Review of Systems General: Reports: 10 or more systems reviewed and unremarkable except in HPI and below PFSH ED PFSH: Medical History Atrial fibrillation BPH (benign prostatic hyperplasia) Bradycardia Change in bowel habits Chest pain COPD (chronic obstructive pulmonary disease) Diabetes Dizziness Dizziness Gastritis Hernia HTN (hypertension) Hyperlipidemia Near syncope AV block, 2nd degree, 2:1 conduction, resolved w discontinuation of metoprolol underlying bifascicular block Obesity ANGIE on CPAP Pacemaker Sinus pause Symptomatic bradycardia Syncope Tobacco abuse Transient blindness of both eyes Warfarin anticoagulation Surgical History History of cataract surgery S/P placement of cardiac pacemaker Family History Grandmother CAD (coronary artery disease) MATERNAL Mother Diabetes Denies family history of Anesthesia complication Bleeding disorder Social History Smoking and tobacco/nicotine status: current every day tobacco/nicotine user cigarettes Packs smoked per day: 1 Alcohol intake: current Alcohol intake frequency: holidays/special occasions only Substance/Drug Use: never Household members: other Details: Girlfriend Marital status: service: No Current occupational status: disabled Physical Exam Const: COMMON NORMALS: no acute distress, average body habitus, patient oriented x3, no limitations, healthy appearing, alert and well nourished HENMT: COMMON NORMALS: normocephalic, atraumatic, hearing grossly normal bilaterally, external ears normal, Normal external nose present, moist oral mucous membranes and oropharynx normal HEAD & SCALP: normocephalic and atraumatic NOSE: Normal external nose present EXTERNAL EAR: Yes external ears normal Neck/C-Spine: COMMON NORMALS: full ROM, no lymphadenopathy, supple, no meningeal signs, no JVD and Thyroid normal THYROID: Thyroid normal Chest: COMMONS NORMALS: normal palpation of entire chest wall Resp: COMMON NORMALS: normal respiratory effort, No retractions, No use of accessory muscles and clear to auscultation bilaterally AUSCULTATION: clear to auscultation bilaterally Cardio: COMMON NORMALS: no JVD, S1 normal heart sound present, S2 normal heart sound present, No gallops present (Cardio), No clicks present (Cardio), No murmurs present (Cardio) and No rub (Cardio); negative for regular rate ( irregularly irregular rhythm) RATE: abnormal rate ( irregularly irregular rhythm) HEART SOUNDS: S1 normal heart sound present and S2 normal heart sound present GI: COMMON NORMALS: Normal to inspection, nondistended, normoactive bowel sounds present, Soft to palpation, non-tender, No hepatosplenomegaly present and no masses PALPATION: Yes Soft to palpation and Yes No hepatosplenomegaly pr esent : COMMON NORMALS: Yes no CVA tenderness BLADDER/KIDNEY EXAM: Yes no CVA tenderness Back/Pelvis: COMMON NORMALS: no CVA tenderness Neuro: COMMON NORMALS: patient oriented x3 SENSORIUM/ORIENTATION: Yes alert MENINGEAL SIGNS: Yes no meningeal signs Course Vital Signs: Vital signs: Vital Signs Pulse Rate 81 04/30/23 00:38 Respiratory Rate 16 04/30/23 00:38 Blood Pressure 138/86 04/30/23 00:38 Pulse Oximetry 96 04/30/23 00:38 MDM - Chest Pain Medical Decision Making presents to the ER with complaints of my heart running away from a and chest pain. Patient was worked up in a standard cardiac fashion. EKG showed patient was in atrial fibrillation. Lab work was essentially benign other than a sugar of 336. Chest x-ray showed no acute findings. Troponins were 9 and 9.43. patient has not had chest pain during his ER stay. Patient be discharged home to follow-up with his PCP Differential Diagnosis Unlikely acute massive pulmonary embolism, acute respiratory failure, acute myocardial infarction, cardiac arrest or sudden cardiac Medical Records I reviewed the patient's medical records. Lab Data I reviewed the patient's lab results. 04/30/23 00:57 04/30/23 00:57 Radiology Impressions Chest X-Ray 04/30/23 00:23 IMPRESSION: No acute findings. Laboratory Results WBC 14.01 10^3/uL (3.29-11.43) H 04/30/23 00:57 RBC 5.22 10^6/uL (3.85-5.65) 04/30/23 00:57 Hgb 13.50 g/dL (11.27-16.99) 04/30/23 00:57 Hct 43.7 % (37-53) 04/30/23 00:57 MCV 83.7 fl (82-101) 04/30/23 00:57 MCH 25.9 pg (27-33) L 04/30/23 00:57 MCHC 30.9 g/dL (30-55) 04/30/23 00:57 RDW 12.6 % (12.1-15.1) 04/30/23 00:57 Plt Count 191 10^3/cmm (157-399) 04/30/23 00:57 MPV 10.4 fL (7.4-10.4) 04/30/23 00:57 Neut % (Auto) 63.6 % 04/30/23 00:57 Lymph % (Auto) 28.1 % 04/30/23 00:57 [place] % (Auto) 6.1 % 04/30/23 00:57 Eos % (Auto) 1.1 % 04/30/23 00:57 Baso % (Auto) 0.5 % 04/30/23 00:57 Neut # (Auto) 8.91 10^3/uL (1.8-7.7) H 04/30/23 00:57 Lymph # (Auto) 3.9 10^3/uL (0.8-4.8) 04/30/23 00:57 [place] # (Auto) 0.9 10^3/uL (0.2-0.9) 04/30/23 00:57 Eos # (Auto) 0.2 10^3/uL (0.0-0.8) 04/30/23 00:57 Baso # (Auto) 0.1 10^3/uL (0.0-0.1) 04/30/23 00:57 Nucleated RBC % (auto) 0 % 04/30/23 00:57 Nucleated RBCs # 0.0 /100WBC 04/30/23 00:57 Sodium 134 mmol/L (136-145) L 04/30/23 00:57 Potassium 3.8 mmol/L (3.5-5.1) 04/30/23 00:57 Chloride 102 mmol/L (98-107) 04/30/23 00:57 Carbon Dioxide 20 mmol/L (22-29) L 04/30/23 00:57 Anion Gap 15.8 (5-19) 04/30/23 00:57 BUN 17 mg/dL (8-23) 04/30/23 00:57 Creatinine 0.9 mg/dL (0.7-1.2) 04/30/23 00:57 GFR Calculation 86.1 mL/min (90-130) L 04/30/23 00:57 Glucose 336 mg/dL (65-115) H 04/30/23 00:57 Calculated Osmolality 293 mOsm/kg (285-295) 04/30/23 00:57 Calcium 9.0 mg/dL (8.5-10.5) 04/30/23 00:57 Magnesium 2.0 mg/dL (1.7-2.3) 04/30/23 00:57 Total Bilirubin 0.4 mg/dL (0.15-1.2) 04/30/23 00:57 AST 11 U/L (0-40) 04/30/23 00:57 ALT 15 U/L (0-41) 04/30/23 00:57 Alkaline Phosphatase 96 U/L (40-130) 04/30/23 00:57 Troponin T Baseline 9 ng/L (0-15) 04/30/23 00:57 Troponin T 120 Minute 9.43 ng/L (0-15) 04/30/23 02:12 Delta Troponin T 0.43 ABS# (0-10) 04/30/23 02:12 NT-Pro-B Natriuret Pep 199 pg/mL (0-125) H 04/30/23 00:57 Total Protein 6.4 g/dL (6.6-8.7) L 04/30/23 00:57 Albumin 4.3 g/dL (3.5-5.2) 04/30/23 00:57 Globulin 2.1 g/dL (1.3-4.6) 04/30/23 00:57 All radiology interpretation(s) finalized by discharge EKG Data EKG 1: I personally reviewed and interpreted this EKG as follows: EKG interpretation date: 04/30/23 EKG interpretation time: 00:49 Prior EKG tracings: not available for review Interpretation: EKG showed ventricular rate 88 bpm, QRS duration 161, QTc of 461, atrial fibrillation with PVCs, indeterminate axis, right bundle branch block, left anterior fascicular block. EKG 2: I personally reviewed and interpreted this EKG as follows: EKG interpretation date: 04/30/23 EKG interpretation time: 02:28 Prior EKG tracings: available for review Interpretation: EKG showed ventricular rate 73 beats minute, QRS duration 164, QTc of 470, A- fib with PVCs, indeterminate axis,right bundle branch block, Discharge Plan Discharge Patient Disposition: Home Clinical Impression: Atrial fibrillation Qualifiers: Atrial fibrillation type: longstanding persistent Qualified Code(s): I48.11 - Longstanding persistent atrial fibrillation Chest pain Qualifiers: Chest pain type: unspecified Qualified Code(s): R07.9 - Chest pain, unspecified Condition: Stable Prescriptions: No Action (DME) [facility] See Rx Instructions .Route .MEDSUPPLY Qty: 1 0RF Rx Instructions: As directed lubiprostone [Amitiza] 8 mcg capsule 24 mcg PO BID docusate sodium [Dulcolax Stool Softener (dss)] 100 mg capsule 200 mg PO BID PRN (Reason: Constipation) polyethylene glycol 3350 [Miralax] 17 gram/dose powder 17 g PO DAILY PRN (Reason: Constipation) (DME) Night Splint to the Left Foot See Rx Instructions .Route .MEDSUPPLY Qty: 1 0RF Rx Instructions: As directed escitalopram oxalate 20 mg tablet 20 mg PO DAILY tizanidine 4 mg tablet 4 mg PO TID PRN (Reason: Muscle Spasm) magnesium oxide 500 mg capsule 500 mg PO BID Acidophilus Capsule 20,000 mmu cells PO DAILY ICaps AREDS [id number],320-226-200 [id number] capsule 1 cap PO BID atorvastatin 40 mg tablet 40 mg PO DAILY@1000 Qty: 90 3RF irbesartan 300 mg tablet 300 mg PO DAILY Qty: 90 3RF (DME) Above Ankle Diabetic Boots with 3 inserts See Rx Instructions .Route .MEDSUPPLY Qty: 1 0RF Rx Instructions: As directed HOME amlodipine 10 mg tablet 10 mg PO BEDTIME tamsulosin 0.4 mg capsule 0.4 mg PO BID@1000,2200 trazodone 50 mg tablet 50 - 100 mg PO BEDTIME@2200 Ventolin HFA 90 mcg/actuation HFA aerosol inhaler 2 inh INHALATION Q4H PRN (Reason: shortness of breath or wheezing) hydrocodone-acetaminophen 10-325 mg tablet 1 tab PO Q6H PRN (Reason: pain) Rx Instructions: 1-2 tabs every 4-6 hours as needed for pain montelukast 10 mg tablet 10 mg PO DAILY@1000 Januvia 100 mg tablet 100 mg PO DAILY@1000 hydroxyzine HCl 50 mg tablet 50 mg PO BID PRN (Reason: Anxiety) gabapentin 600 mg tablet 600 mg PO TID omeprazole 20 mg capsule,delayed release(DR/EC) 20 mg PO DAILY Rx Instructions: before morning meal Eliquis 5 mg tablet 5 mg PO BID Qty: 60 0RF Hold Instructions: Resume on 05/31/21. fluticasone propionate 50 mcg/actuation spray,suspension 2 spray INTRANASAL DAILY@1000 PRN (Reason: Congestion) triamterene-hydrochlorothiazid 37.5-25 mg tablet 2 tab PO DAILY cetirizine 10 mg Tablet 10 mg PO BEDTIME alprazolam 0.25 mg tablet 0.25 mg PO BID PRN (Reason: Anxiety) furosemide 20 mg tablet 20 mg PO DAILY metoprolol tartrate 25 mg tablet 12.5 mg PO BID 30 Days Qty: 30 5RF Rx Instructions: Hold if heart rate is below 60 Discharge Orders: Discharge ED (Routine); Ordered 04/30/23 Ordered By: Wilmer Wellington Referrals: Kylah Garcia APN [Primary Care Provider] - 1 week Patient Instructions: A-fib (Atrial Fibrillation) (ED), Chest Pain (ED) Activity Restrictions/Additional Instructions: please follow-up with your family practice physician within the next 7 to 10 days for further evaluation and treatment. If your symptoms return please return to the ER for further evaluation. Coding Level of Care Code ED [facility]ger for Kalpesh Aldana
[2023-04-30 01:31] LABS: Troponin(5th) Baseline 9 ng/L (0-15)
[2023-04-30 01:42] LABS: Alanine Aminotransferase 15 U/L (0-41); Albumin Level 4.3 g/dL (3.5-5.2); Alkaline Phosphatase 96 U/L (40-130); Anion Gap 15.8 (5-19); Aspartate Amino Transferase 11 U/L (0-40); Blood Urea Nitrogen 17 mg/dL (8-23); Carbon Dioxide 20 mmol/L (22-29); Chloride 102 mmol/L (98-107); Globulin 2.1 g/dL (1.3-4.6); Glomerular Filtration Rate 86.1 mL/min (90-130); Glucose 336 mg/dL (65-115); NT Pro B Type Natriuretic Pept 199 pg/mL (0-125); Osmolality Calculated 293 mOsm/kg (285-295); Potassium 3.8 mmol/L (3.5-5.1); Sodium 134 mmol/L (136-145); Total Bilirubin 0.4 mg/dL (0.15-1.2); Total Protein 6.4 g/dL (6.6-8.7)
--- NOTE | 2023-04-30 02:23 | ECG_ITS ---
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 Measurements Intervals [place] Rate: 73 P: 0 WI: 0 QRS: -40 QRSD: 164 T: 9 QT: 444 QTc: 490 Interpretive Statements ATRIAL FIBRILLATION WITH ABERRANT CONDUCTION OR VENTRICULAR PREMATURE COMPLEXES INDETERMINATE AXIS and demand V pacing RIGHT BUNDLE BRANCH BLOCK PROBABLE SEPTAL MYOCARDIAL INFARCTION , OF INDETERMINATE AGE [35 ms Q WAVE IN V1/V2] Compared to ECG 04/30/2023 00:49:40 Left anterior fascicular block no longer present Myocardial infarct finding still present Electronically Signed On 04-30-2023 7:10:34 CDT by Laura Huizar M.D. [id number]
[2023-04-30 02:54] LABS: Troponin 5 2HR 9.43 ng/L (0-15); Troponin 5 2HR Delta 0.43 ABS# (0-10)
[2023-04-30 03:18] VITALS: BP 144/89; PULSE 66; RESP 25; O2SAT 93
== END 2023-04-30 03:34 | disposition home or self-care (01) ==
PROVIDERS: Emergency Provider Emergency Medicine; PCP Nurse Practitioner Family
DX: I48.11 Longstanding persistent atrial fibrillation (principal); R07.9 Chest pain, unspecified; Z79.01 Long term (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 of anticoagulants; F17.210 Nicotine dependence, cigarettes, uncomplicated; Z95.0 Presence of cardiac pacemaker; J44.9 Chronic obstructive pulmonary disease, unspecified; E11.9 Type 2 diabetes mellitus without complications; I10 Essential (primary) hypertension; E78.5 Hyperlipidemia, unspecified
CPT/HCPCS: 36415; 71045; 80053; 83735; 83880; 84484; 85025; 93005; 99285

== ENCOUNTER 2023-05-11 13:50 | Outpatient (CLI) | payer MEDICARE, OTHER, MEDICAID, SELFPAY ==
--- NOTE | 2023-05-11 15:16 | XR_ITS ---
WS: [id number] Left femur and thigh, AP and lateral views, 05/11/2023 Clinical Data: L THIGH PAIN Comparison: Left hip, 03/15/2018 Findings: No fractures or dislocations are seen. The soft tissues are normal. The visualized knee shows no abno rmalities. The left hip shows a small acetabular lip. No erosion, sclerosis, narrowing or fragmentation of the l eft femoral head is seen. Impression: Mild osteoarthritis of the left hip.
--- NOTE | 2023-05-11 15:16 | XR_ITS ---
WS: [id number] Right shoulder, 2 views, 05/11/2023 Clinical Data: R ANTERIOR SHOULDER PAIN Comparison: None. Findings: No fractures or dislocations are seen. The AC joint is normal. There is a prominent osteoarthritic sp ur of the lesser tuberosity with irregularity of the glenoid fossa. The adjacent right clavicle, righ t scapula and ribs are normal. The soft tissues are unremarkable. There are cardiac pacemaker wires and epidural stimulator leads overlying the thoracic spine. Impression: Severe osteoarthritis of the right glenohumeral joint.
--- NOTE | 2023-05-11 15:16 | XR_ITS ---
WS: [id number] Cervical spine, 3 views, 05/11/2023 Clinical Data: NECK PAIN Comparison: Cervical spine, 11/10/1999 Findings: No compression fractures are seen. There is degenerative disc narrowing at C5-C6 with promi nent anterior and posterior osteophytes. There is minimal spurring at the C3 and C4 anterior inferior aspects. There is no prevertebral soft tissue swelling. The odontoid is unremarkable. There is calci fication in the region of the left carotid bifurcation. Pacemaker wires are visible in the left subcl kurtis vein. Tissues of the neck and the lung apices are normal. Impression: 1. Osteoarthritis and degenerative disc narrowing at C5-C6. 2. Minimal anterior inferior spurring at C3 and C4.
== END 2023-05-11 13:51 | disposition home or self-care (01) ==
PROVIDERS: PCP Nurse Practitioner Family; Visit Provider Nurse Practitioner Family
DX: M25.511 Pain in right shoulder (principal); M54.2 Cervicalgia; M15.9 Polyosteoarthritis, unspecified; M79.652 Pain in left thigh; M25.78 Osteophyte, vertebrae; Z95.0 Presence of cardiac pacemaker
CPT/HCPCS: 72040; 73030; 73552

== ENCOUNTER → 2023-05-19 13:51 | Outpatient (BNVA) | payer MEDICARE, OTHER, MEDICAID, SELFPAY | PROVIDERS: PCP Nurse Practitioner Family; Visit Provider Podiatrist Foot & Ankle Surgery | DX: M92.511 Juvenile osteochondrosis of proximal tibia, right leg; M89.8X9 Other specified disorders of bone, unspecified site; E11.42 Type 2 diabetes mellitus with diabetic polyneuropathy; M21.6X1 Other acquired deformities of right foot; M19.171 Post-traumatic osteoarthritis, right ankle and foot; M67.471 Ganglion, right ankle and foot | CPT/HCPCS: 73630; 99213 ==

== ENCOUNTER 2023-05-23 20:52 | Emergency (ER) | payer MEDICARE, OTHER, MEDICAID, SELFPAY ==
--- NOTE | 2023-05-23 21:03 | ECG_ITS ---
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 Measurements Intervals [place] Rate: 89 P: 0 SC: 0 QRS: -75 QRSD: 164 T: 21 QT: 419 QTc: 510 Interpretive Statements ATRIAL FIBRILLATION RIGHT BUNDLE BRANCH BLOCK [120+ ms QRS DURATION, UPRIGHT V1, 40+ ms S IN I/aVL/V4/V5/V6] LEFT ANTERIOR FASCICULAR BLOCK [QRS AXIS <= -45, QR IN I, RS IN II] Compared to ECG 04/30/2023 02:28:16 Left anterior fascicular block now present Ventricular premature complex(es) no longer present Aberrant conduction of supraventricular beat(s) no longer present Indeterminate axis no longer present Myocardial infarct finding no longer present Electronically Signed On 05-23-2023 22:13:33 ESTHETICIAN SPA by Vicki Villarreal M.D. [id number]
[2023-05-23 21:06] VITALS: BP 153/99; PULSE 85; RESP 14; TEMP 36.8; O2SAT 94; BMI 38.5
--- NOTE | 2023-05-23 21:25 | XRR_ITS ---
PROCEDURE INFORMATION: Exam: XR Chest Exam date and time: 05/23/2023 9:33 PM Age: 58 years old Clinical indication: Prior surgery; Surgery date: 6+ months; Patient HX: Palpitations; Afib; Pacemaker TECHNIQUE: Imaging protocol: Radiologic exam of the chest. Views: 1 view. COMPARISON: CR (CHEST, ) 04/30/2023 12:44 AM FINDINGS: Tubes, catheters and devices: Left cardiac pacer device. Lungs: Linear subsegmental atelectasis/scarring in the left lung base, unchanged. No consolidation. Pleural spaces: No large pleural effusion. No pneumothorax. Heart/Mediastinum: Unremarkable cardiomediastinal silhouette. Bones/joints: No acute abnormality. Old left clavicular fracture. XR/XR chest 1V portable [id number] IMPRESSION: No acute findings.
[2023-05-23 21:38] VITALS: BP 148/107; PULSE 106; RESP 16; O2SAT 95
[2023-05-23 21:39] LABS: Basophils # 0.1 10^3/uL (0.0-0.1); Basophils % 0.6 %; Eosinophils # 0.4 10^3/uL (0.0-0.8); Lymphocytes # 2.2 10^3/uL (0.8-4.8); Lymphocytes % 22.7 %; Mean Corpuscular Hemoglobin 24.7 pg (27-33); Mean Corpuscular Volume 79.7 fl (82-101); Monocytes # 0.7 10^3/uL (0.2-0.9); Monocytes % 6.8 %; Neutrophils # 6.24 10^3/uL (1.8-7.7); Neutrophils % 65.7 %; Nucleated Red Blood Cells % 0 %; Platelet Count 224 10^3/cmm (157-399); Red Blood Count 5.27 10^6/uL (3.85-5.65); Red Cell Distribution Width 12.9 % (12.1-15.1); White Blood Count 9.51 10^3/uL (3.29-11.43)
[2023-05-23 21:52] LABS: INR 1.01 (0.8-1.2); Partial Thromboplastin Time 33.2 SECONDS (23.9-36.7)
[2023-05-23 21:57] LABS: Troponin(5th) Baseline 10 ng/L (0-15)
[2023-05-23 22:05] LABS: Alanine Aminotransferase 12 U/L (0-41); Albumin Level 4.2 g/dL (3.5-5.2); Alkaline Phosphatase 129 U/L (40-130); Aspartate Amino Transferase 12 U/L (0-40); Blood Urea Nitrogen 13 mg/dL (8-23); Calcium 9.4 mg/dL (8.5-10.5); Carbon Dioxide 24 mmol/L (22-29); Chloride 101 mmol/L (98-107); Globulin 2.5 g/dL (1.3-4.6); Glomerular Filtration Rate 76.2 mL/min (90-130); Glucose 257 mg/dL (65-115); NT Pro B Type Natriuretic Pept 127 pg/mL (0-125); Osmolality Calculated 289 mOsm/kg (285-295); Sodium 135 mmol/L (136-145); Total Bilirubin 0.2 mg/dL (0.15-1.2); Total Protein 6.7 g/dL (6.6-8.7)
--- NOTE | 2023-05-23 22:23 | W.ED.ARRPALP ---
HPI - Arrhythmia/Palpitations General: Chief Complaint: Arrhythmia/Palpitations Stated Complaint: possible afib Time Seen by Provider: 05/23/23 21:14 History of Present Illness: 58-year-old male with a history of atrial fibrillation. He had a pacemaker placed 2 months ago. He presents with an irregular heartbeat. He had some chest pressure earlier in the evening. He notes that he may have felt his pacemaker firing earlier as well. He is mildly short of breath. He had a mild nonproductive cough. No fever. Associated symptoms: Deny nausea or vomiting Review of Systems Const: Denies: fever(s) Eyes: Denies: change in vision ENMT: Denies: throat pain Card: Reports: chest pain, palpitations and irregular heart rhythm; Denies: edema Resp: Reports: dyspnea and non-productive cough; Denies: productive cough or wheezing GI: Denies: abdominal pain, nausea or vomiting Musc: Denies: neck pain PFSH ED PFSH: Medical History Atrial fibrillation BPH (benign prostatic hyperplasia) Bradycardia Change in bowel habits Chest pain COPD (chronic obstructive pulmonary disease) Diabetes Dizziness Dizziness Gastritis Hernia HTN (hypertension) Hyperlipidemia Near syncope AV block, 2nd degree, 2:1 conduction, resolved w discontinuation of metoprolol underlying bifascicular block Obesity ANGIE on CPAP Pacemaker Sinus pause Symptomatic bradycardia Syncope Tobacco abuse Transient blindness of both eyes Warfarin anticoagulation Surgical History History of cataract surgery S/P placement of cardiac pacemaker Family History Grandmother CAD (coronary artery disease) MATERNAL Mother Diabetes Denies family history of Anesthesia complication Bleeding disorder Social History Smoking and tobacco/nicotine status: current every day tobacco/nicotine user cigarettes Packs smoked per day: 1 Alcohol intake: current Alcohol intake frequency: holidays/special occasions only Substance/Drug Use: never Household members: other Details: Girlfriend Marital status: service: No Current occupational status: disabled Physical Exam Const: COMMON NORMALS: no acute distress GENERAL APPEARANCE: cooperative; not ill appearing and not frail appearing HENMT: COMMON NORMALS: normocephalic, atraumatic and Normal external nose present HEAD & SCALP: normocephalic and atraumatic FACE & SINUS: normal facial exam and face symmetric NOSE: Normal external nose present Eye: COMMON NORMALS: Equal, round and reactive pupils present and EOMs intact bilaterally PUPIL: Yes Equal, round and reactive pupils present Neck/C-Spine: GENERAL: Yes trachea midline Chest: CHEST: Yes Symmetrical chest wall rise Resp: COMMON NORMALS: normal respiratory effort, No retractions, No use of accessory muscles and clear to auscultation bilaterally AUSCULTATION: clear to auscultation bilaterally Cardio: COMMON NORMALS: regular rate RATE: regular rate RHYTHM: abnormal rhythm irregularly irregular GI: COMMON NORMALS: Normal to inspection, nondistended, normoactive bowel sounds present Extremity: COMMON NORMALS: no pedal edema Neuro: BARNEY COMA SCALE: document GCS findings [place] coma scale eye opening: Spontaneous [place] coma scale verbal response: Orientated [place] coma scale motor response: Obey commands [place] coma scale total score: 15 SENSORY EXAM: Yes extremities (intact) Psych: COMMON NORMALS: speech normal SPEECH: Yes normal speech Skin: COMMON NORMALS: no rashes or lesions noted GENERAL SKIN EXAM: no rashes or lesions noted Course Vital Signs: Vital signs: Vital Signs Temperature 98.3 F 05/23/23 21:06 Pulse Rate 74 05/24/23 00:16 Respiratory Rate 14 05/24/23 00:16 Blood Pressure 127/93 05/24/23 00:16 Pulse Oximetry 96 05/24/23 00:16 Oxygen Delivery Me thod Room Air 05/23/23 23:30 MDM - Arrhythmia/Palpitations Medical Decision Making Patient remains in atrial fibrillation on the monitor. He has infrequent pacer spikes. Blood pressure is now 140s over 90s. Heart rate is 70. Saturations are normal on room air. CBC is normal. BMP shows elevated blood sugar of 257. Chest is nonacute. Delta troponin is -1.7. BNP is 127. He is asymptomatic currently. He will be allowed discharge home. Lab Data 05/23/23 21:30 05/23/23 21:30 Radiology Impressions Chest X-Ray 05/23/23 21:25 IMPRESSION: No acute findings. Laboratory Results WBC 9.51 10^3/uL (3.29-11.43) 05/23/23 21:30 RBC 5.27 10^6/uL (3.85-5.65) 05/23/23: Hgb 13.00 g/dL (11.27-16.99) 05/23/23: Hct 42.0 % (37-53) 05/23/23: MCV 79.7 fl (82-101) L 05/23/23: MCH 24.7 pg (27-33) L 05/23/23: MCHC 31.0 g/dL (30-55) 05/23/23: RDW 12.9 % (12.1-15.1) 05/23/23: Plt Count 224 10^3/cmm (157-399) 05/23/23: MPV 10.0 fL (7.4-10.4) 05/23/23: Neut % (Auto) 65.7 % 05/23/23: Lymph % (Auto) 22.7 % 05/23/23: Frio % (Auto) 6.8 % 05/23/23: Eos % (Auto) 4.0 % 05/23/23: Baso % (Auto) 0.6 % 05/23/23: Neut # (Auto) 6.24 10^3/uL (1.8-7.7) 05/23/23: Lymph # (Auto) 2.2 10^3/uL (0.8-4.8) 05/23/23: Frio # (Auto) 0.7 10^3/uL (0.2-0.9) 05/23/23: Eos # (Auto) 0.4 10^3/uL (0.0-0.8) 05/23/23: Baso # (Auto) 0.1 10^3/uL (0.0-0.1) 05/23/23: Nucleated RBC % (auto) 0 % 05/23/23: Nucleated RBCs # 0.0 /100WBC 05/23/23: PT 13.60 SECONDS (12.1-14.9) 05/23/23: INR 1.01 (0.8-1.2) 05/23/23 21:30 APTT 33.2 SECONDS (23.9-36.7) 05/23/23 21:30 Sodium 135 mmol/L (136-145) L 05/23/23 21:30 Potassium 4.0 mmol/L (3.5-5.1) 05/23/23 21:30 Chloride 101 mmol/L (98-107) 05/23/23 21:30 Carbon Dioxide 24 mmol/L (22-29) 05/23/23 21:30 Anion Gap 14.0 (5-19) 05/23/23 21:30 BUN 13 mg/dL (8-23) 05/23/23 21:30 Creatinine 1.0 mg/dL (0.7-1.2) 05/23/23 21:30 GFR Calculation 76.2 mL/min (90-130) L 05/23/23 21:30 Glucose 257 mg/dL (65-115) H 05/23/23 21:30 Calculated Osmolality 289 mOsm/kg (285-295) 05/23/23 21:30 Calcium 9.4 mg/dL (8.5-10.5) 05/23/23 21:30 Magnesium 2.0 mg/dL (1.7-2.3) 05/23/23 21:30 Total Bilirubin 0.2 mg/dL (0.15-1.2) 05/23/23 21:30 AST 12 U/L (0-40) 05/23/23 21:30 ALT 12 U/L (0-41) 05/23/23 21:30 Alkaline Phosphatase 129 U/L (40-130) 05/23/23 21:30 Troponin T Baseline 10 ng/L (0-15) 05/23/23 21:30 Troponin T 120 Minute 8.27 ng/L (0-15) 05/23/23 23:08 Delta Troponin T -1.73 ABS# (0-10) L 05/23/23 23:08 NT-Pro-B Natriuret Pep 127 pg/mL (0-125) H 05/23/23 21:30 Total Protein 6.7 g/dL (6.6-8.7) 05/23/23 21:30 Albumin 4.2 g/dL (3.5-5.2) 05/23/23 21:30 Globulin 2.5 g/dL (1.3-4.6) 05/23/23 21:30 All radiology interpretation(s) finalized by discharge Discharge Plan Discharge Patient Disposition: Home Clinical Impression: Atrial fibrillation, Chest pain Condition: Stable Prescriptions: No Action (DME) Bilateral [place] Articulating AFO's See Rx Instructions .Route .MEDSUPPLY Qty: 1 0RF Rx Instructions: As directed lubiprostone [Amitiza] 8 mcg capsule 24 mcg PO BID docusate sodium [Dulcolax Stool Softener (dss)] 100 mg capsule 200 mg PO BID PRN (Reason: Constipation) polyethylene glycol 3350 [Miralax] 17 gram/dose powder 17 g PO DAILY PRN (Reason: Constipation) (DME) Night Splint to the Left Foot See Rx Instructions .Route .MEDSUPPLY Qty: 1 0RF Rx Instructions: As directed escitalopram oxalate 20 mg tablet 20 mg PO DAILY tizanidine 4 mg tablet 4 mg PO TID PRN (Reason: Muscle Spasm) magnesium oxide 500 mg capsule 500 mg PO BID Acidophilus Capsule 20,000 mmu cells PO DAILY ICaps AREDS 14,320-226-200 ckuk-vi-rold capsule 1 cap PO BID atorvastatin 40 mg tablet 40 mg PO DAILY@1000 Qty: 90 3RF irbesartan 300 mg tablet 300 mg PO DAILY Qty: 90 3RF (DME) Above Ankle Diabetic Boots with 3 inserts See Rx Instructions .Route .MEDSUPPLY Qty: 1 0RF Rx Instructions: As directed HOME amlodipine 10 mg tablet 10 mg PO BEDTIME tamsulosin 0.4 mg capsule 0.4 mg PO BID@1000,2200 trazodone 50 mg tablet 50 - 100 mg PO BEDTIME@2200 Ventolin HFA 90 mcg/actuation HFA aerosol inhaler 2 inh INHALATION Q4H PRN (Reason: shortness of breath or wheezing) hydrocodone-acetaminophen 10-325 mg tablet 1 tab PO Q6H PRN (Reason: pain) Rx Instructions: 1-2 tabs every 4-6 hours as needed for pain montelukast 10 mg tablet 10 mg PO DAILY@1000 Januvia 100 mg tablet 100 mg PO DAILY@1000 hydroxyzine HCl 50 mg tablet 50 mg PO BID PRN (Reason: Anxiety) gabapentin 600 mg tablet 600 mg PO TID omeprazole 20 mg capsule,delayed release(DR/EC) 20 mg PO DAILY Rx Instructions: before morning meal Eliquis 5 mg tablet 5 mg PO BID Qty: 60 0RF Hold Instructions: Resume on 05/31/21. fluticasone propionate 50 mcg/actuation spray,suspension 2 spray INTRANASAL DAILY@1000 PRN (Reason: Congestion) triamterene-hydrochlorothiazid 37.5-25 mg tablet 2 tab PO DAILY cetirizine 10 mg Tablet 10 mg PO BEDTIME alprazolam 0.25 mg tablet 0.25 mg PO BID PRN (Reason: Anxiety) furosemide 20 mg tablet 20 mg PO DAILY metoprolol tartrate 25 mg tablet 12.5 mg PO BID 30 Days Qty: 30 5RF Rx Instructions: Hold if heart rate is below 60 Discharge Orders: Discharge ED (Routine); Ordered 05/24/23 Ordered By: Johnathan Tong Referrals: Garcia,Kylah ENVIRONMENTAL HEALTH SAFETY ENGINEER [Primary Care Provider] - Patient Instructions: A-fib (Atrial Fibrillation) (ED), Chest Pain (ED), Opioid Safety, Pain Management Activity Restrictions/Additional Instructions: Take your nightly medications when you get home. Return for worsening pain, shortness of breath, fever, other new or concerning symptoms. Call your doctor this week, they may wish to see you in follow-up. Coding Level of Care Code ED Senior Compliance Analyst for Kalpesh Aldana
--- NOTE | 2023-05-23 23:25 | ECG_ITS ---
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 Measurements Intervals [place] Rate: 75 P: -17 PA: 305 QRS: 200 QRSD: 165 T: 203 QT: 414 QTc: 465 Interpretive Statements Possibly atrial fibrillation with a controlled ventricular response rate INDETERMINATE AXIS RIGHT BUNDLE BRANCH BLOCK [120+ ms QRS DURATION, UPRIGHT V1, 40+ ms S IN I/aVL/V4/V5/V6] Limb lead reversal-1 and aVL Compared to ECG 05/23/2023 21:03:42 Indeterminate axis now present Left anterior fascicular block no longer present Defective EKG, need to repeat Electronically Signed On 05-24-2023 19:07:51 POST ANESTHESIA CARE UNIT NURSE by Vicki Villarreal M.D. [id number]
[2023-05-23] MEDS: metoprolol tartrate 1 mg/1 mL SDV 5 mL 2.5 MG IVP (23:27)
[2023-05-23 23:30] VITALS: BP 119/91; PULSE 70; RESP 16; O2SAT 95
[2023-05-23 23:41] LABS: Troponin 5 2HR 8.27 ng/L (0-15); Troponin 5 2HR Delta -1.73 ABS# (0-10)
[2023-05-24 00:16] VITALS: BP 127/93; PULSE 74; RESP 14; O2SAT 96
== END 2023-05-24 00:13 | disposition home or self-care (01) ==
PROVIDERS: Emergency Provider Emergency Medicine; PCP Nurse Practitioner Family
DX: I48.91 Unspecified atrial fibrillation (principal); R07.89 Other chest pain; Z79.01 Long term (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 of anticoagulants; F17.210 Nicotine dependence, cigarettes, uncomplicated; J44.9 Chronic obstructive pulmonary disease, unspecified; E11.9 Type 2 diabetes mellitus without complications; I10 Essential (primary) hypertension; E78.5 Hyperlipidemia, unspecified; Z95.0 Presence of cardiac pacemaker
CPT/HCPCS: 36415; 71045; 80053; 83735; 83880; 84484; 85025; 85610; 85730; 93005; 96374; 99285; J3490

== ENCOUNTER → 2023-06-14 11:30 | Outpatient (BNVA) | payer MEDICARE, OTHER, MEDICAID, SELFPAY | PROVIDERS: PCP Nurse Practitioner Family; Visit Provider Internal Medicine Cardiovascular Disease | DX: Z95.0 Presence of cardiac pacemaker (principal); Z79.01 Long term (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 of anticoagulants; F17.210 Nicotine dependence, cigarettes, uncomplicated | CPT/HCPCS: 99214 ==

== ENCOUNTER → 2023-06-23 15:38 | Outpatient (BNVA) | payer MEDICARE, OTHER, SELFPAY | PROVIDERS: PCP Nurse Practitioner Family; Referring Provider Nurse Practitioner Family; Visit Provider Specialist | DX: M19.011 Primary osteoarthritis, right shoulder | CPT/HCPCS: 73030; 99204 ==

== ENCOUNTER 2023-07-20 15:52 | Outpatient (CLI) | payer MEDICARE, OTHER, SELFPAY ==
--- NOTE | 2023-07-20 16:05 | CT_ITS ---
WS: [id number] CT NECK WITH CONTRAST HISTORY: LOCALIZED ENLARGEDLYMPH NODES, OTALGIA, LEFT EAR, PAIN IN jaw. Left-sided swelling. TECHNIQUE: Contiguous 2 mm axial images are performed through the neck with intravenous contrast. Sag ittal and coronal reformats are also submitted. All CT scans at [facility] use at least one o f these dose optimization techniques: automated exposure control; mA and/or kV adjustment per patient size (includes targeted exams where dose is matched to clinical indication); or iterative reconstruc tion. CONTRAST: CONTRAST: Omnipaque 350; 100 mL IV. DLP: 274.82 mGy.cm COMPARISON: 10/02/2020 Slight asymmetry of the larynx near the vallecula and epiglottis. Slightly more prominent soft tissue on the LEFT. Pyriform sinus on the LEFT is smaller than the RIGHT. There is no an abnormal enhanceme nt or mass. The tongue base appears normal. Torus tubarius and fossa of Rosenmuller and parapharyngeal fat are normal. No significant lymphadenopathy is identified. Thyroid gland and salivary glands are normally enhancing with no masses. Moderate spondylitic changes in the mid cervical spine. Visualized portions of the skull base demonstrate no abnormalities. Orbits and globes are within norm al limits. No soft tissue masses. Visualized paranasal sinuses and mastoid air cells are normal. Emphysematous changes at the apices. LEFT subclavian dual-lead pacer. IMPRESSION: 1. No cervical chain lymphadenopathy identified. 2. Very mild soft tissue asymmetry at the level of the LEFT piriform sinus and vallecula. There is sl ightly increased soft tissue in the LEFT with a small pyriform sinus. No area of abnormal enhancement . Consider direct visualization.
[2023-07-20 16:30] LABS: Blood Urea Nitrogen 10 mg/dL (8-23); Glomerular Filtration Rate 98.6 mL/min (90-130)
[2023-07-20] MEDS: iohexol 350 mg/mL 500 mL Btl (per mL) IV (16:40)
== END 2023-07-20 15:53 | disposition home or self-care (01) ==
LOC: RAD 15:52
PROVIDERS: Radiology Neuroradiology; PCP Nurse Practitioner Family; Visit Provider Otolaryngology
DX: R59.0 Localized enlarged lymph nodes (principal); H92.02 Otalgia, left ear; R68.84 Jaw pain
CPT/HCPCS: 70491; 82565; 84520; Q9967

== ENCOUNTER 2023-08-20 12:00 | Outpatient (CLI) | payer MEDICARE, OTHER, SELFPAY ==
--- NOTE | 2023-08-20 12:11 | XR_ITS ---
WS: [id number] Lumbar spine, 3 views, 08/20/2023 Clinical Data: SPINAL STENOSIS Comparison: None. Findings: No subluxation is seen. There is loss of vertebral body height at L2 and L3 which may represent old compression fractures. There is degenerative disc narrowing at all lumbar levels. There our abundant osteophytes at all lumbar levels. The transverse processes and SI joints are normal. There is a gene rator in the posterior left back with leads ascending toward the epidural thoracic space. Impression: Multilevel degenerative arthritis with disc narrowing along with loss of vertebral body height of L2 and L3.
== END 2023-08-20 12:01 | disposition home or self-care (01) ==
LOC: RAD 12:05
PROVIDERS: PCP Nurse Practitioner Family; Visit Provider Anesthesiology Pain Medicine
DX: M48.061 Spinal stenosis, lumbar region without neurogenic claudication (principal); M47.816 Spondylosis without myelopathy or radiculopathy, lumbar region; M51.36 Other intervertebral disc degeneration, lumbar region
CPT/HCPCS: 72100

== ENCOUNTER 2023-09-11 18:56 | Emergency (ER) | payer MEDICARE, OTHER, MEDICAID, SELFPAY ==
--- NOTE | 2023-09-11 18:57 | ECG_ITS ---
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 Measurements Intervals [place] Rate: 82 P: 136 WV: 207 QRS: 261 QRSD: 166 T: 18 QT: 422 QTc: 493 Interpretive Statements ELECTRONIC ATRIAL PACEMAKER RIGHT AXIS DEVIATION [QRS AXIS > 100] RIGHT BUNDLE BRANCH BLOCK [120+ ms QRS DURATION, UPRIGHT V1, 40+ ms S IN I/aVL/V4/V5/V6] PROBABLE SEPTAL MYOCARDIAL INFARCTION , PROBABLY OLD [35 ms Q WAVE IN V1/V2] Compared to ECG 05/23/2023 23:22:18 Right-axis deviation now present Myocardial infarct finding now present Atrial fibrillation no longer present Indeterminate axis no longer present Electronically Signed On 09-12-2023 10:24:00 CDT by Daniel Rodriguez M.D. [id number]
[2023-09-11 19:03] VITALS: BP 149/88; PULSE 78; RESP 20; TEMP 36.3; O2SAT 94
--- NOTE | 2023-09-11 19:07 | XRR_ITS ---
PROCEDURE INFORMATION: Exam: XR Chest Exam date and time: 09/11/2023 7:56 PM Age: 58 years old Clinical indication: Chest pressure; Prior surgery; Surgery date: 6+ months; Surgery type: Pacer. Spinal stimulator. Patient HX: C/O chest pain; Additional info: Cp TECHNIQUE: Imaging protocol: Radiologic exam of the chest. Views: 1 view. COMPARISON: CR XR chest 1V portable [id number] 05/23/2023 9:33 PM FINDINGS: Tubes, catheters and devices: Left-sided cardiac pacemaker device redemonstrated. Spinal stimulator device redemonstrated. Lungs: Scarring versus atelectatic changes in the left lung base. Pleural spaces: Small right sided pleural effusion. Heart/Mediastinum: Unremarkable. No cardiomegaly. Bones/joints: Old healed fracture deformity of the medial aspect of the left clavicle. XR/XR chest 1V portable [id number] IMPRESSION: 1. Scarring versus atelectasis in the left lung base. 2. Small right-sided pleural effusion. 3. No focal consolidation.
--- NOTE | 2023-09-11 19:59 | ED_ITS ---
HPI - Chest Pain 2 General: Chief Complaint: Chest Pain Stated Complaint: CP Time Seen by Provider: 09/11/23 19:29 Source: patient Mode of arrival: ambulatory Limitations: no limitations History of Present Illness: 58-year-old male who states he has been having some right-sided chest pain over the last 2 days he states intermittent in nature states he felt like he has a grabbing pain had some intermittent dyspnea with that as well he denies any nausea he states pain is currently 2 out of 10 denies any worsening improving factors he denies any cough or fever. Associated symptoms: Deny abdominal pain, dyspnea, fever(s), nausea or vomiting Review of Systems 2 Const: Denies: fever(s), chills, body aches or change in appetite ENMT: Denies: throat pain or dental pain Card: Denies: chest pain Resp: Denies: dyspnea GI: Denies: abdominal pain, nausea, vomiting or diarrhea Musc: Denies: neck pain or back pain Skin/Breast: Denies: rash Neuro: Denies: headache(s) PFSH ED 2 PFSH: Medical History HTN (hypertension) Atrial fibrillation Obesity Tobacco abuse COPD (chronic obstructive pulmonary disease) Diabetes Hyperlipidemia ANGIE on CPAP Pacemaker Symptomatic bradycardia Dizziness Chest pain Bradycardia Warfarin anticoagulation Dizziness Gastritis Sinus pause Near syncope AV block, 2nd degree, 2:1 conduction, resolved w discontinuation of metoprolol underlying bifascicular block BPH (benign prostatic hyperplasia) Hernia Change in bowel habits Syncope Transient blindness of both eyes Surgical History S/P placement of cardiac pacemaker History of cataract surgery Family History Grandmother CAD (coronary artery disease) MATERNAL Mother Diabetes Denies family history of Anesthesia complication Bleeding disorder Social History Smoking and tobacco/nicotine status: current every day tobacco/nicotine user cigarettes Packs smoked per day: 1 Alcohol intake: current Alcohol intake frequency: holidays/special occasions only Substance/Drug Use: never Household members: other Details: Girlfriend Marital status: service: No Current occupational status: disabled Physical Exam 2 Const: COMMON NORMALS: no acute distress, patient oriented x3 and healthy appearing HENMT: COMMON NORMALS: normocephalic and atraumatic HEAD & SCALP: n ormocephalic and atraumatic Neck/C-Spine: COMMON NORMALS: full ROM and supple Chest: COMMONS NORMALS: normal inspection of the chest and normal palpation of entire chest wall Resp: COMMON NORMALS: normal respiratory effort, No retractions, No use of accessory muscles and clear to auscultation bilaterally AUSCULTATION: clear to auscultation bilaterally Cardio: COMMON NORMALS: regular rate, regular rhythm and No murmurs present (Cardio) RATE: regular rate RHYTHM: regular rhythm GI: COMMON NORMALS: Normal to inspection, nondistended, normoactive bowel sounds present, Soft to palpation, non-tender and no masses PALPATION: Yes Soft to palpation Extremity: COMMON NORMALS: normal to inspection and full ROM Neuro: COMMON NORMALS: patient oriented x3, moves all extremities and no focal motor deficits Psych: COMMON NORMALS: mental status grossly normal, Normal thought process present and cooperative THOUGHT PROCESS: Normal thought process present Skin: COMMON NORMALS: no rashes or lesions noted and no wounds GENERAL SKIN EXAM: no rashes or lesions noted Course 2 Vital Signs: Vital signs: Vital Signs Temperature 97.4 F L 09/11/23 19:03 Pulse Rate 78 09/11/23 19:03 Respiratory Rate 20 H 09/11/23 19:03 Blood Pressure 149/88 09/11/23 19:03 Pulse Oximetry 94 09/11/23 19:03 Oxygen Delivery Me thod Room Air 09/11/23 19:03 MDM - Chest Pain Medical Decision Making Patient presents here with chest pains atypical in nature it is more in his right shoulder he had issues with that shoulder as well as likely muscular his initial repeat troponin here is negative D-dimer is negative as well he stable for discharge she is follow-up with PCP and return if worsening. Medical Records I reviewed the patient's medical records. Lab Data I reviewed the patient's lab results. 09/11/23 20:05 09/11/23 20:05 Radiology Impressions Chest X-Ray 09/11/23 19:07 IMPRESSION: 1. Scarring versus atelectasis in the left lung base. 2. Small right-sided pleural effusion. 3. No focal consolidation. Laboratory Results WBC 10.53 10^3/uL (3.29-11.43) 09/11/23 20:05 RBC 5.15 10^6/uL (3.85-5.65) 09/11/23 20:05 Hgb 12.10 g/dL (11.27-16.99) 09/11/23 20:05 Hct 39.8 % (37-53) 09/11/23 20:05 MCV 77.3 fl (82-101) L 09/11/23 20:05 MCH 23.5 pg (27-33) L 09/11/23 20:05 MCHC 30.4 g/dL (30-55) 09/11/23 20:05 RDW 14.6 % (12.1-15.1) 09/11/23 20:05 Plt Count 183 10^3/cmm (157-399) 09/11/23 20:05 MPV 10.7 fL (7.4-10.4) H 09/11/23 20:05 Neut % (Auto) 71.9 % 09/11/23 20:05 Lymph % (Auto) 20.8 % 09/11/23 20:05 [place] % (Auto) 5.4 % 09/11/23 20:05 Eos % (Auto) 0.9 % 09/11/23 20:05 Baso % (Auto) 0.6 % 09/11/23 20:05 Neut # (Auto) 7.58 10^3/uL (1.8-7.7) 09/11/23 20:05 Lymph # (Auto) 2.2 10^3/uL (0.8-4.8) 09/11/23 20:05 [place] # (Auto) 0.6 10^3/uL (0.2-0.9) 09/11/23 20:05 Eos # (Auto) 0.1 10^3/uL (0.0-0.8) 09/11/23 20:05 Baso # (Auto) 0.1 10^3/uL (0.0-0.1) 09/11/23 20:05 Nucleated RBC % (auto) 0 % 09/11/23 20:05 Nucleated RBCs # 0.0 /100WBC 09/11/23 20:05 PT 15.00 SECONDS (12.1-14.9) H 09/11/23 20:05 INR 1.14 (0.8-1.2) 09/11/23 20:05 D-Dimer <= 0.27 ug/mLFEU (0-0.59) 09/11/23 20:05 Sodium 134 mmol/L (136-145) L 09/11/23 20:05 Potassium 3.8 mmol/L (3.5-5.1) 09/11/23 20:05 Chloride 98 mmol/L (98-107) 09/11/23 20:05 Carbon Dioxide 25 mmol/L (22-29) 09/11/23 20:05 Anion Gap 14.8 (5-19) 09/11/23 20:05 BUN 11 mg/dL (8-23) 09/11/23 20:05 Creatinine 0.8 mg/dL (0.7-1.2) 09/11/23 20:05 GFR Calculation 98.6 mL/min (90-130) 09/11/23 20:05 Glucose 163 mg/dL (65-115) H 09/11/23 20:05 Calculated Osmolality 281 mOsm/kg (285-295) L 09/11/23 20:05 Calcium 9.2 mg/dL (8.5-10.5) 09/11/23 20:05 Total Bilirubin 0.3 mg/dL (0.15-1.2) 09/11/23 20:05 AST 14 U/L (0-40) 09/11/23 20:05 ALT 12 U/L (0-41) 09/11/23 20:05 Alkaline Phosphatase 87 U/L (40-130) 09/11/23 20:05 Troponin T Baseline 11 ng/L (0-15) 09/11/23 20:05 Troponin T 120 Minute 9.54 ng/L (0-15) 09/11/23 22:13 Delta Troponin T -1.46 ABS# (0-10) L 09/11/23 22:13 Total Protein 6.6 g/dL (6.6-8.7) 09/11/23 20:05 Albumin 4.3 g/dL (3.5-5.2) 09/11/23 20:05 Globulin 2.3 g/dL (1.3-4.6) 09/11/23 20:05 Lipase 27 U/L (13-60) 09/11/23 20:05 All radiology interpretation(s) finalized by discharge EKG Data EKG 1: I personally reviewed and interpreted this EKG as follows: EKG interpretation date: 09/11/23 EKG interpretation time: 18:57 Interpretation: paced hr [address] or t wave abnoramliies qrs 166 qtc 460 Discharge Plan Discharge Patient Disposition: Home Clinical Impression: Chest pain Condition: Stable Prescriptions: No Action (DME) Bilateral [place] Articulating AFO's See Rx Instructions .Route .MEDSUPPLY Qty: 1 0RF Rx Instructions: As directed lubiprostone [Amitiza] 8 mcg capsule 24 mcg PO BID docusate sodium [Dulcolax Stool Softener (dss)] 100 mg capsule 200 mg PO BID PRN (Reason: Constipation) polyethylene glycol 3350 [Miralax] 17 gram/dose powder 17 g PO DAILY PRN (Reason: Constipation) (DME) Night Splint to the Left Foot See Rx Instructions .Route .MEDSUPPLY Qty: 1 0RF Rx Instructions: As directed escitalopram oxalate 20 mg tablet 20 mg PO DAILY tizanidine 4 mg tablet 4 mg PO TID PRN (Reason: Muscle Spasm) Acidophilus Capsule 20,000 mmu cells PO DAILY ICaps AREDS 14,320-226-200 xovs-lr-bela capsule 1 cap PO BID atorvastatin 40 mg tablet 40 mg PO DAILY@1000 Qty: 90 3RF irbesartan 300 mg tablet 300 mg PO DAILY Qty: 90 3RF (DME) Above Ankle Diabetic Boots with 3 inserts See Rx Instructions .Route .MEDSUPPLY Qty: 1 0RF Rx Instructions: As directed HOME metoprolol tartrate 25 mg tablet 25 mg PO BID Qty: 90 2RF Rx Instructions: Hold if heart rate is below 60 amlodipine 10 mg tablet 10 mg PO BEDTIME tamsulosin 0.4 mg capsule 0.4 mg PO BID@1000,2200 trazodone 50 mg tablet 50 - 100 mg PO BEDTIME@2200 Ventolin HFA 90 mcg/actuation HFA aerosol inhaler 2 inh INHALATION Q4H PRN (Reason: shortness of breath or wheezing) hydrocodone-acetaminophen 10-325 mg tablet 1 tab PO Q6H PRN (Reason: pain) Rx Instructions: 1-2 tabs every 4-6 hours as needed for pain montelukast 10 mg tablet 10 mg PO DAILY@1000 Januvia 100 mg tablet 100 mg PO DAILY@1000 hydroxyzine HCl 50 mg tablet 50 mg PO BID PRN (Reason: Anxiety) gabapentin 600 mg tablet 600 mg PO TID omeprazole 20 mg capsule,delayed release(DR/EC) 20 mg PO DAILY Rx Instructions: before morning meal Eliquis 5 mg tablet 5 mg PO BID Qty: 60 0RF Hold Instructions: Resume on 05/31/21. fluticasone propionate 50 mcg/actuation spray,suspension 2 spray INTRANASAL DAILY@1000 PRN (Reason: Congestion) triamterene-hydrochlorothiazid 37.5-25 mg tablet 2 tab PO DAILY cetirizine 10 mg Tablet 10 mg PO BEDTIME alprazolam 0.25 mg tablet 0.25 mg PO BID PRN (Reason: Anxiety) furosemide 20 mg tablet 20 mg PO DAILY Discharge Orders: Discharge ED (Routine); Ordered 09/11/23 Ordered By: Laina Hernandez Referrals: Kylah Garcia APN [Primary Care Provider] - 1-3 days Discharge Diet: Advance as tolerated Discharge Activity: Resume usual activity Patient Instructions: Chest Pain (ED) Coding Level of Care Code ED Risk Modeler for Kalpesh Aldana
[2023-09-11 20:17] LABS: Basophils # 0.1 10^3/uL (0.0-0.1); Basophils % 0.6 %; Eosinophils # 0.1 10^3/uL (0.0-0.8); Eosinophils % 0.9 %; Hematocrit 39.8 % (37-53); Lymphocytes # 2.2 10^3/uL (0.8-4.8); Lymphocytes % 20.8 %; Mean Corpuscular HGB Conc 30.4 g/dL (30-55); Mean Corpuscular Hemoglobin 23.5 pg (27-33); Mean Corpuscular Volume 77.3 fl (82-101); Mean Platelet Volume 10.7 fL (7.4-10.4); Monocytes # 0.6 10^3/uL (0.2-0.9); Monocytes % 5.4 %; Neutrophils # 7.58 10^3/uL (1.8-7.7); Neutrophils % 71.9 %; Nucleated Red Blood Cells % 0 %; Platelet Count 183 10^3/cmm (157-399); Red Blood Count 5.15 10^6/uL (3.85-5.65); Red Cell Distribution Width 14.6 % (12.1-15.1); White Blood Count 10.53 10^3/uL (3.29-11.43)
[2023-09-11 20:33] LABS: INR 1.14 (0.8-1.2)
[2023-09-11 20:36] LABS: D Dimer <= 0.27 ug/mLFEU (0-0.59)
[2023-09-11 20:37] LABS: Alanine Aminotransferase 12 U/L (0-41); Albumin Level 4.3 g/dL (3.5-5.2); Alkaline Phosphatase 87 U/L (40-130); Anion Gap 14.8 (5-19); Aspartate Amino Transferase 14 U/L (0-40); Blood Urea Nitrogen 11 mg/dL (8-23); Calcium 9.2 mg/dL (8.5-10.5); Carbon Dioxide 25 mmol/L (22-29); Chloride 98 mmol/L (98-107); Creatinine Clr Calc Pharmacy 141.5789; Globulin 2.3 g/dL (1.3-4.6); Glomerular Filtration Rate 98.6 mL/min (90-130); Glucose 163 mg/dL (65-115); Lipase 27 U/L (13-60); Osmolality Calculated 281 mOsm/kg (285-295); Potassium 3.8 mmol/L (3.5-5.1); Sodium 134 mmol/L (136-145); Total Bilirubin 0.3 mg/dL (0.15-1.2); Total Protein 6.6 g/dL (6.6-8.7)
[2023-09-11 20:43] LABS: Troponin(5th) Baseline 11 ng/L (0-15)
[2023-09-11] MEDS: aspirin 81 mg Chew Tablet 324 MG PO (20:44)
[2023-09-11 21:05] VITALS: BP 124/86; PULSE 65; RESP 18; O2SAT 94
--- NOTE | 2023-09-11 21:19 | ECG_ITS ---
Test Date: 2023-09-11 Pat Name: Deejay Gonzalez Department: Room: Gender: Male [employer]: : [id number] Requested By: Laina Hernandez Order Number: [id number] Jordon MD: Daniel Rodriguez M.D. Measurements Intervals [place] Rate: 60 P: 33 ID: [id number] QRS: -60 QRSD: 170 T: 22 QT: 456 QTc: 458 Interpretive Statements SINUS RHYTHM RIGHT BUNDLE BRANCH BLOCK [120+ ms QRS DURATION, UPRIGHT V1, 40+ ms S IN I/aVL/V4/V5/V6] LEFT ANTERIOR FASCICULAR BLOCK [QRS AXIS <= -45, QR IN I, RS IN II] Compared to ECG 09/11/2023 18:57:57 Left anterior fascicular block now present Atrial-paced complex(es) or rhythm no longer present Right-axis deviation no longer present Myocardial infarct finding no longer present Electronically Signed On 09-12-2023 10:25:39 CDT by Daniel Rodriguez M.D. [id number]
[2023-09-11 21:35] VITALS: BP 135/92; PULSE 72; RESP 18; O2SAT 97
[2023-09-11 22:05] VITALS: BP 149/97; PULSE 67; RESP 18; O2SAT 97
[2023-09-11 22:41] LABS: Troponin 5 2HR 9.54 ng/L (0-15)
[2023-09-11 22:42] LABS: Troponin 5 2HR Delta -1.46 ABS# (0-10)
[2023-09-11 23:35] VITALS: BP 138/86; PULSE 67; RESP 18; O2SAT 92
== END 2023-09-11 23:39 | disposition home or self-care (01) ==
PROVIDERS: Emergency Provider Emergency Medicine; PCP Nurse Practitioner Family
DX: R07.9 Chest pain, unspecified (principal); Z79.01 Long term (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 of anticoagulants; I10 Essential (primary) hypertension; J44.9 Chronic obstructive pulmonary disease, unspecified; E11.9 Type 2 diabetes mellitus without complications; E78.5 Hyperlipidemia, unspecified; Z95.0 Presence of cardiac pacemaker; F17.210 Nicotine dependence, cigarettes, uncomplicated
CPT/HCPCS: 36415; 71045; 80053; 83690; 84484; 85025; 85378; 85610; 93005; 99285

== ENCOUNTER → 2023-09-21 09:06 | Outpatient (BNVA) | payer MEDICARE, OTHER, SELFPAY | PROVIDERS: PCP Nurse Practitioner Family; Visit Provider Nurse Practitioner Family | DX: R42 Dizziness and giddiness (principal) | CPT/HCPCS: 99213 ==

== ENCOUNTER → 2023-12-10 11:15 | Outpatient (BNVA) | payer MEDICARE, OTHER, SELFPAY | PROVIDERS: PCP Nurse Practitioner Family; Visit Provider Internal Medicine Cardiovascular Disease | DX: E78.5 Hyperlipidemia, unspecified (principal); Z72.0 Tobacco use; I48.91 Unspecified atrial fibrillation; I10 Essential (primary) hypertension; Z79.01 Long term (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 of anticoagulants; Z95.0 Presence of cardiac pacemaker; E11.69 Type 2 diabetes mellitus with other specified complication; Z79.4 Long term (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 of insulin; E66.9 Obesity, unspecified; J44.9 Chronic obstructive pulmonary disease, unspecified; G47.33 Obstructive sleep apnea (adult) (pediatric); Z99.89 Dependence on other enabling machines and devices; Z68.38 Body mass index [BMI] 38.0-38.9, adult | CPT/HCPCS: 99213 ==

== ENCOUNTER 2024-01-04 05:43 | Day surgery (SDC) | payer MEDICARE, OTHER, SELFPAY ==
--- OUTSIDE RECORDS SUMMARY | 2023-12-24 16:35 | XMS_ITS | Patient Health Record ---
Author Name Unknown Organization [facility] Address [address] [place] [address] Care Team Providers Care Senior Accounting Associate Name Role Phone [facility] Primary Care Provider [facility] Unavailable Unavailable Allergies Allergen (clinical drug ingredient) Drug/Non Drug Allergy documented on EMR Reaction Allergy Type Onset Date Status Penicillin rash Drug Allergy Active Substance with sulfonamide structure and antibacterial mechanism of action (substance) Sulfa Antibiotics yeast infection Drug Allergy Active Results Component Value Reference Range Notes CBC w\ Auto Diff [id number] Reviewed date:01/23/2023 10:56:09 AM Interpretation: Performing Lab: Notes/Report: Diagnosis Description: Essential (primary) hypertension WBC 11.0 4.5-11.0 X10'3 RBC 5.44 4.50-5.90 X10'6 Hgb 14.6 13.5-17.5 G/DL Hct 45.9 41.0-53.0 % MCV 84.4 80.0-100.0 FL MCH 26.8 27.0-31.0 PG MCHC 31.8 31.0-37.0 G/DL Platelet 180 150-400 X10'3 RDW-SD 42.5 35.0-49.0 FL RDW-CV 13.7 12.2-15.6 % MPV 12.2 9.2-12.0 FL Neutro Auto% 79.2 42.0-75.0 % Lymph Auto% 14.0 21.0-51.0 % Morgan Auto% 5.5 1.7-9.3 % Eos Auto% .5 .0-6.0 Baso Auto% 0.3 0.0-1.0 Imm Gran% .5 .0-.4 % Neutro Abs 8.68 .80-7.70 Absolute Neutrophil Count 8680 Lymph Abs 1.53 .10-4.10 Morgan Abs .60 .20-1.00 Eos Abs .06 .00-.40 Baso Abs .03 .00-.10 Imm Gran Abs .05 .00-.10 NRBC# .00 .00-.20 NRBC% .00 .00-.20 /100 int act WBC's Comprehensive Metabolic Pane l [id number] Reviewed date:01/23/2023 10:56:24 AM Interpretation: Performing Lab: Notes/Report: Diagnosis Description: Essential (primary) hypertension Glucose Serum 166 71-110 MG/DL Testing perfor med at [facility], [address] [place] [address] [place] [address]. CLIA ID#: [id number] BUN 10 7-21 MG/DL Creat .79 .57-1.17 MG/DL Use of this assay is not recommended for patients undergoing treatment with phenindione, due to the potential for falsely depressed results. T-zfmfzb-d-benzoquinone imine (NAPQI) is a metabolite of acetaminophen, NAPQI concentrations of apparoximately 10 mg/L correlation to toxic levels of acetaminophen demonstrates a greater than or equil to 10% change in results. NAPQI concentrations greater than this may lead to falsely depressed results for patient samples. GFR 101.5 Calculation per formed from GFR calculator provided by the National Kidney Foundation. Glomerular Filtration rate(GRF) is the best overall index of kidney function. Normal GFR varies according to age,sex, body size, and declines with age. The National Kidney Foundation recommends using the CKD-EPI Creatinine Equation(2009) to estimate GFR. BUN/Creat Ratio 12.7 12.0-20.0 % Total Protein 7.0 5.8-8.0 G/DL Albumin 4.5 3.2-4.8 G/DL Globulin 2.4 2.3-3.5 G/DL Alb/Glob 1.9 0.8-2.2 Calcium 9.6 8.7-10.4 MG/DL Sodium 136 136-145 MMOL/L Potassium 4.1 3.5-5.1 MMOL/L Chloride 106 98-107 MMOL/L CO2 25.2 20.0-31.0 MMOL/L Anion Gap 9 5-15 Alk Phos 74 46-116 Bili Total .7 .3-1.2 MG/DL Use of this ass ay is not recommended for patients undergoing treatment with eltrombopag due to the potential for falsely elevated results. 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 antibody detected. Repeat testing clinical purposes. on two appropriately timed specimens, where both tests are done in the same laboratory at the same time. INTERPRETIVE INFORMATION: Ehrlichia Chaffeensis IgG Ab infection. performed in a CLIA certified laboratory and is intended for detected. 1:256 or greater ..... Positive: Presence of IgG antibody to Ehrlichia chaffeensis detected, Less than 1:64 ....... Negative: No significant level of Seroconversion between acute and convalescent sera is considered This test was developed and its performance characteristics suggestive of current or past 1:64-1:128 ........... Equivocal: Questionable presence of Ehrlichia chaffeensis IgG Ehrlichia chaffeensis IgG antibody strong evidence of recent infection. The best evidence for determined by [facility]. It has not been cleared or infection is a significant change (fourfold difference in titer) approved by the US Food and Drug Administration. This test was E.Chaffeensis IgM AB < 1:16 < 1:16 Performed By: [facility] [address] [facility] [address] This test was developed and its performance characteristics performed in a CLIA certified laboratory and is intended for clinical purposes. be interpreted with caution. chaffeensis detected, of Ehrlichia chaffeensis IgM suggestive of current or for more than 12 months post-infection. A single IgM result should While the presence of IgM antibodies suggest current or recent infection, low levels of IgM antibodies may occasionally persist INTERPRETIVE INFORMATION: Ehrlichia Chaffeensis IgM Ab 1:16 or greater ...... Positive - Presence of IgM antibody to Ehrlichia Derrick Follower: Ryan Marti MD, PhD antibody detected. recent infection. determined by [facility]. It has not been cleared or approved by the [place] Food and Drug Administration. This test was Less than 1:16 ....... 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 Low Positive - Presence of IgG current or past infection. these samples should be tested simultaneously at the same 1:256 or greater ..... Positive - Presence of IgG Antibody detected, suggestive of Antibody reactivity to Rickettsia rickettsii antigen should be antibody detected, suggestive of acute-phase of illness, submit a marked convalescent sample within Less than 1:64 ....... Negative - No significant level of considered Spotted Fever group reactive. Other organisms within between acute and convalescent sera is considered strong evidence the first week of illness and convalescent-phase samples are Seroconversion, a fourfold or greater rise in antibody titer, current or past infection. generally obtained 2-4 weeks after resolution of illness. Ideally Spotted Fever) Ab, IgG sibirica. INTERPRETIVE INFORMATION: Rickettsia rickettsii ([facility]. 25 days for paired testing. IgG antibody detected. the group include R. akari, R. conorrii, R. australis and R. of recent infection. Acute-phase specimens are collected during facility. If the sample submitted was collected during the [facility] IGM <1:64 <1:64 these samples should be tested simultaneously at the same Derrick Follower: Ryan Marti MD, PhD Spotted Fever) Ab, IgM Seroconversion, a fourfold or greater rise in antibody titer, detected, which may indicate a the first week of illness and convalescent-phase samples are antibodies may occasionally persist Performed By: [facility] acute-phase of illness, submit a marked convalescent sample within of recent infection. Acute-phase specimens are collected during however, low levels of IgM may be persistent from past infection. IgM antibody detected. 25 days for paired testing. [place] Spotted Fever, as the response may not be specific considered Spotted Fever group reactive. Other organisms within for the agent (resulting in false positives) and the IgM response Less than 1:64 ....... Negative - No significant level of [address] 1:64 or greater ...... Positive - Presence of [place] [address] generally obtained 2-4 weeks after resolution of illness. Ideally INTERPRETIVE INFORMATION: Rickettsia rickettsii ([employer] [address] The [facility] does not use IgM results for routine diagnostic testing of arianairica. the group include R. akari, R. conorrii, R. australis and R. for more than 12 months between acute and convalescent sera is considered strong evidence current or recent infection; Antibody reactivity to Rickettsia rickettsii antigen should be facility. 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 10-14 days may be helpful. antibodies to B. burgdorferi negative [place] [address] detected. 0.90 IV or less..........Negative: VlsE1 and pepC10 When the Borrelia burgdorferi VlsE1/pepC10 Abs, by BE result is 1.10 IV or greater.......Positive: VlsE1 and pepC10 REFERENCE INTERVAL: B. burgdorferi VlsE1/pepC10 Abs, BE Derrick Follower: Ryan Marti MD, PHD 0.91 - 1.09 IV...........Equivocal: Repeat testing in Performed By: [facility] antibodies to B. burgdorferi Hemoglobin A1c 90642 Reviewed date:03/20/2023 01:10:58 PM Interpretation: Performing Lab: Notes/Report: Diagnosis Description: Type 2 diabetes mellitus with hyperglycemia Hgb A1c 7.6 3.8-6.4 % Interpretation Of Hgb A1c: 4.5-6.2 % nondiabetics. >7.0 % diabetics. EAG 171 Estimated [place] ge Glucose(EAG). CBC w\ Auto Diff [id number] Reviewed date:04/26/2023 10:42:19 AM Interpretation: Performing Lab: Notes/Report: Diagnosis Description: Generalized enlarged lymph nodes WBC 7.7 4.5-11.0 X10'3 RBC 4.80 4.50-5.90 X10'6 Hgb 12.6 13.5-17.5 G/DL Hct 40.7 41.0-53.0 % MCV 84.8 80.0-100.0 FL MCH 26.3 27.0-31.0 PG MCHC 31.0 31.0-37.0 G/DL Platelet 191 150-400 X10'3 RDW-SD 39.6 35.0-49.0 FL RDW-CV 12.9 12.2-15.6 % MPV 11.9 9.2-12.0 FL Neutro Auto% 69.9 42.0-75.0 % Lymph Auto% 21.4 21.0-51.0 % Morgan Auto% 6.2 1.7-9.3 % Eos Auto% 1.6 .0-6.0 Baso Auto% 0.5 0.0-1.0 Imm Gran% .4 .0-.4 % Neutro Abs 5.39 .80-7.70 Absolute Neutrophil Count 5390 Lymph Abs 1.65 .10-4.10 Morgan Abs .48 .20-1.00 Eos Abs .12 .00-.40 Baso Abs .04 .00-.10 Imm Gran Abs .03 .00-.10 NRBC# .00 .00-.20 NRBC% .00 .00-.20 /100 int act WBC's Comprehensive Metabolic Pane l [id number] Reviewed date:04/26/2023 10:43:44 AM Interpretation: Performing Lab: Notes/Report: Diagnosis Description: Generalized enlarged lymph nodes Glucose Serum 226 71-110 MG/DL Testing perfor med at [facility], [address] [place] [address] Dr. Cheryle Alvarez, [place] [address]. CLIA ID#: [id number] BUN 22 7-21 MG/DL Creat .72 .57-1.17 MG/DL Use of this assay is not recommended for patients undergoing treatment with phenindione, due to the potential for falsely depressed results. E-xlsows-c-benzoquinone imine (NAPQI) is a metabolite of acetaminophen, NAPQI concentrations of apparoximately 10 mg/L correlation to toxic levels of acetaminophen demonstrates a greater than or equil to 10% change in results. NAPQI concentrations greater than this may lead to falsely depressed results for patient samples. GFR 104.5 Calculation per formed from GFR calculator provided by the National Kidney Foundation. Glomerular Filtration rate(GRF) is the best overall index of kidney function. Normal GFR varies according to age,sex, body size, and declines with age. The National Kidney Foundation recommends using the CKD-EPI Creatinine Equation(2009) to estimate GFR. BUN/Creat Ratio 30.6 12.0-20.0 % Total Protein 6.4 5.8-8.0 G/DL Albumin 4.2 3.2-4.8 G/DL Globulin 2.3 2.3-3.5 G/DL Alb/Glob 1.8 0.8-2.2 Calcium 9.1 8.7-10.4 MG/DL Sodium 138 136-145 MMOL/L Potassium 4.3 3.5-5.1 MMOL/L Chloride 104 98-107 MMOL/L CO2 25.6 20.0-31.0 MMOL/L Anion Gap 13 5-15 Alk Phos 117 46-116 Bili Total .5 .3-1.2 MG/DL Use of this ass ay is not recommended for patients undergoing treatment with eltrombopag due to the potential for falsely elevated results. AST/SGOT 14 15-37 UNIT/L ALT/SGPT 14 12-78 UNIT/L Osmo Serum,Calculated 296 280-300 MOSM/KG CBC w\ Auto Diff [id number] Reviewed date:07/28/2023 04:00:17 PM Interpretation: Performing Lab: Notes/Report: Diagnosis Description: Essential (primary) hypertension WBC 7.8 4.5-11.0 X10'3 RBC 5.06 4.50-5.90 X10'6 Hgb 12.1 13.5-17.5 G/DL Hct 40.7 41.0-53.0 % MCV 80.4 80.0-100.0 FL MCH 23.9 27.0-31.0 PG MCHC 29.7 31.0-37.0 G/DL Platelet 182 150-400 X10'3 RDW-SD 43.7 35.0-49.0 FL RDW-CV 15.0 12.2-15.6 % MPV 11.7 9.2-12.0 FL Neutro Auto% 67.8 42.0-75.0 % Lymph Auto% 22.8 21.0-51.0 % Morgan Auto% 6.2 1.7-9.3 % Eos Auto% 2.3 .0-6.0 Baso Auto% 0.5 0.0-1.0 Imm Gran% .4 .0-.4 % Neutro Abs 5.27 .80-7.70 Absolute Neutrophil Count 5270 Lymph Abs 1.77 .10-4.10 Morgan Abs .48 .20-1.00 Eos Abs .18 .00-.40 Baso Abs .04 .00-.10 Imm Gran Abs .03 .00-.10 NRBC# .00 .00-.20 NRBC% .00 .00-.20 /100 int act WBC's Comprehensive Metabolic Pane l [id number] Reviewed date:07/28/2023 03:59:54 PM Interpretation: Performing Lab: Notes/Report: Diagnosis Description: Essential (primary) hypertension Glucose Serum 200 71-110 MG/DL Testing perfor med at [facility], [address] [place] [address] [place] [address]. CLIA ID#: [id number] BUN 13 7-21 MG/DL Creat .69 .57-1.17 MG/DL L-ptovha-c-benzoquinone imine (NAPQI) is a metabolite of acetaminophen, NAPQI concentrations of apparoximately 10 mg/L correlation to toxic levels of acetaminophen demonstrates a greater than or equil to 10% change in results. NAPQI concentrations greater than this may lead to falsely depressed results for patient samples. Use of this assay is not recommended for patients undergoing treatment with phenindione, due to the potential for falsely depressed results. GFR 105.5 Calculation per formed from GFR calculator provided by the National Kidney Foundation. Glomerular Filtration rate(GRF) is the best overall index of kidney function. Normal GFR varies according to age,sex, body size, and declines with age. The National Kidney Foundation recommends using the CKD-EPI Creatinine Equation(2009) to estimate GFR. BUN/Creat Ratio 18.8 12.0-20.0 % Total Protein 6.4 5.8-8.0 G/DL Albumin 4.1 3.2-4.8 G/DL Globulin 2.3 2.3-3.5 G/DL Alb/Glob 1.8 0.8-2.2 Calcium 8.8 8.7-10.4 MG/DL Sodium 138 136-145 MMOL/L Potassium 4.3 3.5-5.1 MMOL/L Chloride 105 98-107 MMOL/L CO2 26.4 20.0-31.0 MMOL/L Anion Gap 11 5-15 Alk Phos 91 46-116 Bili Total .5 .3-1.2 MG/DL Use of this ass ay is not recommended for patients undergoing treatment with eltrombopag due to the potential for falsely elevated results. AST/SGOT 14 15-37 UNIT/L ALT/SGPT 13 12-78 UNIT/L Osmo Serum,Calculated 292 280-300 MOSM/KG Hemoglobin A1c 70648 Reviewed date:07/28/2023 04:00:51 PM Interpretation: Performing Lab: Notes/Report: Diagnosis Description: Type 2 diabetes mellitus with hyperglycemia Hgb A1c 8.0 3.8-6.4 % Interpretation Of Hgb A1c: 4.5-6.2 % nondiabetics. >7.0 % diabetics. EAG 183 Estimated [place] Glucose(EAG). Lipid Panel Reflex [facility] 8008 2, [id number] Reviewed date:07/28/2023 04:00:38 PM Interpretation: Performing Lab: Notes/Report: Diagnosis Description: Mixed hyperlipidemia Trig 366 5-9 yr 32-105 0-4 yr 34-112 Children: Male 0-4 yr 22-99 Adults: >20yrs Children: Female Very high >=500 15-19 yr 37-148 High 200-499 Desirable <150 5-9 yr 30-101 Borderline High 150-199 15-19 yr 39-132 Classification Guidelines:Triglycerides 10-14 yr 37-131 10-14 yr 32-125 Chol 120 <=200 MG/DL HDL 33 30-72 MG/DL 15-19y 30-63 15-19y 35-74 10-14y 37-74 5-9y 38-75 >=20y 40-59 10-14y 37-70 Reference Ranges:HDL 5-9y 36-73 Male: >=20y 40-59 Female: CH/HDL 3.6 0.0-4.9 RATIO LDL 13 0-130 MG/DL LDL result is i naccurate , if Trig is >400 mg/dl. See DLDL result. PSA Medicare Screening--G010 3 Reviewed date:07/28/2023 04:03:48 PM Interpretation: Performing Lab: Notes/Report: Diagnosis Description: Encounter for screening for malignant neoplasm of prostate PSA .33 .00-4.00 NG/ML PSA concentra tions, regardless of the value, should not be interpreted as definitive evidence for the presence or absence of prostate cancer. Comprehensive Metabolic Pane l [id number] Reviewed date:11/11/2023 03:42:47 PM Interpretation: Performing Lab: Notes/Report: Diagnosis Description: Essential (primary) hypertension Glucose Serum 200 71-110 MG/DL Testing perfor med at [address] [place] [address]. CLIA ID#: [id number] BUN 13 7-21 MG/DL Creat .69 .57-1.17 MG/DL Use of this assay is not recommended for patients undergoing treatment with phenindione, due to the potential for falsely depressed results. O-ffwbrd-y-benzoquinone imine (NAPQI) is a metabolite of acetaminophen, NAPQI concentrations of apparoximately 10 mg/L correlation to toxic levels of acetaminophen demonstrates a greater than or equil to 10% change in results. NAPQI concentrations greater than this may lead to falsely depressed results for patient samples. GFR 105.6 Calculation per formed from GFR calculator provided by the National Kidney Foundation. Glomerular Filtration rate(GRF) is the best overall index of kidney function. Normal GFR varies according to age,sex, body size, and declines with age. The National Kidney Foundation recommends using the CKD-EPI Creatinine Equation(2020) to estimate GFR. BUN/Creat Ratio 18.8 12.0-20.0 % Total Protein 6.6 5.8-8.0 G/DL Albumin 4.2 3.2-4.8 G/DL Globulin 2.4 2.3-3.5 G/DL Alb/Glob 1.8 0.8-2.2 Calcium 9.2 8.7-10.4 MG/DL Sodium 139 136-145 MMOL/L Potassium 4.4 3.5-5.1 MMOL/L Chloride 104 98-107 MMOL/L CO2 26.2 20.0-31.0 MMOL/L Anion Gap 13 5-15 Alk Phos 96 46-116 Bili Total .5 .3-1.2 MG/DL Use of this ass ay is not recommended for patients undergoing treatment with eltrombopag due to the potential for falsely elevated results. AST/SGOT 18 15-37 UNIT/L ALT/SGPT 14 12-78 UNIT/L Osmo Serum,Calculated 294 280-300 MOSM/KG Hemoglobin A1c 50100 Reviewed date:11/11/2023 03:39:35 PM Interpretation: Performing Lab: Notes/Report: Diagnosis Description: Type 2 diabetes mellitus with unspecified complications Hgb A1c 7.8 3.8-6.4 % Interpretation Of Hgb A1c: 4.5-6.2 % nondiabetics. >7.0 % diabetics. EAG 177 Estimated [place] ge Glucose(EAG). Lipid Panel Reflex DLDL 8006 1, [id number] Reviewed date:11/11/2023 03:41:20 PM Interpretation: Performing Lab: Notes/Report: Diagnosis Description: Type 2 diabetes mellitus with unspecified complications Trig 436 Children: Male High 200-499 Adults: >20yrs 10-14 yr 37-131 Very high >=500 Desirable <150 DLDL ORDERED - SRAY. 0-4 yr 34-112 10-14 yr 32-125 Classification Guidelines:Triglycerides 5-9 yr 32-105 15-19 yr 37-148 0-4 yr 22-99 5-9 yr 30-101 Children: Female 15-19 yr 39-132 Borderline High 150-199 Chol 116 <=200 MG/DL HDL 30 30-72 MG/DL Reference Ranges:HDL Female: 10-14y 37-74 Male: 15-19y 35-74 15-19y 30-63 5-9y 36-73 >=20y 40-59 10-14y 37-70 >=20y 40-59 5-9y 38-75 CH/HDL 3.9 0.0-4.9 RATIO LDL N/A 0-130 MG/DL LDL result is i naccurate , if Trig is >400 mg/dl. See DLDL result. CBC [place] [id number], 8 1900 Reviewed date:11/11/2023 03:41:59 PM Interpretation: Performing Lab: Notes/Report: Diagnosis Description: Essential (primary) hypertension WBC 8.4 4.5-11.0 X10'3 RBC 5.04 4.50-5.90 X10'6 Hgb 11.9 13.5-17.5 G/DL Hct 39.7 41.0-53.0 % MCV 78.8 80.0-100.0 FL MCH 23.6 27.0-31.0 PG MCHC 30.0 31.0-37.0 G/DL Platelet 191 150-400 X10'3 RDW-SD 42.5 35.0-49.0 FL RDW-CV 15.0 12.2-15.6 % MPV 11.9 9.2-12.0 FL Review Auto Diff Conf WBC Auto Diff--[id number] Reviewed date:11/11/2023 03:41:34 PM Interpretation: Performing Lab: Notes/Report: Added by Discern Rules Neutro Auto% 69.1 42.0-75.0 % Lymph Auto% 21.0 21.0-51.0 % Morgan Auto% 7.6 1.7-9.3 % Eos Auto% 1.3 .0-6.0 Baso Auto% 0.6 0.0-1.0 NRBC% .00 .00-.20 /100 int act WBC's Neutro Abs 5.82 .80-7.70 Absolute Neutrophil Count 5820 Lymph Abs 1.77 .10-4.10 Morgan Abs .64 .20-1.00 Eos Abs .11 .00-.40 Baso Abs .05 .00-.10 NRBC# .00 .00-.20 Imm Gran Abs .03 .00-.10 Imm Gran% .4 .0-.4 % Direct LDL [id number] Reviewed date:11/11/2023 03:41:44 PM Interpretation: Performing Lab: Notes/Report: DLDL 41 < 100 mg/dl DESIRABLE LDL 130-159 mg/dl BORDERLINE HIGH RISK LDL REFERENCE RANGES: Femur 2 View Left-[id number] Reviewed date:10/01/2023 11:53:09 AM Interpretation: Performing Lab: Notes/Report: Cervical Spine AP/Lat 2-3 Vi [id number] Reviewed date:10/01/2023 11:52:35 AM Interpretation: Performing Lab: Notes/Report: Reason For Referral Reason lymphadenopathy le ft ear pain Diagnosis 1 Lymphadenopathy (R59 .1) Referral Organization [facility] Office Referring Provider First Name Kylah Referring Provider Last Name Garcia Referring Provider Speciality Nurse Harley salas Referred Provider [facility] Fredricksiria matajuliocesar [place] Referred Provider Specialty Ear, nose an d throat surgeon General Notes Nurys Ramirez 01/2023 03:53:27 PM >Patient has apt on 06/03/2023, Nurys Ramirez 06/10/2023 04:53:06 PM >See referral notes Referral Priority Routine Referral Appointment Date 06/03/2023 Reason Patient needing eval uation due to abnormal x-rays Diagnosis 1 Right anterior shoul chyna pain (M25.511) Referral Organization [facility] Referring Provider First Name Kylah Referring Provider Last Name Garcia Referring Provider Speciality Nurse Harley salas Referred Provider [facility] Referred Provider Specialty Orthopedic S urgery General Notes Nurys Ramirez 10/2022 11:05:08 AM >Recieved notification from [facility] that they have attempted to contact patient by phone and have mailed letter to set up apt., Nurys Ramirez 08/27/2023 08:49:48 AM >Per Maria Elena at [facility] Patient Access patient had apt on 06/23/2023. See referral notes. Referral Priority Routine Referral Appointment Date 06/23/2023 Medications Medication SIG (Take, Route, Frequency, Duration) Notes Start Date End Date Status traZODone HCl 50 mg TAKE ONE TABLET BY M OUTH At Bedtime for 30 Active Docusate Sodium 100 mg TAKE TWO CAPSULES BY MOUTH TWICE DAILY FOR constipation for 30 Active Atorvastatin Calcium 40 mg TAKE ONE TABL ET BY MOUTH DAILY AT 10am for 90 Active Triamterene-HCTZ 37.5-25 MG 1 tablet in the morning Orally Once a day for 90 days Active Nitroglycerin 0.4 MG 1 tab Sublingual q 5 minutes prn chest pain for 30 days Active Clotrimazole-Betamethasone 1-0.05 % 1 application Externally Twice a day for 30 days 12/09/2023 03/08/2024 Active Triamcinolone Acetonide 0.1 % 1 application Externally twice a day as directed for 30 days 11/26/2022 Active Mounjaro 10 MG/0.5ML 10 mg Subcutaneous weekly for 30 days Active Fluticasone Propionate 50 MCG/ACT 1 spray in each nostril Nasally Once a day for 90 days Active amLODIPine Besylate 5 MG 1 tab Orally On ce a day for 30 days Active HYDROcodone-Acetaminophen 10-325 MG TAKE 1 TO 2 TABLETS BY MOUTH EVERY 4 TO 6 HOURS NEEDED FOR PAIN max EIGHT PER DAY, hold WITHIN FOUR hours of planned sleep FOR 30 DAYS Oral for 30 Active Eliquis 5 mg TAKE ONE TABLET BY M OUTH TWICE DAILY for 30 Active True Metrix Blood Glucose Test - as directed In Vitro four times a day and prn for 90 days Active Lubiprostone 24 MCG TAKE ONE CAPSULE BY MOUTH TWICE DAILY for 30 Active Cknibeme-Iblscyxii-MM 3.5-24843-9 4 drops into affected ear Otic Three times a day for 7 days Active Gemfibrozil 600 MG 1 tablet 30 minutes before morning and evening meals Orally Twice a day for 90 days 12/09/2023 Active Magnesium Oxide 400 MG 1 tablet as neede d Orally Once a day Active Metoprolol Tartrate 25 MG as directed Or al Twice a day for 23 days Active GNP Essential One Daily - TAKE ONE TABLE T BY MOUTH DAILY FOR 14 DAYS Oral for 14 Days Active Januvia 100 mg TAKE ONE TABLET BY M OUTH EVERY DAY for 30 Active Escitalopram Oxalate 20 mg TAKE ONE TABL ET BY MOUTH ONCE DAILY for 30 Active Montelukast Sodium 10 mg TAKE ONE TABLET BY MOUTH EVERY MORNING for 30 Active Polyethylene Glycol 3350 17 GM/SCOOP fill cap TO line (17grams) mix in water AND drink BY MOUTH ONCE DAILY DIRECTED for 28 Active ALPRAZolam 0.25 mg TAKE ONE TABLET BY M OUTH TWICE DAILY NEEDED FOR ANXIETY FOR 30 DAYS for 30 10/21/2023 Active tiZANidine HCl 4 mg TAKE ONE TABLET BY M OUTH THREE TIMES DAILY NEEDED FOR MUSCLE SPASM for 30 Active Cetirizine HCl 10 mg TAKE ONE TABLET BY MOUTH EVERY EVENING for 30 Active Furosemide 20 mg TAKE ONE TABLET BY M OUTH DAILY NEEDED DIRECTED for 30 Active Omeprazole 20 MG 1 capsule 30 minutes before morning meal Orally Once a day for 90 days Active Gabapentin 600 mg TAKE ONE TABLET BY M OUTH FOUR TIMES DAILY for 90 Active Irbesartan 300 mg TAKE ONE TABLET BY M OUTH DAILY for 30 Active Tamsulosin HCl 0.4 mg TAKE ONE CAPSULE B Y MOUTH TWICE DAILY (DOSE INCREASE) for 30 Active hydrOXYzine HCl 50 mg TAKE ONE-HALF TO 1 TABLET BY MOUTH TWICE DAILY NEEDED FOR ANXIETY for 28 Active DULoxetine HCl 30 mg TAKE ONE CAPSULE BY MOUTH EVERY MORNING FOR 30 DAYS for 30 Active Immunizations Vaccine Route Administration Date Status Comme nts Flucelvax Quadrivalent IM Intramuscular 05/10/2023 Administered [facility] [id number] pt tolerated well/instructed to wait 20 min Flucelvax Quadrivalent Pres Free IM Intramuscular 06/16/2022 Administered [facility] [id number] 4 pt tolerated well/instructed to wait 20 min Influenza (split), 3 yrs and above Unknown 05/26/2022 Administered Prevnar 20 IM Intramuscular 06/16/2022 Administered [facility] pt tolerated well/instructed to wait 20 min Social History Tobacco Use: Social History Observation Description Date Details (start date - stop date) Current Smoker NA - NA xTobacco Use/Smoking Question Answer Notes Are you a current smoker How many cigarettes a day do you smoke? 05-24 Alcohol Screen (Audit-C) Question Answer Notes Did you have a drink contain ing alcohol in the past year? Yes How often did you have a dri nk containing alcohol in the past year? Monthly or less (1 point) How many drinks did you have on a typical day when you were drinking in the past year? 1 or 2 drinks (0 point) How often did you have 6 or more drinks on one occasion in the past year? Never (0 point) Points 1 Interpretation Negative PHQ-9 Question Answer Notes Little interest or pleasure in doing things Not at all Feeling down, depressed, or hopeless Not at all Trouble falling or staying asleep, or sleeping t oo much Not at all Feeling tired or having little energy Not at all Poor appetite or overeating Not at all Feeling bad about yourself, or that you are a failure, or have let yourself or your family down Not at all Trouble concentrating on thi ngs, such as reading the newspaper or watching television Not at all Moving or speaking so slowly that other people could have noticed. Or the opposite ? being so fidgety or restless that you have been moving around a lot more than usual Not at all Thoughts that you would be b patricia off , or of hurting yourself in some way Not at all Total Score 0 Problems Problem Type SNOMED Code ICD Code Onset Dates Problem Status W/U Status Risk Notes Problem 565197945 Mixed hyperlipidemia (E78.2) Active confirmed Problem 12490044 Nicotine dependence, cigarettes, uncomplicated (F17.210) Active confirmed Problem 4593908 Primary insomnia (F51.01) Active confirmed Problem 042487057 Chronic pain due to trauma (G89.21) Active confirmed Problem 671979136 Chronic pain syndrome (G89.4) Active confirmed Problem 725609897994800 Primary osteoarthritis, right shoulder (M19.011) Active confirmed Problem Acquired hammer toe of right foot (3544154412614096) Other hammer toe(s) (acquired), right foot (M20.41) Active confirmed Problem 92625884 Other hammer toe (s) (acquired), left foot (M20.42) Active confirmed Problem 49080311 Dysuria (R30.0) Active confirmed Problem Long-term current use of drug therapy (935834376) [employer] (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 of oral hypoglycemic drugs (Z79.84) Active confirmed Problem 841859715 Benign prostatic hyperplasia with lower urinary tract symptoms, symptom details unspecified (N40.1) Active confirmed Problem 569631502 Gastroesophageal reflux disease without esophagitis (K21.9) Active confirmed Problem 99860688 Anxiety (F41.9) Active confirmed Problem 609404948475587 Primary osteoarthritis of right shoulder (M19.011) Active confirmed Problem 398125975 Diabetic polyneuropathy associated with type 2 diabetes mellitus (E11.42) Active confirmed Problem 844938906 Moderate persist ent asthmatic bronchitis with acute exacerbation (J45.41) Active confirmed Problem Neuropathic pain (153019278) Neuropathic pain (M79.2) Active confirmed Problem 638004006 Elevated hemoglo bin A1c (R73.09) Active confirmed Problem 435383558 Tobacco abuse (Z72.0) Active confirmed Problem 991511309 [place] spotted fever (A77.0) Active confirmed Problem 58439184 Atrial fibrillation, unspecified type (I48.91) Active confirmed Problem 17673021 Irritable bowel syndrome with both constipation and diarrhea (K58.2) Active confirmed Problem Administration of vaccine to produce active immunity (71245629) Encounter for administration of vaccine (Z23) Active confirmed Problem 789948479 Pacemaker (Z95.0) Active confirmed Problem 96203334 Constipation by delayed colonic transit (K59.01) Active confirmed Problem 36285268 Acute pain of ri ght shoulder (M25.511) Active confirmed Problem 352325388 Leukocytosis, unspecified type (D72.829) Active confirmed Problem Hyperlipidemia (58838996) Hyperlipidemia (E78.5) Active confirmed Problem 772984743 Thyroid disorder screen (Z13.29) Active confirmed Problem 484825252 Encounter for tobacco use cessation counseling (Z71.6) Active confirmed Problem 639781875 Environmental allergies (Z91.09) Active confirmed Problem 7975893 Decreased mobili ty (R26.89) Active confirmed Problem 86283290 Controlled type 2 diabetes mellitus with complication, without long-term current use of insulin (E11.8) Active confirmed Problem 890917219 Hyperglycemia du e to diabetes mellitus (E11.65) Active confirmed Problem 968928794 Controlled type 2 diabetes mellitus with hyperglycemia, without long-term current use of insulin (E11.65) Active confirmed Problem Morbid obesity (745574852) Class 3 severe obesity due to excess calories in adult, unspecified BMI, unspecified whether serious comorbidity present (E66.01) Active confirmed Problem Chronic obstructive pulmonary disease (88460987) Chronic obstructive pulmonary disease (COPD) (J44.9) Active confirmed Problem 947958654 Other osteoarthritis of spine, cervical region (M47.892) Active confirmed Problem 95581870 Primary hypertension (I10) Active confirmed Problem Body mass index 40+ - severely obese (888141162) Body mass index [BMI] 40.0-44.9, adult (Z68.41) Active confirmed Problem 802412001 Lumbar pain (M54.50) Active confirmed Vital Signs Heart Rate 85 /min 12/09/2023 Temperature 97.7 degrees Fahrenheit 12/09/2023 Respiratory Rate 20 /min 12/09/2023 Blood pressure diastolic 85 mm Hg 12/09/2023 Oximetry 96 % 12/09/2023 Height-cm 182.88 cm 12/09/2023 Weight-kg 136.53 kg 12/09/2023 Height 72 in 12/09/2023 Blood pressure systolic 133 mm Hg 12/09/2023 Weight 301 lbs 12/09/2023 BMI 40.82 kg/m2 12/09/2023 Encounters Encounter Location Date Provider Diagnosis [facility] [address] [place] [address] 12/29/2022 [facility] Depression, unspecif ied depression type F32.A ; Controlled type 2 diabetes mellitus with complication, without long-term current use of insulin E11.8 ; Anxiety F41.9 ; Other chest pain R07.89 ; Long-term (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 of injectable non-insulin antidiabetic drugs Z79.85 ; senior care (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 of oral hypoglycemic drugs Z79.84 and Hospital discharge follow-up Z09 [facility] [address] [facility] [address] 01/11/2023 [facility] Controlled type 2 diabetes mellitus with complication, without long-term current use of insulin E11.8 ; Primary hypertension I10 and Anxiety F41.[address] [place] [address] 01/21/2023 [facility] Primary hypertension I10 and [place] spotted fever A77.[address] [place] [address] 02/15/2023 [facility] Primary hypertension I10 ; Anxiety F41.9 and Atrial fibrillation, unspecified type I48.[address] [place] [address] 02/18/2023 [facility] Constipation by jessica bashir colonic transit K59.01 ; Swelling R60.9 ; Left thigh pain M79.652 and Neck pain M54.2 [facility] [address] [place] [address] 03/18/2023 [facility] Hyperglycemia due to diabetes mellitus E11.65 ; Anxiety F41.9 ; Right anterior shoulder pain M25.511 ; Chronic pain syndrome G89.4 and senior care (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 of oral hypoglycemic drugs Z79.84 [facility] [address] [place] [address] 03/29/2023 [facility] Acute swimmer's ear of both sides H60.333 ; Diabetic polyneuropathy associated with type 2 diabetes mellitus E11.42 ; [employer] (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 of oral hypoglycemic drugs Z79.84 ; Pacemaker Z95.0 and Hospital discharge follow-up Z09 [facility] [address] [address] 04/23/2023 [facility] Lymphadenopathy R59. 1 and Otalgia, left ear H92.02 [facility] [address] [address] 04/27/2023 [facility] Lymphadenopathy R59. [address] [address] 05/10/2023 [facility] Atrial fibrillation, unspecified type I48.91 ; Lymphadenopathy R59.1 ; Controlled type 2 diabetes mellitus with hyperglycemia, without long-term current use of insulin E11.65 ; Long-term (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 of injectable non-insulin antidiabetic drugs Z79.85 ; [employer] (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 of oral hypoglycemic drugs Z79.84 ; Encounter for immunization Z23 and Encounter for administration of vaccine Z23 [facility] [address] [place] [address] 06/01/2023 [facility] Primary osteoarthrit is, right shoulder M19.011 ; Other osteoarthritis of spine, cervical region M47.892 and Carotid artery calcification, left I65.[address] [address] 07/27/2023 [facility] Mixed hyperlipidemia E78.2 ; Hyperglycemia due to diabetes mellitus E11.65 ; Primary hypertension I10 and Prostate cancer screening Z12.5 [facility] [address] [place] [address] 08/02/2023 [facility] Diabetic polyneuropa thy associated with type 2 diabetes mellitus E11.42 ; Hyperlipidemia E78.5 ; Primary hypertension I10 ; Lumbar pain M54.50 ; Pacemaker Z95.0 ; Nicotine dependence, cigarettes, uncomplicated F17.210 ; Elevated hemoglobin A1c R73.09 ; Long-term (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 of injectable non-insulin antidiabetic drugs Z79.85 and senior care (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 of oral hypoglycemic drugs Z79.[address] [place] [address] 09/03/2023 [facility] Dental disease K08.9 and Liliam infection B37.9 [facility] [address] [place] [address] 11/04/2023 [facility] Primary hypertension I10 ; Atrial fibrillation, unspecified type I48.91 ; Diabetic polyneuropathy associated with type 2 diabetes mellitus E11.42 ; Class 3 severe obesity due to excess calories in adult, unspecified BMI, unspecified whether serious comorbidity present E66.01 ; Body mass index [BMI] 40.0-44.9, adult Z68.41 ; senior care (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 of oral hypoglycemic drugs Z79.84 ; Tobacco use Z72.0 ; Dental disease K08.9 ; Pacemaker Z95.0 and Chronic obstructive pulmonary disease (COPD) J44.9 [facility] [address] [address] 11/10/2023 [facility] Primary hypertension I10 and Controlled type 2 diabetes mellitus with complication, without long-term current use of insulin E11.8 [facility] [address] [place] [address] 12/09/2023 [facility] Encounter for Medica re annual wellness exam Z00.00 ; Mixed hyperlipidemia E78.2 ; Diabetic polyneuropathy associated with type 2 diabetes mellitus E11.42 and Rash R21 [facility] [address] [place] [address] 12/23/2023 [facility] [address] [place] [address] 01/04/2023 [facility] [address] [place] [address] 01/11/2023 [facility] Controlled type 2 diabetes mellitus with complication, without long-term current use of insulin E11.8 ; Primary hypertension I10 and Anxiety F41.9 [facility] [address] [place] [address] 01/11/2023 [facility] [address] [place] [address] 02/03/2023 [facility] Controlled type 2 diabetes mellitus with complication, without long-term current use of insulin E11.8 ; Primary hypertension I10 ; [place] spotted fever A77.0 and Anxiety F41.9 [facility] [address] [place] [address], [place] [address] 02/04/2023 [facility] [address] [place] [address] 02/08/2023 [facility] [address] [place] [address], [place] [address] 02/12/2023 [facility] [address] [place] [address], [place] [address] 03/01/2023 [facility] [address] [place] [address] 03/09/2023 [facility] Chronic pain syndrom e G89.4 ; Diabetic polyneuropathy associated with type 2 diabetes mellitus E11.42 ; Primary hypertension I10 ; Atrial fibrillation, unspecified type I48.91 and Controlled type 2 diabetes mellitus with hyperglycemia, without long-term current use of insulin E11.65 [facility] [address] [place] [address] 04/06/2023 [facility] Primary hypertension I10 ; Controlled type 2 diabetes mellitus with complication, without long-term current use of insulin E11.8 ; Chronic pain syndrome G89.4 ; Anxiety F41.9 ; Atrial fibrillation, unspecified type I48.91 ; Pacemaker Z95.0 and Diabetic polyneuropathy associated with type 2 diabetes mellitus E11.42 [facility] [address] [place] [address], [place] [address] 04/12/2023 [facility] [address] [place] [address] 04/15/2023 [facility] [address] [place] [address] 04/22/2023 [facility] [address] [place] [address] 05/17/2023 [facility] Right anterior shoul chyna pain M25.511 and Primary osteoarthritis of right shoulder M19.011 [facility] [address] [place] [address] 05/18/2023 [facility] Atrial fibrillation, unspecified type I48.91 and Primary hypertension I10 [facility] [address] [place] [address] 06/10/2023 [facility] Primary hypertension I10 and Atrial fibrillation, unspecified type I48.91 [facility] [address] [place] [address] 06/11/2023 [facility] Sore throat J02.9 [facility] [address] [place] [address] 06/17/2023 [facility] [address] [place] [address] 07/20/2023 [facility] [address] [place] [address] 07/21/2023 [facility] Primary hypertension I10 and Moderate persistent asthmatic bronchitis with acute exacerbation J45.41 [facility] [address] [place] [address] 08/25/2023 [facility] Controlled type 2 diabetes mellitus with complication, without long-term current use of insulin E11.8 and Primary hypertension I10 [facility] [address] [place] [address] 09/16/2023 [facility] Controlled type 2 diabetes mellitus with complication, without long-term current use of insulin E11.8 and Chronic pain syndrome G89.4 [facility] [address] [place] [address] 10/26/2023 [facility] Controlled type 2 diabetes mellitus with complication, without long-term current use of insulin E11.8 and Atrial fibrillation, unspecified type I48.91 [facility] [address] [place] [address] 11/19/2023 [facility] Controlled type 2 diabetes mellitus with complication, without long-term current use of insulin E11.8 and Primary hypertension I10 [facility] [address] [place] [address] 12/07/2023 [facility] Assessments Encounter Date Diagnosis (ICD Code) Assessment Notes Treat ment Notes Treatment Clinical Notes 02/18/2023 Constipation by delayed colonic transit (ICD-10 - K59.01) amitiza 02/18/2023 Swelling (ICD-10 - R60.9) lasix 02/03/2023 Controlled type 2 diabetes mellitus with complication, without long-term current use of insulin (ICD-10 - E11.8) 02/15/2023 Anxiety (ICD-10 - F41.9) xanax prn 01/11/2023 Controlled type 2 diabetes mellitus with complication, without long-term current use of insulin (ICD-10 - E11.8) 01/11/2023 Controlled type 2 diabetes mellitus with complication, without long-term current use of insulin (ICD-10 - E11.8) 01/21/2023 [place] spotted fever (ICD-10 - A77.0) tick profile 01/21/2023 Primary hypertension (ICD-10 - I10) cbc, cmp monitor bp continue meds cardiology as planned 02/15/2023 Primary hypertension (ICD-10 - I10) continue meds and monitor 03/09/2023 Chronic pain syndrom e (ICD-10 - G89.4) 04/27/2023 Lymphadenopathy (ICD-10 - R59.1) refill z teresa 03/29/2023 Diabetic polyneuropathy associated with type 2 diabetes mellitus (ICD-10 - E11.42) gabapentin 03/29/2023 Acute swimmer's ear of both sides (ICD-10 - H60.333) cortisporin otic 03/18/2023 Anxiety (ICD-10 - F41.9) start cymbalta am decreased pm lexapro to half tab 03/18/2023 Hyperglycemia due to diabetes mellitus (ICD-10 - E11.65) ha1c 12/29/2022 Controlled type 2 diabetes mellitus with complication, without long-term current use of insulin (ICD-10 - E11.8) continue meds monitor bs 12/29/2022 Depression, unspecified depression type (ICD-10 - F32.A) lexapro 05/10/2023 Lymphadenopathy (ICD-10 - R59.1) resolved 05/10/2023 Atrial fibrillation, unspecified type (ICD-10 - I48.91) continue meds 04/06/2023 Primary hypertension (ICD-10 - I10) 04/23/2023 Otalgia, left ear (ICD-10 - H92.02) ent 04/23/2023 Lymphadenopathy (ICD-10 - R59.1) z teresa medrol dose pack cbc, cmp 06/01/2023 Primary osteoarthritis, right shoulder (ICD-10 - M19.011) dr navarro as planned 06/01/2023 Other osteoarthritis of spine, cervical region (ICD-10 - M47.892) 05/17/2023 Primary osteoarthritis of right shoulder (ICD-10 - M19.011) 05/17/2023 Right anterior shoulder pain (ICD-10 - M25.511) 05/18/2023 Atrial fibrillation, unspecified type (ICD-10 - I48.91) 08/02/2023 Diabetic polyneuropathy associated with type 2 diabetes mellitus (ICD-10 - E11.42) mounjaro 7.[address] aguilar; shoes as planned 08/02/2023 Hyperlipidemia (ICD-10 - E78.5) 06/10/2023 Primary hypertension (ICD-10 - I10) 06/11/2023 Sore throat (ICD-10 - J02.9) 07/21/2023 Primary hypertension (ICD-10 - I10) 07/27/2023 Mixed hyperlipidemia (ICD-10 - E78.2) 09/03/2023 Liliam infection (ICD-10 - B37.9) 09/03/2023 Dental disease (ICD-10 - K08.9) 08/25/2023 Controlled type 2 diabetes mellitus with complication, without long-term current use of insulin (ICD-10 - E11.8) 07/27/2023 Hyperglycemia due to diabetes mellitus (ICD-10 - E11.65) 11/04/2023 Atrial fibrillation, unspecified type (ICD-10 - I48.91) 11/04/2023 Primary hypertension (ICD-10 - I10) amlodipine 5 mg monitor bp 09/16/2023 Controlled type 2 diabetes mellitus with complication, without long-term current use of insulin (ICD-10 - E11.8) 10/26/2023 Controlled type 2 diabetes mellitus with complication, without long-term current use of insulin (ICD-10 - E11.8) 12/09/2023 Mixed hyperlipidemia (ICD-10 - E78.2) lopid atorvastatin 12/09/2023 Encounter for Medicare annual wellness exam (ICD-10 - Z00.00) see eval 11/10/2023 Controlled type 2 diabetes mellitus with complication, without long-term current use of insulin (ICD-10 - E11.8) 11/10/2023 Primary hypertension (ICD-10 - I10) 11/19/2023 Controlled type 2 diabetes mellitus with complication, without long-term current use of insulin (ICD-10 - E11.8) 11/19/2023 Primary hypertension (ICD-10 - I10) 10/26/2023 Atrial fibrillation, unspecified type (ICD-10 - I48.91) 11/04/2023 Diabetic polyneuropathy associated with type 2 diabetes mellitus (ICD-10 - E11.42) mounjaro 09/16/2023 Chronic pain syndrom e (ICD-10 - G89.4) 12/09/2023 Diabetic polyneuropathy associated with type 2 diabetes mellitus (ICD-10 - E11.42) lotrisone 07/27/2023 Primary hypertension (ICD-10 - I10) 06/10/2023 Atrial fibrillation, unspecified type (ICD-10 - I48.91) 08/25/2023 Primary hypertension (ICD-10 - I10) 07/21/2023 Moderate persistent asthmatic bronchitis with acute exacerbation (ICD-10 - J45.41) 08/02/2023 Primary hypertension (ICD-10 - I10) monitor continue meds 04/06/2023 Controlled type 2 diabetes mellitus with complication, without long-term current use of insulin (ICD-10 - E11.8) 05/18/2023 Primary hypertension (ICD-10 - I10) 06/01/2023 Carotid artery calcification, left (ICD-10 - I65.22) carotid us 12/29/2022 Anxiety (ICD-10 - F41.9) 03/18/2023 Right anterior shoulder pain (ICD-10 - M25.511) shoulder xray 05/10/2023 Controlled type 2 diabetes mellitus with hyperglycemia, without long-term current use of insulin (ICD-10 - E11.65) monitor 03/29/2023 senior care (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 of oral hypoglycemic drugs (ICD-10 - Z79.84) 03/09/2023 Diabetic polyneuropathy associated with type 2 diabetes mellitus (ICD-10 - E11.42) 01/11/2023 Primary hypertension (ICD-10 - I10) 01/11/2023 Primary hypertension (ICD-10 - I10) 02/15/2023 Atrial fibrillation, unspecified type (ICD-10 - I48.91) ekg discussed [facility] patient follow up cardiology 02/03/2023 Primary hypertension (ICD-10 - I10) 02/18/2023 Left thigh pain (ICD-10 - M79.652) x ray 02/03/2023 [place] spotted fever (ICD-10 - A77.0) 01/11/2023 Anxiety (ICD-10 - F41.9) 01/11/2023 Anxiety (ICD-10 - F41.9) 02/18/2023 Neck pain (ICD-10 - M54.2) x ray 03/29/2023 Pacemaker (ICD-10 - Z95.0) cardiology as planned 05/10/2023 Long-term (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 of injectable non-insulin antidiabetic drugs (ICD-10 - Z79.85) 04/06/2023 Chronic pain syndrom e (ICD-10 - G89.4) 03/09/2023 Primary hypertension (ICD-10 - I10) 03/18/2023 Chronic pain syndrom e (ICD-10 - G89.4) 12/29/2022 Other chest pain (ICD-10 - R07.89) nitro cardiology as planned 08/02/2023 Lumbar pain (ICD-10 - M54.50) pain clinic 07/27/2023 Prostate cancer screening (ICD-10 - Z12.5) 11/04/2023 Class 3 severe obesity due to excess calories in adult, unspecified BMI, unspecified whether serious comorbidity present (ICD-10 - E66.01) 12/09/2023 Rash (ICD-10 - R21) 11/04/2023 Body mass index [BMI ] 40.0-44.9, adult (ICD-10 - Z68.41) 08/02/2023 Pacemaker (ICD-10 - Z95.0) 12/29/2022 Long-term (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 of injectable non-insulin antidiabetic drugs (ICD-10 - Z79.85) 03/18/2023 senior care (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 of oral hypoglycemic drugs (ICD-10 - Z79.84) 05/10/2023 senior care (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 of oral hypoglycemic drugs (ICD-10 - Z79.84) 04/06/2023 Anxiety (ICD-10 - F41.9) 03/29/2023 Hospital discharge follow-up (ICD-10 - Z09) 03/09/2023 Atrial fibrillation, unspecified type (ICD-10 - I48.91) 02/03/2023 Anxiety (ICD-10 - F41.9) 03/09/2023 Controlled type 2 diabetes mellitus with hyperglycemia, without long-term current use of insulin (ICD-10 - E11.65) 05/10/2023 Encounter for immunization (ICD-10 - Z23) flu shot 12/29/2022 [employer] (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 of oral hypoglycemic drugs (ICD-10 - Z79.84) 08/02/2023 Nicotine dependence, cigarettes, uncomplicated (ICD-10 - F17.210) 04/06/2023 Atrial fibrillation, unspecified type (ICD-10 - I48.91) 11/04/2023 [employer] (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 of oral hypoglycemic drugs (ICD-10 - Z79.84) 11/04/2023 Tobacco use (ICD-10 - Z72.0) 04/06/2023 Pacemaker (ICD-10 - Z95.0) 08/02/2023 Elevated hemoglobin A1c (ICD-10 - R73.09) monitor recheck 3 months 12/29/2022 Hospital discharge follow-up (ICD-10 - Z09) 04/06/2023 Diabetic polyneuropathy associated with type 2 diabetes mellitus (ICD-10 - E11.42) 05/10/2023 Encounter for administration of vaccine (ICD-10 - Z23) 08/02/2023 Long-term (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 of injectable non-insulin antidiabetic drugs (ICD-10 - Z79.85) 11/04/2023 Dental disease (ICD-10 - K08.9) keflex dentist as planned 11/04/2023 Pacemaker (ICD-10 - Z95.0) 08/02/2023 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 01/21/2023 Other Questions asked and answered; discharged to home. Venipuncture: Performed by: Kelin MAGANA Attempts: x1 Location: RAC Needle gauge: 22G Patient tolerated well. 02/15/2023 Other Questions asked and answered; discharged to home. 02/18/2023 Other Questions asked and answered; discharged to home. 03/18/2023 Other Questions asked and answered; discharged to home. Venipuncture: Performed by: Kelin MAGANA Attempts: x1 Location: RAC Needle gauge: 22G Patient tolerated well. 03/29/2023 Other Questions asked and answered; discharged to home. 04/23/2023 Other Questions asked and answered; discharged to home. Venipuncture: Performed by: Kelin MAGANA Attempts: x1 Location: RAC Needle gauge: 22G Patient tolerated well. 04/27/2023 Other Questions asked and answered; discharged to home. 05/10/2023 Other Questions asked and answered; discharged to home. Give Flu vaccine as directed per provider 06/01/2023 Other Questions asked and answered; discharged to home. 07/27/2023 Other Venipuncture: Performed by: Kelin MAGANA Attempts: x1 Location: RAC Needle gauge: 21G Patient tolerated well. 08/02/2023 Other Questions asked and answered; discharged to home. 11/04/2023 Other Questions asked and answered; discharged to home. 11/10/2023 Other Venipuncture performed. Right arm. One attempt. Pt tolerated well, bleeding controlled with light dressing. 12/09/2023 Other Questions asked and answered; discharged to home. Plan Of Treatment Pending Test Test Name Order Date Shoulder Min 3V [id number] 03/18/2023 US Carotid Doppler Bilateral-[id number] 06/01 Next Appt Details Provider Name:Kylah Garcia, 02/15/2024 01:00:00 PM, [address], [facility], [place], [address], Insurance Providers Payer Name Payer Address Payer Phone Subscriber Number Group Number Insured Name Patient Relationship to Insured Coverage Start Date Coverage End Date [place] Medicare [address] [place] [phone] [id number] [employer] Self - patient is the insured [place] [employer] [address] [address] [place] [phone] [id number] [employer] Self - patient is the insured Medications Administered Medication Instructions Date of Administration Dosage Notes DEPO-Medrol 12/16/2021 40 mg NDC: [address]-81 Patient toleated well, advised to wait 20 min at clinic DEPO-Medrol 01/16/2022 40 mg ndc 27633-359 3-1 pt tolerated well/instructed to wait 20 min dexAMETHasone 12/16/2021 4 mg NDC: 34085-202-72 Patient tolerated well, advised to wait 20 min at clinic dexAMETHasone 01/16/2022 4 mg ndc 86528-8 39-30 pt tolerated well/instructed to wait 20 min Ketorolac Tromethamine 12/16/2021 60 mg NDC: 48097-996-96 Patient tolerated well, advised to wait 20 min at clinic Ketorolac Tromethamine 01/16/[address] [place] [address]-763-28 pt tolerated well/instructed to wait 20 min Rocephin 12/16/2021 250 mg NDC:77332-829-68 Patient tolerated well, advised to wait 20 min at clinic Medical (General) History Medical History History ICD Code anxiety High Blood Pressure type II diabetes Surgical History Surgery Date(Month/Year) leg, right, multiple 2000 back surgery 2016 Left eye blepharoplasty 12/2022 Hospitalization History Reason Date(Month/Year) see surgery hx
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
[2024-01-04] VITALS (10 sets, daily range): BP systolic 107–171; BP diastolic 54–92; PULSE 66–77; RESP 18–22; TEMP 36.1–36.3; O2SAT 93–98; BMI 38.2
--- OUTSIDE RECORDS SUMMARY | 2024-01-04 05:46 | XMS_ITS | Patient Health Record ---
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 Name Role Phone [facility] Primary Care Provider [facility] Unavailable Unavailable Allergies Allergen (clinical drug ingredient) Drug/Non Drug Allergy documented on EMR Reaction Allergy Type Onset Date Status Penicillin rash Drug Allergy Active Substance with sulfonamide structure and antibacterial mechanism of action (substance) Sulfa Antibiotics yeast infection Drug Allergy Active Results Component Value Reference Range Notes CBC w\ Auto Diff [id number] Reviewed date:01/23/2023 10:56:09 AM Interpretation: Performing Lab: [...] 42.0-75.0 % Lymph Auto% 14.0 21.0-51.0 % [place] Auto% 5.5 1.7-9.3 % Eos Auto% .5 .0-6.0 Baso Auto% 0.3 0.0-1.0 Imm Gran% .5 .0-.4 % Neutro Abs 8.68 .80-7.70 Absolute Neutrophil Count 8680 Lymph Abs 1.53 .10-4.10 [place] Abs .60 .20-1.00 Eos Abs .06 .00-.40 Baso Abs .03 .00-.10 Imm Gran Abs .05 .00-.10 NRBC# .00 .00-.20 NRBC% .00 .00-.20 /100 int act WBC's Comprehensive Metabolic Pane l [id number] Reviewed date:01/23/2023 10:56:24 AM Interpretation: Performing Lab: Notes/Report: Diagnosis Description: Essential (primary) hypertension Glucose Serum 166 71-110 MG/DL Testing perfor med at [facility], [address] [place] [address] [place] [address]. CLIA ID#: [id number] BUN 10 7-21 MG/DL Creat .79 .57-1.17 MG/DL Use of this assay is not recommended for patients undergoing treatment with phenindione, due to the potential for falsely depressed results. C-fsmtdo-p-benzoquinone imine (NAPQI) is a metabolite of acetaminophen, [...] Ehrlichiosis AB IgG & M 8666 6, 01754 Reviewed date:01/25/2023 12:36:33 PM Interpretation: Performing Lab: [...] infection. The best evidence for determined by [facility]. It has not been cleared or infection is a significant change (fourfold difference in titer) approved by the [place] Food and Drug Administration. This test was E.Chaffeensis IgM AB < 1:16 < 1:16 Performed By: [facility] [address] This test was developed and its [...] - Presence of IgM antibody to Ehrlichia Currency Examiner: Ryan Marti MD, PhD antibody detected. recent infection. determined by [facility]. It has not been cleared or approved by the [place] Food and Drug Administration. This test was Less than 1:16 ....... 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 [...] Ab, IgG sibirica. INTERPRETIVE INFORMATION: Rickettsia rickettsii ([facility]. 25 days for paired testing. IgG antibody detected. the group include R. akari, R. conorrii, R. australis and R. of recent infection. Acute-phase specimens are collected during facility. If the sample submitted was collected during the [facility] IGM <1:64 <1:64 these samples should be tested simultaneously at the same Currency Examiner: Ryan Marti MD, PhD Spotted Fever) Ab, IgM Seroconversion, a fourfold or greater rise in antibody titer, detected, which may indicate a the first week of illness and convalescent-phase samples are antibodies may occasionally persist Performed By: [facility] acute-phase of illness, submit a marked convalescent sample within of recent infection. Acute-phase specimens are collected during however, low levels of IgM may be persistent from past infection. IgM antibody detected. 25 days for paired testing. [place] Spotted Fever, as the response may not be specific considered Spotted Fever group reactive. Other organisms within for the agent (resulting in false positives) and the IgM response Less than 1:64 ....... Negative - No significant level of [address] 1:64 or greater ...... Positive - Presence of IgM antibody [place] [address] generally obtained 2-4 weeks after resolution of illness. Ideally INTERPRETIVE INFORMATION: Rickettsia rickettsii ([facility] The [facility] does not use IgM results for routine diagnostic testing of arianairiervin. the group include R. akari, R. conorrii, R. australis and R. for more than 12 months between acute and convalescent sera is considered strong evidence current or recent infection; Antibody reactivity to Rickettsia rickettsii antigen should be facility. 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 10-14 days may be helpful. antibodies to B. burgdorferi negative no further [place] [address] detected. 0.90 IV or less..........Negative: VlsE1 and pepC10 When the Borrelia burgdorferi VlsE1/pepC10 Abs, by BE result is 1.10 IV or greater.......Positive: VlsE1 and pepC10 REFERENCE INTERVAL: B. burgdorferi VlsE1/pepC10 Abs, BE Currency Examiner: Ryan Marti MD, PHD 0.91 - 1.09 IV...........Equivocal: Repeat testing in Performed By: [facility] antibodies to B. burgdorferi Cervical Spine AP/Lat 2-3 Vi ews-[id number] Reviewed date:10/01/2023 11:52:35 AM Interpretation: Performing Lab: Notes/Report: Femur 2 View Left-[id number] Reviewed date:10/01/2023 11:53:09 AM Interpretation: Performing Lab: Notes/Report: CBC w\ Auto Diff 56076 Reviewed date:04/26/2023 10:42:19 AM Interpretation: Performing Lab: [...] 42.0-75.0 % Lymph Auto% 21.4 21.0-51.0 % [place] Auto% 6.2 1.7-9.3 % Eos Auto% 1.6 .0-6.0 Baso Auto% 0.5 0.0-1.0 Imm Gran% .4 .0-.4 % Neutro Abs 5.39 .80-7.70 Absolute Neutrophil Count 5390 Lymph Abs 1.65 .10-4.10 [place] Abs .48 .20-1.00 Eos Abs .12 .00-.40 Baso Abs .04 .00-.10 Imm Gran Abs .03 .00-.10 NRBC# .00 .00-.20 NRBC% .00 .00-.20 /100 int act WBC's Comprehensive Metabolic Pane l [id number] Reviewed date:04/26/2023 10:43:44 AM Interpretation: Performing Lab: Notes/Report: Diagnosis Description: Generalized enlarged lymph nodes Glucose Serum 226 71-110 MG/DL Testing perfor med at [facility], [address] [place] [address] [place] [address]. CLIA ID#: [id number] BUN 22 7-21 MG/DL Creat .72 .57-1.17 MG/DL Use of this assay is not recommended for patients undergoing treatment with phenindione, due to the potential for falsely depressed results. Y-lapsbp-i-benzoquinone imine (NAPQI) is a metabolite of acetaminophen, [...] UNIT/L Osmo Serum,Calculated 296 280-300 MOSM/KG [place] [address], 8 5007 Reviewed date:11/11/2023 03:41:59 PM Interpretation: Performing Lab: Notes/Report: Diagnosis Description: Essential (primary) hypertension WBC 8.4 4.5-11.0 X10'3 RBC 5.04 4.50-5.90 X10'6 Hgb 11.9 13.5-17.5 G/DL Hct 39.7 41.0-53.0 % MCV 78.8 80.0-100.0 FL MCH 23.6 27.0-31.0 PG MCHC 30.0 31.0-37.0 G/DL Platelet 191 150-400 X10'3 RDW-SD 42.5 35.0-49.0 FL RDW-CV 15.0 12.2-15.6 % MPV 11.9 9.2-12.0 FL Review Auto Diff Conf Direct LDL [id number] Reviewed date:11/11/2023 03:41:44 PM Interpretation: Performing Lab: Notes/Report: DLDL 41 < 100 mg/dl DESIRABLE LDL 130-159 mg/dl BORDERLINE HIGH RISK LDL REFERENCE RANGES: WBC Auto Diff--[id number] Reviewed date:11/11/2023 03:41:34 PM Interpretation: Performing Lab: Notes/Report: Added by Discern Rules Neutro Auto% 69.1 42.0-75.0 % Lymph Auto% 21.0 21.0-51.0 % [place] Auto% 7.6 1.7-9.3 % Eos Auto% 1.3 .0-6.0 Baso Auto% 0.6 0.0-1.0 NRBC% .00 .00-.20 /100 int act WBC's Neutro Abs 5.82 .80-7.70 Absolute Neutrophil Count 5820 Lymph Abs 1.77 .10-4.10 [place] Abs .64 .20-1.00 Eos Abs .11 .00-.40 Baso Abs .05 .00-.10 NRBC# .00 .00-.20 Imm Gran Abs .03 .00-.10 Imm Gran% .4 .0-.4 % Lipid Panel Reflex DLDL 8006 1, 83443 Reviewed date:11/11/2023 03:41:20 PM Interpretation: Performing Lab: [...] Trig is >400 mg/dl. See DLDL result. Hemoglobin A1c 03630 Reviewed date:11/11/2023 03:39:35 PM Interpretation: Performing Lab: Notes/Report: Diagnosis Description: Type 2 diabetes mellitus with unspecified complications Hgb A1c 7.8 3.8-6.4 % Interpretation Of Hgb A1c: 4.5-6.2 % nondiabetics. >7.0 % diabetics. EAG 177 Estimated [place] ge Glucose(EAG). Comprehensive Metabolic Pane l [id number] Reviewed date:11/11/2023 03:42:47 PM Interpretation: Performing Lab: Notes/Report: Diagnosis Description: Essential (primary) hypertension Glucose Serum 200 71-110 MG/DL Testing perfor med at [facility], [address] [place] [address] [place] [address]. CLIA ID#: [id number] BUN 13 7-21 MG/DL Creat .69 .57-1.17 MG/DL Use of this assay is not recommended for patients undergoing treatment with phenindione, due to the potential for falsely depressed results. O-vjrbix-w-benzoquinone imine (NAPQI) is a metabolite of acetaminophen, [...] 12-78 UNIT/L Osmo Serum,Calculated 294 280-300 MOSM/KG PSA Medicare Screening--G010 3 Reviewed date:07/28/2023 04:03:48 PM Interpretation: Performing Lab: Notes/Report: Diagnosis Description: Encounter for screening for malignant neoplasm of prostate PSA .33 .00-4.00 NG/ML PSA concentra tions, regardless of the value, should not be interpreted as definitive evidence for the presence or absence of prostate cancer. Lipid Panel Reflex DLDL 8006 1, 81981 Reviewed date:07/28/2023 04:00:38 PM Interpretation: Performing Lab: [...] Trig is >400 mg/dl. See DLDL result. Hemoglobin A1c 67589 Reviewed date:07/28/2023 04:00:51 PM Interpretation: Performing Lab: Notes/Report: Diagnosis Description: Type 2 diabetes mellitus with hyperglycemia Hgb A1c 8.0 3.8-6.4 % Interpretation Of Hgb A1c: 4.5-6.2 % nondiabetics. >7.0 % diabetics. EAG 183 Estimated [place] ge Glucose(EAG). Comprehensive Metabolic Pane l 59566 Reviewed date:07/28/2023 03:59:54 PM Interpretation: Performing Lab: Notes/Report: Diagnosis Description: Essential (primary) hypertension Glucose Serum 200 71-110 MG/DL Testing perfor med at [address] [place] [address]. CLIA ID#: [id number] BUN 13 7-21 MG/DL Creat .69 .57-1.17 MG/DL C-jihmsu-b-benzoquinone imine (NAPQI) is a metabolite of acetaminophen, [...] 12-78 UNIT/L Osmo Serum,Calculated 292 280-300 MOSM/KG CBC w\ Auto Diff [id number] Reviewed date:07/28/2023 04:00:17 PM Interpretation: Performing Lab: [...] 42.0-75.0 % Lymph Auto% 22.8 21.0-51.0 % [place] Auto% 6.2 1.7-9.3 % Eos Auto% 2.3 .0-6.0 Baso Auto% 0.5 0.0-1.0 Imm Gran% .4 .0-.4 % Neutro Abs 5.27 .80-7.70 Absolute Neutrophil Count 5270 Lymph Abs 1.77 .10-4.10 [place] Abs .48 .20-1.00 Eos Abs .18 .00-.40 Baso Abs .04 .00-.10 Imm Gran Abs .03 .00-.10 NRBC# .00 .00-.20 NRBC% .00 .00-.20 /100 int act WBC's Hemoglobin A1c 29696 Reviewed date:03/20/2023 01:10:58 PM Interpretation: Performing Lab: Notes/Report: Diagnosis Description: Type 2 diabetes mellitus with hyperglycemia Hgb A1c 7.6 3.8-6.4 % Interpretation Of Hgb A1c: 4.5-6.2 % nondiabetics. >7.0 % diabetics. EAG 171 Estimated [place] ge Glucose(EAG). Reason For Referral Reason lymphadenopathy le ft ear pain Diagnosis 1 Lymphadenopathy (R59 .1) Referral Organization [facility] Referring Provider First Name Kylah Referring Provider Last Name Garcia Referring Provider Speciality Nurse Harley salas Referred Provider [facility] [place] Referred Provider Specialty Ear, nose an d throat surgeon General Notes Nurys Ramirez 01/2023 03:53:27 PM >Patient has apt on 06/03/2023, Nurys Ramirez 06/10/2023 04:53:06 PM >See referral notes Referral Priority Routine Referral Appointment Date 06/03/2023 Reason Patient needing eval uation due to abnormal x-rays Diagnosis 1 Right anterior shoul chyna pain (M25.511) Referral Organization [facility] Referring Provider First Name Kylah Referring Provider Last Name Garcia Referring Provider Speciality Nurse Harley salas Referred Provider [facility] Referred Provider Specialty Orthopedic S urgery General Notes Nurys Ramirez 10/2022 11:05:08 AM >Recieved notification from [facility] that they have attempted to contact patient by phone and have mailed letter to set up apt., Nurys Ramirez 08/27/2023 08:49:48 AM >Per Maria Elena at [facility] Patient Access patient had apt on 06/23/2023. See referral notes. Referral Priority Routine Referral Appointment Date 06/23/2023 Medications Medication SIG (Take, Route, Frequency, Duration) Notes Start Date End Date Status Tamsulosin HCl 0.4 mg TAKE ONE CAPSULE B Y MOUTH TWICE DAILY (DOSE INCREASE) for 30 Active ALPRAZolam 0.25 mg TAKE ONE TABLET BY M OUTH TWICE DAILY NEEDED FOR ANXIETY FOR 30 DAYS for 30 10/21/2023 Active Irbesartan 300 mg TAKE ONE TABLET BY M OUTH DAILY for 30 Active HYDROcodone-Acetaminophen 10-325 MG TAKE 1 TO 2 TABLETS BY MOUTH EVERY 4 TO 6 HOURS NEEDED FOR PAIN max EIGHT PER DAY, hold WITHIN FOUR hours of planned sleep FOR 30 DAYS Oral for 30 Active True Metrix Blood Glucose Test - as directed In Vitro four times a day and prn for 90 days Active DULoxetine HCl 30 mg TAKE ONE CAPSULE BY MOUTH EVERY MORNING FOR 30 DAYS for 30 Active GNP Essential One Daily - TAKE ONE TABLE T BY MOUTH DAILY FOR 14 DAYS Oral for 14 Days Active Gabapentin 600 mg TAKE ONE TABLET BY M OUTH FOUR TIMES DAILY for 90 Active Fluticasone Propionate 50 MCG/ACT 1 spray in each nostril Nasally Once a day for 90 days Active Polyethylene Glycol 3350 17 GM/SCOOP fill cap TO line (17grams) mix in water AND drink BY MOUTH ONCE DAILY DIRECTED for 28 Active Magnesium Oxide 400 MG 1 tablet as neede d Orally Once a day Active hydrOXYzine HCl 50 mg TAKE ONE-HALF TO 1 TABLET BY MOUTH TWICE DAILY NEEDED FOR ANXIETY for 28 Active Metoprolol Tartrate 25 MG as directed Or al Twice a day for 23 days Active Eliquis 5 mg TAKE ONE TABLET BY M OUTH TWICE DAILY for 30 Active Lubiprostone 24 MCG TAKE ONE CAPSULE BY MOUTH TWICE DAILY for 30 Active Mplbbbca-Hcrdgnrtg-CT 3.5-37794-2 4 drops into affected ear Otic Three times a day for 7 days Active Montelukast Sodium 10 mg TAKE ONE TABLET BY MOUTH EVERY MORNING for 30 Active amLODIPine Besylate 5 MG 1 tab Orally On ce a day for 30 days Active Atorvastatin Calcium 40 mg TAKE ONE TABL ET BY MOUTH DAILY AT 10am for 90 Active Escitalopram Oxalate 20 mg TAKE ONE TABL ET BY MOUTH ONCE DAILY for 30 Active Mounjaro 10 MG/0.5ML 10 mg Subcutaneous weekly for 30 days Active Docusate Sodium 100 mg TAKE TWO CAPSULES BY MOUTH TWICE DAILY FOR constipation for 30 Active Januvia 100 mg TAKE ONE TABLET BY M OUTH EVERY DAY for 30 Active traZODone HCl 50 mg TAKE ONE TABLET BY M OUTH At Bedtime for 30 Active Clotrimazole-Betamethasone 1-0.05 % 1 application Externally Twice a day for 30 days 12/09/2023 03/08/2024 Active Furosemide 20 mg TAKE ONE TABLET BY M OUTH DAILY NEEDED DIRECTED for 30 Active Gemfibrozil 600 MG 1 tablet 30 minutes before morning and evening meals Orally Twice a day for 90 days 12/09/2023 Active Cetirizine HCl 10 mg TAKE ONE TABLET BY MOUTH EVERY EVENING for 30 Active tiZANidine HCl 4 mg TAKE ONE TABLET BY M OUTH THREE TIMES DAILY NEEDED FOR MUSCLE SPASM for 30 Active Triamcinolone Acetonide 0.1 % 1 application Externally twice a day as directed for 30 days 11/26/2022 Active Triamterene-HCTZ 37.5-25 MG 1 tablet in the morning Orally Once a day for 90 days Active Nitroglycerin 0.4 MG 1 tab Sublingual q 5 minutes prn chest pain for 30 days Active Omeprazole 20 MG 1 capsule 30 minutes before morning meal Orally Once a day for 90 days Active Immunizations Vaccine Route Administration Date Status Comme nts Flucelvax Quadrivalent IM Intramuscular 05/10/[address] [facility] [id number] pt tolerated well/instructed to wait 20 min Flucelvax Quadrivalent Pres Free IM Intramuscular 06/16/[address] [id number] 4 pt tolerated well/instructed to wait 20 min Influenza (split), 3 yrs and above Unknown 05/26/2022 Administered Prevnar 20 IM Intramuscular 06/16/[address] 00 pt tolerated well/instructed to wait 20 min Social History Tobacco Use: Social History Observation Description Date Details (start date - stop date) Current Smoker NA - NA Alcohol Screen (Audit-C) Question Answer Notes Did [...] way Not at all Total Score 0 Tobacco Control (Standard) Question Answer Notes Tobacco use: Current smoker How often do you smoke cigarettes? Every day How many cigarettes a day do you smoke? 11-20 Problems Problem Type SNOMED Code ICD Code Onset Dates Problem Status W/U Status Risk Notes Problem 968309298 Mixed hyperlipidemia (E78.2) Active confirmed Problem 05279484 Nicotine dependence, cigarettes, uncomplicated (F17.210) Active confirmed Problem 2504323 Primary insomnia (F51.01) Active confirmed Problem 154854055 Chronic pain due to trauma (G89.21) Active confirmed Problem 408160367 Chronic pain syndrome (G89.4) Active confirmed Problem 168422795415053 Primary osteoarthritis, right shoulder (M19.011) Active confirmed Problem Acquired hammer toe of right foot ([id number]) Other hammer toe(s) (acquired), right foot (M20.41) Active confirmed Problem 85670942 Other hammer toe (s) (acquired), left foot (M20.42) Active confirmed Problem 72656670 Dysuria (R30.0) Active confirmed Problem Long-term current use of drug therapy (381094921) 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 (Z79.84) Active confirmed Problem 533248985 Benign prostatic hyperplasia with lower urinary tract symptoms, symptom details unspecified (N40.1) Active confirmed Problem 415934608 Gastroesophageal reflux disease without esophagitis (K21.9) Active confirmed Problem 04432321 Anxiety (F41.9) Active confirmed Problem 963491928515751 Primary osteoarthritis of right shoulder (M19.011) Active confirmed Problem 421794024 Diabetic polyneuropathy associated with type 2 diabetes mellitus (E11.42) Active confirmed Problem 997642300 Moderate persist ent asthmatic bronchitis with acute exacerbation (J45.41) Active confirmed Problem Neuropathic pain (670882670) Neuropathic pain (M79.2) Active confirmed Problem 126531839 Elevated hemoglo bin A1c (R73.09) Active confirmed Problem 850688108 Tobacco abuse (Z72.0) Active confirmed Problem 742323851 [place] spotted fever (A77.0) Active confirmed Problem 43701549 Atrial fibrillation, unspecified type (I48.91) Active confirmed Problem 64258637 Irritable bowel syndrome with both constipation and diarrhea (K58.2) Active confirmed Problem Administration of vaccine to produce active immunity (69540574) Encounter for administration of vaccine (Z23) Active confirmed Problem 363405238 Pacemaker (Z95.0) Active confirmed Problem 06552482 Constipation by delayed colonic transit (K59.01) Active confirmed Problem 91733368 Acute pain of ri ght shoulder (M25.511) Active confirmed Problem 604199223 Leukocytosis, unspecified type (D72.829) Active confirmed Problem Hyperlipidemia (23245213) Hyperlipidemia (E78.5) Active confirmed Problem 060260542 Thyroid disorder screen (Z13.29) Active confirmed Problem 512916401 Encounter for tobacco use cessation counseling (Z71.6) Active confirmed Problem 388525161 Environmental allergies (Z91.09) Active confirmed Problem 8528929 Decreased mobili ty (R26.89) Active confirmed Problem 86896323 Controlled type 2 diabetes mellitus with complication, without long-term current use of insulin (E11.8) Active confirmed Problem 056963939 Hyperglycemia du e to diabetes mellitus (E11.65) Active confirmed Problem 844424238 Controlled type 2 diabetes mellitus with hyperglycemia, without long-term current use of insulin (E11.65) Active confirmed Problem Morbid obesity (518427913) Class 3 severe obesity due to excess calories in adult, unspecified BMI, unspecified whether serious comorbidity present (E66.01) Active confirmed Problem Chronic obstructive pulmonary disease (51539678) Chronic obstructive pulmonary disease (COPD) (J44.9) Active confirmed Problem 544519521 Other osteoarthritis of spine, cervical region (M47.892) Active confirmed Problem 62209787 Primary hypertension (I10) Active confirmed Problem Body mass index 40+ - severely obese (942707141) Body mass index [BMI] 40.0-44.9, adult (Z68.41) Active confirmed Problem 957869436 Lumbar pain (M54.50) Active confirmed Vital Signs Heart Rate 85 /min 12/09/2023 Temperature 97.7 degrees Fahrenheit 12/09/2023 Respiratory Rate 20 /min 12/09/2023 Height-cm 182.88 cm 12/09/2023 Oximetry 96 % 12/09/2023 Blood pressure diastolic 85 mm Hg 12/09/2023 Weight-kg 136.53 kg 12/09/2023 Height 72 in 12/09/2023 Blood pressure systolic 133 mm Hg 12/09/2023 Weight 301 lbs 12/09/2023 BMI 40.82 kg/m2 12/09/2023 Encounters Encounter Location Date Provider Diagnosis [facility] [address] [place] [address] 01/11/2023 Kylah Garcia Controlled type 2 diabetes mellitus with complication, without long-term current use of insulin E11.8 ; Primary hypertension I10 and Anxiety F41.9 [facility] [address] [place] [address] 01/21/2023 Kylah Poteet Primary hypertension I10 and [place] spotted fever A77.0 [facility] [address] [place] [address] 02/15/2023 [facility] Primary hypertension I10 ; Anxiety F41.9 and Atrial fibrillation, unspecified type I48.91 [facility] [address] [place] [address] 02/18/2023 [facility] Constipation by jessica bashir colonic transit K59.01 ; Swelling R60.9 ; Left thigh pain M79.652 and Neck pain M54.2 [facility] [address] [place] [address] 03/18/2023 [facility] Hyperglycemia due to diabetes mellitus E11.65 ; Anxiety F41.9 ; Right anterior shoulder pain M25.511 ; Chronic pain syndrome G89.4 and assisted (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 of oral hypoglycemic drugs Z79.84 [facility] [address] [place] [address] 03/29/2023 [facility] Acute swimmer's ear of both sides H60.333 ; Diabetic polyneuropathy associated with type 2 diabetes mellitus E11.42 ; 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 1 and Otalgia, left ear H92.02 [facility] [address] [place] [address] 04/27/2023 Kylah Garcia Lymphadenopathy R59. 1 [facility] [address] [address] 05/10/2023 [facility] Atrial fibrillation, unspecified type I48.91 ; Lymphadenopathy R59.1 ; Controlled type 2 diabetes mellitus with hyperglycemia, without long-term current use of insulin E11.65 ; Long-term (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 of injectable non-insulin antidiabetic drugs Z79.85 ; assisted (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 of oral hypoglycemic drugs Z79.84 ; Encounter for immunization Z23 and Encounter for administration of vaccine Z23 [facility] [address] [address] 06/01/2023 [facility] Primary osteoarthrit is, right shoulder M19.011 ; Other osteoarthritis of spine, cervical region M47.892 and Carotid artery calcification, left I65.22 [facility] [address] [place] [address] 07/27/2023 [facility] Mixed hyperlipidemia E78.2 ; Hyperglycemia due to diabetes mellitus E11.65 ; Primary hypertension I10 and Prostate cancer screening Z12.5 [facility] [address] [place] [address] 08/02/2023 [facility] Diabetic polyneuropa thy associated with type 2 diabetes mellitus E11.42 ; Hyperlipidemia E78.5 ; Primary hypertension I10 ; Lumbar pain M54.50 ; Pacemaker Z95.0 ; Nicotine dependence, cigarettes, uncomplicated F17.210 ; Elevated hemoglobin A1c R73.09 ; Long-term (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 of injectable non-insulin antidiabetic drugs Z79.85 and 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 Z79.84 [facility] [address] [place] [address] 09/03/2023 [facility] Dental disease K08.9 and Liliam infection B37.9 [facility] [address] [place] [address] 11/04/2023 [facility] Primary hypertension I10 ; Atrial fibrillation, unspecified type I48.91 ; Diabetic polyneuropathy associated with type 2 diabetes mellitus E11.42 ; Class 3 severe obesity due to excess calories in adult, unspecified BMI, unspecified whether serious comorbidity present E66.01 ; Body mass index [BMI] 40.0-44.9, adult Z68.41 ; assisted (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 of oral hypoglycemic drugs Z79.84 ; Tobacco use Z72.0 ; Dental disease K08.9 ; Pacemaker Z95.0 and Chronic obstructive pulmonary disease (COPD) J44.9 [facility] [address] [place] [address] 11/10/2023 [facility] Primary hypertension I10 and Controlled type 2 diabetes mellitus with complication, without long-term current use of insulin E11.8 [facility] [address] [place] [address] 12/09/2023 [facility] Encounter for Medica re annual wellness exam Z00.00 ; Mixed hyperlipidemia E78.2 ; Diabetic polyneuropathy associated with type 2 diabetes mellitus E11.42 and Rash R21 [facility] [address] [place] [address] 01/04/2023 [facility] [address] [place] [address] 01/11/2023 [facility] Controlled type 2 diabetes mellitus with complication, without long-term current use of insulin E11.8 ; Primary hypertension I10 and Anxiety F41.9 [facility] [address] [place] [address] 01/11/2023 [facility] [address] [place] [address] 02/03/2023 [facility] Controlled type 2 diabetes mellitus with complication, without long-term current use of insulin E11.8 ; Primary hypertension I10 ; [place] spotted fever A77.0 and Anxiety F41.9 [facility] [address] [place] [address] 02/04/2023 [facility] [address] [place] [address] 02/08/2023 [facility] [address] [place] [address] 02/12/2023 [facility] [address] [place] [address] 03/01/2023 [facility] [address] [place] [address] 03/09/2023 [facility] Chronic pain syndrom e G89.4 ; Diabetic polyneuropathy associated with type 2 diabetes mellitus E11.42 ; Primary hypertension I10 ; Atrial fibrillation, unspecified type I48.91 and Controlled type 2 diabetes mellitus with hyperglycemia, without long-term current use of insulin E11.65 [facility] [address] [place] [address] 04/06/2023 [facility] Primary hypertension I10 ; Controlled type 2 diabetes mellitus with complication, without long-term current use of insulin E11.8 ; Chronic pain syndrome G89.4 ; Anxiety F41.9 ; Atrial fibrillation, unspecified type I48.91 ; Pacemaker Z95.0 and Diabetic polyneuropathy associated with type 2 diabetes mellitus E11.42 [facility] [address] [place] [address], [place] [address] 04/12/2023 [facility] [address] [place] [address] 04/15/2023 [facility] [address] [place] [address] 04/22/2023 [facility] [address] [place] [address] 05/17/2023 [facility] Right anterior shoul chyna pain M25.511 and Primary osteoarthritis of right shoulder M19.011 [facility] [address] [place] [address] 05/18/2023 [facility] Atrial fibrillation, unspecified type I48.91 and Primary hypertension I10 [facility] [address] [place] [address] 06/10/2023 [facility] Primary hypertension I10 and Atrial fibrillation, unspecified type I48.91 [facility] [address] [place] [address] 06/11/2023 [facility] Sore throat J02.9 [facility] [address] [place] [address] 06/17/2023 [facility] [address] [place] [address] 07/20/2023 [facility] [address] [place] [address] 07/21/2023 [facility] Primary hypertension I10 and Moderate persistent asthmatic bronchitis with acute exacerbation J45.41 [facility] [address] [place] [address] 08/25/2023 [facility] Controlled type 2 diabetes mellitus with complication, without long-term current use of insulin E11.8 and Primary hypertension I10 [facility] [address] [place] [address] 09/16/2023 [facility] Controlled type 2 diabetes mellitus with complication, without long-term current use of insulin E11.8 and Chronic pain syndrome G89.4 [facility] [address] [place] [address] 10/26/2023 [facility] Controlled type 2 diabetes mellitus with complication, without long-term current use of insulin E11.8 and Atrial fibrillation, unspecified type I48.91 [facility] [address] [place] [address] 11/19/2023 [facility] Controlled type 2 diabetes mellitus with complication, without long-term current use of insulin E11.8 and Primary hypertension I10 [address] [place] [address] 12/07/2023 [facility] [address] [place] [address] 12/27/2023 [facility] Assessments Encounter Date Diagnosis (ICD Code) Assessment [...] use of insulin (ICD-10 - E11.8) 01/21/2023 [place] spotted fever (ICD-10 - A77.0) tick profile [...] to diabetes mellitus (ICD-10 - E11.65) ha1c 05/10/2023 Lymphadenopathy (ICD-10 - R59.1) resolved 05/10/2023 [...] type 2 diabetes mellitus (ICD-10 - E11.42) shane 09/16/2023 Chronic pain syndrom e (ICD-10 - [...] calcification, left (ICD-10 - I65.22) carotid us 03/18/2023 Right anterior shoulder pain (ICD-10 - M25.511) shoulder xray 05/10/2023 Controlled type 2 diabetes mellitus with hyperglycemia, without long-term current use of insulin (ICD-10 - E11.65) monitor 03/29/2023 assisted (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 of oral hypoglycemic drugs (ICD-10 - Z79.84) 03/09/2023 Diabetic polyneuropathy associated with type 2 diabetes mellitus (ICD-10 - E11.42) 01/11/2023 Primary hypertension (ICD-10 - I10) 01/11/2023 Primary hypertension (ICD-10 - I10) 02/15/2023 Atrial fibrillation, unspecified type (ICD-10 - I48.91) ekg discussed [facility] patient follow up cardiology 02/03/2023 Primary hypertension (ICD-10 - I10) 02/18/2023 Left thigh pain (ICD-10 - M79.652) x ray 02/03/2023 [place] spotted fever (ICD-10 - A77.0) 01/11/2023 Anxiety [...] Chronic pain syndrom e (ICD-10 - G89.4) 08/02/2023 Lumbar pain (ICD-10 - M54.50) pain clinic 07/27/2023 Prostate cancer screening (ICD-10 - Z12.5) 11/04/2023 Class 3 severe obesity due to excess calories in adult, unspecified BMI, unspecified whether serious comorbidity present (ICD-10 - E66.01) 12/09/2023 Rash (ICD-10 - R21) 11/04/2023 Body mass index [BMI ] 40.0-44.9, adult (ICD-10 - Z68.41) 08/02/2023 Pacemaker (ICD-10 - Z95.0) 03/18/2023 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 (ICD-10 - Z79.84) 05/10/2023 assisted (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 of oral hypoglycemic drugs (ICD-10 - Z79.84) 04/06/2023 Anxiety (ICD-10 - F41.9) 03/29/2023 Hospital discharge follow-up (ICD-10 - Z09) 03/09/2023 Atrial fibrillation, unspecified type (ICD-10 - I48.91) 02/03/2023 Anxiety (ICD-10 - F41.9) 03/09/2023 Controlled type 2 diabetes mellitus with hyperglycemia, without long-term current use of insulin (ICD-10 - E11.65) 05/10/2023 Encounter for immunization (ICD-10 - Z23) flu shot 08/02/2023 Nicotine dependence, cigarettes, uncomplicated (ICD-10 - F17.210) 04/06/2023 Atrial fibrillation, unspecified type (ICD-10 - I48.91) 11/04/2023 assisted (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 of oral hypoglycemic drugs (ICD-10 - Z79.84) 11/04/2023 Tobacco use (ICD-10 - Z72.0) 04/06/2023 Pacemaker (ICD-10 - Z95.0) 08/02/2023 Elevated hemoglobin A1c (ICD-10 - R73.09) monitor recheck 3 months 04/06/2023 Diabetic polyneuropathy associated with type 2 diabetes mellitus (ICD-10 - E11.42) 05/10/2023 Encounter for administration of vaccine (ICD-10 - Z23) 08/02/2023 Long-term (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 of injectable non-insulin antidiabetic drugs (ICD-10 - Z79.85) 11/04/2023 Dental disease (ICD-10 - K08.9) keflex dentist as planned 11/04/2023 Pacemaker (ICD-10 - Z95.0) 08/02/2023 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 (ICD-10 - Z79.84) 11/04/2023 Chronic obstructive pulmonary disease (COPD) (ICD-10 - J44.9) 01/21/2023 Other Questions asked and answered; discharged [...] Test Name Order Date Shoulder Min 3V Right-[id number] 03/18/2023 US Carotid Doppler Bilateral-[id number] 06/01 Next Appt Details Provider Name:Kylah Garcia, 02/15/2024 01:00:00 PM, [address], [facility], [place], [address], Insurance Providers Payer Name Payer Address Payer Phone Subscriber Number Group Number Insured Name Patient Relationship to Insured Coverage Start Date Coverage End Date [place] [address] [place] [phone] [id number] GANNIMCO Fisher Self - patient is the insured [place] [employer] [address] [address] [place] [address] [id number] [employer]IM[employer] GAN Self - patient is the insured Medications Administered Medication Instructions Date of Administration Dosage Notes DEPO-Medrol 12/16/2021 40 mg NDC: [address]-77 Patient toleated well, advised to wait 20 min at clinic DEPO-Medrol 01/16/2022 40 mg ndc 50235-860 3-1 pt tolerated well/instructed to wait 20 min dexAMETHasone 12/16/2021 4 mg NDC: 06723-010-92 Patient tolerated well, advised to wait 20 min at clinic dexAMETHasone 01/16/2022 4 mg ndc 55287-4 39-30 pt tolerated well/instructed to wait 20 min Ketorolac Tromethamine 12/16/2021 60 mg NDC: 34305-300-86 Patient tolerated well, advised to wait 20 min at clinic Ketorolac Tromethamine 01/16/2022 [address] [place] [address]32[address]-763-15 pt tolerated well/instructed to wait 20 min Rocephin 12/16/2021 250 mg NDC:79069-608-93 Patient tolerated well, advised to wait 20 min at clinic Medical (General) History Medical History History ICD Code anxiety High Blood Pressure type II diabetes Surgical History Surgery Date(Month/Year) Left eye blepharoplasty 12/2022 back surgery 2015 leg, right, multiple 2000 Hospitalization History Reason Date(Month/Year) see surgery hx
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
[2024-01-04 06:33] LABS: Glucose Point of Care 140 mg/dL (70-110)
[2024-01-04] MEDS: sodium chloride 0.9% 1,000 ML 30 ML IV (06:33)
[2024-01-04] MEDS: albuterol 2.5 mg/3 mL Neb INHALATION (06:36)
--- NOTE | 2024-01-04 06:44 | W.PM.OPSUD ---
Surgery/Procedure H&P Update DATE OF PROCEDURE: January 04, 2024 DATE H&P PERFORMED: 12/23/23 PRIMARY INDICATION FOR PROCEDURE: Left pyriform sinus lesion PLANNED PROCEDURE: Operation Date: 01/04/24 07:00 Proposed Procedures p Direct Laryngoscopy Direct Microdirect Larynoscopy with biopsy 51089, M54.2(Not Applicable) - Andi Short MD
[2024-01-04] MEDS: clindamycin 600 MG/50 ML PREMIX 100 MG IV (07:03)
--- NOTE | 2024-01-04 07:43 | PM.OP ---
Operative Report Date of procedure: January 04, 2024 Pre-op diagnosis: - Left Otalgia - Possible left pyriform sinus lesion Post-op diagnosis: - Normal laryngeal and hypopharyngeal exams - No masses or lesions visible or palpable on exam Post-op findings: - Normal laryngeal and hypopharyngeal exams - No masses or lesions visible or palpable on exam Procedure done: Microdirect laryngoscopy Implants: None Specimens removed/disposition: None Pathology: none sent Surgeon: Andi Short Surgeon: Andi Short MD Certified Pest Control Technician: Lamberto Emerson Anesthesia: General Estimated blood loss (mL): 0 IV fluids (mL): 500 Complications: None Findings: - Normal laryngeal and hypopharyngeal exams - No masses or lesions visible or palpable on exam Condition: stable Disposition: PACU Brief History: 58 yo wm with a h/o left sided otalgia and a possible left pyriform sinus lesion seen on neck CT. The patient desires surgical evaluation. Procedure: The patient was identified in the preoperative holding area and was taken to the operating room and placed on the operating table in the supine position. Anesthesia was obtained with general endotracheal anesthesia and the table was then turned 90 degrees to the patient's left. A moist Ray-Randall was placed on the patient's maxillary teeth and a surgical laryngoscope was advanced down the right oral cavity gutter under direct vision until the larynx came into view. A systematic inspection was carried out of the patient's larynx, base of tongue, vallecula, piriform sinuses, and postcricoid area with no abnormalities found. At this point a bimanual exam was performed no palpable lesions being noted. At this point the instrumentation was removed from the patient and control of the patient was returned to anesthesia where he underwent an uneventful reversal of anesthesia and extubation and was taken to the recovery room in stable condition. There were no operative or anesthetic complications.
--- NOTE | 2024-01-04 07:48 | ANES.PREANE2 ---
Pre-Anesthetic Assessment Height/Weight: Height 1.85 m Weight 131.542 kg Temp Pulse Resp BP Pulse Ox O2 Del Method 97 F L 75 22 H 147/85 98 Room Air 01/04/24 07:41 01/04/24 07:46 01/04/24 07:46 01/04/24 07:46 01/04/24 07:46 01/04/24 07:46 Operation Date: 01/04/24 07:00 Proposed Procedures p Direct Laryngoscopy Direct Microdirect Larynoscopy with biopsy 44075, M54.2(Not Applicable) - Andi Short MD Familial anesthetic complications: none Was Beta Gabbi taken within 24 hours: Yes Was Clonidine taken within 24 hours: N/A Last intake: Intake Last Liquid Date 01/03/24 Last Liquid Time 23:55 Last Solid Date 01/03/24 Last Solid Time 19:00 Social Tobacco and No alcohol Exam alert, oriented x 3 and regular rate & rhythm Airway Submandibular: within normal limits Cervical ROM: within normal limits Mallampati: Class II Dentition: full Pulmonary Chronic Obstructive Pulmonary Disease and Sleep Apnea CV/HEM Atrial Fibrillation, Coronary Artery Disease and Hypertension Pacemaker GI Gastroesophageal Reflux Disease Metabolic Diabetes Mellitus, Hyperlipidemia and Morbid Obesity Musc/[facility] Lower Back Pain and Osteoarthritis/DJD Anesthetic Plan ASA status: 3 Anesthesia: General Medications/Allergies Home Medications Medication Instructions Recorded Confirmed Last Taken Type albuterol sulfate 90 mcg/actuation 2 inh inhalation Q4H PRN shortness 11/20/19 01/03/24 12/30/23 History aerosol inhaler (Ventolin HFA) of breath or wheezing hydrocodone 10 mg-acetaminophen 1 tab PO Q6H PRN pain 11/20/19 01/03/24 01/04/24 History 325 mg tablet montelukast 10 mg tablet 10 mg PO DAILY@1000 11/20/19 01/03/24 01/03/24 History sitagliptin phosphate 100 mg 100 mg PO DAILY@1000 11/20/19 01/03/24 01/03/24 History tablet (Januvia) tamsulosin 0.4 mg capsule 0.4 mg PO BID@1000,2200 11/20/19 01/03/24 01/03/24 History trazodone 50 mg tablet 50 - 100 mg PO BEDTIME@2200 11/20/19 01/03/24 01/02/24 History omeprazole 20 mg capsule,delayed 20 mg PO DAILY 10/18/20 01/03/24 01/03/24 History release apixaban 5 mg tablet (Eliquis) 5 mg PO BID #60 tabs 10/20/20 01/03/24 12/29/23 Rx atorvastatin 40 mg tablet 40 mg PO DAILY@1000 #90 tabs 01/31/21 01/03/24 01/03/24 Rx irbesartan 300 mg tablet 300 mg PO DAILY #90 tabs 01/31/21 01/03/24 01/03/24 Rx lubiprostone 8 mcg capsule 24 mcg PO BID 04/17/21 01/03/24 01/03/24 History (Amitiza) Bilateral Mamie Articulating #1 ea 09/11/21 09/21/23 Unknown Rx AFO's docusate sodium 100 mg capsule 200 mg PO BID PRN Constipation 10/14/21 01/03/24 01/02/24 History (Dulcolax Stool Softener (docusate)) hydroxyzine HCl 50 mg tablet 50 mg PO BID PRN Anxiety 10/14/21 01/03/24 12/15/23 History polyethylene glycol 3350 17 17 g PO DAILY PRN Constipation 10/14/21 01/03/24 01/03/24 History gram/dose oral powder (Miralax) Night Splint to the Left Foot #1 ea 12/31/21 09/21/23 Unknown Rx Lactobacillus acidophilus 20,000 mmu cells PO DAILY 07/21/22 01/03/24 01/03/24 History (Acidophilus capsule) fluticasone propionate 50 2 spray intranasal DAILY@1000 PRN 07/21/22 01/03/24 01/03/24 History mcg/actuation nasal Congestion spray,suspension gabapentin 600 mg tablet 600 mg PO TID 07/21/22 01/03/24 01/03/24 History vitamins A,C,Y-ecnr-aublyf 4,296 1 cap PO BID 07/21/22 01/03/24 01/02/24 History mcg-226 mg-90 mg capsule (ICaps AREDS) Above Ankle Diabetic Boots with 3 #1 ea 08/20/22 09/21/23 Unknown Rx inserts escitalopram oxalate 20 mg tablet 20 mg PO DAILY 02/03/23 01/03/24 01/03/24 History tizanidine 4 mg tablet 4 mg PO TID PRN Muscle Spasm 02/03/23 01/03/24 01/01/24 History cetirizine 10 mg tablet 10 mg PO BEDTIME 03/18/23 01/03/24 01/02/24 History alprazolam 0.25 mg tablet 0.25 mg PO BID PRN Anxiety 03/19/23 01/03/24 01/02/24 History metoprolol tartrate 25 mg tablet 25 mg PO BID #90 tabs 09/28/23 01/03/24 01/03/24 Rx aspirin 81 mg tablet,delayed 81 mg PO DAILY 12/06/23 01/03/24 12/29/23 History release (Adult Low Dose Aspirin) amlodipine 10 mg tablet 5 mg PO BEDTIME 12/10/23 01/03/24 01/02/24 History furosemide 20 mg tablet 20 mg PO DAILY PRN swelling 12/10/23 01/03/24 01/01/24 History triamterene 37.5 1 tab PO DAILY 12/10/23 01/03/24 01/02/24 History mg-hydrochlorothiazide 25 mg tablet duloxetine 30 mg capsule,delayed 30 mg PO BEDTIME 01/03/24 01/03/24 01/02/24 History release gemfibrozil 600 mg tablet 600 mg PO BID 01/03/24 01/03/24 12/30/23 History tirzepatide 10 mg/0.5 mL 10 mg SUBCUT Q7D 01/03/24 01/03/24 12/29/23 History subcutaneous pen injector (Mounjaro) Allergies Allergy/AdvReac Type Severity Reaction Status Date / Time Penicillins Allergy Mild ALGY-Rash Verified 12/10/23 11:28 Sulfa (Sulfonamide Allergy ALGY-Rash Verified 12/10/23 11:28 Antibiotics) Current Medications Generic Name Dose Route Start Last Admin Trade Name Freq PRN Reason Stop Dose Admin Sodium Chloride 1,000 mls @ 30 mls/hr 01/04/24 06:00 01/04/24 06:33 Sodium Chloride 0.9% IV 01/05/24 05:59 30 mls/hr .Q24H KAREL Administration PFSH Anesthesia Medical History (Updated 01/03/24 @ 13:36 by Khadijah William, RN) HTN (hypertension) Atrial fibrillation Obesity Tobacco abuse COPD (chronic obstructive pulmonary disease) Diabetes Hyperlipidemia ANGIE on CPAP Pacemaker Symptomatic bradycardia Dizziness Chest pain Bradycardia Warfarin anticoagulation Dizziness Gastritis Sinus pause Near syncope AV block, 2nd degree, 2:1 conduction, resolved w discontinuation of metoprolol underlying bifascicular block BPH (benign prostatic hyperplasia) Hernia Change in bowel habits Syncope Transient blindness of both eyes Surgical History S/P placement of cardiac pacemaker History of cataract surgery Family History Grandmother CAD (coronary artery disease) MATERNAL Mother Diabetes Denies family history of Anesthesia complication Bleeding disorder Social History Smoking and tobacco/nicotine status: current some day tobacco/nicotine user cigarettes Packs smoked per day: 1 Alcohol intake: current Alcohol intake frequency: holidays/special occasions only Substance/Drug Use: never Household members: other Details: Girlfriend Marital status: service: No Current occupational status: disabled Data Anesthesia Cardiac Studies: Echocardiogram 10/19/20 Sestamibi Stress Test (Cardiology) 03/22/20 Cardiac Event Monitor 11/01/20
[2024-01-04] MEDS: racepinephrine 0.5 mL Neb INHALATION (07:54)
--- NOTE | 2024-01-04 14:02 | ANE.PACU2 ---
Inpatient post-anesthesia follow up: Airway intact: Yes Vital signs: Temperature 97 F Pulse Rate 72 Respiratory Rate 18 Blood Pressure 107/54 Pulse Oximetry 95 Oxygen Delivery Me thod Room Air Oxygen Flow Rate Fraction of Inspir ed Oxygen Hydration adequate: Yes Nausea and vomiting: No Pain level: 2 Mental status: Baseline
== END 2024-01-04 08:50 | disposition home or self-care (01) ==
PROVIDERS: PCP Nurse Practitioner Family; Visit Provider Specialist
PROC: 0CJS8ZZ Inspection of Larynx, Via Natural or Artificial Opening Endoscopic (ICD-10-PCS; CPT 31526; principal; 2024-01-04 07:00)
DX: H92.02 Otalgia, left ear (principal); Z03.89 Encounter for observation for other suspected diseases and conditions ruled out; J44.9 Chronic obstructive pulmonary disease, unspecified; I48.91 Unspecified atrial fibrillation; I25.10 Atherosclerotic heart disease of native coronary artery without angina pectoris; I10 Essential (primary) hypertension; Z95.0 Presence of cardiac pacemaker; K21.9 Gastro-esophageal reflux disease without esophagitis; E11.9 Type 2 diabetes mellitus without complications; E78.5 Hyperlipidemia, unspecified; E66.01 Morbid (severe) obesity due to excess calories; Z68.38 Body mass index [BMI] 38.0-38.9, adult; Z79.82 Long term (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 of aspirin; G47.33 Obstructive sleep apnea (adult) (pediatric); N40.0 Benign prostatic hyperplasia without lower urinary tract symptoms; F17.210 Nicotine dependence, cigarettes, uncomplicated
CPT/HCPCS: 31526; 36416; 82962; 94640; J2704; J3010; J3490; J7030; J7613

== ENCOUNTER → 2024-02-14 10:12 | Outpatient (BNVA) | payer MEDICARE, OTHER, SELFPAY | PROVIDERS: PCP Nurse Practitioner Family; Visit Provider Nurse Practitioner Family | DX: I10 Essential (primary) hypertension (principal); Z95.0 Presence of cardiac pacemaker; I48.91 Unspecified atrial fibrillation; F17.210 Nicotine dependence, cigarettes, uncomplicated | CPT/HCPCS: 99213 ==

== ENCOUNTER 2024-04-25 16:35 | Emergency (ER) | payer MEDICARE, OTHER, SELFPAY ==
[2024-04-25 16:45] VITALS: BP 154/82; PULSE 72; RESP 16; TEMP 36.7; O2SAT 98; BMI 35.6
[2024-04-25 19:01] VITALS: BP 126/86; PULSE 72; O2SAT 99
--- NOTE | 2024-04-25 19:04 | ECG_ITS ---
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[employer] Account: : 1965 Requested By: Zane Ravi Order Number: [id number] Jordon MD: RAUL LOPEZ Measurements Intervals Kinta Rate: 70 P: 171 KS: 353 QRS: -36 QRSD: 108 T: 45 QT: 392 QTc: 425 Interpretive Statements Sinus rythm LEFT AXIS DEVIATION [QRS AXIS < -30] Compared to ECG 09/11/2023 21:19:29 Left-axis deviation now present Sinus rhythm no longer present Right bundle-branch block no longer present Left anterior fascicular block no longer present Electronically Signed On 04-25-2024 20:55:11 CDT by RAUL LOPEZ [email or web address]
--- NOTE | 2024-04-25 19:04 | XRR_ITS ---
PROCEDURE INFORMATION: Exam: XR Chest Exam date and time: 04/25/2024 7:09 PM Age: 59 years old Clinical indication: Pain; Chest pressure; Prior surgery; Surgery date: 6+ months; Surgery type: Pacer; Additional info: Cp TECHNIQUE: Imaging protocol: Radiologic exam of the chest. Views: 1 view. COMPARISON: CR XR chest 1V portable [id number] 09/11/2023 7:56 PM FINDINGS: Tubes, catheters and devices: There is stable intact pacemaker hardware. Neurostimulator leads terminate in the midthoracic level. Lungs: Stable linear opacities in the left base likely represent fibrosis. Pleural spaces: Unremarkable. No pleural effusion. No pneumothorax. Heart/Mediastinum: Unremarkable. No cardiomegaly. Bones/joints: Unremarkable. XR/XR chest 1V portable [id number] IMPRESSION: Stable linear opacities in the left base likely represent fibrosis. No acute findings.
--- NOTE | 2024-04-25 19:05 | ED_ITS ---
HPI - Dizziness 2 General: Chief Complaint: Dizziness Stated Complaint: pacemaker -- pulling in chest Time Seen by Provider: 04/25/24 18:54 Source: patient Mode of arrival: ambulatory Limitations: no limitations History of Present Illness: HPI Narrative: Patient is a 59-year-old male who presents the emergency department complaining of dizziness for the past couple weeks. He is also reporting some pain around his pacemaker site, but also is reporting deep chest pain that he states he has with episodes of A-fib. He notes that his pacemaker is supposed to go off when heart rate drops below 50, and he has recorded his heart rate as low as 35 at home. He is also reporting some shortness of breath and diaphoresis. Reception Specialist is Dr. Villela. He notes that he has had a few episodes here in the emergency department of the spasming sensation around the pacemaker site. He notes that the chest pain he has radiates to the right chest. He clarifies that his primary complaint is the pulling sensation around his pacemaker site. He notes his pacemaker is Medtronic. With his dizziness, he states it is worse when he stands, specifically when he is urinating. MD elicited complaint: dizziness Onset (ago): week(s) Timing: intermittent Description: near-syncope Context: other (Associated with spasms near his pacemaker site) History of similar symptoms: No Exacerbating factors: standing Relieving factors: remaining still and lying down Associated symptoms: Reports chest pain (With chest wall pain near pacemaker site) and diaphoresis; Denies chills, headache(s), nausea, palpitations or vomiting Associated neuro symptoms: Deny numbness in extremities Related Data Home Medications Medication Instructions Recorded Confirmed albuterol sulfate 90 mcg/actuation 2 inh inhalation Q4H PRN shortness 11/20/19 02/14/24 aerosol inhaler (Ventolin HFA) of breath or wheezing hydrocodone 10 mg-acetaminophen 1 tab PO Q6H PRN pain 11/20/19 02/14/24 325 mg tablet montelukast 10 mg tablet 10 mg PO DAILY@1000 11/20/19 02/14/24 sitagliptin phosphate 100 mg 100 mg PO DAILY@1000 11/20/19 02/14/24 tablet (Januvia) tamsulosin 0.4 mg capsule 0.4 mg PO BID@1000,2200 11/20/19 02/14/24 trazodone 50 mg tablet 50 - 100 mg PO BEDTIME@2200 11/20/19 02/14/24 omeprazole 20 mg capsule,delayed 20 mg PO DAILY 10/18/20 02/14/24 release lubiprostone 8 mcg capsule 24 mcg PO BID 04/17/21 02/14/24 (Amitiza) docusate sodium 100 mg capsule 200 mg PO BID PRN Constipation 10/14/21 02/14/24 (Dulcolax Stool Softener (docusate)) hydroxyzine HCl 50 mg tablet 50 mg PO BID PRN Anxiety 10/14/21 02/14/24 polyethylene glycol 3350 17 17 g PO DAILY PRN Constipation 10/14/21 02/14/24 gram/dose oral powder (Miralax) Lactobacillus acidophilus 20,000 mmu cells PO DAILY 07/21/22 02/14/24 (Acidophilus capsule) fluticasone propionate 50 2 spray intranasal DAILY@1000 PRN 07/21/22 02/14/24 mcg/actuation nasal Congestion spray,suspension gabapentin 600 mg tablet 600 mg PO TID 07/21/22 02/14/24 vitamins A,C,T-wiae-gkliim 4,296 1 cap PO BID 07/21/22 02/14/24 mcg-226 mg-90 mg capsule (ICaps AREDS) escitalopram oxalate 20 mg tablet 20 mg PO DAILY 02/03/23 02/14/24 tizanidine 4 mg tablet 4 mg PO TID PRN Muscle Spasm 02/03/23 02/14/24 cetirizine 10 mg tablet 10 mg PO BEDTIME 03/18/23 02/14/24 alprazolam 0.25 mg tablet 0.25 mg PO BID PRN Anxiety 03/19/23 02/14/24 aspirin 81 mg tablet,delayed 81 mg PO DAILY 12/06/23 02/14/24 release (Adult Low Dose Aspirin) furosemide 20 mg tablet 20 mg PO DAILY PRN swelling 12/10/23 02/14/24 duloxetine 30 mg capsule,delayed 30 mg PO BEDTIME 01/03/24 02/14/24 release gemfibrozil 600 mg tablet 600 mg PO BID 01/03/24 02/14/24 tirzepatide 10 mg/0.5 mL 10 mg SUBCUT Q7D 01/03/24 02/14/24 subcutaneous pen injector (Gerry) Previous Rx's Medication Instructions Recorded apixaban 5 mg tablet (Eliquis) 5 mg PO BID #60 tabs 10/20/20 atorvastatin 40 mg tablet 40 mg PO DAILY@1000 #90 tabs 01/31/21 irbesartan 300 mg tablet 300 mg PO DAILY #90 tabs 01/31/21 Bilateral Mamie Articulating #1 ea 09/11/21 AFO's Night Splint to the Left Foot #1 ea 12/31/21 Above Ankle Diabetic Boots with 3 #1 ea 08/20/22 inserts metoprolol tartrate 25 mg tablet 25 mg PO BID #90 tabs 01/20/24 triamterene 37.5 See Rx Instructions .Route 02/17/24 mg-hydrochlorothiazide 25 mg tablet .COMPLEX #180 tabs Allergies Allergy/AdvReac Type Severity Reaction Status Date / Time Penicillins Allergy Mild ALGY-Rash Verified 02/14/24 10:17 Sulfa (Sulfonamide Allergy ALGY-Rash Verified 02/14/24 10:17 Antibiotics) Review of Systems 2 General: Reports: 10 or more systems reviewed and unremarkable except in HPI and below Const: Reports: diaphoresis; Denies: fever(s), chills or fatigue Eyes: Denies: change in vision ENMT: Denies: throat pain, ear or mastoid pain or nasal discharge Card: Reports: chest pain (With chest wall pain near pacemaker site); Denies: palpitations, swelling of feet/ankles or lightheadedness Resp: Reports: dyspnea; Denies: productive cough or wheezing GI: Denies: abdominal pain, nausea, vomiting, diarrhea or constipation : Denies: flank pain, difficulty urinating, dysuria or urinary frequency Musc: Denies: neck pain, back pain or joint pain Skin/Breast: Denies: rash Neuro: Reports: dizziness; Denies: headache(s), numbness in extremities or weakness in extremities PFSH ED 2 PFSH: Medical History HTN (hypertension) Atrial fibrillation Obesity Tobacco abuse COPD (chronic obstructive pulmonary disease) Diabetes Hyperlipidemia ANGIE on CPAP Pacemaker Symptomatic bradycardia Dizziness Chest pain Bradycardia Warfarin anticoagulation Dizziness Gastritis Sinus pause Near syncope AV block, 2nd degree, 2:1 conduction, resolved w discontinuation of metoprolol underlying bifascicular block BPH (benign prostatic hyperplasia) Hernia Change in bowel habits Syncope Transient blindness of both eyes Surgical History S/P placement of cardiac pacemaker History of cataract surgery Family History Grandmother CAD (coronary artery disease) MATERNAL Mother Diabetes Denies family history of Anesthesia complication Bleeding disorder Social History Smoking and tobacco/nicotine status: current some day tobacco/nicotine user cigarettes Packs smoked per day: 1 Alcohol intake: current Alcohol intake frequency: holidays/special occasions only Substance/Drug Use: never Household members: other Details: Girlfriend Marital status: service: No Current occupational status: disabled Physical Exam 2 Const: COMMON NORMALS: no acute distress, patient oriented x3 and no limitations GENERAL APPEARANCE: cooperative, comfortable and well developed NUTRITIONAL APPEARANCE: obese ORIENTATION/CONSCIOUSNESS: Yes awake, Yes oriented to person, Yes oriented to place and Yes oriented to time HENMT: COMMON NORMALS: normocephalic, atraumatic and hearing grossly normal bilaterally HEAD & SCALP: normocephalic and atraumatic Eye: COMMON NORMALS: Equal, round and reactive pupils present, EOMs intact bilaterally and conjunctivae normal CONJUNCTIVA: Yes conjunctivae normal P UPIL: Yes Equal, round and reactive pupils present Neck/C-Spine: COMMON NORMALS: full ROM, supple and no JVD Chest: OTHER: Pacemaker left anterior chest wall, some tenderness to palpation to the lateral aspect Resp: COMMON NORMALS: normal respiratory effort, No retractions, No use of accessory muscles and clear to auscultation bilaterally AUSCULTATION: clear to auscultation bilaterally Cardio: COMMON NORMALS: no JVD, regular rate, regular rhythm, No clicks present (Cardio), No murmurs present (Cardio) and No rub (Cardio) RATE: r egular rate RHYTHM: regular rhythm GI: COMMON NORMALS: Normal to inspection, nondistended, normoactive bowel sounds present, Soft to palpation and non-tender AUSCULTATION: Yes normoactive bowel sounds PALPATION: Yes Soft to palpation RECTAL EXAM: Yes deferred Extremity: COMMON NORMALS: normal to inspection, full ROM and capillary refill normal Neuro: COMMON NORMALS: patient oriented x3, moves all extremities, no focal motor deficits and no sensory deficits noted SENSORIUM/ORIENTATION: Yes oriented to person, Yes oriented to place and Yes oriented to time Psych: COMMON NORMALS: mental status grossly normal and Normal thought process present THOUGHT PROCESS: Normal thought process present Skin: COMMON NORMALS: no rashes or lesions noted GENERAL SKIN EXAM: no rashes or lesions noted Course 2 Vital Signs: Vital signs: Vital Signs Temperature 98.1 F 04/25/24 16:45 Pulse Rate 64 04/25/24 21:14 Respiratory Rate 14 04/25/24 20:30 Blood Pressure 148/102 04/25/24 21:14 Pulse Oximetry 97 04/25/24 21:14 Oxygen Delivery Me thod Room Air 04/25/24 20:30 MDM - Dizziness Medical Decision Making Patient presented with left anterior chest wall pain overlying where his pacemaker is. Also was reporting some dizziness. This has been intermittent over the past couple of weeks. Today his cardiac workup unremarkable. This includes normal troponin, and EKG showing paced rhythm with no ST segment changes, and unremarkable chest x-ray. He also had a normal BNP. His vitals have remained stable. We did interrogate his Medtronic pacemaker, showing no incidents over the past couple of days, and showing that it is functioning properly. Patient has a follow-up with radio maintainer on Wednesday, he will keep this as planned for further evaluation as I believe his pain related to overlying musculature of the pacemaker. Incidentally, his hemoglobin was noted to be decreased from prior, and while not warranting any transfusion today, he needs to follow-up with primary care for further evaluation of this for further testing and potentially a scope. After questioning he does note that his stools have been slightly black for some time, and he will follow-up with primary care for this. Otherwise he is discharged home at this time. Patient's case discussed with Dr. Mcintosh. Lab Data 04/25/24 19:18 04/25/24 19:18 Radiology Impressions Chest X-Ray 04/25/24 19:04 IMPRESSION: Stable linear opacities in the left base likely represent fibrosis. No acute findings. Laboratory Results WBC 8.55 10^3/uL (3.29-11.43) 04/25/24 19:18 RBC 4.88 10^6/uL (3.85-5.65) 04/25/24 19:18 Hgb 10.60 g/dL (11.27-16.99) L 04/25/24 19:18 Hct 36.7 % (37-53) L 04/25/24 19:18 MCV 75.2 fl (82-101) L 04/25/24 19:18 MCH 21.7 pg (27-33) L 04/25/24 19:18 MCHC 28.9 g/dL (30-55) L 04/25/24 19:18 RDW 17.0 % (12.1-15.1) H 04/25/24 19:18 Plt Count 188 10^3/cmm (157-399) 04/25/24 19:18 MPV 10.4 fL (7.4-10.4) 04/25/24 19:18 Neut % (Auto) 64.0 % 04/25/24 19:18 Lymph % (Auto) 26.8 % 04/25/24 19:18 [place] % (Auto) 6.9 % 04/25/24 19:18 Eos % (Auto) 1.3 % 04/25/24 19:18 Baso % (Auto) 0.6 % 04/25/24 19:18 Neut # (Auto) 5.48 10^3/uL (1.8-7.7) 04/25/24 19:18 Lymph # (Auto) 2.3 10^3/uL (0.8-4.8) 04/25/24 19:18 [place] # (Auto) 0.6 10^3/uL (0.2-0.9) 04/25/24 19:18 Eos # (Auto) 0.1 10^3/uL (0.0-0.8) 04/25/24 19:18 Baso # (Auto) 0.1 10^3/uL (0.0-0.1) 04/25/24 19:18 Nucleated RBC % (auto) 0 % 04/25/24 19:18 Nucleated RBCs # 0.0 /100WBC 04/25/24 19:18 Sodium 138 mmol/L (136-145) 04/25/24 19:18 Potassium 3.9 mmol/L (3.5-5.1) 04/25/24 19:18 Chloride 104 mmol/L (98-107) 04/25/24 19:18 Carbon Dioxide 23 mmol/L (22-29) 04/25/24 19:18 Anion Gap 14.9 (5-19) 04/25/24 19:18 BUN 17 mg/dL (8-23) 04/25/24 19:18 Creatinine 0.8 mg/dL (0.7-1.2) 04/25/24 19:18 GFR Calculation 98.3 mL/min (90-130) 04/25/24 19:18 Glucose 107 mg/dL (65-115) 04/25/24 19:18 Calculated Osmolality 288 mOsm/kg (285-295) 04/25/24 19:18 Calcium 8.6 mg/dL (8.5-10.5) 04/25/24 19:18 Total Bilirubin 0.2 mg/dL (0.15-1.2) 04/25/24 19:18 AST 15 U/L (0-40) 04/25/24 19:18 ALT 13 U/L (0-41) 04/25/24 19:18 Alkaline Phosphatase 85 U/L (40-130) 04/25/24 19:18 Troponin T Baseline 12 ng/L (0-15) 04/25/24 19:18 NT-Pro-B Natriuret Pep 56 pg/mL (0-125) 04/25/24 19:18 Total Protein 6.5 g/dL (6.6-8.7) L 04/25/24 19:18 Albumin 4.3 g/dL (3.5-5.2) 04/25/24 19:18 Globulin 2.2 g/dL (1.3-4.6) 04/25/24 19:18 All radiology interpretation(s) finalized by discharge Discharge Plan Discharge Patient Disposition: Home Clinical Impression: Left-sided chest wall pain, Orthostatic hypotension Condition: Stable Prescriptions: No Action (DME) Bilateral [place] Articulating AFO's See Rx Instructions .Route .MEDSUPPLY Qty: 1 0RF Rx Instructions: As directed lubiprostone [Amitiza] 8 mcg capsule 24 mcg PO BID docusate sodium [Dulcolax Stool Softener (dss)] 100 mg capsule 200 mg PO BID PRN (Reason: Constipation) polyethylene glycol 3350 [Miralax] 17 gram/dose powder 17 g PO DAILY PRN (Reason: Constipation) (DME) Night Splint to the Left Foot See Rx Instructions .Route .MEDSUPPLY Qty: 1 0RF Rx Instructions: As directed escitalopram oxalate 20 mg tablet 20 mg PO DAILY tizanidine 4 mg tablet 4 mg PO TID PRN (Reason: Muscle Spasm) Acidophilus Capsule 20,000 mmu cells PO DAILY ICaps AREDS 14,320-226-200 vueq-hz-bwev capsule 1 cap PO BID atorvastatin 40 mg tablet 40 mg PO DAILY@1000 Qty: 90 3RF irbesartan 300 mg tablet 300 mg PO DAILY Qty: 90 3RF (DME) Above Ankle Diabetic Boots with 3 inserts See Rx Instructions .Route .MEDSUPPLY Qty: 1 0RF Rx Instructions: As directed HOME aspirin [Adult Low Dose Aspirin] 81 mg tablet,delayed release (DR/EC) 81 mg PO DAILY metoprolol tartrate 25 mg tablet 25 mg PO BID Qty: 90 2RF Rx Instructions: Hold if heart rate is below 60 triamterene-hydrochlorothiazid 37.5-25 mg tablet See Rx Instructions .ROUTE .COMPLEX Qty: 180 2RF Dose Instruction: TAKE ONE TABLET BY MOUTH DAILY Rx Instructions: TAKE ONE TABLET BY MOUTH DAILY tamsulosin 0.4 mg capsule 0.4 mg PO BID@1000,2200 trazodone 50 mg tablet 50 - 100 mg PO BEDTIME@2200 Ventolin HFA 90 mcg/actuation HFA aerosol inhaler 2 inh INHALATION Q4H PRN (Reason: shortness of breath or wheezing) hydrocodone-acetaminophen 10-325 mg tablet 1 tab PO Q6H PRN (Reason: pain) Rx Instructions: 1-2 tabs every 4-6 hours as needed for pain montelukast 10 mg tablet 10 mg PO DAILY@1000 Januvia 100 mg tablet 100 mg PO DAILY@1000 hydroxyzine HCl 50 mg tablet 50 mg PO BID PRN (Reason: Anxiety) gabapentin 600 mg tablet 600 mg PO TID omeprazole 20 mg capsule,delayed release(DR/EC) 20 mg PO DAILY Rx Instructions: before morning meal Eliquis 5 mg tablet 5 mg PO BID Qty: 60 0RF Hold Instructions: Resume on 05/31/21. fluticasone propionate 50 mcg/actuation spray,suspension 2 spray INTRANASAL DAILY@1000 PRN (Reason: Congestion) cetirizine 10 mg Tablet 10 mg PO BEDTIME alprazolam 0.25 mg tablet 0.25 mg PO BID PRN (Reason: Anxiety) furosemide 20 mg tablet 20 mg PO DAILY PRN (Reason: swelling) gemfibrozil 600 mg Tablet 600 mg PO BID Mounjaro 10 mg/0.5 mL pen injector 10 mg SUBCUT Q7D duloxetine 30 mg capsule,delayed release(DR/EC) 30 mg PO BEDTIME Discharge Orders: Discharge ED (Routine); Ordered 04/25/24 Ordered By: Zane Medellin Referrals: Jose,JASMYN Montero [Primary Care Provider] - Patient Instructions: Chest Wall Pain (ED) Activity Restrictions/Additional Instructions: Follow-up with cardiology later this week as discussed for further outpatient evaluation. Also follow-up with your primary care provider in regards to your decreasing hemoglobin levels, for recheck and further workup. If you have any episodes of pacemaker defibrillation, please return to the emergency department immediately. For any other new or concerning symptoms, also return. Coding Level of Care Code ED [employer] Operator for Kalpesh Aldana
[2024-04-25 19:26] LABS: Basophils # 0.1 10^3/uL (0.0-0.1); Basophils % 0.6 %; Eosinophils # 0.1 10^3/uL (0.0-0.8); Eosinophils % 1.3 %; Hematocrit 36.7 % (37-53); Lymphocytes # 2.3 10^3/uL (0.8-4.8); Lymphocytes % 26.8 %; Mean Corpuscular HGB Conc 28.9 g/dL (30-55); Mean Corpuscular Hemoglobin 21.7 pg (27-33); Mean Corpuscular Volume 75.2 fl (82-101); Mean Platelet Volume 10.4 fL (7.4-10.4); Monocytes # 0.6 10^3/uL (0.2-0.9); Monocytes % 6.9 %; Neutrophils # 5.48 10^3/uL (1.8-7.7); Nucleated Red Blood Cells % 0 %; Platelet Count 188 10^3/cmm (157-399); Red Blood Count 4.88 10^6/uL (3.85-5.65); White Blood Count 8.55 10^3/uL (3.29-11.43)
[2024-04-25 19:45] LABS: Troponin(5th) Baseline 12 ng/L (0-15)
[2024-04-25 19:56] LABS: Alanine Aminotransferase 13 U/L (0-41); Albumin Level 4.3 g/dL (3.5-5.2); Alkaline Phosphatase 85 U/L (40-130); Anion Gap 14.9 (5-19); Aspartate Amino Transferase 15 U/L (0-40); Blood Urea Nitrogen 17 mg/dL (8-23); Calcium 8.6 mg/dL (8.5-10.5); Carbon Dioxide 23 mmol/L (22-29); Chloride 104 mmol/L (98-107); Creatinine Clr Calc Pharmacy 132.9394; Globulin 2.2 g/dL (1.3-4.6); Glomerular Filtration Rate 98.3 mL/min (90-130); Glucose 107 mg/dL (65-115); NT Pro B Type Natriuretic Pept 56 pg/mL (0-125); Osmolality Calculated 288 mOsm/kg (285-295); Potassium 3.9 mmol/L (3.5-5.1); Sodium 138 mmol/L (136-145); Total Bilirubin 0.2 mg/dL (0.15-1.2); Total Protein 6.5 g/dL (6.6-8.7)
[2024-04-25 20:00] VITALS: BP 124/84; PULSE 66; RESP 18; O2SAT 96
[2024-04-25 20:30] VITALS: BP 128/84; PULSE 65; RESP 14; O2SAT 98
--- NOTE | 2024-04-25 20:35 | PC.NURSE ---
pacemaker interrogation completed.
[2024-04-25 21:14] VITALS: BP 148/102; PULSE 64; O2SAT 97
== END 2024-04-25 21:16 | disposition home or self-care (01) ==
PROVIDERS: Emergency Provider Physician Assistant; PCP Nurse Practitioner Family
DX: R07.89 Other chest pain (principal); I95.1 Orthostatic hypotension; Z79.82 Long term (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 of aspirin; Z79.01 Long term (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 of anticoagulants; E11.9 Type 2 diabetes mellitus without complications; I10 Essential (primary) hypertension; J44.9 Chronic obstructive pulmonary disease, unspecified; F17.210 Nicotine dependence, cigarettes, uncomplicated; Z95.0 Presence of cardiac pacemaker
CPT/HCPCS: 71045; 80053; 83880; 84484; 85025; 93005; 99285

== ENCOUNTER → 2024-04-28 10:53 | Outpatient (BNVA) | payer MEDICARE, OTHER, SELFPAY | PROVIDERS: PCP Nurse Practitioner Family; Visit Provider Nurse Practitioner Family | DX: I48.91 Unspecified atrial fibrillation (principal); Z79.01 Long term (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 of anticoagulants; Z95.0 Presence of cardiac pacemaker; I10 Essential (primary) hypertension; I95.1 Orthostatic hypotension; F17.210 Nicotine dependence, cigarettes, uncomplicated | CPT/HCPCS: 99214 ==

== ENCOUNTER 2024-05-01 15:04 | Outpatient (CLI) | payer MEDICARE, OTHER, SELFPAY ==
--- NOTE | 2024-05-01 15:19 | CTR_ITS ---
PROCEDURE INFORMATION: Exam: CT Head Without And With Contrast Exam date and time: 05/01/2024 3:35 PM Age: 59 years old Clinical indication: Dizziness; Patient HX: Sensorineural hearing loss, bilateral. PT states frequent dizzy spells, no recent trauma. TECHNIQUE: Imaging protocol: Computed tomography of the head without and with contrast. Radiation optimization: All CT scans at this facility use at least one of these dose optimization techniques: automated exposure control; mA and/or kV adjustment per patient size (includes targeted exams where dose is matched to clinical indication); or iterative reconstruction. Contrast material: OMNI 350; Contrast volume: 100 ml; Contrast route: INTRAVENOUS (IV); COMPARISON: CT head wo con* [id number] 01/05/2023 12:08 AM RADIATION DOSE METRICS: Total DLP (mGy-cm): 2316.98 FINDINGS: Brain: There is mild diffuse cerebral atrophy present, consistent with this patient's age. Periventricular and subcortical white matter low densities are present which at this age likely represent microvascular ischemic change. No evidence for large acute ischemic infarction. Please note acute ischemia can be occult by head CT. No evidence for acute intracranial hemorrhage. After contrast administration, no abnormal enhancement is seen. Cerebral ventricles: No ventriculomegaly. Paranasal sinuses: Visualized sinuses are unremarkable. No fluid levels. Mastoid air cells: Visualized mastoid air cells are well aerated. Bones: Unremarkable. No acute fracture. Soft tissues: Unremarkable. Vasculature: Calcified plaque is present within the carotid siphons. CT/CT head wo/w con [id number] IMPRESSION: There are senescent changes of the brain as described above. No evidence for large acute ischemic infarction or acute intracranial injury.
[2024-05-01] MEDS: iohexol 350 mg/mL 500 mL Btl (per mL) IV (15:41)
== END 2024-05-01 15:05 | disposition home or self-care (01) ==
PROVIDERS: PCP Nurse Practitioner Family; Visit Provider Specialist
DX: H90.3 Sensorineural hearing loss, bilateral (principal); I25.84 Coronary atherosclerosis due to calcified coronary lesion
CPT/HCPCS: 70470

== ENCOUNTER → 2024-06-13 13:48 | Outpatient (BNVA) | payer MEDICARE, OTHER, SELFPAY | PROVIDERS: PCP Nurse Practitioner Family; Visit Provider Internal Medicine Cardiovascular Disease | DX: I48.91 Unspecified atrial fibrillation (principal); I10 Essential (primary) hypertension; I49.5 Sick sinus syndrome; Z95.0 Presence of cardiac pacemaker; F17.210 Nicotine dependence, cigarettes, uncomplicated; Z79.01 Long term (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 of anticoagulants | CPT/HCPCS: 99214 ==

== ENCOUNTER → 2024-07-10 13:35 | Outpatient (BNVA) | payer MEDICARE, OTHER, SELFPAY | PROVIDERS: PCP Nurse Practitioner Family; Visit Provider Specialist | DX: M19.011 Primary osteoarthritis, right shoulder (principal) | CPT/HCPCS: 20610; 73030; 99214; J1100; J2795; J3301 ==

== ENCOUNTER 2024-07-27 09:03 | Outpatient (CLI) | payer MEDICARE, OTHER, SELFPAY ==
--- NOTE | 2024-07-27 09:00 | IR_ITS ---
WS: [id number] Right shoulder arthrogram, 07/27/2024 Clinical Data: Right shoulder pain Comparison: Right shoulder, 07/10/2024 Fluoroscopy time: 1min [id number] # of spot films: 6 Findings: With the usual technique, a 22-gauge spinal needle was inserted into the right shoulder joint. After localizing the needle tip with 1 mL of Omnipaque at a concentration of 240 mg/mL, an injection of 10 mL of Omnipaque in 20 mL of saline was done. The shoulder joint shows a normal outline. No evidence of a rotator cuff tear could be seen. There is osteoarthritis of the glenohumeral joint. IR/IR arthrogram shoulderRT [id number] Impression: Satisfactory injection of a a mixture of Omnipaque and saline into the right s houlder joint for preparation for CT arthrogram.
--- NOTE | 2024-07-27 09:16 | CT_ITS ---
WS: [id number] CT scan of the right shoulder. Additional two-dimensional coronal and sagittal reconstruction was per formed. 07/27/2024 Clinical Data: PAIN, OSTEOARTHRITIS Comparison: Right shoulder, 07/10/2024 DLP: 470.[address] scans at [facility] use at least one of these dose optimization techniques: automated e xposure control; mA and/or kV adjustment per patient size (includes targeted exams where dose is matc hed to clinical indication); or iterative reconstruction. Findings: 10 mL of iodinated contrast and 20 mL of saline were injected into the right shoulder joint. Approxim ately 5 mL of 1% lidocaine were used to anesthetize the skin and deep subcutaneous tissues for the [facility] shoulder arthrogram preliminary to the right shoulder CT scan. There is severe osteoarthritis of the right shoulder with numerous large osteophytes. There is cyst f ormation of the adjacent humeral head and the glenoid fossa. The axillary pouch filled. The biceps te ndon was within the bicipital groove. No fractures are seen. No rotator cuff tear was present. There is moderate osteoarthritis of the right AC joint. There were pacemaker leads seen in the superior gina a cava. Epidural stimulator leads are present in the thoracic epidural space. CT/CT shoulder RT w con [id number] Impression: 1. Severe osteoarthritis of the right shoulder joint with narrowing, cyst forma tion and large osteophytes. 2. Moderate osteoarthritis of the right AC joint.
[2024-07-27] MEDS: iohexol 240 mg/mL 50 mL Btl 10 ML INTRA-ARTI (10:16)
== END 2024-07-27 09:04 | disposition home or self-care (01) ==
LOC: RAD 09:04
PROVIDERS: PCP Nurse Practitioner Family; Visit Provider Specialist
DX: M19.011 Primary osteoarthritis, right shoulder (principal); M25.711 Osteophyte, right shoulder; R93.6 Abnormal findings on diagnostic imaging of limbs
CPT/HCPCS: 23350; 73201; 77002

== ENCOUNTER 2024-08-05 06:30 | Outpatient (RCR) | payer MEDICARE, OTHER, SELFPAY | END 2024-09-01 23:59 | disposition home or self-care (01) | LOC: APT 06:30 | PROVIDERS: Visit Provider Specialist | DX: R26.89 Other abnormalities of gait and mobility (principal); R42 Dizziness and giddiness | CPT/HCPCS: 97110; 97112; 97163; 97530 ==

== ENCOUNTER → 2024-08-28 11:04 | Outpatient (BNVA) | payer MEDICARE, OTHER, SELFPAY | PROVIDERS: Visit Provider Specialist | DX: M19.011 Primary osteoarthritis, right shoulder (principal) | CPT/HCPCS: 99213 ==

== ENCOUNTER 2024-09-02 06:00 | Outpatient (RCR) | payer MEDICARE, OTHER, SELFPAY | END 2024-10-02 23:59 | disposition home or self-care (01) | LOC: APT 06:00 | PROVIDERS: Visit Provider Specialist | DX: R26.89 Other abnormalities of gait and mobility (principal); R42 Dizziness and giddiness | CPT/HCPCS: 97110; 97112; 97530 ==

== ENCOUNTER 2024-10-03 06:00 | Outpatient (RCR) | payer MEDICARE, OTHER, SELFPAY | END 2024-11-01 23:59 | disposition home or self-care (01) | LOC: APT 06:00 | PROVIDERS: Visit Provider Specialist | DX: R26.89 Other abnormalities of gait and mobility (principal); R42 Dizziness and giddiness | CPT/HCPCS: 97110; 97530 ==

== ENCOUNTER → 2024-10-10 13:29 | Outpatient (BNVA) | payer MEDICARE, OTHER, SELFPAY | PROVIDERS: Visit Provider Nurse Practitioner Family | DX: B35.6 Tinea cruris (principal); L73.8 Other specified follicular disorders; L82.1 Other seborrheic keratosis; L81.4 Other melanin hyperpigmentation; L30.9 Dermatitis, unspecified; L91.8 Other hypertrophic disorders of the skin; R20.9 Unspecified disturbances of skin sensation; R20.8 Other disturbances of skin sensation; R23.8 Other skin changes; Z78.9 Other specified health status; R58 Hemorrhage, not elsewhere classified | CPT/HCPCS: 11104; 17110; 99204 ==

== ENCOUNTER → 2024-10-19 15:04 | Outpatient (BNVA) | payer MEDICARE, OTHER, SELFPAY | PROVIDERS: Visit Provider Nurse Practitioner Family | DX: S10.86XA Insect bite of other specified part of neck, initial encounter (principal); D17.24 Benign lipomatous neoplasm of skin and subcutaneous tissue of left leg; L81.4 Other melanin hyperpigmentation; L82.0 Inflamed seborrheic keratosis; R20.9 Unspecified disturbances of skin sensation; R20.8 Other disturbances of skin sensation; R23.8 Other skin changes; L29.89 Other pruritus; L53.8 Other specified erythematous conditions; X58.XXXA Exposure to other specified factors, initial encounter | CPT/HCPCS: 17110; 99213 ==

== ENCOUNTER → 2024-12-01 09:09 | Outpatient (BNVA) | payer MEDICARE, OTHER, SELFPAY | PROVIDERS: PCP Nurse Practitioner Family; Visit Provider Specialist | DX: M19.011 Primary osteoarthritis, right shoulder (principal) | CPT/HCPCS: 20610; J1100; J2795; J3301; J9999 ==

== ENCOUNTER 2024-12-12 15:12 | Emergency (ER) | payer MEDICARE, OTHER, SELFPAY ==
[2024-12-12 15:18] VITALS: BP 125/75; PULSE 72; RESP 17; TEMP 36.4; O2SAT 98; BMI 38.0
--- NOTE | 2024-12-12 15:42 | ECG_ITS ---
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 Measurements Intervals [place] Rate: 65 P: 104 MT: 223 QRS: -35 QRSD: 113 T: 32 QT: 425 QTc: 442 Interpretive Statements Normal Sinus Rhythm LEFT AXIS DEVIATION [QRS AXIS < -30] PATTERN CONSISTENT WITH PULMONARY DISEASE MODERATE INTRAVENTRICULAR CONDUCTION DELAY [110+ ms QRS DURATION] Compared to ECG 04/25/2024 16:48:39 Intraventricular conduction delay now present electrical artifact present Electronically Signed On 12-13-2024 21:50:17 CDT by Vicki Villarreal M.D. [id number]
[2024-12-12 15:46] LABS: Basophils # 0.1 10^3/uL (0.0-0.1); Basophils % 0.5 %; Eosinophils # 0.1 10^3/uL (0.0-0.8); Hematocrit 42.5 % (37-53); Lymphocytes # 3.2 10^3/uL (0.8-4.8); Lymphocytes % 25.2 %; Mean Corpuscular HGB Conc 31.8 g/dL (30-55); Mean Corpuscular Hemoglobin 27.6 pg (27-33); Mean Corpuscular Volume 86.7 fl (82-101); Monocytes # 0.8 10^3/uL (0.2-0.9); Monocytes % 6.4 %; Neutrophils # 8.43 10^3/uL (1.8-7.7); Neutrophils % 66.3 %; Nucleated Red Blood Cells % 0 %; Platelet Count 204 10^3/cmm (157-399); Red Cell Distribution Width 13.2 % (12.1-15.1); White Blood Count 12.71 10^3/uL (3.29-11.43)
--- NOTE | 2024-12-12 15:59 | W.ED.BACK ---
HPI - Back Pain/Injury General: Chief Complaint: Back Pain/Injury Stated Complaint: rt abd pain radiating to back Time Seen by Provider: 12/12/24 15:19 History of Present Illness: 59-year-old male presents emergency room with right sided abdominal pain radiating to his back. Is worse when he eats twists and moves. When he is laying still it is mostly resolved with any movement he reports it at 10 of 10. He did do some lifting the last few days. He denies any dysuria urgency or frequency no hematuria Associated symptoms: Reports abdominal pain; Deny chills, dysuria, fever(s) or urinary urgency Related Data Home Medications ?Medication ?Instructions ?Recorded ?Confirmed albuterol sulfate 90 mcg/actuation 2 inh inhalation Q4H PRN shortness 11/20/19 12/12/24 aerosol inhaler (Ventolin HFA) of breath or wheezing hydrocodone 10 mg-acetaminophen 1 tab PO Q6H PRN pain 11/20/19 12/12/24 325 mg tablet montelukast 10 mg tablet 10 mg PO DAILY@1000 11/20/19 12/12/24 sitagliptin phosphate 100 mg 100 mg PO DAILY@1000 11/20/19 12/12/24 tablet (Januvia) tamsulosin 0.4 mg capsule 0.4 mg PO BID@1000,0 11/20/19 12/12/24 trazodone 50 mg tablet 50 - 100 mg PO BEDTIME@2200 11/20/19 12/12/24 omeprazole 20 mg capsule,delayed 20 mg PO DAILY 10/18/20 12/12/24 release lubiprostone 8 mcg capsule 24 mcg PO BID 04/17/21 12/12/24 (Amitiza) docusate sodium 100 mg capsule 200 mg PO BID PRN Constipation 10/14/21 12/12/24 (Dulcolax Stool Softener (docusate)) polyethylene glycol 3350 17 17 g PO DAILY PRN Constipation 10/14/21 12/12/24 gram/dose oral powder (Miralax) Lactobacillus acidophilus 20,000 mmu cells PO DAILY 07/21/22 12/12/24 (Acidophilus capsule) fluticasone propionate 50 2 spray intranasal DAILY@1000 PRN 07/21/22 12/12/24 mcg/actuation nasal Congestion spray,suspension gabapentin 600 mg tablet 600 mg PO TID 07/21/22 12/12/24 vitamins A,C,K-gpba-xcjvvv 4,296 1 cap PO BID 07/21/22 12/12/24 mcg-226 mg-90 mg capsule (ICaps AREDS) escitalopram oxalate 20 mg tablet 20 mg PO DAILY 02/03/23 12/12/24 tizanidine 4 mg tablet 4 mg PO TID PRN Muscle Spasm 02/03/23 12/12/24 alprazolam 0.25 mg tablet 0.25 mg PO BID PRN Anxiety 03/19/23 12/12/24 aspirin 81 mg tablet,delayed 81 mg PO DAILY 12/06/23 12/12/24 release (Adult Low Dose Aspirin) furosemide 20 mg tablet 20 mg PO DAILY PRN swelling 12/10/23 12/12/24 duloxetine 30 mg capsule,delayed 30 mg PO BEDTIME 01/03/24 12/12/24 release tirzepatide 10 mg/0.5 mL 10 mg SUBCUT Q7D 01/03/24 12/12/24 subcutaneous pen injector (Gerry) cetirizine 10 mg tablet 10 mg PO BEDTIME PRN 04/28/24 12/12/24 Previous Rx's ?Medication ?Instructions ?Recorded apixaban 5 mg tablet (Eliquis) 5 mg PO BID #60 tabs 10/20/20 atorvastatin 40 mg tablet 40 mg PO DAILY@1000 #90 tabs 01/31/21 Bilateral Mamie Articulating #1 ea 09/11/21 AFO's Night Splint to the Left Foot #1 ea 12/31/21 Above Ankle Diabetic Boots with 3 #1 ea 08/20/22 inserts triamterene 37.5 See Rx Instructions .Route 02/17/24 mg-hydrochlorothiazide 25 mg tablet .COMPLEX #180 tabs nitroglycerin 0.4 mg sublingual 0.4 mg sublingual Q5M PRN chest 06/13/24 tablet pain #25 tabs valsartan 160 mg tablet 160 mg PO BID #180 tabs 08/08/24 amlodipine 5 mg tablet (Norvasc) 5 mg PO BID #180 tabs 09/27/24 metoprolol succinate 50 mg 75 mg (1.5 x 50 mg) PO DAILY #125 12/12/24 tablet,extended release 24 hr tabs prednisone 20 mg tablet 20 mg PO TID #15 tabs 12/12/24 tizanidine 4 mg tablet 4 mg PO Q6H PRN muscle spasticity 12/12/24 #20 tabs Allergies Allergy/AdvReac Type Severity Reaction Status Date / Time Penicillins Allergy Mild ALGY-Rash Verified 12/12/24 10:48 Sulfa (Sulfonamide Allergy ALGY-Rash Verified 12/12/24 10:48 Antibiotics) Review of Systems Const: Denies: fever(s) or chills Card: Denies: chest pain Resp: Denies: dyspnea GI: Reports: abdominal pain : Denies: dysuria, urinary frequency or urinary urgency Musc: Reports: back pain; Denies: neck pain Skin/Breast: Denies: rash PFSH ED PFSH: Medical History HTN (hypertension) Atrial fibrillation Obesity Tobacco abuse COPD (chronic obstructive pulmonary disease) Diabetes Hyperlipidemia ANGIE on CPAP Pacemaker Symptomatic bradycardia Dizziness Chest pain Bradycardia Warfarin anticoagulation Dizziness Gastritis Sinus pause Near syncope AV block, 2nd degree, 2:1 conduction, resolved w discontinuation of metoprolol underlying bifascicular block BPH (benign prostatic hyperplasia) Hernia Change in bowel habits Syncope Transient blindness of both eyes Surgical History S/P placement of cardiac pacemaker History of cataract surgery Family History Grandmother CAD (coronary artery disease) MATERNAL Mother Diabetes Denies family history of Anesthesia complication Bleeding disorder Social History Smoking and tobacco/nicotine status: current every day tobacco/nicotine user (5-7 cigarettes a day) cigarettes Packs smoked per day: 1 Alcohol intake: current Alcohol intake frequency: holidays/special occasions only Substance/Drug Use: never Household members: other Details: Girlfriend Marital status: service: No Current occupational status: disabled Physical Exam Const: GENERAL APPEARANCE: cooperative ORIENTATION/CONSCIOUSNESS: Yes awake, Yes oriented to person, Yes oriented to place and Yes oriented to time HENMT: COMMON NORMALS: normocephalic, atraumatic and hearing grossly normal bilaterally HEAD & SCALP: normocephalic and atraumatic Resp: COMMON NORMALS: normal respiratory effort, No retractions, No use of accessory muscles and clear to auscultation bilaterally AUSCULTATION: clear to auscultation bilaterally Cardio: COMMON NORMALS: regular rate, regular rhythm and No murmurs present (Cardio) RATE: regular rate RHYTHM: regular rhythm GI: COMMON NORMALS: Soft to palpation and No hepatosplenomegaly present AUSCULTATION: Yes normoactive bowel sounds PALPATION: Yes Soft to palpation, No Tenderness to palpation present (GI), No Guarding due to palpation present (GI) and Yes No hepatosplenomegaly present Extremity: COMMON NORMALS: normal to inspection, capillary refill normal, no clubbing, cyanosis or edema, no calf tenderness and no pedal edema Neuro: SENSORIUM/ORIENTATION: Yes oriented to person, Yes oriented to place and Yes oriented to time Skin: COMMON NORMALS: no rashes or lesions noted GENERAL SKIN EXAM: no rashes or lesions noted Course Vital Signs: Vital signs: Vital Signs Temperature 97.5 F L 12/12/24 15:18 Pulse Rate 59 L 12/12/24 18:10 Respiratory Rate 17 12/12/24 15:18 Blood Pressure 121/83 12/12/24 18:10 Pulse Oximetry 93 12/12/24 18:10 Oxygen Delivery Me thod Room Air 12/12/24 15:18 MDM - Back Pain/Injury Medical Decision Making Urine is negative. Mild leukocytosis with a white count of 1270 has not had a fever at all. Denies any urine symptoms no cough or shortness of breath. He has not had a fever. Improved with Toradol Norflex and dexamethasone will discharge home with steroid taper and tizanidine. Continue gabapentin and hydrocodone previously prescribed follow-up with primary care return if worsens Medical Records I reviewed the patient's medical records. Labs I reviewed the patient's lab results. 12/12/24 15:24 12/12/24 15:24 Laboratory Results WBC 12.71 10^3/uL (3.29-11.43) H 12/12/24 15:24 RBC 4.90 10^6/uL (3.85-5.65) 12/12/24 15:24 Hgb 13.50 g/dL (11.27-16.99) 12/12/24 15:24 Hct 42.5 % (37-53) 12/12/24 15:24 MCV 86.7 fl (82-101) 12/12/24 15:24 MCH 27.6 pg (27-33) 12/12/24 15:24 MCHC 31.8 g/dL (30-55) 12/12/24 15:24 RDW 13.2 % (12.1-15.1) 12/12/24 15:24 Plt Count 204 10^3/cmm (157-399) 12/12/24 15:24 MPV 10.0 fL (7.4-10.4) 12/12/24 15:24 Neut % (Auto) 66.3 % 12/12/24 15:24 Lymph % (Auto) 25.2 % 12/12/24 15:24 Mcclain % (Auto) 6.4 % 12/12/24 15:24 Eos % (Auto) 1.0 % 12/12/24:24 Baso % (Auto) 0.5 % 12/12/24:24 Neut # (Auto) 8.43 10^3/uL (1.8-7.7) H 12/12/24 15:24 Lymph # (Auto) 3.2 10^3/uL (0.8-4.8) 12/12/24 15:24 Mcclain # (Auto) 0.8 10^3/uL (0.2-0.9) 12/12/24 15:24 Eos # (Auto) 0.1 10^3/uL (0.0-0.8) 12/12/24:24 Baso # (Auto) 0.1 10^3/uL (0.0-0.1) 12/12/24 15:24 Nucleated RBC % (auto) 0 % 12/12/24 15: Nucleated RBCs # 0.0 /100WBC 12/12/24 15:24 Sodium 135 mmol/L (136-145) L 12/12/24 15:24 Potassium 4.0 mmol/L (3.5-5.1) 12/12/24 15:24 Chloride 99 mmol/L (98-107) 12/12/24 15:24 Carbon Dioxide 24 mmol/L (22-29) 12/12/24 15:24 Anion Gap 16.0 (5-19) 12/12/24 15:24 BUN 11 mg/dL (8-23) 12/12/24 15:24 Creatinine 0.7 mg/dL (0.7-1.2) 12/12/24 15:24 GFR Calculation 114.6 mL/min (90-130) 12/12/24 15:24 Glucose 140 mg/dL (65-115) H 12/12/24 15:24 Calculated Osmolality 282 mOsm/kg (285-295) L 12/12/24 15:24 Calcium 9.0 mg/dL (8.5-10.5) 12/12/24 15:24 Total Bilirubin 0.5 mg/dL (0.15-1.2) 12/12/24 15:24 AST 14 U/L (0-40) 12/12/24 15:24 ALT 17 U/L (0-41) 12/12/24 15:24 Alkaline Phosphatase 91 U/L (40-130) 12/12/24 15:24 Total Protein 6.9 g/dL (6.6-8.7) 12/12/24 15:24 Albumin 4.2 g/dL (3.5-5.2) 12/12/24 15:24 Globulin 2.7 g/dL (1.3-4.6) 12/12/24 15:24 Urine Color Yellow (Yellow) 12/12/24 16:50 Urine Appearance Clear (CLEAR) 12/12/24 16:50 Urine pH 7.5 (5-7) 12/12/24 16:50 Ur Specific [place] 1.019 (1.005-1.030) 12/12/24 16:50 Urine Protein Negative (Negative) 12/12/24 16:50 Urine Glucose (UA) Negative (Normal) 12/12/24 16:50 Urine Ketones Negative (Negative) 12/12/24 16:50 Urine Blood Negative (Negative) 12/12/24 16:50 Urine Nitrate Negative (Negative) 12/12/24 16:50 Urine Bilirubin Negative (Negative) 12/12/24 16:50 Urine Urobilinogen 0.2 mg/dL (Negative) 12/12/24 16:50 Ur Leukocyte Esterase Negative (Negative) 12/12/24 16:50 Urine RBC 0-2 /hpf (0-2) 12/12/24 16:50 Urine WBC 0-5 /hpf (0-5) 12/12/24 16:50 Ur Squamous Epith Cells 0-5 /hpf (0-5) 12/12/24 16:50 Amorphous Sediment Not Reportable 12/12/24 16:50 Urine Bacteria None seen /hpf (NONE) 12/12/24 16:50 Hyaline Casts 0-4 /lpf H 12/12/24 16:50 No radiology studies performed this visit Discharge Plan Discharge Patient Disposition: Home Clinical Impression: Strain of lumbar region Condition: Stable Prescriptions: New tizanidine 4 mg tablet 4 mg PO Q6H PRN (Reason: muscle spasticity) Qty: 20 0RF Rx Instructions: do not exceed 3 doses per 24 hrs prednisone 20 mg tablet 20 mg PO TID Qty: 15 0RF Rx Instructions: 1 p.o. 3 times daily x3 days, 1 p.o. twice daily x2 days, 1 p.o. daily x2 days No Action (DME) Bilateral Mamie Articulating AFO's See Rx Instructions .Route .MEDSUPPLY Qty: 1 0RF Rx Instructions: As directed lubiprostone [Amitiza] 8 mcg capsule 24 mcg PO BID docusate sodium [Dulcolax Stool Softener (dss)] 100 mg capsule 200 mg PO BID PRN (Reason: Constipation) polyethylene glycol 3350 [Miralax] 17 gram/dose powder 17 g PO DAILY PRN (Reason: Constipation) (DME) Night Splint to the Left Foot See Rx Instructions .Route .MEDSUPPLY Qty: 1 0RF Rx Instructions: As directed escitalopram oxalate 20 mg tablet 20 mg PO DAILY tizanidine 4 mg tablet 4 mg PO TID PRN (Reason: Muscle Spasm) Acidophilus Capsule 20,000 mmu cells PO DAILY ICaps AREDS 14,320-226-200 [id number]-[id number] capsule 1 cap PO BID nitroglycerin 0.4 mg tablet, sublingual 0.4 mg sublingual Q5M PRN (Reason: chest pain) Qty: 25 2RF Rx Instructions: do not exceed 3 doses per episode metoprolol succinate 50 mg tablet extended release 24 hr 75 mg PO DAILY Qty: 125 3RF atorvastatin 40 mg tablet 40 mg PO DAILY@1000 Qty: 90 3RF (DME) Above Ankle Diabetic Boots with 3 inserts See Rx Instructions .Route .MEDSUPPLY Qty: 1 0RF Rx Instructions: As directed HOME aspirin [Adult Low Dose Aspirin] 81 mg tablet,delayed release (DR/EC) 81 mg PO DAILY triamterene-hydrochlorothiazid 37.5-25 mg tablet See Rx Instructions .ROUTE .COMPLEX Qty: 180 2RF Dose Instruction: TAKE ONE TABLET BY MOUTH DAILY Rx Instructions: TAKE ONE TABLET BY MOUTH DAILY valsartan 160 mg tablet 160 mg PO BID Qty: 180 3RF amlodipine [Norvasc] 5 mg tablet 5 mg PO BID Qty: 180 3RF tamsulosin 0.4 mg capsule 0.4 mg PO BID@1000,2200 trazodone 50 mg tablet 50 - 100 mg PO BEDTIME@2200 Ventolin HFA 90 mcg/actuation HFA aerosol inhaler 2 inh INHALATION Q4H PRN (Reason: shortness of breath or wheezing) hydrocodone-acetaminophen 10-325 mg tablet 1 tab PO Q6H PRN (Reason: pain) Rx Instructions: 1-2 tabs every 4-6 hours as needed for pain montelukast 10 mg tablet 10 mg PO DAILY@1000 Januvia 100 mg tablet 100 mg PO DAILY@1000 gabapentin 600 mg tablet 600 mg PO TID omeprazole 20 mg capsule,delayed release(DR/EC) 20 mg PO DAILY Rx Instructions: before morning meal Eliquis 5 mg tablet 5 mg PO BID Qty: 60 0RF fluticasone propionate 50 mcg/actuation spray,suspension 2 spray INTRANASAL DAILY@1000 PRN (Reason: Congestion) alprazolam 0.25 mg tablet 0.25 mg PO BID PRN (Reason: Anxiety) furosemide 20 mg tablet 20 mg PO DAILY PRN (Reason: swelling) cetirizine 10 mg tablet 10 mg PO BEDTIME PRN Mounjaro 10 mg/0.5 mL pen injector 10 mg SUBCUT Q7D duloxetine 30 mg capsule,delayed release(DR/EC) 30 mg PO BEDTIME Discharge Orders: Discharge ED (Routine); Ordered 12/12/24 Ordered By: Jin Baer Referrals: Garcia,DENISSE MonteroN [Primary Care Provider, Nurse Practitioner] Discharge Diet: Usual diet Discharge Activity: Increase activity as tolerated Patient Instructions: Opioid Safety, Pain Management Activity Restrictions/Additional Instructions: Thank you for choosing [facility] for your healthcare needs today. It is very important that you follow up as instructed or that you return to the Emergency Department should you have concerns or if your condition changes or worsens in any way. Case management will make arrangements for you to follow-up with Dr. Mustafa Print Language: Nepali Coding Level of Care Code ED Marine Cargo Specialist for Kalpesh Aldana
[2024-12-12 16:05] LABS: Alanine Aminotransferase 17 U/L (0-41); Albumin Level 4.2 g/dL (3.5-5.2); Alkaline Phosphatase 91 U/L (40-130); Aspartate Amino Transferase 14 U/L (0-40); Blood Urea Nitrogen 11 mg/dL (8-23); Carbon Dioxide 24 mmol/L (22-29); Chloride 99 mmol/L (98-107); Creatinine Clr Calc Pharmacy 152.6117; Globulin 2.7 g/dL (1.3-4.6); Glomerular Filtration Rate 114.6 mL/min (90-130); Glucose 140 mg/dL (65-115); Osmolality Calculated 282 mOsm/kg (285-295); Sodium 135 mmol/L (136-145); Total Bilirubin 0.5 mg/dL (0.15-1.2); Total Protein 6.9 g/dL (6.6-8.7)
[2024-12-12 16:23] VITALS: BP 133/78; PULSE 65; O2SAT 94
[2024-12-12] MEDS: dexamethasone 10 mg/mL INJ IM (16:40)
[2024-12-12] MEDS: orphenadrine 30 mg/mL Inj 2 mL 60 MG IM (16:42)
[2024-12-12] MEDS: ketorolac 30 mg/mL INJ IVP (16:45)
[2024-12-12 17:22] LABS: Bilirubin Urine Negative (Negative); Blood Urine Negative (Negative); Glucose Urine UA Negative (Normal); Ketones Urine Negative (Negative); Leukocyte Esterase Urine Negative (Negative); Nitrate Urine Negative (Negative); Protein Urine Negative (Negative); Specific Gravity, Urine 1.019 (1.005-1.030); Urine Appearance Clear (CLEAR); Urine Color Yellow (Yellow); Urobilinogen Urine 0.2 mg/dL (Negative); pH Urine 7.5 (5-7)
[2024-12-12 17:28] LABS: Add Urine Microscopic? YES; Bacteria Urine None Seen /hpf; Hyaline Casts Urine 0-4 /lpf; RBC Urine 0-2 /hpf (0-2); Squamous Epithelial Cell Urine 0-5 /hpf (0-5); WBC Urine 0-5 /hpf (0-5)
[2024-12-12 17:45] LABS: Add Urine Culture? No
[2024-12-12 18:10] VITALS: BP 121/83; PULSE 59; O2SAT 93
== END 2024-12-12 18:10 | disposition home or self-care (01) ==
PROVIDERS: Emergency Provider Family Medicine; PCP Nurse Practitioner Family
DX: S39.012A Strain of muscle, fascia and tendon of lower back, initial encounter (principal); I10 Essential (primary) hypertension; I48.91 Unspecified atrial fibrillation; J44.9 Chronic obstructive pulmonary disease, unspecified; G47.33 Obstructive sleep apnea (adult) (pediatric); E11.9 Type 2 diabetes mellitus without complications; E78.5 Hyperlipidemia, unspecified; Z95.0 Presence of cardiac pacemaker; H53.123 Transient visual loss, bilateral; F17.210 Nicotine dependence, cigarettes, uncomplicated; Z79.899 Other long term (current) drug therapy; Z79.85 Long-term (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 of injectable non-insulin antidiabetic drugs; Z79.82 Long term (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 of aspirin; X58.XXXA Exposure to other specified factors, initial encounter
CPT/HCPCS: 36415; 80053; 81001; 85025; 93005; 96372; 96374; 99284; J1100; J1885; J2360

== ENCOUNTER 2024-12-29 08:44 | Outpatient (CLI) | payer MEDICARE, OTHER, SELFPAY ==
--- NOTE | 2024-12-29 | ECG_ITS ---
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 Interpretive Statements LEXISCAN SESTAMIBI STRESS TEST Procedure: At the baseline, the blood pressure was 118/84 mmHg with a heart rate of 67 bpm. The electrocardiogram showed normal sinus rhythm, normal axis with normal ST and T's. The Lexiscan was infused over a period of 20 seconds. A total of 0.4 mg of Lexiscan was infused. The stress phase was continued for a total of 5 minutes. Heart rate was at the end of stress phase was 78 bpm and a blood pressure of 123/68 mmHg. The EKG at the peak infusion revealed normal sinus rhythm with no significant ST-T wave changes. Sestamibi was injected 20 seconds after the Lexiscan infusion. Blood pressure at the end of recovery phase was 127/72 mmHg with a heart rate of 75 bpm. Conclusion: 1. Normal EKG response to Lexiscan infusion 2. No Lexiscan induced chest pain or cardiac arrhythmia. 3. Normal blood pressure and heart rate response. 4. Sestamibi/sestamibi perfusion scan pending; see separate report. Electronically Signed On 01-13-2025 13:18:45 CDT by Fausto Leos M.D. [email or web address]
[2024-12-29 09:08] VITALS: BMI 36.9
--- NOTE | 2024-12-29 09:15 | NMCV_ITS ---
NM oskar perf SPECT r/s* [id number] Deejay Gonzalez Age: 59 Gender: M : 1965 Exam Date: 12/29/2024 09:54 Ordering Phys: Les Bianchi MD ([email or web address]) Technologist: LAVINIA Guerrero Exam Location: [facility] Indications: cp STRESS TEST Please see separate stress test report in [facility] for full findings IMAGE PROTOCOL Rest/Stress 1 Lexiscan Day Radiopharmaceutical Dose (mCi) Administration Site Administered by Rest: Tc-99m 10.9 IV LAVINIA Guerrero Sestamibi Stress:Tc-99m 33 IV LAVINIA Guerrero Sestamibi Rest: 29-Dec-2024 60 Discovery 630 Stress: 29-Dec-2024 30 Discovery 630 0.4mg Lexiscan. Supine position only as patient was unable to lay prone. Patient imaged with right arm down. SPECT RESULTS Technical Quality: Good Raw Data Analysis: Normal Image Corrections: No attenuation or motion correction applied Summed Stress Score: 7 Summed Rest Score: 6 Summed Difference Score: 1 PERFUSION FINDINGS There is a large area of fixed perfusion defect seen in inferior wall. 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 No significant ischemia seen. FUNCTIONAL RESULTS (calculated via Gated SPECT) Stress Image LV EF (%): 66 Stress EDV (mL):133 TID: 1.14 Stress ESV (mL):45 FUNCTIONAL FINDINGS: There is normal left ventricular systolic function. IMPRESSIONS 1. Abnormal myocardial perfusion imaging with large area of prior infarct seen in RCA territory. No evidence of ischemia. 2. LV systolic function is normal Fausto Leos MD (Electronically Signed) Final Date: 30 December 2024 12:41 S
[2024-12-29] MEDS: regadenoson 0.4 Mg/5 ml Syringe IVP (10:32)
[2024-12-29 10:51] VITALS: BP 118/74; PULSE 72
== END 2024-12-29 08:45 | disposition home or self-care (01) ==
LOC: CDL 08:49
PROVIDERS: PCP Nurse Practitioner Family; Visit Provider Internal Medicine Cardiovascular Disease
DX: R07.9 Chest pain, unspecified (principal); R93.1 Abnormal findings on diagnostic imaging of heart and coronary circulation
CPT/HCPCS: 36415; 78452; 93017; 96374; A9500; J2785

== ENCOUNTER → 2025-01-03 13:54 | Outpatient (BNVA) | payer MEDICARE, OTHER, SELFPAY | PROVIDERS: PCP Nurse Practitioner Family; Visit Provider Nurse Practitioner Family | DX: B35.6 Tinea cruris (principal); L57.8 Other skin changes due to chronic exposure to nonionizing radiation; X32.XXXA Exposure to sunlight, initial encounter; L81.4 Other melanin hyperpigmentation; L91.8 Other hypertrophic disorders of the skin; R20.9 Unspecified disturbances of skin sensation; R20.8 Other disturbances of skin sensation; R23.8 Other skin changes | CPT/HCPCS: 17110; 99213 ==

== ENCOUNTER 2025-02-02 16:16 | Outpatient (CLI) | payer MEDICARE, OTHER, SELFPAY ==
--- NOTE | 2025-02-02 16:25 | XRR_ITS ---
PROCEDURE INFORMATION: Exam: XR Thoracic Spine Exam date and time: 02/02/2025 4:33 PM Age: 60 years old Clinical indication: Condition or disease; Spondylosis; Thoracic; Additional info: Thoracic spondylosis TECHNIQUE: Imaging protocol: Radiologic exam of the thoracic spine. Views: 3 views. COMPARISON: CR XR chest 1V portable [id number] 04/25/2024 7:09 PM FINDINGS: Tubes, catheters and devices: Left-sided pacemaker. Spinal stimulator. Bones/joints: Multilevel wson-nt-xzheolqo disc space narrowing and productive degenerative endplate changes throughout the spine. Soft tissues: Unremarkable. XR/XR thoracic spine 2V [id number] IMPRESSION: 1. Multilevel pdyh-tz-ajbgzxpl disc space narrowing and productive degenerative endplate changes throughout the spine. 2. Left-sided pacemaker. 3. Spinal stimulator.
== END 2025-02-02 16:17 | disposition home or self-care (01) ==
LOC: RAD 16:21
PROVIDERS: PCP Nurse Practitioner Family; Visit Provider Student in an Organized Health Care Education/Training Program
DX: M47.814 Spondylosis without myelopathy or radiculopathy, thoracic region (principal); Z95.0 Presence of cardiac pacemaker; Z96.82 Presence of neurostimulator; G31.89 Other specified degenerative diseases of nervous system
CPT/HCPCS: 72070

== ENCOUNTER 2025-02-16 15:42 | Emergency (ER) | payer MEDICARE, OTHER, SELFPAY ==
--- OUTSIDE RECORDS SUMMARY | 2025-02-13 08:00 | XMS_ITS ---
Author Organization [facility] Address [address] [place] [address] Care Team Providers Care Meeting Facilitator Name Role Phone Guero Garcia Primary Care Provider Kae Duncan GUERO GARCIA Unavailable Unavailable REASON FOR VISIT hydrocodone ER denied Medications Medication SIG (Take, Route, Frequency, Duration) Notes Start Date End Date Status Xtampza ER 9 MG Capsule ER 12 Hour Abuse-Deterrent 1 capsule with food Orally twice a day; Duration: 30 days fill 02/13/25 02/14/2025 03/15/2025 Active Encounters Encounter Location Date Provider Diagnosis [facility] [address] [place] [address] 02/13/2025 Kae Eisenberg e Lumbosacral spondylosis M47.817 Assessments Encounter Date Diagnosis (ICD Code) Assessment Notes Treatment Notes Treatment Clinical Notes Section Notes 02/13/2025 Lumbosacral spondylosis (ICD-10 - M47.817) Plan Of Treatment Medication Medication Name Sig Start Date Stop Date Notes Xtampza ER 9 MG Capsule ER 12 Hour Abuse-Deterrent 1 capsule with food Orally twice a day; Duration: 30 days 02/14/2025 03/15/2025 fill 02/13/25 Next Appt Details Provider Name:Guero Garcia, 03/01/2025 01:00:00 PM, [address], [place], [address], Provider Name:Kae Watson, 03/07/2025 10:20:00 AM, [address], [place], [address], Provider Name:Shakila Abby avila, 03/22/2025 02:20:00 PM, [address] [place], [address], Progress Notes * NIMCO GAN ADOB:1965 (60 yo M)Acc No.[id number]:02/13/2025 Patient: Kamaljit NIMCO REY :1965 A ge:60 Y S ex:Male Address:[address] [place] [id number] * Refills Start Xtampza ER Capsule ER 12 Hour Abuse-Deterrent, 9 MG, Orally, 60 Capsule, 1 capsule with food, twice a day, 30 days, Refills=0 Subjective: * Chief Complaints: * h ydrocodone ER denied Assessment: * Assessment: 1. L umbosacral spondylosis - M47.817 (Primary) Plan: * Treatment: * true * Date: Generated for Janelle parsons/Mariia/Mikoitting on: 0 02/16/2025 03:48 PM CDT
[2025-02-16 15:47] VITALS: BP 112/62; PULSE 67; RESP 16; TEMP 36.4; O2SAT 97
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
--- OUTSIDE RECORDS SUMMARY | 2025-02-16 15:49 | XMS_ITS | Patient Health Record ---
Author Organization [facility] Address [address] [place] [address] Care Team Providers Care Corrosion Engineer Name Role Phone Jose, Kylah Primary Care Provider Kae Duncan Unavailable KYLAH GARCIA Unavailable Unavailable Jessica Booker Unavailable [phone] Allergies Allergen (clinical drug ingredient) Drug/Non Drug Allergy documented on EMR Reaction Allergy Type Onset Date Status Aleve anaphylaxis Drug Allergy Activ e Penicillin rash Drug Allergy Active Substance with sulfonamide structure and antibacterial mechanism of action (substance) Sulfa Antibiotics yeast infection Drug Allergy Active Results Component Value Reference Range Flag Notes Comprehensive Metabolic Pane l (CMP) 32026 Reviewed date:05/29/2024 08:15:52 AM Interpretation: Performing Lab: Notes/Report: Diagnosis Description: Essential (primary) hypertension Glucose Serum 126 71-110 MG/DL HI Testing p erformed at [facility], [address] [place] [address] [place] [address]. CLIA ID#: [id number] BUN 10 7-21 MG/DL Creat .74 .57-1.17 MG/DL W-iobdli-q-benzoquinon e imine (NAPQI) is a metabolite of acetaminophen, [...] the potential for falsely depressed results. GFR 102.7 NA Calculation pe rformed from GFR calculator provided by the National Kid[employer]. Glomerular Filtration rate(GRF) is the best overall index of kidney function. Normal GFR varies according to age,sex, body size, and declines with age. The National Kidney Foundation recommends using the CKD-EPI Creatinine Equation(2020) to estimate GFR. BUN/Creat Ratio 13.5 12.0-20.0 % Total Protein 6.5 5.8-8.0 G/DL Albumin 4.4 3.2-4.8 G/DL Globulin 2.1 2.3-3.5 G/DL LOW Alb/Glob 2.1 0.8-2.2 Calcium 10.0 8.7-10.4 MG/DL Sodium 140 136-145 MMOL/L Potassium 4.3 3.5-5.1 MMOL/L Chloride 103 98-107 MMOL/L CO2 27.0 20.0-31.0 MMOL/L Anion Gap 14 5-15 Alk Phos 89 46-116 Bili Total .6 .3-1.2 MG/DL Use of this assay is not recommended for patients undergoing treatment with eltrombopag due to the potential for falsely elevated results. AST/SGOT 18 15-37 UNIT/L ALT/SGPT 14 12-78 UNIT/L Osmo Serum,Calculated 291 280-300 MOSM/KG CBC w\ Auto Diff [id number] Reviewed date:05/29/2024 08:14:15 AM Interpretation: Performing Lab: Notes/Report: Diagnosis Description: Anemia, unspecified WBC 11.9 4.5-11.0 X10'3 HI RBC 5.26 4.50-5.90 X10'6 Hgb 11.9 13.5-17.5 G/DL LOW Hct 40.2 41.0-53.0 % LOW MCV 76.4 80.0-100.0 FL LOW MCH 22.6 27.0-31.0 PG LOW MCHC 29.6 31.0-37.0 G/DL LOW Platelet 185 150-400 X10'3 RDW-SD 46.6 35.0-49.0 FL RDW-CV 16.6 12.2-15.6 % HI MPV Not Reportable 9.2-12.0 FL NA Neutro Auto% 75.0 40.0-70.0 % HI Lymph Auto% 16.4 22.0-44.0 % LOW Person Auto% 6.7 3.0-7.0 % Eos Auto% 1.1 2.0-4.0 % LOW Baso Auto% 0.4 0.0-1.0 % Imm Gran% .4 .0-.4 % Neutro Abs 8.94 .80-7.70 HI Absolute Neutrophil Count 8940 NA Lymph Abs 1.95 .10-4.10 Person Abs .80 .20-1.00 Eos Abs .13 .00-.40 Baso Abs .05 .00-.20 Imm Gran Abs .05 .00-.10 NRBC# .00 .00-.20 NRBC% .00 .00-.20 /100 intact WBC's Urine Drug Screen (cup read) - [id number] Reviewed date:01/30/2025 03:21:34 PM Interpretation: Performing Lab: Notes/Report: OPI + Urine Confirmation Panel (in strument) - [id number] Reviewed date:02/16/2025 10:01:32 AM Interpretation: Performing Lab: Notes/Report: 6-Acetylmorphine 0 <6 ng/mL N This marilyn t was developed and its performance characteristics determined by [facility]. It has not been cleared or approved by the U.S. Food and Drug Administration. 7-Aminoclonazepam 0 <60 ng/mL N This te st was developed and its performance characteristics determined by [facility]. It has not been cleared or approved by the U.S. Food and Drug Administration. Alprazolam 0 <60 ng/mL N This test was developed and its performance characteristics determined by [facility]. It has not been cleared or approved by the U.S. Food and Drug Administration. Amphetamine 0 <75 ng/mL N This test was developed and its performance characteristics determined by [facility]. It has not been cleared or approved by the U.S. Food and Drug Administration. aOH-Alprazolam 0 <60 ng/mL N This test was developed and its performance characteristics determined by [facility]. It has not been cleared or approved by the U.S. Food and Drug Administration. Buprenorphine 2.4 <7.5 ng/mL N This test w as developed and its performance characteristics determined by [facility]. It has not been cleared or approved by the U.S. Food and Drug Administration. Norbuprenorphine 0.0 <37.5 ng/mL N This te st was developed and its performance characteristics determined by [facility]. It has not been cleared or approved by the U.S. Food and Drug Administration. Carisoprodol 0 <75 ng/mL N This test wa s developed and its performance characteristics determined by [facility]. It has not been cleared or approved by the U.S. Food and Drug Administration. Codeine 0 <75 ng/mL N This test was developed and its performance characteristics determined by [facility]. It has not been cleared or approved by the U.S. Food and Drug Administration. EDDP 0 <75 ng/mL N This test was developed and its performance characteristics determined by [facility]. It has not been cleared or approved by the U.S. Food and Drug Administration. Fentanyl 0 <6 ng/mL N This test was developed and its performance characteristics determined by [facility]. It has not been cleared or approved by the U.S. Food and Drug Administration. Hydrocodone 3895 <75 ng/mL H This test was developed and its performance characteristics determined by [facility]. It has not been cleared or approved by the U.S. Food and Drug Administration. Hydromorphone 384 <75 ng/mL H This test w as developed and its performance characteristics determined by [facility]. It has not been cleared or approved by the U.S. Food and Drug Administration. Lorazepam 0 <60 ng/mL N This test was developed and its performance characteristics determined by [facility]. It has not been cleared or approved by the U.S. Food and Drug Administration. MDMA 0 <75 ng/mL N This test was developed and its performance characteristics determined by [facility]. It has not been cleared or approved by the U.S. Food and Drug Administration. Meperidine 0.0 <37.5 ng/mL N This test was developed and its performance characteristics determined by [facility]. It has not been cleared or approved by the U.S. Food and Drug Administration. Meprobamate 0 <75 ng/mL N This test was developed and its performance characteristics determined by [facility]. It has not been cleared or approved by the U.S. Food and Drug Administration. Methamphetamine 0 <75 ng/mL N This test was developed and its performance characteristics determined by [facility]. It has not been cleared or approved by the U.S. Food and Drug Administration. Methadone 2 <75 ng/mL N This test was developed and its performance characteristics determined by [facility]. It has not been cleared or approved by the U.S. Food and Drug Administration. Morphine 0 <75 ng/mL N This test was developed and its performance characteristics determined by [facility]. It has not been cleared or approved by the U.S. Food and Drug Administration. Nordiazepam 0 <60 ng/mL N This test was developed and its performance characteristics determined by [facility]. It has not been cleared or approved by the U.S. Food and Drug Administration. Norfentanyl 0 <6 ng/mL N This test was developed and its performance characteristics determined by [facility]. It has not been cleared or approved by the U.S. Food and Drug Administration. Normeperidine 0.0 <37.5 ng/mL N This test was developed and its performance characteristics determined by [facility]. It has not been cleared or approved by the U.S. Food and Drug Administration. O-desmethyltramadol 0 <75 ng/mL N This test was developed and its performance characteristics determined by [facility]. It has not been cleared or approved by the U.S. Food and Drug Administration. Oxazepam 0 <60 ng/mL N This test was developed and its performance characteristics determined by [facility]. It has not been cleared or approved by the U.S. Food and Drug Administration. Oxycodone 0.0 <37.5 ng/mL N This test was developed and its performance characteristics determined by [facility]. It has not been cleared or approved by the U.S. Food and Drug Administration. Oxymorphone 0 <75 ng/mL N This test was developed and its performance characteristics determined by [facility]. It has not been cleared or approved by the U.S. Food and Drug Administration. Phencyclidine 0.0 <7.5 ng/mL N This test w as developed and its performance characteristics determined by [facility]. It has not been cleared or approved by the U.S. Food and Drug Administration. Tapentadol 0.0 <37.5 ng/mL N This test was developed and its performance characteristics determined by [facility]. It has not been cleared or approved by the U.S. Food and Drug Administration. Temazepam 0 <60 ng/mL N This test was developed and its performance characteristics determined by [facility]. It has not been cleared or approved by the U.S. Food and Drug Administration. Tramadol 0 <75 ng/mL N This test was developed and its performance characteristics determined by [facility]. It has not been cleared or approved by the U.S. Food and Drug Administration. Norhydrocodone >5000 <75 ng/mL > This test was developed and its performance characteristics determined by [facility]. It has not been cleared or approved by the U.S. Food and Drug Administration. Noroxycodone 0 <38 ng/mL N This test wa s developed and its performance characteristics determined by [facility]. It has not been cleared or approved by the U.S. Food and Drug Administration. Pregabalin 0 <225 ng/mL N This test was developed and its performance characteristics determined by [facility]. It has not been cleared or approved by the U.S. Food and Drug Administration. Gabapentin >73299 <225 ng/mL > This test was developed and its performance characteristics determined by [facility]. It has not been cleared or approved by the U.S. Food and Drug Administration. Benzoylecgonine 0.0 <37.5 ng/mL N This marilyn t was developed and its performance characteristics determined by [facility]. It has not been cleared or approved by the U.S. Food and Drug Administration. 4-Hydroxy Xylazine 0 <25 ng/mL N This t est was developed and its performance characteristics determined by [facility]. It has not been cleared or approved by the U.S. Food and Drug Administration. Tox Results Reviewed date:02/16/2025 02:50:57 PM Interpretation: Performing Lab: Notes/Report: Hemoglobin A1c 87669 Reviewed date:03/10/2024 12:07:46 PM Interpretation: Performing Lab: Notes/Report: Diagnosis Description: Type 2 diabetes mellitus with hyperglycemia Hgb A1c 7.4 3.8-6.4 % HI Interpretation Of Hgb A1c: 4.5-6.2 % nondiabetics. >7.0 % diabetics. EAG 166 NA Estimated Aver age Glucose(EAG). CBC w\ Auto Diff 89133 Reviewed date:03/10/2024 12:09:45 PM Interpretation: Performing Lab: Notes/Report: Diagnosis Description: Essential (primary) hypertension WBC 8.3 4.5-11.0 X10'3 RBC 4.52 4.50-5.90 X10'6 Hgb 9.7 13.5-17.5 G/DL LOW Hct 33.7 41.0-53.0 % LOW MCV 74.6 80.0-100.0 FL LOW MCH 21.5 27.0-31.0 PG LOW MCHC 28.8 31.0-37.0 G/DL LOW Platelet 189 150-400 X10'3 RDW-SD 41.0 35.0-49.0 FL RDW-CV 15.2 12.2-15.6 % MPV 11.4 9.2-12.0 FL Neutro Auto% 74.1 40.0-70.0 % HI Lymph Auto% 17.2 22.0-44.0 % LOW Person Auto% 7.0 3.0-7.0 % Eos Auto% .7 2.0-4.0 % LOW Baso Auto% 0.6 0.0-1.0 % Imm Gran% .4 .0-.4 % Neutro Abs 6.12 .80-7.70 Absolute Neutrophil Count 6120 NA Lymph Abs 1.42 .10-4.10 Person Abs .58 .20-1.00 Eos Abs .06 .00-.40 Baso Abs .05 .00-.20 Imm Gran Abs .03 .00-.10 NRBC# .00 .00-.20 NRBC% .00 .00-.20 /100 intact WBC's Comprehensive Metabolic Pane l (CMP) [id number] Reviewed date:03/10/2024 12:10:16 PM Interpretation: Performing Lab: Notes/Report: Diagnosis Description: Essential (primary) hypertension Glucose Serum 166 71-110 MG/DL HI Testing p erformed at [facility], [address] [place] [address] [place] [address]. CLIA ID#: [id number] BUN 17 7-21 MG/DL Creat .81 .57-1.17 MG/DL J-buiqpo-k-benzoquinon e imine (NAPQI) is a metabolite of acetaminophen, [...] the potential for falsely depressed results. GFR 100.3 NA Calculation pe rformed from GFR calculator provided by the National Kid[employer]. Glomerular Filtration rate(GRF) is the best overall index of kidney function. Normal GFR varies according to age,sex, body size, and declines with age. The National Kidney Foundation recommends using the CKD-EPI Creatinine Equation(2020) to estimate GFR. BUN/Creat Ratio 21.0 12.0-20.0 % HI Total Protein 6.1 5.8-8.0 G/DL Albumin 4.1 3.2-4.8 G/DL Globulin 2.1 2.3-3.5 G/DL LOW Alb/Glob 2.0 0.8-2.2 Calcium 9.0 8.7-10.4 MG/DL Sodium 138 136-145 MMOL/L Potassium 4.4 3.5-5.1 MMOL/L Chloride 103 98-107 MMOL/L CO2 26.4 20.0-31.0 MMOL/L Anion Gap 13 5-15 Alk Phos 84 46-116 Bili Total .5 .3-1.2 MG/DL Use of this assay is not recommended for patients undergoing treatment with eltrombopag due to the potential for falsely elevated results. AST/SGOT 12 15-37 UNIT/L LOW ALT/SGPT 13 12-78 UNIT/L Osmo Serum,Calculated 291 280-300 MOSM/KG PSA Medicare Screening--G010 3 Reviewed date:11/23/2024 06:54:00 AM Interpretation: Performing Lab: Notes/Report: Diagnosis Description: Other assisted (current) drug therapy PSA .37 .00-4.00 NG/ML PSA concen trations, regardless of the value, should not be interpreted as definitive evidence for the presence or absence of prostate cancer. Immature PLT Fraction [id number] Reviewed date:05/29/2024 08:15:37 AM Interpretation: Performing Lab: Notes/Report: Immature PLT Fraction 5.5 1.6-7.1 % Platelet 185 150-400 X10'3 Hemoglobin A1c 74141 Reviewed date:11/23/2024 06:53:34 AM Interpretation: Performing Lab: Notes/Report: Diagnosis Description: Other assisted (current) drug therapy Hgb A1c 6.0 3.8-6.4 % Interpretation Of Hgb A1c: 4.5-6.2 % nondiabetics. >7.0 % diabetics. EAG 126 NA Estimated Aver age Glucose(EAG). Lipid Panel Reflex DLDL 8006 1, 28373 Reviewed date:11/23/2024 06:56:15 AM Interpretation: Performing Lab: Notes/Report: Diagnosis Description: Essential (primary) hypertension Trig 216 NA Classification Guidelines:Triglyceride s Adults: >20yrs Desirable <150 Borderline High 150-199 High 200-499 Very high >=500 Children: Male 0-4 yr 22-99 5-9 yr 30-101 10-14 yr 32-125 15-19 yr 37-148 Children: Female 0-4 yr 34-112 5-9 yr 32-105 10-14 yr 37-131 15-19 yr 39-132 Chol 112 <=200 MG/DL HDL 34 30-72 MG/DL Reference Ranges:HDL Male: 5-9y 38-75 10-14y 37-74 15-19y 30-63 >=20y 40-59 Female: 5-9y 36-73 10-14y 37-70 15-19y 35-74 >=20y 40-59 CH/HDL 3.3 0.0-4.9 RATIO LDL 35 0-130 MG/DL LDL result is inaccurate , if Trig is >400 mg/dl. See DLDL result. CBC w\ Auto Diff [id number] Reviewed date:11/23/2024 06:55:41 AM Interpretation: Performing Lab: Notes/Report: Diagnosis Description: Essential (primary) hypertension WBC 8.3 4.5-11.0 X10'3 RBC 4.93 4.50-5.90 X10'6 Hgb 13.1 13.5-17.5 G/DL LOW Hct 43.2 41.0-53.0 % MCV 87.6 80.0-100.0 FL MCH 26.6 27.0-31.0 PG LOW MCHC 30.3 31.0-37.0 G/DL LOW Platelet 204 150-400 X10'3 RDW-SD 41.6 35.0-49.0 FL RDW-CV 13.0 12.2-15.6 % MPV 11.5 9.2-12.0 FL Neutro Auto% 67.5 40.0-70.0 % Lymph Auto% 24.3 22.0-44.0 % Person Auto% 5.8 3.0-7.0 % Eos Auto% 1.3 2.0-4.0 % LOW Baso Auto% 0.5 0.0-1.0 % Imm Gran% .6 .0-.4 % HI Neutro Abs 5.61 .80-7.70 Absolute Neutrophil Count 5610 NA Lymph Abs 2.02 .10-4.10 Person Abs .48 .20-1.00 Eos Abs .11 .00-.40 Baso Abs .04 .00-.20 Imm Gran Abs .05 .00-.10 NRBC# .00 .00-.20 NRBC% .00 .00-.20 /100 intact WBC's Comprehensive Metabolic Pane l (CMP) 69286 Reviewed date:11/23/2024 06:55:12 AM Interpretation: Performing Lab: Notes/Report: Diagnosis Description: Essential (primary) hypertension Glucose Serum 118 71-110 MG/DL HI Testing p erformed at [facility], [address] [place] [address] [place] [address]. CLIA ID#: [id number] BUN 12 7-21 MG/DL Creat .64 .57-1.17 MG/DL Y-mqyyly-y-benzoquinon e imine (NAPQI) is a metabolite of acetaminophen, [...] the potential for falsely depressed results. GFR 106.9 NA Calculation pe rformed from GFR calculator provided by the National Kidney [employer]. Glomerular Filtration rate(GRF) is the best overall index of kidney function. Normal GFR varies according to age,sex, body size, and declines with age. The National Kidney Foundation recommends using the CKD-EPI Creatinine Equation(2020) to estimate GFR. BUN/Creat Ratio 18.8 12.0-20.0 % Total Protein 6.7 5.8-8.0 G/DL Albumin 4.6 3.2-4.8 G/DL Globulin 2.1 2.3-3.5 G/DL LOW Alb/Glob 2.2 0.8-2.2 Calcium 9.4 8.7-10.4 MG/DL Sodium 140 136-145 MMOL/L Potassium 4.2 3.5-5.1 MMOL/L Chloride 104 98-107 MMOL/L CO2 29.6 20.0-31.0 MMOL/L Anion Gap 11 5-15 Alk Phos 90 46-116 Bili Total .6 .3-1.2 MG/DL Use of this assay is not recommended for patients undergoing treatment with eltrombopag due to the potential for falsely elevated results. AST/SGOT 20 15-37 UNIT/L ALT/SGPT 17 12-78 UNIT/L Osmo Serum,Calculated 291 280-300 MOSM/KG Hemoglobin A1c 68126 Reviewed date:07/28/2024 04:12:48 PM Interpretation: Performing Lab: Notes/Report: Diagnosis Description: Type 2 diabetes mellitus with unspecified complications Hgb A1c 6.7 3.8-6.4 % HI Interpretation Of Hgb A1c: 4.5-6.2 % nondiabetics. >7.0 % diabetics. EAG 146 NA Estimated Aver age Glucose(EAG). Microalbumin (U) Random 8204 3 Reviewed date:07/28/2024 04:11:40 PM Interpretation: Performing Lab: Notes/Report: Diagnosis Description: Type 2 diabetes mellitus with unspecified complications Ur Microalbumin 7.0 .0-30.0 MG/L Ur Creat 161.1 40.0-278.0 MG/DL Mal/Crea/Ratio 4.3 .0-30.0 mg Alb/g Cr Lipid Panel Reflex [facility] 8006 1, 24021 Reviewed date:07/28/2024 04:12:23 PM Interpretation: Performing Lab: Notes/Report: Diagnosis Description: Hyperlipidemia, unspecified Trig 364 NA Classification Guidelines:Triglyceride s Adults: >20yrs Desirable <150 Borderline High 150-199 High 200-499 Very high >=500 Children: Male 0-4 yr 22-99 5-9 yr 30-101 10-14 yr 32-125 15-19 yr 37-148 Children: Female 0-4 yr 34-112 5-9 yr 32-105 10-14 yr 37-131 15-19 yr 39-132 Chol 131 <=200 MG/DL HDL 36 30-72 MG/DL Reference Ranges:HDL Male: 5-9y 38-75 10-14y 37-74 15-19y 30-63 >=20y 40-59 Female: 5-9y 36-73 10-14y 37-70 15-19y 35-74 >=20y 40-59 CH/HDL 3.6 0.0-4.9 RATIO LDL 22 0-130 MG/DL LDL result is inaccurate , if Trig is >400 mg/dl. See DLDL result. CBC w\ Auto Diff [id number] Reviewed date:07/28/2024 04:11:58 PM Interpretation: Performing Lab: Notes/Report: Diagnosis Description: Essential (primary) hypertension WBC 10.3 4.5-11.0 X10'3 RBC 5.64 4.50-5.90 X10'6 Hgb 13.3 13.5-17.5 G/DL LOW Hct 45.7 41.0-53.0 % MCV 81.0 80.0-100.0 FL MCH 23.6 27.0-31.0 PG LOW MCHC 29.1 31.0-37.0 G/DL LOW Platelet 204 150-400 X10'3 RDW-SD 49.0 35.0-49.0 FL RDW-CV 16.8 12.2-15.6 % HI MPV 11.7 9.2-12.0 FL Neutro Auto% 69.7 40.0-70.0 % Lymph Auto% 21.3 22.0-44.0 % LOW Person Auto% 6.9 3.0-7.0 % Eos Auto% 1.1 2.0-4.0 % LOW Baso Auto% 0.7 0.0-1.0 % Imm Gran% .3 .0-.4 % Neutro Abs 7.19 .80-7.70 Absolute Neutrophil Count 7190 NA Lymph Abs 2.20 .10-4.10 Person Abs .71 .20-1.00 Eos Abs .11 .00-.40 Baso Abs .07 .00-.20 Imm Gran Abs .03 .00-.10 NRBC# .00 .00-.20 NRBC% .00 .00-.20 /100 intact WBC's Comprehensive Metabolic Pane l (CMP) 07290 Reviewed date:07/28/2024 04:12:12 PM Interpretation: Performing Lab: Notes/Report: Diagnosis Description: Essential (primary) hypertension Glucose Serum 149 71-110 MG/DL HI Testing p erformed at [facility], [address] [place] [address] Dr. [place], [place] [address]. CLIA ID#: [id number] BUN 16 7-21 MG/DL Creat .76 .57-1.17 MG/DL J-mgpede-p-benzoquinon e imine (NAPQI) is a metabolite of acetaminophen, [...] the potential for falsely depressed results. GFR 101.9 NA Calculation pe rformed from GFR calculator provided by the [employer]. Glomerular Filtration rate(GRF) is the best overall index of kidney function. Normal GFR varies according to age,sex, body size, and declines with age. The National Kidney Foundation recommends using the CKD-EPI Creatinine Equation(202) to estimate GFR. BUN/Creat Ratio 21.1 12.0-20.0 % HI Total Protein 6.8 5.8-8.0 G/DL Albumin 4.5 3.2-4.8 G/DL Globulin 2.4 2.3-3.5 G/DL Alb/Glob 1.9 0.8-2.2 Calcium 9.8 8.7-10.4 MG/DL Sodium 139 136-145 MMOL/L Potassium 4.2 3.5-5.1 MMOL/L Chloride 102 98-107 MMOL/L CO2 27.9 20.0-31.0 MMOL/L Anion Gap 13 5-15 Alk Phos 88 46-116 Bili Total .4 .3-1.2 MG/DL Use of this assay is not recommended for patients undergoing treatment with eltrombopag due to the potential for falsely elevated results. AST/SGOT 27 15-37 UNIT/L ALT/SGPT 27 12-78 UNIT/L Osmo Serum,Calculated 292 280-300 MOSM/KG Reason For Referral Reason nodule face Diagnosis 1 Lipoma (D17.9) Referral Organization [facility] [place] [facility] Referring Provider First Name Kylah Referring Provider Last Name Garcia Referring Provider Speciality Nurse Harley salas Referred Provider Umberto Pena Referred Provider Specialty General Surg carlos manuel General Notes Nurys Ramirez 08/06 02:20:15 PM >Dr Pean was unable to see patient due to the location of nodule. Patient was notified and referral was sent to [facility] Derm. Referral cancelled. Referral Priority Routine Reason Patient needing Derm eval due to recent knot to left face. Diagnosis 1 Lipoma (D17.9) Referral Organization [facility] Referring Provider First Name Kylah Referring Provider Last Name Garcia Referring Provider Speciality Nurse Harley salas Referred Provider Jessica Carter Referred Provider Specialty Dermatology General Notes Nurys Ramirez 10/03 10:01:10 AM >See referral notes. 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 Referring Provider First Name Kylah Referring Provider Last Name Garcia Referring Provider Speciality Nurse Harley salas Referred Provider Umberto Pena Referred Provider Specialty General Surg carlos manuel Referral Priority Routine Medications Medication SIG (Take, Route, Frequency, Duration) Notes Start Date End Date Status hydrOXYzine HCl 50 mg Tablet TAKE 1/2 TO 1 TABLET BY MOUTH TWICE DAILY NEEDED FOR ANXIETY; Duration: 30 Active Gabapentin 600 MG Tablet 1 tablet Orally 3 times a day; Duration: 28 days 01/30/2025 Active Mounjaro 12.5 MG/0.5ML Solution Auto-injector inject 12.5 MG UNDER THE SKIN ONCE WEEKLY; Duration: 30 Active Docusate Sodium 100 mg Capsule TAKE TWO CAPSULES BY MOUTH TWICE DAILY FOR constipation; Duration: 30 Active tiZANidine HCl 4 MG Tablet 1 tablet Orally every 6-8 hours; Duration: 28 days As needed Not to exceed 3 per day 01/30/2025 Active Eliquis 5 mg Tablet TAKE ONE TABLET BY MOUTH TWICE DAILY; Duration: 30 Active Tradjenta 5 mg Tablet TAKE ONE TABLET BY MOUTH EVERY DAY; Duration: 30 Active Escitalopram Oxalate 20 mg Tablet TAKE ONE TABLET BY MOUTH ONCE DAILY; Duration: 30 Active Triamterene-HCTZ 37.5-25 MG Tablet 1 tablet in the morning Orally Once a day; Duration: 90 days Active Nitroglycerin 0.4 MG Tablet Sublingual 1 tab Sublingual q 5 minutes prn chest pain; Duration: 30 days Active WesTab Plus 27-1 MG Tablet TAKE ONE TABLET BY MOUTH ONCE a day; Duration: 30 Active Acyclovir 800 MG Tablet 1 tablet Orally 5 times a day; Duration: 7 days 03/10/2024 Active HYDROcodone-Acetaminophe n 10-325 MG Tablet 1 tablet as needed Orally every 4-6 hrs; Duration: 28 days As needed Not to exceed 4 per day fill 03/16/25 01/30/2025 03/13/2025 Active Famotidine 40 mg Tablet TAKE ONE TABLET BY MOUTH ONCE DAILY in THE evening; Duration: 30 Active Cetirizine HCl 10 mg Tablet TAKE ONE TABLET BY MOUTH EVERY EVENING; Duration: 30 Active HYDROcodone-Acetaminophe n 10-325 MG Tablet 1 tablet as needed Orally every 4-6 hrs; Duration: 28 days As needed Not to exceed 4 per day fill 02/16/25 01/30/2025 03/16/2025 Active Furosemide 20 mg Tablet TAKE ONE TABLET BY MOUTH DAILY NEEDED DIRECTED; Duration: 30 Active Triamcinolone Acetonide 0.1 % Cream 1 application Externally twice a day as directed; Duration: 30 days 11/26/2022 Active tiZANidine HCl 4 mg Tablet TAKE ONE TABLET BY MOUTH THREE TIMES DAILY NEEDED FOR MUSCLE SPASM; Duration: 30 Active Albuterol Sulfate (2.5 MG/3ML) 0.083% Nebulization Solution 3 mL as needed Inhalation 4 times a day prn; Duration: 30 days 06/13/2024 Active Gabapentin 600 mg Tablet TAKE ONE TABLET BY MOUTH FOUR TIMES DAILY; Duration: 90 Active Albuterol Sulfate HFA 108 (90 Base) MCG/ACT Aerosol Solution 2 puffs Inhalation four times a day prn; Duration: 30 days 07/21/2024 Active Clotrimazole-Betamethaso ne 1-0.05 % Cream APPLY 1 APPLICATION TWICE DAILY; Duration: 30 Active ALPRAZolam 0.25 mg Tablet TAKE ONE TABLET BY MOUTH TWICE DAILY NEEDED FOR ANXIETY; Duration: 30 02/02/2025 Active Polyethylene Glycol 3350 17 GM/SCOOP Powder fill cap TO line (17grams) mix in water AND drink BY MOUTH ONCE DAILY DIRECTED; Duration: 30 Active Xtampza ER 9 MG Capsule ER 12 Hour Abuse-Deterrent 1 capsule with food Orally twice a day; Duration: 30 days fill 02/13/25 02/14/2025 03/15/2025 Active Tamsulosin HCl 0.4 mg Capsule TAKE ONE CAPSULE BY MOUTH TWICE DAILY; Duration: 30 Active HYDROcodone-Acetaminophe n 10-325 MG Tablet TAKE 1 TO 2 TABLETS BY MOUTH EVERY 4 TO 6 HOURS NEEDED FOR PAIN max EIGHT PER DAY, hold WITHIN FOUR hours of planned sleep FOR 30 DAYS Oral; Duration: 30 Active Atorvastatin Calcium 40 mg Tablet TAKE ONE TABLET BY MOUTH DAILY AT 10am; Duration: 90 Active True Metrix Blood Glucose Test - Strip as directed In Vitro four times a day and prn; Duration: 90 days Active traZODone HCl 50 mg Tablet TAKE ONE TABLET BY MOUTH At Bedtime; Duration: 30 Active Omeprazole 20 MG Capsule Delayed Release 1 capsule 30 minutes before morning meal Orally Once a day; Duration: 90 days Active HYDROcodone Bitartrate ER 10 MG Capsule Extended Release 12 Hour 1 capsule Orally daily; Duration: 30 days fill 01/30/25 01/30/2025 03/01/2025 Active DULoxetine HCl 30 mg Capsule Delayed Release Particles TAKE ONE CAPSULE BY MOUTH EVERY MORNING; Duration: 30 Active Montelukast Sodium 10 mg Tablet TAKE ONE TABLET BY MOUTH EVERY MORNING; Duration: 30 Active Lubiprostone 24 MCG Capsule TAKE ONE CAPSULE BY MOUTH TWICE DAILY; Duration: 30 Active Valsartan 160 MG Tablet 1 tablet Orally BID Cardio Active methylPREDNISolone 4 MG Tablet Therapy Pack as directed Orally as directed; Duration: 6 01/29/2025 Active amLODIPine Besylate 5 MG Tablet 1 tablet Orally Once a day; Duration: 30 days Cardio 07/24/2024 Active Magnesium Oxide 400 MG Tablet 1 tablet as needed Orally Once a day Active Azithromycin 250 MG Tablet Z pack as directed Orally 06/22/2024 Not-Taking Metoprolol Tartrate 25 MG Tablet as directed Oral Twice a day; Duration: 23 days Active Gemfibrozil 600 MG Tablet 1 tablet 30 minutes before morning and evening meals Orally Twice a day; Duration: 90 days 12/09/2023 Not-Taking GNP Essential One Daily - Tablet TAKE ONE TABLET BY MOUTH DAILY FOR 14 DAYS Oral; Duration: 14 Days Active methylPREDNISolone 4 mg Tablet Therapy Pack TAKE DIRECTED ON PACKAGE FOR 6 DAYS (TAKE WITH FOOD); Duration: 6 Not-Taking Fluticasone Propionate 50 MCG/ACT Suspension 1 spray in each nostril Nasally Once a day; Duration: 90 days Active Immunizations Vaccine Route Administration Date Status Comme nts Flucelvax Quadrivalent IM Intramuscular 05/10/2023 Administered [facility] [id number] pt tolerated well/instructed to wait 20 min Flucelvax Quadrivalent Pres Free IM Intramuscular 06/16/2022 Administered [facility] [id number] pt tolerated well/instructed to wait 20 min Flucelvax Trivalent, Syringe 0.5 mL, PF IM Intramuscular 05/05/2024 Administered supplied by [employer]/pt tolerated well/instructed to wait 20 min Influenza (split), 3 yrs and above Unknown 05/26/2022 Administered Prevnar 20 IM Intramuscular 06/16/2022 Administered [facility] 00 pt tolerated well/instructed to wait 20 min Shingrix Unknown 07/11/2021 Administered Flucelvax Trivalent, Syringe 0.5 mL, PF Unknown 05/02/2024 Refused Social History Tobacco Use: Social History Observation Description Date Details (start date - stop date) Current Smoker NA - NA Social History Depression Screening Social Info Question Answer Notes depression screening findings Findings Positive (5+ without suicidality) PHQ-9 Little interest or pleasure in doing things Several days Feeling down, depressed, or hopeless Several day s Trouble falling or staying asleep, or sleeping t oo much Several days Feeling tired or having little energy Nearly farzaneh ry day Poor appetite or overeating Several days Feeling bad about yourself, or that you [...] some way Not at all Total Score 7 Interpretation Mild Depression Drugs/Alcohol: Social Info Question Answer Notes Alcohol Screen (Audit-C) Did you have a drink containing alcohol in the past year? Yes How often did you have a drink containing alcohol in the past year? Monthly or less (1 point) How many drinks did you have on a typical day when you were drinking in the past year? 1 or 2 drinks (0 point) How often did you have 6 or more drinks on one occasion in the past year? Never (0 point) Points 1 Interpretation Negative Drugs Have you used drugs other than those for medical reasons in the past 12 months? No Comprehensive Health Assessm ent Social Info Question Answer Notes *Social Determinants of Health Has lack of transportation kept you from medical appointments, meetings, work or from getting things needed for daily living? No Recently, have you worried t hat your food would run out before you got money to buy more? No Do you feel physically and emotionally safe wher e you currently live? Yes Are you worried about losing your housing? No Have you recently been charlene rned that your utilities would be turned off (electricity, gas, or water)? No Tobacco Use: Social Info Question Answer Notes Tobacco Control (Standard) Tobacco use: Current smoker How often do you smoke cigarettes? Every day How many cigarettes a day do you smoke? 11-20 Additional Details Category Social Info Options Details Miscellaneous: Sexually active: no Sexual abuse: no Drugs/Alcohol: Do you smoke marijuana? De nies Do you drink alcohol? Yes, occas ionally Section Notes: 12/16/2021 12/16/2021 08/20/2022 PHQ-9 2-3-23 Pt reported he has cut back from one pack to 1/2 pack a day. Depression screen completed 11/26/2022 score 3 Depression screen completed 11/26/2022 score 3 Depression screen completed 11/26/2022 score 3 Depression screen completed 11/26/2022 score 3 Depression screen completed 11/26/2022 score 3 Depression screen completed 11/26/2022 score 3 Depression screen completed 11/26/2022 score 3 04-15-23 manager branch with [facility] spoke with patient about his emotional well being and he endorsed very minimal feelings of being down several days which he correlates with recent pacemaker. He denies all other depressive symptomology. He reported he is taking the cymbalta as ordered; and did acknowledge that he forgot to take it yesterday (04-14-23) and reported he is now taking lexapro 1/2 in the evenings. He does express his thoughts, feelings and emotions appropriately with rational and logical content and denies suicidality. Depression screen completed 11/26/2022 score 3 04-15-23 manager branch with [facility] spoke with patient about his emotional well being and he endorsed very minimal feelings of being down several days which he correlates with recent pacemaker. He denies all other depressive symptomology. He reported he is taking the cymbalta as ordered; and did acknowledge that he forgot to take it yesterday (04-14-23) and reported he is now taking lexapro 1/2 in the evenings. He does express his thoughts, feelings and emotions appropriately with rational and logical content and denies suicidality. Depression screen completed 11/26/2022 score 3 04-15-23 manager branch with [facility] spoke with patient about his emotional well being and he endorsed very minimal feelings of being down several days which he correlates with recent pacemaker. He denies all other depressive symptomology. He reported he is taking the cymbalta as ordered; and did acknowledge that he forgot to take it yesterday (04-14-23) and reported he is now taking lexapro 1/2 in the evenings. He does express his thoughts, feelings and emotions appropriately with rational and logical content and denies suicidality. Depression screen completed 12/09/2023 score 0 04-15-23 manager branch with [facility] spoke with patient about his emotional well being and he endorsed very minimal feelings of being down several days which he correlates with recent pacemaker. He denies all other depressive symptomology. He reported he is taking the cymbalta as ordered; and did acknowledge that he forgot to take it yesterday (04-14-23) and reported he is now taking lexapro 1/2 in the evenings. He does express his thoughts, feelings and emotions appropriately with rational and logical content and denies suicidality. Depression screen completed 12/09/2023 score 0 04-15-23 manager branch with [facility] spoke with patient about his emotional well being and he endorsed very minimal feelings of being down several days which he correlates with recent pacemaker. He denies all other depressive symptomology. He reported he is taking the cymbalta as ordered; and did acknowledge that he forgot to take it yesterday (04-14-23) and reported he is now taking lexapro 1/2 in the evenings. He does express his thoughts, feelings and emotions appropriately with rational and logical content and denies suicidality. Depression screen completed 12/09/2023 score 0 04-15-23 manager branch with [facility] spoke with patient about his emotional well being and he endorsed very minimal feelings of being down several days which he correlates with recent pacemaker. He denies all other depressive symptomology. He reported he is taking the cymbalta as ordered; and did acknowledge that he forgot to take it yesterday (04-14-23) and reported he is now taking lexapro 1/2 in the evenings. He does express his thoughts, feelings and emotions appropriately with rational and logical content and denies suicidality. Depression screen completed 12/09/2023 score 0 04-15-23 manager branch with [facility] spoke with patient about his emotional well being and he endorsed very minimal feelings of being down several days which he correlates with recent pacemaker. He denies all other depressive symptomology. He reported he is taking the cymbalta as ordered; and did acknowledge that he forgot to take it yesterday (04-14-23) and reported he is now taking lexapro 1/2 in the evenings. He does express his thoughts, feelings and emotions appropriately with rational and logical content and denies suicidality. Depression screen completed 12/09/2023 score 0, PHQ9 12/22/2024 04-15-23 manager branch with [facility] spoke with patient about his emotional well being and he endorsed very minimal feelings of being down several days which he correlates with recent pacemaker. He denies all other depressive symptomology. He reported he is taking the cymbalta as ordered; and did acknowledge that he forgot to take it yesterday (04-14-23) and reported he is now taking lexapro 1/2 in the evenings. He does express his thoughts, feelings and emotions appropriately with rational and logical content and denies suicidality. Depression screen completed 12/09/2023 score 0, PHQ9 12/22/2024 04-15-23 manager branch with [facility] spoke with patient about his emotional well being and he endorsed very minimal feelings of being down several days which he correlates with recent pacemaker. He denies all other depressive symptomology. He reported he is taking the cymbalta as ordered; and did acknowledge that he forgot to take it yesterday (04-14-23) and reported he is now taking lexapro 1/2 in the evenings. He does express his thoughts, feelings and emotions appropriately with rational and logical content and denies suicidality. Depression screen completed 11/26/2022 score 3 Depression screen completed 11/26/2022 score 3 04-15-23 manager branch with [facility] spoke with patient about his emotional well being and he endorsed very minimal feelings of being down several days which he correlates with recent pacemaker. He denies all other depressive symptomology. He reported he is taking the cymbalta as ordered; and did acknowledge that he forgot to take it yesterday (04-14-23) and reported he is now taking lexapro 1/2 in the evenings. He does express his thoughts, feelings and emotions appropriately with rational and logical content and denies suicidality. Depression screen completed 11/26/2022 score 3 04-15-23 manager branch with [facility] spoke with patient about his emotional well being and he endorsed very minimal feelings of being down several days which he correlates with recent pacemaker. He denies all other depressive symptomology. He reported he is taking the cymbalta as ordered; and did acknowledge that he forgot to take it yesterday (04-14-23) and reported he is now taking lexapro 1/2 in the evenings. He does express his thoughts, feelings and emotions appropriately with rational and logical content and denies suicidality. Depression screen completed 11/26/2022 score 3 04-15-23 manager branch with [facility] spoke with patient about his emotional well being and he endorsed very minimal feelings of being down several days which he correlates with recent pacemaker. He denies all other depressive symptomology. He reported he is taking the cymbalta as ordered; and did acknowledge that he forgot to take it yesterday (04-14-23) and reported he is now taking lexapro 1/2 in the evenings. He does express his thoughts, feelings and emotions appropriately with rational and logical content and denies suicidality. Depression screen completed 11/26/2022 score 3 04-15-23 manager branch with [facility] spoke with patient about his emotional well being and he endorsed very minimal feelings of being down several days which he correlates with recent pacemaker. He denies all other depressive symptomology. He reported he is taking the cymbalta as ordered; and did acknowledge that he forgot to take it yesterday (04-14-23) and reported he is now taking lexapro 1/2 in the evenings. He does express his thoughts, feelings and emotions appropriately with rational and logical content and denies suicidality. Depression screen completed 12/09/2023 score 0 04-15-23 manager branch with [facility] spoke with patient about his emotional well being and he endorsed very minimal feelings of being down several days which he correlates with recent pacemaker. He denies all other depressive symptomology. He reported he is taking the cymbalta as ordered; and did acknowledge that he forgot to take it yesterday (04-14-23) and reported he is now taking lexapro 1/2 in the evenings. He does express his thoughts, feelings and emotions appropriately with rational and logical content and denies suicidality. Depression screen completed 12/09/2023 score 0 04-15-23 manager branch with [facility] spoke with patient about his emotional well being and he endorsed very minimal feelings of being down several days which he correlates with recent pacemaker. He denies all other depressive symptomology. He reported he is taking the cymbalta as ordered; and did acknowledge that he forgot to take it yesterday (04-14-23) and reported he is now taking lexapro 1/2 in the evenings. He does express his thoughts, feelings and emotions appropriately with rational and logical content and denies suicidality. Depression screen completed 12/09/2023 score 0 04-15-23 manager branch with [facility] spoke with patient about his emotional well being and he endorsed very minimal feelings of being down several days which he correlates with recent pacemaker. He denies all other depressive symptomology. He reported he is taking the cymbalta as ordered; and did acknowledge that he forgot to take it yesterday (04-14-23) and reported he is now taking lexapro 1/2 in the evenings. He does express his thoughts, feelings and emotions appropriately with rational and logical content and denies suicidality. Depression screen completed 12/09/2023 score 0 04-15-23 manager branch with [facility] spoke with patient about his emotional well being and he endorsed very minimal feelings of being down several days which he correlates with recent pacemaker. He denies all other depressive symptomology. He reported he is taking the cymbalta as ordered; and did acknowledge that he forgot to take it yesterday (04-14-23) and reported he is now taking lexapro 1/2 in the evenings. He does express his thoughts, feelings and emotions appropriately with rational and logical content and denies suicidality. Depression screen completed 12/09/2023 score 0 04-15-23 manager branch with [facility] spoke with patient about his emotional well being and he endorsed very minimal feelings of being down several days which he correlates with recent pacemaker. He denies all other depressive symptomology. He reported he is taking the cymbalta as ordered; and did acknowledge that he forgot to take it yesterday (04-14-23) and reported he is now taking lexapro 1/2 in the evenings. He does express his thoughts, feelings and emotions appropriately with rational and logical content and denies suicidality. Depression screen completed 12/09/2023 score 0 04-15-23 manager branch with [facility] spoke with patient about his emotional well being and he endorsed very minimal feelings of being down several days which he correlates with recent pacemaker. He denies all other depressive symptomology. He reported he is taking the cymbalta as ordered; and did acknowledge that he forgot to take it yesterday (04-14-23) and reported he is now taking lexapro 1/2 in the evenings. He does express his thoughts, feelings and emotions appropriately with rational and logical content and denies suicidality. Depression screen completed 12/09/2023 score 0 04-15-23 manager branch with [facility] spoke with patient about his emotional well being and he endorsed very minimal feelings of being down several days which he correlates with recent pacemaker. He denies all other depressive symptomology. He reported he is taking the cymbalta as ordered; and did acknowledge that he forgot to take it yesterday (04-14-23) and reported he is now taking lexapro 1/2 in the evenings. He does express his thoughts, feelings and emotions appropriately with rational and logical content and denies suicidality. Depression screen completed 12/09/2023 score 0 04-15-23 manager branch with [facility] spoke with patient about his emotional well being and he endorsed very minimal feelings of being down several days which he correlates with recent pacemaker. He denies all other depressive symptomology. He reported he is taking the cymbalta as ordered; and did acknowledge that he forgot to take it yesterday (04-14-23) and reported he is now taking lexapro 1/2 in the evenings. He does express his thoughts, feelings and emotions appropriately with rational and logical content and denies suicidality. Depression screen completed 12/09/2023 score 0 04-15-23 manager branch with [facility] spoke with patient about his emotional well being and he endorsed very minimal feelings of being down several days which he correlates with recent pacemaker. He denies all other depressive symptomology. He reported he is taking the cymbalta as ordered; and did acknowledge that he forgot to take it yesterday (04-14-23) and reported he is now taking lexapro 1/2 in the evenings. He does express his thoughts, feelings and emotions appropriately with rational and logical content and denies suicidality. Depression screen completed 12/09/2023 score 0 04-15-23 manager branch with [facility] spoke with patient about his emotional well being and he endorsed very minimal feelings of being down several days which he correlates with recent pacemaker. He denies all other depressive symptomology. He reported he is taking the cymbalta as ordered; and did acknowledge that he forgot to take it yesterday (04-14-23) and reported he is now taking lexapro 1/2 in the evenings. He does express his thoughts, feelings and emotions appropriately with rational and logical content and denies suicidality. Depression screen completed 12/09/2023 score 0 04-15-23 manager branch with [facility] spoke with patient about his emotional well being and he endorsed very minimal feelings of being down several days which he correlates with recent pacemaker. He denies all other depressive symptomology. He reported he is taking the cymbalta as ordered; and did acknowledge that he forgot to take it yesterday (04-14-23) and reported he is now taking lexapro 1/2 in the evenings. He does express his thoughts, feelings and emotions appropriately with rational and logical content and denies suicidality. Depression screen completed 12/09/2023 score 0 04-15-23 manager branch with [facility] spoke with patient about his emotional well being and he endorsed very minimal feelings of being down several days which he correlates with recent pacemaker. He denies all other depressive symptomology. He reported he is taking the cymbalta as ordered; and did acknowledge that he forgot to take it yesterday (04-14-23) and reported he is now taking lexapro 1/2 in the evenings. He does express his thoughts, feelings and emotions appropriately with rational and logical content and denies suicidality. Depression screen completed 11/26/2022 score 3 04-15-23 manager branch with [facility] spoke with patient about his emotional well being and he endorsed very minimal feelings of being down several days which he correlates with recent pacemaker. He denies all other depressive symptomology. He reported he is taking the cymbalta as ordered; and did acknowledge that he forgot to take it yesterday (04-14-23) and reported he is now taking lexapro 1/2 in the evenings. He does express his thoughts, feelings and emotions appropriately with rational and logical content and denies suicidality. Depression screen completed 11/26/2022 score 3 04-15-23 manager branch with [facility] spoke with patient about his emotional well being and he endorsed very minimal feelings of being down several days which he correlates with recent pacemaker. He denies all other depressive symptomology. He reported he is taking the cymbalta as ordered; and did acknowledge that he forgot to take it yesterday (04-14-23) and reported he is now taking lexapro 1/2 in the evenings. He does express his thoughts, feelings and emotions appropriately with rational and logical content and denies suicidality. Depression screen completed 11/26/2022 score 3 04-15-23 manager branch with [facility] spoke with patient about his emotional well being and he endorsed very minimal feelings of being down several days which he correlates with recent pacemaker. He denies all other depressive symptomology. He reported he is taking the cymbalta as ordered; and did acknowledge that he forgot to take it yesterday (04-14-23) and reported he is now taking lexapro 1/2 in the evenings. He does express his thoughts, feelings and emotions appropriately with rational and logical content and denies suicidality. Depression screen completed 11/26/2022 score 3 04-15-23 manager branch with [facility] spoke with patient about his emotional well being and he endorsed very minimal feelings of being down several days which he correlates with recent pacemaker. He denies all other depressive symptomology. He reported he is taking the cymbalta as ordered; and did acknowledge that he forgot to take it yesterday (04-14-23) and reported he is now taking lexapro 1/2 in the evenings. He does express his thoughts, feelings and emotions appropriately with rational and logical content and denies suicidality. Depression screen completed 11/26/2022 score 3 04-15-23 manager branch with [facility] spoke with patient about his emotional well being and he endorsed very minimal feelings of being down several days which he correlates with recent pacemaker. He denies all other depressive symptomology. He reported he is taking the cymbalta as ordered; and did acknowledge that he forgot to take it yesterday (04-14-23) and reported he is now taking lexapro 1/2 in the evenings. He does express his thoughts, feelings and emotions appropriately with rational and logical content and denies suicidality. Depression screen completed 11/26/2022 score 3 Depression screen completed 11/26/2022 score 3 12/16/2021 08-07-22 Pt reported he has cut back from one pack to 1/2 pack a day. Depression screen completed 12/09/2023 score 0 04-15-23 manager branch with [facility] spoke with patient about his emotional well being and he endorsed very minimal feelings of being down several days which he correlates with recent pacemaker. He denies all other depressive symptomology. He reported he is taking the cymbalta as ordered; and did acknowledge that he forgot to take it yesterday (04-14-23) and reported he is now taking lexapro 1/2 in the evenings. He does express his thoughts, feelings and emotions appropriately with rational and logical content and denies suicidality. Depression screen completed 12/09/2023 score 0 04-15-23 manager branch with [facility] spoke with patient about his emotional well being and he endorsed very minimal feelings of being down several days which he correlates with recent pacemaker. He denies all other depressive symptomology. He reported he is taking the cymbalta as ordered; and did acknowledge that he forgot to take it yesterday (04-14-23) and reported he is now taking lexapro 1/2 in the evenings. He does express his thoughts, feelings and emotions appropriately with rational and logical content and denies suicidality. Depression screen completed 12/09/2023 score 0 04-15-23 manager branch with [facility] spoke with patient about his emotional well being and he endorsed very minimal feelings of being down several days which he correlates with recent pacemaker. He denies all other depressive symptomology. He reported he is taking the cymbalta as ordered; and did acknowledge that he forgot to take it yesterday (04-14-23) and reported he is now taking lexapro 1/2 in the evenings. He does express his thoughts, feelings and emotions appropriately with rational and logical content and denies suicidality. Depression screen completed 12/09/2023 score 0 04-15-23 manager branch with [facility] spoke with patient about his emotional well being and he endorsed very minimal feelings of being down several days which he correlates with recent pacemaker. He denies all other depressive symptomology. He reported he is taking the cymbalta as ordered; and did acknowledge that he forgot to take it yesterday (04-14-23) and reported he is now taking lexapro 1/2 in the evenings. He does express his thoughts, feelings and emotions appropriately with rational and logical content and denies suicidality. Depression screen completed 11/26/2022 score 3 04-15-23 manager branch with [facility] spoke with patient about his emotional well being and he endorsed very minimal feelings of being down several days which he correlates with recent pacemaker. He denies all other depressive symptomology. He reported he is taking the cymbalta as ordered; and did acknowledge that he forgot to take it yesterday (04-14-23) and reported he is now taking lexapro 1/2 in the evenings. He does express his thoughts, feelings and emotions appropriately with rational and logical content and denies suicidality. Depression screen completed 11/26/2022 score 3 04-15-23 manager branch with [facility] spoke with patient about his emotional well being and he endorsed very minimal feelings of being down several days which he correlates with recent pacemaker. He denies all other depressive symptomology. He reported he is taking the cymbalta as ordered; and did acknowledge that he forgot to take it yesterday (04-14-23) and reported he is now taking lexapro 1/2 in the evenings. He does express his thoughts, feelings and emotions appropriately with rational and logical content and denies suicidality. Depression screen completed 11/26/2022 score 3 Depression screen completed 11/26/2022 score 3 08/20/2022 PHQ-9 08-07-22 Pt reported he has cut back from one pack to 1/2 pack a day. 12/16/2021 Depression screen completed 12/09/2023 score 0, PHQ9 12/22/2024 04-15-23 manager branch with [facility] spoke with patient about his emotional well being and he endorsed very minimal feelings of being down several days which he correlates with recent pacemaker. He denies all other depressive symptomology. He reported he is taking the cymbalta as ordered; and did acknowledge that he forgot to take it yesterday (04-14-23) and reported he is now taking lexapro 1/2 in the evenings. He does express his thoughts, feelings and emotions appropriately with rational and logical content and denies suicidality. Depression screen completed 12/09/2023 score 0 04-15-23 manager branch with [facility] spoke with patient about his emotional well being and he endorsed very minimal feelings of being down several days which he correlates with recent pacemaker. He denies all other depressive symptomology. He reported he is taking the cymbalta as ordered; and did acknowledge that he forgot to take it yesterday (04-14-23) and reported he is now taking lexapro 1/2 in the evenings. He does express his thoughts, feelings and emotions appropriately with rational and logical content and denies suicidality. Depression screen completed 12/09/2023 score 0 04-15-23 manager branch with [facility] spoke with patient about his emotional well being and he endorsed very minimal feelings of being down several days which he correlates with recent pacemaker. He denies all other depressive symptomology. He reported he is taking the cymbalta as ordered; and did acknowledge that he forgot to take it yesterday (04-14-23) and reported he is now taking lexapro 1/2 in the evenings. He does express his thoughts, feelings and emotions appropriately with rational and logical content and denies suicidality. Problems Problem Type SNOMED Code ICD Code Onset Dates Problem Status W/U Status Risk Notes Problem Mixed hyperlipidemia (298925305) Mixed hyperlipidemia (E78.2) Active confirmed Problem Tobacco user (077894735) Nicotine dependence, cigarettes, uncomplicated (F17.210) Active confirmed Problem Primary insomnia (0953393) Primary insomnia (F51.01) Active confirmed Problem Chronic pain due to injury (610779730) Chronic pain due to trauma (G89.21) Active confirmed Problem Chronic pain syndrome (653064700) Chronic pain syndrome (G89.4) Active confirmed Problem Localized, primary osteoarthritis of the shoulder region () Primary osteoarthritis, right shoulder (M19.011) Active confirmed Problem Acquired hammer toe of right foot (3940264842835096) Other hammer toe(s) (acquired), right foot (M20.41) Active confirmed Problem Acquired hammer toe of left foot (7096693117236501) Other hammer toe(s) (acquired), left foot (M20.42) Active confirmed Problem Dysuria (92618434) Dysuria (R30.0) Active confi rmed Problem Neurogenic claudication (016019399) Spinal stenosis, lumbar region with neurogenic claudication (M48.062) Active confirmed Problem Long-term current use of drug therapy (782409153) MCC (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 of oral hypoglycemic drugs (Z79.84) Active confirmed Problem Lower urinary tract symptoms due to benign prostatic hypertrophy (89204539053142) Benign prostatic hyperplasia with lower urinary tract symptoms, symptom details unspecified (N40.1) Active confirmed Problem Gastroesophageal reflux disease without esophagitis (402156618) Gastroesophageal reflux disease without esophagitis (K21.9) Active confirmed Problem Anxiety (03357505) Anxiety (F41.9) Active confi rmed Problem Localized, primary osteoarthritis of the shoulder region (690537431) Primary osteoarthritis of right shoulder (M19.011) Active confirmed Problem Polyneuropathy due to type 2 diabetes mellitus (639411272) Diabetic polyneuropathy associated with type 2 diabetes mellitus (E11.42) Active confirmed Problem Exacerbation of moderate persistent asthma (disorder) (482531009) Moderate persistent asthmatic bronchitis with acute exacerbation (J45.41) Active confirmed Problem Neuropathic pain (107660859) Neuropathic pain (M79.2) Active confirmed Problem Leukocytosis (136388678) Leukocytosis, unspecified (D72.829) Active confirmed Problem Hemoglobin A1c above reference range (369469021) Elevated hemoglobin A1c (R73.09) Active confirmed Problem Tobacco abuse (6634741814) Tobacco abuse (Z72.0) Active confirmed Problem [place] spotted fever (288117698) [place] spotted fever (A77.0) Active confirmed Problem Atrial fibrillation (76795389) Atrial fibrillation, unspecified type (I48.91) Active confirmed Problem Irritable bowel syndrome (15397983) Irritable bowel syndrome with both constipation and diarrhea (K58.2) Active confirmed Problem Administration of vaccine to produce active immunity (67549086) Encounter for administration of vaccine (Z23) Active confirmed Problem Cardiac pacemaker in situ (956269937) Pacemaker (Z95.0) Active confirmed Problem Constipation by delayed colonic transit (80923242) Constipation by delayed colonic transit (K59.01) Active confirmed Problem Shoulder joint pain (493504011) Acute pain of right shoulder (M25.511) Active confirmed Problem Leukocytosis (703379599) Leukocytosis, unspecified type (D72.829) Active confirmed Problem Tobacco dependence (51431203) Tobacco dependence (F17.200) Active confirmed Problem Hyperlipidemia (08374729) Hyperlipidemia (E78.5) Active confirmed Problem Gastroesophageal reflux disease (274162870) GERD (gastroesophageal reflux disease) (K21.9) Active confirmed Problem Thyroid disorder screening (934615896) Thyroid disorder screen (Z13.29) Active confirmed Problem Counseling about tobacco use (055194971) Encounter for tobacco use cessation counseling (Z71.6) Active confirmed Problem Environmental allergy (868622348) Environmental allergies (Z91.09) Active confirmed Problem Abnormal gait (44186626) Decreased mobility (R26.89) Active confirmed Problem Thoracic spondylosis (268267427) Thoracic spondylosis (M47.814) Active confirmed Problem Disorder due to type 2 diabetes mellitus (088478568) Controlled type 2 diabetes mellitus with complication, without long-term current use of insulin (E11.8) Active confirmed Problem Hyperglycemia due to diabetes mellitus (019501845) Hyperglycemia due to diabetes mellitus (E11.65) Active confirmed Problem Hyperglycemia due to type 2 diabetes mellitus (019076298569421) Controlled type 2 diabetes mellitus with hyperglycemia, without long-term current use of insulin (E11.65) Active confirmed Problem Morbid obesity (313791269) Class 3 severe obesity due to excess calories in adult, unspecified BMI, unspecified whether serious comorbidity present (E66.01) Active confirmed Problem Chronic obstructive pulmonary disease (70401211) Chronic obstructive pulmonary disease (COPD) (J44.9) Active confirmed Problem Cervical spondylosis without myelopathy (339464736) Other osteoarthritis of spine, cervical region (M47.892) Active confirmed Problem Primary hypertension (22166281) Primary hypertension (I10) Active confirmed Problem Lumbosacral spondylosis (767272132) Lumbosacral spondylosis (M47.817) Active confirmed Problem Body mass index 40+ - severely obese (428884822) Body mass index [BMI] 40.0-44.9, adult (Z68.41) Active confirmed Problem Lumbar pain (530525281) Lumbar pain (M54.50) Active confirmed Vital Signs Heart Rate 66 /min 12/22/2024 Temperature 97.0 degrees Fahrenheit 12/22/2024 Respiratory Rate 20 /min 12/22/2024 Oximetry 95 % 12/22/2024 Blood pressure diastolic 58 mm Hg 12/22/2024 Height-cm 182.88 cm 12/22/2024 Weight-kg 130.64 kg 12/22/2024 Height 72 in 12/22/2024 Blood pressure systolic 96 mm Hg 12/22/2024 Weight 288 lbs 12/22/2024 BMI 39.06 kg/m2 12/22/2024 Encounters Encounter Location Date Provider Diagnosis [facility] [address] [address] 03/09/2024 [facility] Primary hypertension I10 and Hyperglycemia due to diabetes mellitus E11.65 [facility] [address] [address] 03/10/2024 [facility] Shingles B02.9 ; Bradley h R21 ; Anemia D64.9 ; Diabetic polyneuropathy associated with type 2 diabetes mellitus E11.42 and Hyperlipidemia E78.5 [facility] [address] [place] [address] 05/02/2024 [facility] Immunization not carried out because of patient refusal Z28.21 ; Anemia D64.9 ; Primary hypertension I10 ; Atrial fibrillation, unspecified type I48.91 ; Pacemaker Z95.0 and Hypotensive episode I95.9 [facility] [address] [place] [address] 05/05/2024 [facility] Encounter for immunization Z23 and Encounter for administration of vaccine Z23 [facility] [address] [place] [address] 05/26/2024 [facility] Anemia D64.9 and Primary hypertension I10 [email or web address] [place] 06/12/2024 [facility] Primary hyperten wanda I10 and Atrial fibrillation, unspecified type I48.91 [facility] [address] [place] [address] 06/22/2024 Jessica Booker Acute bronchitis J20.9 [facility] [address] [place] [address] 07/24/2024 [facility] Primary hypertension I10 ; Controlled type 2 diabetes mellitus with complication, without long-term current use of insulin E11.8 ; Hyperlipidemia E78.5 and Bronchitis J40 [facility] [address] [place] [address] 08/21/2024 [facility] Lipoma D17.9 ; Diabetic polyneuropathy associated with type 2 diabetes mellitus E11.42 and Mixed hyperlipidemia E78.2 [facility] [address] [place] [address] 11/20/2024 [facility] Primary hypertension I10 ; Diabetic polyneuropathy associated with type 2 diabetes mellitus E11.42 ; Atrial fibrillation, unspecified type I48.91 ; Hyperlipidemia E78.5 ; Rash R21 ; Drug therapy continued Z79.899 and Prostate cancer screening Z12.5 [facility] [address] 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 and Tobacco dependence F17.200 [facility] [place] 02/23/2024 [facility] Neuropathic pain M79.2 and Controlled type 2 diabetes mellitus with complication, without long-term current use of insulin E11.8 [facility] [place] 03/21/2024 [facility] Controlled type 2 diabetes mellitus with complication, without long-term current use of insulin E11.8 and Primary hypertension I10 [facility] [address] [address] 03/23/2024 [facility] [place] 04/18/2024 [facility] Controlled type 2 diabetes mellitus with complication, without long-term current use of insulin E11.8 and Primary hypertension I10 [facility] [place] 04/18/2024 [facility] [address] [place] [address], [place] [address] 05/12/2024 [facility] [place] 05/17/2024 [facility] Controlled type 2 diabetes mellitus with complication, without long-term current use of insulin E11.8 and Primary hypertension I10 [facility] [address] [place] [address] 06/05/2024 [facility] Leukocytosis, unspecified D72.829 [facility] [address] [place] [address] 06/08/2024 [facility] [address] [place] [address] 06/12/2024 [facility] [place] 06/12/2024 [facility] Primary hyperten wanda I10 and Atrial fibrillation, unspecified type I48.91 [email or web address] [place] 07/07/2024 [facility] Controlled type 2 diabetes mellitus with complication, without long-term current use of insulin E11.8 and Primary hypertension I10 [facility] [address] [place] [address] 07/21/2024 [facility] [address] [place] [address] 07/21/2024 [facility] [address] [place] [address] 08/03/2024 [facility] [place] 08/17/2024 [facility] Primary hyperten wanda I10 and Controlled type 2 diabetes mellitus with complication, without long-term current use of insulin E11.8 [email or web address] [place] 08/17/2024 [facility] [address] [place] [address] 08/22/2024 [facility] Lipoma D17.9 [facility] [place] 09/12/2024 [facility] Primary hyperten wanda I10 and Atrial fibrillation, unspecified type I48.91 [facility] [address] [place] [address] 10/03/2024 [facility] Acute bronchitis J20.9 [facility] [place] 10/25/2024 [facility] Chronic obstruct jeovany pulmonary disease (COPD) J44.9 and Chronic pain syndrome G89.4 [facility] [place] 11/22/2024 [facility] Controlled type 2 diabetes mellitus with complication, without long-term current use of insulin E11.8 and Mixed hyperlipidemia E78.2 [facility] [address] [place] [address] 12/11/2024 [facility] [place] 12/19/2024 [facility] Controlled type 2 diabetes mellitus with complication, without long-term current use of insulin E11.8 and Chronic pain syndrome G89.4 [place] [address] [place] [address] 01/09/2025 [place] [address] [place] [address] 01/11/2025 [facility] Change in bowel habi t R19.4 [facility] [place] 01/16/2025 [facility] Controlled type 2 diabetes mellitus with complication, without long-term current use of insulin E11.8 and Primary hypertension I10 [address] [place] [address] 01/17/[address] [place] [address] 01/29/2025 [facility] [address] [place] [address] 02/08/2025 [facility] [employer] [facility] [address] [place] [address] 02/13/2025 [facility] Lumbosacral spondylosis M47.817 Assessments Encounter Date Diagnosis (ICD Code) Assessment Notes Treatment Notes Treatment Clinical Notes Section Notes 02/13/2025 Lumbosacral spondylosis (ICD-10 - M47.817) 01/11/2025 Change in bowel habit (ICD-10 - R19.4) 01/16/2025 Controlled type 2 diabetes mellitus with complication, without long-term current use of insulin (ICD-10 - E11.8) 01/30/2025 Chronic pain syndrome (ICD-10 - G89.4) Mr. Gan is a very pleasant patient. We had a long and extensive discussion about his chronic pain management. I offered him trying a different opioid. In the end, we agreed to slowly wean him down to the Hydrocodone. I have a weaning protocol that I have provided for the patient. Additionally, we will trial extended release Hydrocodone 10/325mg to see if we can in the end change him over to a longer acting medication. We will continue Gabapentin 600mg 3 tablets a day. We'll obtain a thoracic x-ray to evaluate the placement of his dorsal column stimulator and will continue Tizanidine not to exceed 3 per day. I suspect he would also benefit from trigger point injections at the quadratus lumborum. The options for treatment were explained in detail, this included PT, medications, injections, lifestyle modifications and exercise. The patient presents to clinic for medication evaluation and management. The patient is stable on their current medication regimen and endorses adequate analgesia, increased ADLs, denies abuse and side effects. A bowel regimen was discussed with the patient. PDMP reviewed with no untoward events. We will obtain UDS confirmation at today's visit as he is establishing care. I'll see him back in 6 weeks time. 05/26/2024 Anemia (ICD-10 - D64.9) 05/26/2024 Primary hypertension (ICD-10 - I10) 06/05/2024 Leukocytosis, unspecified (ICD-10 - D72.829) 06/12/2024 Primary hypertension (ICD-10 - I10) 05/02/2024 Anemia (ICD-10 - D64.9) 06/12/2024 Primary hypertension (ICD-10 - I10) 07/24/2024 Primary hypertension (ICD-10 - I10) continue meds amlodipine metoprolol irbesartan monitor bp cbc cmp 07/24/2024 Controlled type 2 diabetes mellitus with complication, without long-term current use of insulin (ICD-10 - E11.8) maria esther lynn ha1c; microalbumin 06/22/2024 Acute bronchitis (ICD-10 - J20.9) Steroid injection given. Increase fluids, take medication as directed. RTC if no improvement with treatment. 07/07/2024 Controlled type 2 diabetes mellitus with complication, without long-term current use of insulin (ICD-10 - E11.8) 08/17/2024 Primary hypertension (ICD-10 - I10) 08/21/2024 Lipoma (ICD-10 - D17.9) dr pena 08/21/2024 Diabetic polyneuropathy associated with type 2 diabetes mellitus (ICD-10 - E11.42) continue medications 08/22/2024 Lipoma (ICD-10 - D17.9) 09/12/2024 Primary hypertension (ICD-10 - I10) 11/20/2024 Primary hypertension (ICD-10 - I10) conitnue meds cbc cmp; lipids 11/20/2024 Diabetic polyneuropathy associated with type 2 diabetes mellitus (ICD-10 - E11.42) continue meds ha1c 10/03/2024 Acute bronchitis (ICD-10 - J20.9) 10/25/2024 Chronic obstructive pulmonary disease (COPD) (ICD-10 - J44.9) 11/22/2024 Controlled type 2 diabetes mellitus with complication, without long-term current use of insulin (ICD-10 - E11.8) 12/19/2024 Controlled type 2 diabetes mellitus with complication, without long-term current use of insulin (ICD-10 - E11.8) 12/22/2024 Encounter for Medicare annual wellness exam (ICD-10 - Z00.00) Return in one year for your annual wellness visit. see eval 12/22/2024 Diabetic polyneuropathy associated with type 2 diabetes mellitus (ICD-10 - E11.42) continue meds 02/23/2024 Neuropathic pain (ICD-10 - M79.2) 03/09/2024 Primary hypertension (ICD-10 - I10) 03/09/2024 Hyperglycemia due to diabetes mellitus (ICD-10 - E11.65) 03/10/2024 Shingles (ICD-10 - B02.9) acyclovir depomedrol/decadro n im 03/10/2024 Rash (ICD-10 - R21) 03/21/2024 Controlled type 2 diabetes mellitus with complication, without long-term current use of insulin (ICD-10 - E11.8) 04/18/2024 Controlled type 2 diabetes mellitus with complication, without long-term current use of insulin (ICD-10 - E11.8) 05/02/2024 Immunization not carried out because of patient refusal (ICD-10 - Z28.21) 05/05/2024 Encounter for immunization (ICD-10 - Z23) Immunization supplied by [employer] 05/05/2024 Encounter for administration of vaccine (ICD-10 - Z23) 05/17/2024 Controlled type 2 diabetes mellitus with complication, without long-term current use of insulin (ICD-10 - E11.8) 05/17/2024 Primary hypertension (ICD-10 - I10) 05/02/2024 Primary hypertension (ICD-10 - I10) monitorcontinue meds as discussed 04/18/2024 Primary hypertension (ICD-10 - I10) 03/21/2024 Primary hypertension (ICD-10 - I10) 03/10/2024 Anemia (ICD-10 - D64.9) vit 02/23/2024 Controlled type 2 diabetes mellitus with complication, without long-term current use of insulin (ICD-10 - E11.8) 12/22/2024 Atrial fibrillation, unspecified type (ICD-10 - I48.91) continue meds eliquis 12/19/2024 Chronic pain syndrome (ICD-10 - G89.4) 11/22/2024 Mixed hyperlipidemia (ICD-10 - E78.2) 10/25/2024 Chronic pain syndrome (ICD-10 - G89.4) 11/20/2024 Atrial fibrillation, unspecified type (ICD-10 - I48.91) 09/12/2024 Atrial fibrillation, unspecified type (ICD-10 - I48.91) 08/21/2024 Mixed hyperlipidemia (ICD-10 - E78.2) continue medication 08/17/2024 Controlled type 2 diabetes mellitus with complication, without long-term current use of insulin (ICD-10 - E11.8) 07/07/2024 Primary hypertension (ICD-10 - I10) 07/24/2024 Hyperlipidemia (ICD-10 - E78.5) continue meds atorvastatin 06/12/2024 Atrial fibrillation, unspecified type (ICD-10 - I48.91) 06/12/2024 Atrial fibrillation, unspecified type (ICD-10 - I48.91) 01/30/2025 Lumbosacral spondylosis (ICD-10 - M47.817) 01/16/2025 Primary hypertension (ICD-10 - I10) 01/30/2025 Thoracic spondylosis (ICD-10 - M47.814) 01/30/2025 Myalgia (ICD-10 - M79.10) Patient has history, and physical exam consistent with pain generated from myalgia, I discussed with the patient pursuing trigger point injections with ultrasound guidance. Risks and expectations of the procedure were discussed with the patient, and they agree to proceed. Ultrasound is needed for needle localization into specific muscle groups and to decrease the risk of intravascular injection as well as decrease the risk of pneumothorax. The options for treatment were explained in detail, this included PT, medications, injections, lifestyle modifications and exercise. Will proceed with ultrasound guided trigger point injections of the quadratus lumborum 07/24/2024 Bronchitis (ICD-10 - J40) albuteral hfa z teresa medrol dose pack 11/20/2024 Hyperlipidemia (ICD-10 - E78.5) lipids 03/10/2024 Diabetic polyneuropathy associated with type 2 diabetes mellitus (ICD-10 - E11.42) gabapentin 05/02/2024 Atrial fibrillation, unspecified type (ICD-10 - I48.91) 05/02/2024 Pacemaker (ICD-10 - Z95.0) cardiology as planned 03/10/2024 Hyperlipidemia (ICD-10 - E78.5) continue meds 11/20/2024 Rash (ICD-10 - R21) depomedrol/decadro n im 05/02/2024 Hypotensive episode (ICD-10 - I95.9) 01/30/2025 MCC (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 of opiate analgesic (ICD-10 - Z79.891) 01/30/2025 Tobacco dependence (ICD-10 - F17.200) Spent greater than 7 minutes counseling patient on smoking cessation. They will make attempts to cut back. 11/20/2024 Drug therapy continued (ICD-10 - Z79.899) 11/20/2024 Prostate cancer screening (ICD-10 - Z12.5) psa 03/09/2024 Other Venipuncture: Performed by: Kelin MAGANA Attempts: x1 Location: RAC Needle gauge: 21g Patient tolerated well. 03/10/2024 Other Questions asked and answered; discharged to home. 05/02/2024 Other Questions asked and answered; discharged to home. 05/05/2024 Other Give Flu vaccine as directed per provider 05/26/2024 Other Venipuncture: Performed by:Kelin MAGANA Attempts: x1 Location: RAC Needle gauge: 21g Patient tolerated well. 07/24/2024 Other Questions asked and answered; discharged to home. Venipuncture: Performed by: Kelin MAGANA Attempts: x1 Location: LAC Needle gauge:21g Patient tolerated well. 08/21/2024 Other Questions asked and answered; discharged to home. 11/20/2024 Other Questions asked and answered; discharged to home. Venipuncture: Performed by: Kelin MAGANA Attempts:x1 Location:RAC Needle gauge:22g Patient tolerated well. 12/22/2024 Other Questions asked and answered; discharged to home. 01/30/2025 Other I, Anais Gaines, am scribing for Dr. Dawkins. I, Dr. Dawkins, personally performed the services described in this documentation, as scribed by Anais Gaines, and it is both accurate and complete. RECOMMEND URINE TESTING TODAY Urine drug screening will be performed today to monitor compliance with opioid therapy or to serve as a baseline screen for a patient who may be a candidate for opioid therapy in the future, pending UDS results. We will monitor with in-office testing (rapid testing) today and review the results prior to dispensing prescription. All positive results will be sent for quantitative analysis to ensure accuracy and quantify amounts. Any expected positive results that return negative will also be sent for quantitative analysis. Any questionable read or any medication we cannot test for in the office confidently will be sent for quantitative analysis, as well. Patient has been made aware of this policy and agrees to abide by our urine testing policy. Plan Of Treatment Pending Test Test Name Order Date Thoracic Spine AP/Lat-[id number] 01/30/2025 Future Test Test Name Order Date Inj. Trigger Point(s), 1 or 2 muscles, ( Piriformis Injection) - [id number] 01/31/2025 Next Appt Details Provider Name:Kylah Garcia, 03/01/2025 01:00:00 PM, [address] , [facility] [address], [address], Provider Name:Kae Watson, 03/07/2025 10:20:00 AM, [address] [place], [address], Provider Name:Shakila avila, 03/22/2025 02:20:00 PM, [address] [place], [address], Insurance Providers Payer Name Payer Address Payer Phone Subscriber Number Group Number Insured Name Patient Relationship to Insured Coverage Start Date Coverage End Date [place] [address] [address] [place] [address] [phone] [id number] [employer] Self - patient is the insured [place] [employer] [address] [address] [place] [phone] [id number] [employer] Self - patient is the insured Medications Administered Medication Instructions Date of Administration Dosage Notes DEPO-Medrol 01/16/2022 40 mg ndc 93656-438 3-1 pt tolerated well/instructed to wait 20 min DEPO-Medrol 06/22/2024 40 mg gin-[id number] 7-31 Patient tolerated well. dexAMETHasone 11/20/2024 4 mg ndc 52652-8 423-00 pt tolerated well/instructed to wait 20 min Ketorolac Tromethamine 01/16/2022 60 [place] c 27783-459-47 pt tolerated well/instructed to wait 20 min Rocephin 12/16/2021 250 mg NDC:76756-939-18 Patient tolerated well, advised to wait 20 min at clinic DEPO-Medrol 12/16/2021 40 mg NDC: [address]-46 Patient toleated well, advised to wait 20 min at clinic DEPO-Medrol 03/10/2024 40 mg ndc 60880-224 3-01 pt tolerated well/instructed to wait 20 min DEPO-Medrol 11/20/2024 40 mg ndc 93431-211 3-01 pt tolerated well/instructed to wait 20 min dexAMETHasone 06/22/2024 4 mg ndc-71125-1 423-00 Patient tolerated well. dexAMETHasone 03/10/2024 4 mg ndc 00440-5 423-00 pt tolerated well/instructed to wait 20 min dexAMETHasone 01/16/2022 4 mg ndc 42788-4 39-30 pt tolerated well/instructed to wait 20 min dexAMETHasone 12/16/2021 4 mg NDC: 85629-996-89 Patient tolerated well, advised to wait 20 min at clinic Ketorolac Tromethamine 12/16/2021 60 mg NDC: 66833-398-33 Patient tolerated well, advised to wait 20 min at clinic Medical (General) History Medical History History ICD Code anxiety High Blood Pressure type II diabetes hyperglycemia bronchitis/Emphysema glaucoma Arthritis constipation Swelling of multiple joints Bleeding Surgical History Surgery Date(Month/Year) leg, right, multiple 1999 back surgery 2016 Left eye blepharoplasty 12/2022 Hospitalization History Reason Date(Month/Year) see surgery hx
--- OUTSIDE RECORDS SUMMARY | 2025-02-16 15:49 | XMS_ITS | Encounter Summary ---
Author Organization [facility] Address [address] [place] [address] Care Team Providers Care Tour Operator Name Role Phone Unavailable Primary Care Provider Unavailabl e Reason for Referral * Consultation (Routine) - Closed Specialty Diagnoses / Procedures Referred By Contac t Referred To Contact Cardiology Diagnoses Atrial fibrillation, unspecified type (HCC) Presence of cardiac pacemaker Unknown, Provider [facility] - Cardiology [facility] [address] [place] [address] Phone: tel: fax: Referral ID Status Reason Start Date Expiration Date V isits Requested Visits Authorized [id number] Closed Specialty Services Required 06/05/2024 06/05/2025 1 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 Encounter Details Date Type Department Care Team (Late st Contact Info) Description 06/05/2024 Transcribe Orders [facility] - Centralized Scheduling [address] [place] [address] Unknown, Provider Atrial fibrillation, unspecified type ; Presence of cardiac pacemaker Social History Tobacco Use Types Packs/Day Years Used Date Smoking Tobacco: Never Assessed Sex and Gender Information Value Date Recorded Sex Assigned at Not on file 

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
--- OUTSIDE RECORDS SUMMARY | 2025-02-16 15:49 | XMS_ITS | Clinical Summary ---
Author Organization [facility] Address [address] [place] [address] Care Team Providers Care Estimator Jewelry Name Role Phone Unavailable Primary Care Provider Unavailabl e Source Comments [facility] [employer],non-owned Affiliates and Associated Physician Practices is amultiple site organization consisting of ambulatory clinics and hospital sitesin [place], [place], [place] and [place]. This disclosure is being madepursuant to the Care Everywhere program and may not contain all information available regarding this patient. 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 Gender Identity Not on file Sexual Orientation Not on file Plan of Treatment Health Maintenance Due Date Last Done Comments COLOGUARD (AGES 45-75) - COL ON CA SCREENING 1965 COLON MONITORING 1965 COLONOSCOPY - COLON CA SCREENING 1963 CT COLONOGRAPHY - COLON CA SCREENING 1965 Colorectal Cancer Screening 1965 FIT - COLON CA SCREENING 1963 FLEX SIG - COLON CA SCREENING 1963 LIPID TESTING 1963 HIV SCREENING 1978 HEPATITIS C SCREENING 01/14/1981 DTAP/TDAP/TD VACCINES (1 - Tdap) 1982 PNEUMOCOCCAL VACCINE 50+ (1 of 1 - PCV) 2013 ZOSTER VACCINE (1 of 2) 2013 COVID-19 VACCINE ( - 2023-2 5 season) 2024 DEPRESSION SCREENING 07/05/2024 INFLUENZA VACCINE (#1) 2025 Respiratory Syncytial Virus (RSV) Vaccine Pt: or over 60 yrs (1 - 1-dose 75+ series) 2038 HEPATITIS B VACCINE Aged Out No longe r eligible based on patient's age to complete this topic HIB VACCINE Aged Out No longer eligi ble based on patient's age to complete this topic HPV VACCINE Aged Out No longer eligi ble based on patient's age to complete this topic MENINGOCOCCAL (Group B) VACC INE SHARED DECISION-MAKING Aged Out No longer eligibl e based on patient's age to complete this topic MENINGOCOCCAL GROUPS A/C/Y/W VACCINE Aged Out No longer eligible b ased on patient's age to complete this topic
--- OUTSIDE RECORDS SUMMARY | 2025-02-16 15:49 | XMS_ITS | Encounter Summary ---
Author Organization [facility] Address [address] [place] [address] Care Team Providers Care Calender Worker Helper Name Role Phone Unavailable Primary Care Provider Unavailabl e Encounter Details Date Type Department Care Team (Late st Contact Info) Description 08/30/2016 Abstract [facility] [address] [place] [address] Rashawn Banks MD 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 August 30, 2016 Patient had a new MRI scan of the lumbar spine. It shows extraordinary changes: Impression: 1. ??Multilevel degenerative disc disease and hypertrophic facet arthropathy as characterized. ??Severe L1-L2, L2-L3 and L4-L5 central spinal canal stenosis. ??L4-L5 central disc extrusion extends above the disc level. Small L1-L2 central disc herniation. 2. ??Epidural lipomatosis with tapering of the thecal sac, most marked at L3-L4 and L4-L5. 3. ??Multilevel foraminal stenosis as noted level by level, most severe at L4-L5 and L5-S1. 4. ??Suspect a complex 8 mm synovial cyst at the ventral margin of the right L3- L4 facet which indents the right dorsolateral thecal sac. 5. ??Chronic ventral superior L2 vertebral body endplate compression fracture with anterior wedging. ??Mild chronic biconcave L3 compression fracture. ??Minor chronic ventral superior L4 endplate depression. ??Prominent chronic L1-L2 through L5-S1 Schmorl's nodes. ??No acute lumbar vertebral body compression fracture. ? Last Resulted: 08/26/16 ??4:40 PM K TO JUSTICE documented in this encounter Plan of Treatment Not on file documented as of this encounter Visit Diagnoses Not on filedocumented in this encounter
--- OUTSIDE RECORDS SUMMARY | 2025-02-16 15:49 | XMS_ITS | Encounter Summary ---
Author Organization [facility] Address [address] [place] [address] Care Team Providers Care [employer] Name Role Phone Unavailable Primary Care Provider Unavailabl e Encounter Details Date Type Department Care Team (Late st Contact Info) Description 08/26/2016 Abstract [facility] 

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
--- NOTE | 2025-02-16 15:54 | ECG_ITS ---
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 Measurements Intervals [place] Rate: 55 P: 105 ME: 202 QRS: -40 QRSD: 110 T: -5 QT: 441 QTc: 422 Interpretive Statements ELECTRONIC ATRIAL PACEMAKER LEFT AXIS DEVIATION [QRS AXIS < -30] INTRAVENTRICULAR CONDUCTION DELAY Compared to ECG 12/12/2024 15:42:33 ATRIAL PACING IS NEW Electronically Signed On 02-17-2025 20:55:30 CDT by Jovanni Quinones M.D. [id number]
--- NOTE | 2025-02-16 16:51 | ECG_ITS ---
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 Measurements Intervals [place] Rate: 75 P: 167 [place]: 218 QRS: -36 QRSD: 116 T: 38 QT: 390 QTc: 438 Interpretive Statements ELECTRONIC ATRIAL PACEMAKER Atrial paced ventricular sensed rhythm LEFT AXIS DEVIATION [QRS AXIS < -30] MODERATE INTRAVENTRICULAR CONDUCTION DELAY [110+ ms QRS DURATION] Compared to ECG 02/16/2025 15:54:35 no significant change Electronically Signed On 02-17-2025 21:27:14 CDT by Jovanni Quinones M.D. [id number]
--- NOTE | 2025-02-16 16:53 | XRR_ITS ---
PROCEDURE INFORMATION: Exam: XR Chest Exam date and time: 02/16/2025 5:04 PM Age: 60 years old Clinical indication: Pain; Angina pectoris; Additional info: Chest pain TECHNIQUE: Imaging protocol: Radiologic exam of the chest. Views: 1 view. COMPARISON: CR XR chest 1V portable [id number] 04/25/2024 7:09 PM FINDINGS: Tubes, catheters and devices: Left-sided cardiac pacemaker device. Lungs: Unremarkable. No consolidation. Pleural spaces: Unremarkable. No pleural effusion. No pneumothorax. Heart/Mediastinum: Unremarkable. No cardiomegaly. Bones/joints: Unremarkable. XR/XR chest 1V portable [id number] IMPRESSION: No acute findings.
--- NOTE | 2025-02-16 17:03 | W.ED.CHESTPA ---
Documented by User: Jin Baer DO 02/17/25 17:57 HPI - Chest Pain General: Chief Complaint: Chest Pain Stated Complaint: rshoulder pain, dizzy, light headed Time Seen by Provider: 02/16/25 16:53 History of Present Illness: 60-year-old male presents emergency room intermittently having right shoulder and chest pain he had some lightheadedness and dizziness with it. He has not noticed any exertion worsens it when asked him deep breathing worsens it he demonstrated some deep breathing he gets a sharp pain. He describes the pain as sharp and stabbing it only lasts for a few seconds and then resolves. No recent trauma or heavy lifting. Patient has a history of atrial fibrillation and is on anticoagulation. Associated symptoms: Deny abdominal pain, dyspnea or fever(s) Related Data Home Medications ?Medication ?Instructions ?Recorded ?Confirmed albuterol sulfate 90 mcg/actuation 2 inh inhalation Q4H PRN shortness 11/20/19 12/12/24 aerosol inhaler (Ventolin HFA) of breath or wheezing hydrocodone 10 mg-acetaminophen 1 tab PO Q6H PRN pain 11/20/19 12/12/24 325 mg tablet montelukast 10 mg tablet 10 mg PO DAILY@1000 11/20/19 12/12/24 sitagliptin phosphate 100 mg 100 mg PO DAILY@1000 11/20/19 12/12/24 tablet (Januvia) tamsulosin 0.4 mg capsule 0.4 mg PO BID@1000,0 11/20/19 12/12/24 trazodone 50 mg tablet 50 - 100 mg PO BEDTIME@0 11/20/19 12/12/24 omeprazole 20 mg capsule,delayed 20 mg PO DAILY 10/18/20 12/12/24 release lubiprostone 8 mcg capsule 24 mcg PO BID 04/17/21 12/12/24 (Amitiza) docusate sodium 100 mg capsule 200 mg PO BID PRN Constipation 10/14/21 12/12/24 (Dulcolax Stool Softener (docusate)) polyethylene glycol 3350 17 17 g PO DAILY PRN Constipation 10/14/21 12/12/24 gram/dose oral powder (Miralax) Lactobacillus acidophilus 20,000 mmu cells PO DAILY 07/21/22 12/12/24 (Acidophilus capsule) fluticasone propionate 50 2 spray intranasal DAILY@1000 PRN 07/21/22 12/12/24 mcg/actuation nasal Congestion spray,suspension gabapentin 600 mg tablet 600 mg PO TID 07/21/22 12/12/24 vitamins A,C,O-pkcf-hycibk 4,296 1 cap PO BID 07/21/22 12/12/24 mcg-226 mg-90 mg capsule (ICaps AREDS) escitalopram oxalate 20 mg tablet 20 mg PO DAILY 02/03/23 12/12/24 tizanidine 4 mg tablet 4 mg PO TID PRN Muscle Spasm 02/03/23 12/12/24 alprazolam 0.25 mg tablet 0.25 mg PO BID PRN Anxiety 03/19/23 12/12/24 aspirin 81 mg tablet,delayed 81 mg PO DAILY 12/06/23 12/12/24 release (Adult Low Dose Aspirin) furosemide 20 mg tablet 20 mg PO DAILY PRN swelling 12/10/23 12/12/24 duloxetine 30 mg capsule,delayed 30 mg PO BEDTIME 01/03/24 12/12/24 release tirzepatide 10 mg/0.5 mL 10 mg SUBCUT Q7D 01/03/24 12/12/24 subcutaneous pen injector (Gerry) cetirizine 10 mg tablet 10 mg PO BEDTIME PRN 04/28/24 12/12/24 Previous Rx's ?Medication ?Instructions ?Recorded apixaban 5 mg tablet (Eliquis) 5 mg PO BID #60 tabs 10/20/20 atorvastatin 40 mg tablet 40 mg PO DAILY@1000 #90 tabs 01/31/21 Bilateral Mamie Articulating #1 ea 09/11/21 AFO's Night Splint to the Left Foot #1 ea 12/31/21 Above Ankle Diabetic Boots with 3 #1 ea 08/20/22 inserts triamterene 37.5 See Rx Instructions .Route 02/17/24 mg-hydrochlorothiazide 25 mg tablet .COMPLEX #180 tabs nitroglycerin 0.4 mg sublingual 0.4 mg sublingual Q5M PRN chest 06/13/24 tablet pain #25 tabs valsartan 160 mg tablet 160 mg PO BID #180 tabs 08/08/24 amlodipine 5 mg tablet (Norvasc) 5 mg PO BID #180 tabs 03/26/25 prednisone 20 mg tablet 20 mg PO TID #15 tabs 12/12/24 tizanidine 4 mg tablet 4 mg PO Q6H PRN muscle spasticity 12/12/24 #20 tabs metoprolol succinate 50 mg 75 mg (1.5 x 50 mg) PO DAILY #125 12/18/24 tablet,extended release 24 hr tabs methylprednisolone 4 mg tablets in See Rx Instructions PO .COMPLEX 02/16/25 a dose pack (Medrol (Andrew)) #21 ea triamcinolone acetonide 0.1 % 1 applic topical DAILY #30 grams 02/16/25 topical cream Allergies Allergy/AdvReac Type Severity Reaction Status Date / Time Penicillins Allergy Mild ALGY-Rash Verified 12/12/24 10:48 Sulfa (Sulfonamide Allergy ALGY-Rash Verified 12/12/24 10:48 Antibiotics) Review of Systems Const: Denies: fever(s) or chills Card: Reports: chest pain Resp: Denies: dyspnea GI: Denies: abdominal pain : Denies: dysuria, urinary frequency or urinary urgency Musc: Denies: neck pain or back pain Skin/Breast: Denies: rash PFSH ED PFSH: Medical History HTN (hypertension) Atrial fibrillation Obesity Tobacco abuse COPD (chronic obstructive pulmonary disease) Diabetes Hyperlipidemia ANGIE on CPAP Pacemaker Symptomatic bradycardia Dizziness Chest pain Bradycardia Warfarin anticoagulation Dizziness Gastritis Sinus pause Near syncope AV block, 2nd degree, 2:1 conduction, resolved w discontinuation of metoprolol underlying bifascicular block BPH (benign prostatic hyperplasia) Hernia Change in bowel habits Syncope Transient blindness of both eyes Surgical History S/P placement of cardiac pacemaker History of cataract surgery Family History Grandmother CAD (coronary artery disease) MATERNAL Mother Diabetes Denies family history of Anesthesia complication Bleeding disorder Social History Smoking and tobacco/nicotine status: current every day tobacco/nicotine user cigarettes Packs smoked per day: 1 Alcohol intake: current Alcohol intake frequency: holidays/special occasions only Substance/Drug Use: never Household members: other Details: Girlfriend Marital status: service: No Current occupational status: disabled Physical Exam Const: GENERAL APPEARANCE: cooperative ORIENTATION/CONSCIOUSNESS: Yes awake, Yes oriented to person, Yes oriented to place and Yes oriented to time HENMT: COMMON NORMALS: normocephalic, atraumatic and hearing grossly normal bilaterally HEAD & SCALP: normocephalic and atraumatic Resp: COMMON NORMALS: normal respiratory effort, No retractions, No use of accessory muscles and clear to auscultation bilaterally AUSCULTATION: clear to auscultation bilaterally Cardio: COMMON NORMALS: regular rate, regular rhythm and No murmurs present (Cardio) RATE: regular rate RHYTHM: regular rhythm GI: COMMON NORMALS: Soft to palpation and No hepatosplenomegaly present AUSCULTATION: Yes normoactive bowel sounds PALPATION: Yes Soft to palpation, No Tenderness to palpation present (GI), No Guarding due to palpation present (GI) and Yes No hepatosplenomegaly present Extremity: COMMON NORMALS: normal to inspection, capillary refill normal, no clubbing, cyanosis or edema, no calf tenderness and no pedal edema Neuro: SENSORIUM/ORIENTATION: Yes oriented to person, Yes oriented to place and Yes oriented to time Skin: COMMON NORMALS: no rashes or lesions noted GENERAL SKIN EXAM: no rashes or lesions noted Course Vital Signs: Vital signs: Vital Signs Temperature 97.5 F L 02/16/25 15:47 Pulse Rate 63 02/16/25 20:58 Respiratory Rate 16 02/16/25 20:58 Blood Pressure 144/83 02/16/25 20:58 Pulse Oximetry 92 02/16/25 20:58 Oxygen Delivery Oh thod Room Air 02/16/25 18:00 MDM - Chest Pain Medical Decision Making Care signed out to Dr. Tong at change of shift. See final notes for diagnosis and disposition. 58-year-old male checked out to me at shift change from the previous physician. He complained of sharp episodic bouts of chest discomfort to the right side of his chest. No significant trouble breathing. He does note that he had a friend diagnosed with rhinovirus a few days ago. He had a mild cough. No fever. No significant leg swelling. His EKG shows a paced rhythm without acute ST wave changes. His CBC and BMP are normal stable blood sugar 193. His chest x-ray is nonacute. His troponin remained normal at 2 hours. His lipase is 23. Pain is reproducible with palpation on my repeat exam to some degree. He is diagnosed with chest wall inflammation/pleurisy/costochondritis. Will send him home on a tapering dose of steroid. He will start his glipizide he has at home, as his blood sugar rises quite high with steroids. Lab Data 02/16/25 16:52 02/16/25 16:52 Radiology Impressions Chest X-Ray 02/16/25 16:53 IMPRESSION: No acute findings. Laboratory Results WBC 8.41 10^3/uL (3.29-11.43) 02/16/25 16:52 RBC 4.52 10^6/uL (3.85-5.65) 02/16/25 16:52 Hgb 12.40 g/dL (11.27-16.99) 02/16/25 16:52 Hct 39.5 % (37-53) 02/16/25 16:52 MCV 87.4 fl (82-101) 02/16/25 16:52 MCH 27.4 pg (27-33) 02/16/25 16:52 MCHC 31.4 g/dL (30-55) 02/16/25 16:52 RDW 13.4 % (12.1-15.1) 02/16/25 16:52 Plt Count 174 10^3/cmm (157-399) 02/16/25 16:52 MPV 10.4 fL (7.4-10.4) 02/16/25 16:52 Neut % (Auto) 66.7 % 02/16/25 16:52 Lymph % (Auto) 23.7 % 02/16/25 16:52 [place] % (Auto) 7.3 % 02/16/25 16:52 Eos % (Auto) 1.3 % 02/16/25 16:52 Baso % (Auto) 0.4 % 02/16/25 16:52 Neut # (Auto) 5.62 10^3/uL (1.8-7.7) 02/16/25 16:52 Lymph # (Auto) 2.0 10^3/uL (0.8-4.8) 02/16/25 16:52 [place] # (Auto) 0.6 10^3/uL (0.2-0.9) 02/16/25 16:52 Eos # (Auto) 0.1 10^3/uL (0.0-0.8) 02/16/25 16:52 Baso # (Auto) 0.0 10^3/uL (0.0-0.1) 02/16/25 16:52 Nucleated RBC % (auto) 0 % 02/16/25 16:52 Nucleated RBCs # 0.0 /100WBC 02/16/25 16:52 Sodium 136 mmol/L (136-145) 02/16/25 16:52 Potassium 3.9 mmol/L (3.5-5.1) 02/16/25 16:52 Chloride 100 mmol/L (98-107) 02/16/25 16:52 Carbon Dioxide 26 mmol/L (22-29) 02/16/25 16:52 Anion Gap 13.9 (5-19) 02/16/25 16:52 BUN 9 mg/dL (8-23) 02/16/25 16:52 Creatinine 0.9 mg/dL (0.7-1.2) 02/16/25 16:52 GFR Calculation 85.5 mL/min (90-130) L 02/16/25 16:52 Glucose 193 mg/dL (65-115) H 02/16/25 16:52 Calculated Osmolality 286 mOsm/kg (285-295) 02/16/25 16:52 Calcium 8.8 mg/dL (8.5-10.5) 02/16/25 16:52 Total Bilirubin 0.5 mg/dL (0.15-1.2) 02/16/25 16:52 AST 15 U/L (0-40) 02/16/25 16:52 ALT 14 U/L (0-41) 02/16/25 16:52 Alkaline Phosphatase 89 U/L (40-130) 02/16/25 16:52 Troponin T Baseline 11 ng/L (0-15) 02/16/25 16:52 Troponin T 120 Minute 10.02 ng/L (0-15) 02/16/25 18:43 Delta Troponin T -0.98 ABS# (0-10) L 02/16/25 18:43 Total Protein 6.5 g/dL (6.6-8.7) L 02/16/25 16:52 Albumin 4.0 g/dL (3.5-5.2) 02/16/25 16:52 Globulin 2.5 g/dL (1.3-4.6) 02/16/25 16:52 Lipase 23 U/L (13-60) 02/16/25 16:52 EKG Data EKG 1: Interpretation: EKG since 02/16/2025 1554 paced rhythm no acute ST changes noted rate of 55 no other possible. Discharge Plan Discharge Patient Disposition: Home Clinical Impression: Atypical chest pain, Acute seborrheic dermatitis Condition: Stable Prescriptions: New methylprednisolone [Medrol (Andrew)] 4 mg tablets,dose pack See Rx Instructions .ROUTE .COMPLEX Qty: 21 0RF Rx Instructions: orally per package directions triamcinolone acetonide 0.1 % cream 1 applic topical DAILY Qty: 30 0RF No Action (DME) Bilateral Mamie Articulating AFO's See Rx Instructions .Route .MEDSUPPLY Qty: 1 0RF Rx Instructions: As directed lubiprostone [Amitiza] 8 mcg capsule 24 mcg PO BID docusate sodium [Dulcolax Stool Softener (dss)] 100 mg capsule 200 mg PO BID PRN (Reason: Constipation) polyethylene glycol 3350 [Miralax] 17 gram/dose powder 17 g PO DAILY PRN (Reason: Constipation) (DME) Night Splint to the Left Foot See Rx Instructions .Route .MEDSUPPLY Qty: 1 0RF Rx Instructions: As directed escitalopram oxalate 20 mg tablet 20 mg PO DAILY tizanidine 4 mg tablet 4 mg PO TID PRN (Reason: Muscle Spasm) Acidophilus Capsule 20,000 mmu cells PO DAILY ICaps AREDS 14,320-226-200 [id number] capsule 1 cap PO BID nitroglycerin 0.4 mg tablet, sublingual 0.4 mg sublingual Q5M PRN (Reason: chest pain) Qty: 25 2RF Rx Instructions: do not exceed 3 doses per episode atorvastatin 40 mg tablet 40 mg PO DAILY@1000 Qty: 90 3RF (DME) Above Ankle Diabetic Boots with 3 inserts See Rx Instructions .Route .MEDSUPPLY Qty: 1 0RF Rx Instructions: As directed HOME aspirin [Adult Low Dose Aspirin] 81 mg tablet,delayed release (DR/EC) 81 mg PO DAILY triamterene-hydrochlorothiazid 37.5-25 mg tablet See Rx Instructions .ROUTE .COMPLEX Qty: 180 2RF Dose Instruction: TAKE ONE TABLET BY MOUTH DAILY Rx Instructions: TAKE ONE TABLET BY MOUTH DAILY valsartan 160 mg tablet 160 mg PO BID Qty: 180 3RF amlodipine [Norvasc] 5 mg tablet 5 mg PO BID Qty: 180 3RF metoprolol succinate 50 mg tablet extended release 24 hr 75 mg PO DAILY Qty: 125 3RF tamsulosin 0.4 mg capsule 0.4 mg PO BID@1000,2200 trazodone 50 mg tablet 50 - 100 mg PO BEDTIME@2200 Ventolin HFA 90 mcg/actuation HFA aerosol inhaler 2 inh INHALATION Q4H PRN (Reason: shortness of breath or wheezing) hydrocodone-acetaminophen 10-325 mg tablet 1 tab PO Q6H PRN (Reason: pain) Rx Instructions: 1-2 tabs every 4-6 hours as needed for pain montelukast 10 mg tablet 10 mg PO DAILY@1000 Januvia 100 mg tablet 100 mg PO DAILY@1000 gabapentin 600 mg tablet 600 mg PO TID omeprazole 20 mg capsule,delayed release(DR/EC) 20 mg PO DAILY Rx Instructions: before morning meal Eliquis 5 mg tablet 5 mg PO BID Qty: 60 0RF fluticasone propionate 50 mcg/actuation spray,suspension 2 spray INTRANASAL DAILY@1000 PRN (Reason: Congestion) alprazolam 0.25 mg tablet 0.25 mg PO BID PRN (Reason: Anxiety) furosemide 20 mg tablet 20 mg PO DAILY PRN (Reason: swelling) cetirizine 10 mg tablet 10 mg PO BEDTIME PRN tizanidine 4 mg tablet 4 mg PO Q6H PRN (Reason: muscle spasticity) Qty: 20 0RF Rx Instructions: do not exceed 3 doses per 24 hrs prednisone 20 mg tablet 20 mg PO TID Qty: 15 0RF Rx Instructions: 1 p.o. 3 times daily x3 days, 1 p.o. twice daily x2 days, 1 p.o. daily x2 days Mounjaro 10 mg/0.5 mL pen injector 10 mg SUBCUT Q7D duloxetine 30 mg capsule,delayed release(DR/EC) 30 mg PO BEDTIME Discharge Orders: Discharge ED (Routine); Ordered 02/16/25 Ordered By: Johnathan Tong Referrals: Garcia,DENISSE MonteroN [Primary Care Provider, Nurse Practitioner] - 1-3 days Patient Instructions: Chest Wall Pain (ED), Opioid Safety, Pain Management, Patient Portal & Daniella Instructions Activity Restrictions/Additional Instructions: Medication as directed. Start your glipizide if blood sugar is high. Check it off in the next 3 days while steroid dose is high. Return for worsening pain despite treatment, shortness of breath, fever, any other concerning symptoms. Call your doctor Wednesday for follow-up appointment. Print Language: Trinidadian Coding Level of Care Code ED Hand Stitcher for Chg Fwd Documented by User: Johnathan Tong, 02/17/25 02:43 HPI - Chest Pain General: Chief Complaint: Chest Pain Stated Complaint: rshoulder pain, dizzy, light headed Time Seen by Provider: 02/16/25 16:53 Related Data Home Medications ?Medication ?Instructions ?Recorded ?Confirmed albuterol sulfate 90 mcg/actuation 2 inh inhalation Q4H PRN shortness 11/20/19 12/12/24 aerosol inhaler (Ventolin HFA) of breath or wheezing hydrocodone 10 mg-acetaminophen 1 tab PO Q6H PRN pain 11/20/19 12/12/24 325 mg tablet montelukast 10 mg tablet 10 mg PO DAILY@1000 11/20/19 12/12/24 sitagliptin phosphate 100 mg 100 mg PO DAILY@1000 11/20/19 12/12/24 tablet (Januvia) tamsulosin 0.4 mg capsule 0.4 mg PO BID@1000,0 11/20/19 12/12/24 trazodone 50 mg tablet 50 - 100 mg PO BEDTIME@2200 11/20/19 12/12/24 omeprazole 20 mg capsule,delayed 20 mg PO DAILY 10/18/20 12/12/24 release lubiprostone 8 mcg capsule 24 mcg PO BID 04/17/21 12/12/24 (Amitiza) docusate sodium 100 mg capsule 200 mg PO BID PRN Constipation 10/14/21 12/12/24 (Dulcolax Stool Softener (docusate)) polyethylene glycol 3350 17 17 g PO DAILY PRN Constipation 10/14/21 12/12/24 gram/dose oral powder (Miralax) Lactobacillus acidophilus 20,000 mmu cells PO DAILY 07/21/22 12/12/24 (Acidophilus capsule) fluticasone propionate 50 2 spray intranasal DAILY@1000 PRN 07/21/22 12/12/24 mcg/actuation nasal Congestion spray,suspension gabapentin 600 mg tablet 600 mg PO TID 07/21/22 12/12/24 vitamins A,C,G-dkig-tcoqec 4,296 1 cap PO BID 07/21/22 12/12/24 mcg-226 mg-90 mg capsule (ICaps AREDS) escitalopram oxalate 20 mg tablet 20 mg PO DAILY 02/03/23 12/12/24 tizanidine 4 mg tablet 4 mg PO TID PRN Muscle Spasm 02/03/23 12/12/24 alprazolam 0.25 mg tablet 0.25 mg PO BID PRN Anxiety 03/19/23 12/12/24 aspirin 81 mg tablet,delayed 81 mg PO DAILY 12/06/23 12/12/24 release (Adult Low Dose Aspirin) furosemide 20 mg tablet 20 mg PO DAILY PRN swelling 12/10/23 12/12/24 duloxetine 30 mg capsule,delayed 30 mg PO BEDTIME 01/03/24 12/12/24 release tirzepatide 10 mg/0.5 mL 10 mg SUBCUT Q7D 01/03/24 12/12/24 subcutaneous pen injector (Gerry) cetirizine 10 mg tablet 10 mg PO BEDTIME PRN 04/28/24 12/12/24 Previous Rx's ?Medication ?Instructions ?Recorded apixaban 5 mg tablet (Eliquis) 5 mg PO BID #60 tabs 10/20/20 atorvastatin 40 mg tablet 40 mg PO DAILY@1000 #90 tabs 01/31/21 Bilateral Mamie Articulating #1 ea 09/11/21 AFO's Night Splint to the Left Foot #1 ea 12/31/21 Above Ankle Diabetic Boots with 3 #1 ea 08/20/22 inserts triamterene 37.5 See Rx Instructions .Route 02/17/24 mg-hydrochlorothiazide 25 mg tablet .COMPLEX #180 tabs nitroglycerin 0.4 mg sublingual 0.4 mg sublingual Q5M PRN chest 06/13/24 tablet pain #25 tabs valsartan 160 mg tablet 160 mg PO BID #180 tabs 08/08/24 amlodipine 5 mg tablet (Norvasc) 5 mg PO BID #180 tabs 09/27/24 prednisone 20 mg tablet 20 mg PO TID #15 tabs 12/12/24 tizanidine 4 mg tablet 4 mg PO Q6H PRN muscle spasticity 12/12/24 #20 tabs metoprolol succinate 50 mg 75 mg (1.5 x 50 mg) PO DAILY #125 12/18/24 tablet,extended release 24 hr tabs methylprednisolone 4 mg tablets in See Rx Instructions PO .COMPLEX 02/16/25 a dose pack (Medrol (Andrew)) #21 ea triamcinolone acetonide 0.1 % 1 applic topical DAILY #30 grams 02/16/25 topical cream Allergies Allergy/AdvReac Type Severity Reaction Status Date / Time Penicillins Allergy Mild ALGY-Rash Verified 12/12/24 10:48 Sulfa (Sulfonamide Allergy ALGY-Rash Verified 12/12/24 10:48 Antibiotics) [facility] ED PFSH: Medical History HTN (hypertension) Atrial fibrillation Obesity Tobacco abuse COPD (chronic obstructive pulmonary disease) Diabetes Hyperlipidemia ANGIE on CPAP Pacemaker Symptomatic bradycardia Dizziness Chest pain Bradycardia Warfarin anticoagulation Dizziness Gastritis Sinus pause Near syncope AV block, 2nd degree, 2:1 conduction, resolved w discontinuation of metoprolol underlying bifascicular block BPH (benign prostatic hyperplasia) Hernia Change in bowel habits Syncope Transient blindness of both eyes Surgical History S/P placement of cardiac pacemaker History of cataract surgery Family History Grandmother CAD (coronary artery disease) MATERNAL Mother Diabetes Denies family history of Anesthesia complication Bleeding disorder Social History Smoking and tobacco/nicotine status: current every day tobacco/nicotine user cigarettes Packs smoked per day: 1 Alcohol intake: current Alcohol intake frequency: holidays/special occasions only Substance/Drug Use: never Household members: other Details: Girlfriend Marital status: service: No Current occupational status: disabled Course Vital Signs: Vital signs: Vital Signs Temperature 97.5 F L 02/16/25 15:47 Pulse Rate 63 02/16/25 20:58 Respiratory Rate 16 02/16/25 20:58 Blood Pressure 144/83 02/16/25 20:58 Pulse Oximetry 92 02/16/25 20:58 Oxygen Delivery Me thod Room Air 02/16/25 18:00 MDM - Chest Pain Medical Decision Making 58-year-old male checked out to me at shift change from the previous physician. He complained of sharp episodic bouts of chest discomfort to the right side of his chest. No significant trouble breathing. He does note that he had a friend diagnosed with rhinovirus a few days ago. He had a mild cough. No fever. No significant leg swelling. His EKG shows a paced rhythm without acute ST wave changes. His CBC and BMP are normal stable blood sugar 193. His chest x-ray is nonacute. His troponin remained normal at 2 hours. His lipase is 23. Pain is reproducible with palpation on my repeat exam to some degree. He is diagnosed with chest wall inflammation/pleurisy/costochondritis. Will send him home on a tapering dose of steroid. He will start his glipizide he has at home, as his blood sugar rises quite high with steroids. Lab Data 02/16/25 16:52 02/16/25 16:52 Radiology Impressions Chest X-Ray 02/16/25 16:53 IMPRESSION: No acute findings. Laboratory Results WBC 8.41 10^3/uL (3.29-11.43) 02/16/25 16:52 RBC 4.52 10^6/uL (3.85-5.65) 02/16/25 16:52 Hgb 12.40 g/dL (11.27-16.99) 02/16/25 16:52 Hct 39.5 % (37-53) 02/16/25 16:52 MCV 87.4 fl (82-101) 02/16/25 16:52 MCH 27.4 pg (27-33) 02/16/25 16:52 MCHC 31.4 g/dL (30-55) 02/16/25 16:52 RDW 13.4 % (12.1-15.1) 02/16/25 16:52 Plt Count 174 10^3/cmm (157-399) 02/16/25 16:52 MPV 10.4 fL (7.4-10.4) 02/16/25 16:52 Neut % (Auto) 66.7 % 02/16/25 16:52 Lymph % (Auto) 23.7 % 02/16/25 16:52 [place] % (Auto) 7.3 % 02/16/25 16:52 Eos % (Auto) 1.3 % 02/16/25 16:52 Baso % (Auto) 0.4 % 02/16/25 16:52 Neut # (Auto) 5.62 10^3/uL (1.8-7.7) 02/16/25 16:52 Lymph # (Auto) 2.0 10^3/uL (0.8-4.8) 02/16/25 16:52 [place] # (Auto) 0.6 10^3/uL (0.2-0.9) 02/16/25 16:52 Eos # (Auto) 0.1 10^3/uL (0.0-0.8) 02/16/25 16:52 Baso # (Auto) 0.0 10^3/uL (0.0-0.1) 02/16/25 16:52 Nucleated RBC % (auto) 0 % 02/16/25 16:52 Nucleated RBCs # 0.0 /100WBC 02/16/25 16:52 Sodium 136 mmol/L (136-145) 02/16/25 16:52 Potassium 3.9 mmol/L (3.5-5.1) 02/16/25 16:52 Chloride 100 mmol/L (98-107) 02/16/25 16:52 Carbon Dioxide 26 mmol/L (22-29) 02/16/25 16:52 Anion Gap 13.9 (5-19) 02/16/25 16:52 BUN 9 mg/dL (8-23) 02/16/25 16:52 Creatinine 0.9 mg/dL (0.7-1.2) 02/16/25 16:52 GFR Calculation 85.5 mL/min (90-130) L 02/16/25 16:52 Glucose 193 mg/dL (65-115) H 02/16/25 16:52 Calculated Osmolality 286 mOsm/kg (285-295) 02/16/25 16:52 Calcium 8.8 mg/dL (8.5-10.5) 02/16/25 16:52 Total Bilirubin 0.5 mg/dL (0.15-1.2) 02/16/25 16:52 AST 15 U/L (0-40) 02/16/25 16:52 ALT 14 U/L (0-41) 02/16/25 16:52 Alkaline Phosphatase 89 U/L (40-130) 02/16/25 16:52 Troponin T Baseline 11 ng/L (0-15) 02/16/25 16:52 Troponin T 120 Minute 10.02 ng/L (0-15) 02/16/25 18:43 Delta Troponin T -0.98 ABS# (0-10) L 02/16/25 18:43 Total Protein 6.5 g/dL (6.6-8.7) L 02/16/25 16:52 Albumin 4.0 g/dL (3.5-5.2) 02/16/25 16:52 Globulin 2.5 g/dL (1.3-4.6) 02/16/25 16:52 Lipase 23 U/L (13-60) 02/16/25 16:52 All radiology interpretation(s) finalized by discharge Discharge Plan Discharge Patient Disposition: Home Clinical Impression: Atypical chest pain, Acute seborrheic dermatitis Condition: Stable Prescriptions: New methylprednisolone [Medrol (Andrew)] 4 mg tablets,dose pack See Rx Instructions .ROUTE .COMPLEX Qty: 21 0RF Rx Instructions: orally per package directions triamcinolone acetonide 0.1 % cream 1 applic topical DAILY Qty: 30 0RF No Action (DME) Bilateral [place] Articulating AFO's See Rx Instructions .Route .MEDSUPPLY Qty: 1 0RF Rx Instructions: As directed lubiprostone [Amitiza] 8 mcg capsule 24 mcg PO BID docusate sodium [Dulcolax Stool Softener (dss)] 100 mg capsule 200 mg PO BID PRN (Reason: Constipation) polyethylene glycol 3350 [Miralax] 17 gram/dose powder 17 g PO DAILY PRN (Reason: Constipation) (DME) Night Splint to the Left Foot See Rx Instructions .Route .MEDSUPPLY Qty: 1 0RF Rx Instructions: As directed escitalopram oxalate 20 mg tablet 20 mg PO DAILY tizanidine 4 mg tablet 4 mg PO TID PRN (Reason: Muscle Spasm) Acidophilus Capsule 20,000 mmu cells PO DAILY ICaps AREDS 14,320-226-200 [id number] capsule 1 cap PO BID nitroglycerin 0.4 mg tablet, sublingual 0.4 mg sublingual Q5M PRN (Reason: chest pain) Qty: 25 2RF Rx Instructions: do not exceed 3 doses per episode atorvastatin 40 mg tablet 40 mg PO DAILY@1000 Qty: 90 3RF (DME) Above Ankle Diabetic Boots with 3 inserts See Rx Instructions .Route .MEDSUPPLY Qty: 1 0RF Rx Instructions: As directed HOME aspirin [Adult Low Dose Aspirin] 81 mg tablet,delayed release (DR/EC) 81 mg PO DAILY triamterene-hydrochlorothiazid 37.5-25 mg tablet See Rx Instructions .ROUTE .COMPLEX Qty: 180 2RF Dose Instruction: TAKE ONE TABLET BY MOUTH DAILY Rx Instructions: TAKE ONE TABLET BY MOUTH DAILY valsartan 160 mg tablet 160 mg PO BID Qty: 180 3RF amlodipine [Norvasc] 5 mg tablet 5 mg PO BID Qty: 180 3RF metoprolol succinate 50 mg tablet extended release 24 hr 75 mg PO DAILY Qty: 125 3RF tamsulosin 0.4 mg capsule 0.4 mg PO BID@1000,2200 trazodone 50 mg tablet 50 - 100 mg PO BEDTIME@2200 Ventolin HFA 90 mcg/actuation HFA aerosol inhaler 2 inh INHALATION Q4H PRN (Reason: shortness of breath or wheezing) hydrocodone-acetaminophen 10-325 mg tablet 1 tab PO Q6H PRN (Reason: pain) Rx Instructions: 1-2 tabs every 4-6 hours as needed for pain montelukast 10 mg tablet 10 mg PO DAILY@1000 Januvia 100 mg tablet 100 mg PO DAILY@1000 gabapentin 600 mg tablet 600 mg PO TID omeprazole 20 mg capsule,delayed release(DR/EC) 20 mg PO DAILY Rx Instructions: before morning meal Eliquis 5 mg tablet 5 mg PO BID Qty: 60 0RF fluticasone propionate 50 mcg/actuation spray,suspension 2 spray INTRANASAL DAILY@1000 PRN (Reason: Congestion) alprazolam 0.25 mg tablet 0.25 mg PO BID PRN (Reason: Anxiety) furosemide 20 mg tablet 20 mg PO DAILY PRN (Reason: swelling) cetirizine 10 mg tablet 10 mg PO BEDTIME PRN tizanidine 4 mg tablet 4 mg PO Q6H PRN (Reason: muscle spasticity) Qty: 20 0RF Rx Instructions: do not exceed 3 doses per 24 hrs prednisone 20 mg tablet 20 mg PO TID Qty: 15 0RF Rx Instructions: 1 p.o. 3 times daily x3 days, 1 p.o. twice daily x2 days, 1 p.o. daily x2 days Mounjaro 10 mg/0.5 mL pen injector 10 mg SUBCUT Q7D duloxetine 30 mg capsule,delayed release(DR/EC) 30 mg PO BEDTIME Discharge Orders: Discharge ED (Routine); Ordered 02/16/25 Ordered By: Johnathan Tong Referrals: Garcia,Kylah, PRESIDING JUDGE [Primary Care Provider, Nurse Practitioner] - 1-3 days Patient Instructions: Chest Wall Pain (ED), Opioid Safety, Pain Management, Patient Portal & Daniella Instructions Activity Restrictions/Additional Instructions: Medication as directed. Start your glipizide if blood sugar is high. Check it off in the next 3 days while steroid dose is high. Return for worsening pain despite treatment, shortness of breath, fever, any other concerning symptoms. Call your doctor Wednesday for follow-up appointment. Print Language: Trinidadian Coding Level of Care Code ED Hand Stitcher for Kalpesh Aldana
[2025-02-16 17:09] LABS: Hematocrit 39.5 % (37-53); Hemoglobin 12.40 g/dL (11.27-16.99); Mean Corpuscular HGB Conc 31.4 g/dL (30-55); Mean Corpuscular Hemoglobin 27.4 pg (27-33); Mean Corpuscular Volume 87.4 fl (82-101); Nucleated Red Blood Cells % 0 %; Platelet Count 174 10^3/cmm (157-399); Red Blood Count 4.52 10^6/uL (3.85-5.65); White Blood Count 8.41 10^3/uL (3.29-11.43)
[2025-02-16 17:25] LABS: Alanine Aminotransferase 14 U/L (0-41); Albumin Level 4.0 g/dL (3.5-5.2); Alkaline Phosphatase 89 U/L (40-130); Anion Gap 13.9 (5-19); Aspartate Amino Transferase 15 U/L (0-40); Blood Urea Nitrogen 9 mg/dL (8-23); Calcium 8.8 mg/dL (8.5-10.5); Carbon Dioxide 26 mmol/L (22-29); Chloride 100 mmol/L (98-107); Creatinine Clr Calc Pharmacy 118.8566; Globulin 2.5 g/dL (1.3-4.6); Glucose 193 mg/dL (65-115); Lipase 23 U/L (13-60); Osmolality Calculated 286 mOsm/kg (285-295); Potassium 3.9 mmol/L (3.5-5.1); Sodium 136 mmol/L (136-145); Total Protein 6.5 g/dL (6.6-8.7)
[2025-02-16 17:27] LABS: Troponin(5th) Baseline 11 ng/L (0-15)
[2025-02-16 18:00] VITALS: BP 116/77; PULSE 59; RESP 16; O2SAT 95
[2025-02-16] MEDS: ondansetron 2 mg/ML SDV 2 mL 4 MG IVP (19:12)
[2025-02-16] MEDS: lidocaine 2% viscous 15 ML, aluminum-mag hydrox-simethicon 30 ML, sucralfate oral liq 1 GM PO (19:12)
[2025-02-16 19:23] LABS: Troponin 5 2HR 10.02 ng/L (0-15)
[2025-02-16 19:30] LABS: Troponin 5 2HR Delta -0.98 ABS# (0-10)
[2025-02-16 20:58] VITALS: BP 144/83; PULSE 63; RESP 16; O2SAT 92
== END 2025-02-16 20:58 | disposition home or self-care (01) ==
PROVIDERS: Emergency Medicine; Emergency Provider Emergency Medicine; PCP Nurse Practitioner Family
DX: R07.89 Other chest pain (principal); L21.9 Seborrheic dermatitis, unspecified; Z79.82 Long term (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 of aspirin; Z79.01 Long term (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 of anticoagulants; F17.210 Nicotine dependence, cigarettes, uncomplicated; Z95.0 Presence of cardiac pacemaker; J44.9 Chronic obstructive pulmonary disease, unspecified; E78.5 Hyperlipidemia, unspecified; I10 Essential (primary) hypertension; E11.9 Type 2 diabetes mellitus without complications
CPT/HCPCS: 36415; 71045; 80053; 83690; 84484; 85025; 93005; 96374; 96375; 99285; J1100; J1885; J2405; J9999

== ENCOUNTER → 2025-03-02 10:29 | Outpatient (BNVA) | payer MEDICARE, OTHER, SELFPAY | PROVIDERS: PCP Nurse Practitioner Family; Visit Provider Specialist | DX: M19.011 Primary osteoarthritis, right shoulder (principal) | CPT/HCPCS: 20610 ==

== ENCOUNTER → 2025-03-07 10:42 | Outpatient (BNVA) | payer MEDICARE, OTHER, SELFPAY | PROVIDERS: PCP Nurse Practitioner Family; Visit Provider Internal Medicine Cardiovascular Disease | DX: Z45.018 Encounter for adjustment and management of other part of cardiac pacemaker (principal) | CPT/HCPCS: 93296 ==

== ENCOUNTER → 2025-04-20 11:11 | Outpatient (BNVA) | payer MEDICARE, OTHER, SELFPAY | PROVIDERS: PCP Nurse Practitioner Family; Visit Provider Internal Medicine Cardiovascular Disease | DX: I10 Essential (primary) hypertension (principal); I48.91 Unspecified atrial fibrillation; R07.9 Chest pain, unspecified; R42 Dizziness and giddiness; F17.210 Nicotine dependence, cigarettes, uncomplicated; Z79.01 Long term (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 of anticoagulants; Z79.82 Long term (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 of aspirin | CPT/HCPCS: 99214 ==

== ENCOUNTER → 2025-06-08 09:25 | Outpatient (BNVA) | payer MEDICARE, OTHER, SELFPAY | PROVIDERS: PCP Nurse Practitioner Family; Visit Provider Specialist | DX: M19.011 Primary osteoarthritis, right shoulder (principal) | CPT/HCPCS: 20610; J1100; J2795; J3301; J9999 ==